=== PATIENT | female | born 1935 | race Caucasian/White ===

== ENCOUNTER → 2018-03-03 11:38 | Outpatient (CLI) | payer OTHER, SELFPAY ==
--- NOTE | 2018-03-03 11:42 | RAD_ITS ---
STUDY: X-RAY CHEST REASON FOR EXAM: Female, 82 years old. 2 week history of cough. TECHNIQUE: PA and lateral views of the chest. COMPARISON: None. FINDINGS: Hyperinflation. Mild increased markings in the right middle lobe and lingular segment of the left upper lobe. This may represent scarring. No definite consolidation is seen. There is no demonstrated pleural abnormality. Normal size heart. Normal mediastinum and ligia. Normal visualized pulmonary arteries. There is atherosclerotic calcification of the aortic arch with tortuosity. There are diffuse degenerative changes of the visualized thoracic spine. Normal visualized ribs, clavicles, and shoulders. There is no demonstrated abnormality of the visualized soft tissue structures of the upper abdomen. RAD/Chest PA and Lateral IMPRESSION: Increased markings at the lung bases as described. This may represent scarring. No focal infiltrate is seen. Electronically Signed: Radu Cabrera MD at 12:45 EDT Tel [phone], Service support ,
== END ==
PROVIDERS: Family Provider Family Medicine; PCP Family Medicine; Visit Provider Physician Assistant
DX: R05 Cough (principal)
CPT/HCPCS: 71046

== ENCOUNTER → 2018-03-25 08:05 | Outpatient (CLI) | payer OTHER, SELFPAY ==
[2018-03-25 12:22] LABS: Absolute Lymphocyte Count 0.96 X10^3/ul (0.83-4.51); Absolute Neutrophil Count 2.5 X10^3/uL (2.0-7.7); Basophil# 0.03 X10^3/uL; Basophil% 0.8 % (0-1); Eosinophils% 5.2 % (0-5); Hematocrit 32.5 % (37-47); Hemoglobin 10.2 g/dl (12.0-15.0); Lymphocyte # 0.96 X10^3/ul (4.0); Lymphocyte % 24.7 % (19-41); Mean Corp Hgb Conc 31.4 g/gl (32-36); Mean Corpuscular Hgb 33.7 pg (27.0-32.0); Mean Corpuscular Volume 107.3 fL (81-99); Mean Platelet Vol. 11.4 fl (6.2-12.0); Monocyte# 0.16 X10^3/uL; Monocyte% 4.1 % (0-10); Neutrophil # 2.53 X10^3/uL (2.7-7.7); Neutrophil % 65.2 % (47-70); Platelet Count 286 K/mm3 (150-450); RBC Distribution Width CV 13.7 % (11.6-14.6); RBC Distribution Width SD 51.7 fl (35.1-43.9); Red Blood Count 3.03 M/mm3 (4.2-5.4); White Blood Count 3.9 K/mm3 (4.4-11.0)
[2018-03-25 12:28] LABS: Microalbumin,Random Urine 6.7 mg/L (NO RANGE EST.); Microalbumin:Creatinine Ratio 9.9 mg/g CRE (<30 mg/g CRE)
[2018-03-25 12:32] LABS: POSITIVE COUNT NO; POSITIVE DIFFERENTIAL NO; POSITIVE MORPHOLOGY NO
[2018-03-25 12:35] LABS: Hemoglobin A1c 5.9 % (4.2-6.3)
[2018-03-25 12:40] LABS: ALB/GLOB Ratio 1.4 RATIO (0.9-2.4); AST(SGOT) 28 U/L (15-37); Alanine Aminotransfer ALT/SGPT 24 U/L (13-56); Albumin, Serum 3.7 g/dL (3.2-5.0); Alkaline Phosphatase 55 U/L (45-117); Anion Gap 7 (5-15); BUN 24 mg/dL (7-18); BUN/Creat Ratio 22.6 RATIO (10-20); Calcium,Total 8.9 mg/dL (8.5-10.1); Chloride 107 mmol/L (98-107); Cholesterol 163 mg/dL (200); Creatinine, Serum 1.06 mg/dL (0.55-1.02); EST Glomerular Filtration Rate 53 mL/min (>60); Est Glom Filt Rate - Afr Amer 64 mL/min (>60); Globulin 2.7 g/dL (2.2-4.2); Glucose 93 mg/dL (74-106); High Density Lipoprotein 87 mg/dL; Potassium 4.3 mmol/L (3.5-5.1); Protein, Total 6.4 g/dL (6.4-8.2); Sodium Level 143 mmol/L (136-145); Thyroid Stim Hormone (TSH) 2.59 uIU/mL (0.358-3.74); Triglycerides 66 mg/dL; Very Low Density Lipoprotein 13 mg/dL (5-40)
== END ==
PROVIDERS: Family Provider Family Medicine; PCP Family Medicine; Visit Provider Family Medicine
DX: E11.9 Type 2 diabetes mellitus without complications (principal); E78.5 Hyperlipidemia, unspecified; E03.9 Hypothyroidism, unspecified; I10 Essential (primary) hypertension
CPT/HCPCS: 36415; 80053; 80061; 82043; 82570; 83036; 84443; 85025

== ENCOUNTER 2018-04-18 20:29 | Observation (INO) | payer MEDICARE, SELFPAY ==
[2018-04-18 20:30] VITALS: BP 125/69; PULSE 79; RESP 18; TEMP 36.9; O2SAT 100; BMI 20.9
[2018-04-18 21:25] LABS: Absolute Lymphocyte Count 1.59 X10^3/ul (0.83-4.51); Absolute Neutrophil Count 2.8 X10^3/uL (2.0-7.7); Basophil# 0.02 X10^3/uL; Basophil% 0.4 % (0-1); Eosinophil# 0.16 X10^3/uL; Eosinophils% 3.4 % (0-5); Hematocrit 35.7 % (37-47); Hemoglobin 11.8 g/dl (12.0-15.0); Lymphocyte # 1.59 X10^3/ul (4.0); Lymphocyte % 33.9 % (19-41); Mean Corp Hgb Conc 33.1 g/gl (32-36); Mean Corpuscular Hgb 34.3 pg (27.0-32.0); Mean Corpuscular Volume 103.8 fL (81-99); Mean Platelet Vol. 9.1 fl (6.2-12.0); Monocyte% 2.1 % (0-10); Neutrophil # 2.81 X10^3/uL (2.7-7.7); POSITIVE COUNT NO; POSITIVE DIFFERENTIAL NO; POSITIVE MORPHOLOGY NO; Platelet Count 325 K/mm3 (150-450); RBC Distribution Width CV 13.8 % (11.6-14.6); RBC Distribution Width SD 52.5 fl (35.1-43.9); Red Blood Count 3.44 M/mm3 (4.2-5.4); White Blood Count 4.7 K/mm3 (4.4-11.0)
[2018-04-18 21:28] VITALS: BP 162/73; PULSE 69; RESP 18; O2SAT 97
[2018-04-18 21:34] LABS: Bacteria 0 SEEN /hpf (None Seen); Mucous, Urine 0 SEEN /hpf (<or=2+); Red Blood Cells-Urine 0 SEEN /hpf (0-5); Squamous Epithelial Cells - UA 0 SEEN /hpf (5-10)
[2018-04-18 21:45] LABS: Anion Gap 8 (5-15); BUN 22 mg/dL (7-18); BUN/Creat Ratio 21.8 RATIO (10-20); Calcium,Total 10.2 mg/dL (8.5-10.1); Chloride 104 mmol/L (98-107); Creatinine, Serum 1.01 mg/dL (0.55-1.02); EST Glomerular Filtration Rate 56 mL/min (>60); Est Glom Filt Rate - Afr Amer 68 mL/min (>60); Estimated Creatinine Clearance 31.38 ml/min; Glucose 89 mg/dL (74-106); Potassium 3.9 mmol/L (3.5-5.1); Sodium Level 140 mmol/L (136-145)
[2018-04-18 21:52] LABS: Color, Urine Straw (Yellow); Glucose, Dipstick Normal (Normal); Ketone-Dipstick Negative (Negative); Leukocyte Esterase-Dipstick Negative /ul (Negative); Nitrite-Dipstick Negative (Negative); Occult Blood-Urine Negative /ul (Negative); Protein-Dipstick Negative (Negative); Specific Gravity, Urine 1.005 (1.002-1.030); Urine Bilirubin Dipstick Negative (Negative); Urine Clarity Clear (Clear); Urine Urobilinogen Normal (Normal)
--- NOTE | 2018-04-18 21:58 | RAD_ITS ---
STUDY: X-RAY CHEST REASON FOR EXAM: Female, 82 years old. Chest pain TECHNIQUE: Single AP portable view of the chest. COMPARISON: Prior chest radiograph of March 03, 2018. FINDINGS: Lung bernstein are well expanded to mildly hyperexpanded without consolidation, focal atelectasis or pleural effusion. There is no demonstrated pleural abnormality. Normal size heart. Normal mediastinum and ligia. Normal visualized pulmonary arteries. There is atherosclerotic calcification of the aortic arch with tortuosity. There are diffuse degenerative changes of the visualized thoracic spine with demineralized osseous structures. Normal visualized ribs, clavicles, and shoulders. There is no demonstrated abnormality of the visualized soft tissue structures of the upper abdomen. RAD/Chest 1 View (Portable) IMPRESSION: No acute cardiopulmonary findings or changes. Mild hyperexpansion without consolidation, atelectasis, cardiomegaly or pleural effusion. Electronically Signed: Hazel Espinoza MD at 22:35 EDT , Service support ,
--- NOTE | 2018-04-18 21:58 | EKG12_ITS ---
Test Reason : INDIGESTION Blood Pressure : / mmHG Vent. Rate : 073 BPM Atrial Rate : 073 BPM P-R Int : 172 ms QRS Dur : 100 ms QT Int : 412 ms P-R-T Axes : 055 -14 049 degrees QTc Int : 453 ms Poor data quality, interpretation may be adversely affected Normal sinus rhythm Nonspecific ST abnormality Abnormal ECG Confirmed by BOYD BAY, JUAN ([id number]), supervising editor trailer SMILEY BLAIR ([id number]) on 04/20/2018 3:03:16 PM Referred By: Confirmed By:JUAN NIX MD
[2018-04-18 22:00] LABS: White Blood Cells 0-5 SEEN /hpf (0-5)
--- NOTE | 2018-04-18 22:03 | ED.RN ---
NO OLD EKG'S IN MUSE
[2018-04-18 22:20] VITALS: BP 125/75; PULSE 74; RESP 14; O2SAT 97
[2018-04-18 22:22] VITALS: BP 138/73; PULSE 75
[2018-04-18] MEDS: 0.9% Normal Saline 1,000 ML 150 ML IV (22:22)
[2018-04-18] MEDS: Aspirin 81 MG TAB.CHEW 324 MG PO (22:22)
[2018-04-18 22:51] VITALS: BP 125/75; PULSE 68
[2018-04-18] MEDS: Nitroglycerin Oint 1 INCH PACKET TRANSDERM. (22:51)
--- NOTE | 2018-04-18 22:59 | ED.VISSUMM ---
- ER Visit Summary Date of Service: 04/18/18 Chief Complaint: [Chest/abdominal pain.] History of Present Illness: The patient is a 82 F [presents the emergency department with complaint of she thought was indigestion that started around 6 PM. Patient describes a discomfort in the epigastric and retrosternal area that she describes as a squeezing or tightness. Patient states that she has had somewhat similar symptoms in the past but in the past when she has taken Pepcid it would resolve the discomfort. Tonight the discomfort would not go away and it was more intense than ever. Patient denies eating anything spicy, acidic, or greasy. Patient states that in the past when she has had discomfort like this she has had some radiation into her arms. Patient denies any shortness of breath or diaphoresis. Patient does state that she walks for 5 days a week for several miles a day and typically does not experience chest pain or shortness of breath. Patient has a history of diabetes, hypertension, high cholesterol. Patient has not had any cardiac workup in the past. She does not have any cardiac history.] Physical Examination: [HEENT-PERRLA, EOMI. Cranial nerves II through XII grossly intact. TMs clear. Mucous membranes moist. No adenopathy. Cardiovascular-regular rate and rhythm without murmur or ectopy Lungs-clear to auscultation, chest wall stable without crepitus or subcu emphysema Abdomen-normoactive bowel sounds, soft, nontender, no rebound or rigidity, no peritoneal signs. Extremities-intact ?4, normal range of motion, normal pulses, atraumatic Test Results: [EKG obtained on arrival showed a sinus rhythm with a ventricular rate of 73 bpm. Patient had nonspecific ST changes with some subtle ST depression in leads I and aVL. No old EKGs available for comparison. CBC with differential showed a white count of 4.7, hemoglobin 11.8, hematocrit 36, platelets 325. Chemistries unremarkable. Urinalysis was normal. Troponin was less than 0.015. Chest x-ray showed nothing acute.] Emergency Department Course and Treatment: [Patient received aspirin on arrival. Patient also received 1 sublingual nitroglycerin which completely resolved her pain.] Treatment Plan: [Admit for further workup and evaluation of her chest pain to rule out acute coronary syndrome] Disposition: [Admit Impression: [Chest pain-rule out acute coronary syndrome] This note was generated with [employer] dictation software. It may contain incorrect words, spelling, and punctuation that were not noted in review of the chart prior to signing ED Disposition - Plan for ED Patient: Chief Complaint: Abd Pain Referrals: Everardo Garcia DO [Primary Care Provider] -
--- NOTE | 2018-04-18 23:00 | HP.PCM_ITS ---
Problem List (1) GERD (gastroesophageal reflux disease) Status: Acute (2) HTN (hypertension) Status: Chronic (3) DMII (diabetes mellitus, type 2) Status: Acute History of Present Illness Date of Admission: 04/18/18 Chief Complaint: Chest pain The patient is a 82 year old female w/ h/o DMII, HTN, and GERD admitted for chest pain. Pt has been having indigestion for months to years. She usually get an episode of indigestion at least once a week. It is usually relieved with pepcid. In the past, it is sometimes associated with retrosternal area that she describes as a squeezing or tightness. However, this time, her indigestion in the epigastric area was not relieved with pepcid. Symptoms persisted longer than usual. Nothing made it worse or better. It was not associated with chest pain or diaphoresis. No radiation of pain. Because of past symptoms were concerning for possible heart attack, she came into the ED for further workup. Past Medical History Past Medical History (Chronic Problems): Chronic Problems (Last Updated 03/03/18 @ 11:46 by Shayla Villatoro) HTN (hypertension) (Chronic) Allergies Sulfa (Sulfonamide Antibiotics) Allergy (Verified 04/18/18 20:33) Unknown Home Medications: Ambulatory Orders Medication Instructions Recorded atorvastatin 20 mg tablet 40 mg PO QDAY 03/03/18 hydrochlorothiazide 25 mg tablet 25 mg PO QAM 03/03/18 levothyroxine 175 mcg tablet 87.5 mcg PO DAILY 03/03/18 lisinopril 5 mg tablet 5 mg PO QDAY 03/03/18 metformin 1,000 mg tablet 1,000 mg PO BID 03/03/18 verapamil ER 360 mg 24 hr 180 mg PO DAILY 03/03/18 capsule,extended release Surgical History: no surgical history Psychiatric History: No pertinent psych hx 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 Denies: Abdominal Pain, Nausea, Vomiting Genitourinary: Denies: Dysuria Musculoskeletal: Denies: Joint Pain, Joint Tenderness Skin: Denies: Rash, Wounds Neurological: Denies: Numbness, Tingling, Focal weakness Psychiatric: Denies: Anxiety, Depression, Homicidal Ideations, Suicidal Ideations Hematologic/ Lymphatic: Denies: Easy Bruising, Easy Bleeding VTE Information - Inpt Only VTE Present on Admission: No VTE Mechan Device Prophylaxis: SCD's VTE Pharm Prophylaxis ordered?: Yes Patient Problems: Active and Suspected Problems (Last Updated 03/03/18 @ 11:46 by Shayla Villatoro) GERD (gastroesophageal reflux disease) (Acute) DMII (diabetes mellitus, type 2) (Acute) - Physical Exam General: Alert, Oriented x3, Cooperative HEENT: Atraumatic, PERRLA, EOMI, Normocephalic Neck: Supple, No JVD, Negative Carotid Bruits Lungs: Clear to auscultation, Normal air movement Cardiovascular: Regular rate, No murmurs Abdomen: Bowel Sounds Present, Soft, Non Tender Extremities: No edema, Capillary Refill Less than 3 Seconds Skin: No rashes, No breakdown Musculoskeletal: No Tenderness to Palpation of Joints or Extremities Neurological: Cranial nerves II-XII grossly intact Psych/Mental Status: Normal Affect, Appropriate Vital Signs Temp Pulse Resp BP Pulse Ox 98.5 F 68 14 125/75 H 97 04/18/18 20:30 04/18/18 22:51 04/18/18 22:20 04/18/18 22:51 04/18/18 22:20 Oxygen Delivery Method Room Air Weight: 48.7 kg Body Mass Index (BMI) 20.9 Laboratory Tests Past 24 Hrs 04/18/18 04/18/18 04/18/18 21:15 21:15 21:16 WBC 4.7 RBC 3.44 L Hgb 11.8 L Hct 35.7 L MCV 103.8 H MCH 34.3 H MCHC 33.1 RDW 13.8 RDW Differential 52.5 H Plt Count 325 MPV 9.1 Immature Gran % (Auto) 0.200 Neut % (Auto) 60.0 Lymph % (Auto) 33.9 Scurry % (Auto) 2.1 Eos % (Auto) 3.4 Baso % (Auto) 0.4 Absolute Neuts (auto) 2.8 Absolute Lymphs (auto) 1.59 Total Counted Not Reportable Sodium 140 Potassium 3.9 Chloride 104 Carbon Dioxide 28.0 Anion Gap 8 BUN 22 H Creatinine 1.01 Estim Creat Clear Calc 31.38 Est GFR (MDRD) Af Amer 68 Est GFR (MDRD) Non-Af 56 L BUN/Creatinine Ratio 21.8 H Glucose 89 Calcium 10.2 H Troponin I Urine Color Straw Urine Clarity Clear Urine pH 7.0 Ur Specific [place] 1.005 Urine Protein Negative Urine Glucose (UA) Normal Urine Ketones Negative Urine Occult Blood Negative Urine Nitrite Negative Urine Bilirubin Negative Urine Urobilinogen Normal Ur Leukocyte Esterase Negative Urine RBC 0 SEEN Urine WBC 0-5 SEEN Ur Squamous Epith Cells 0 SEEN Urine Bacteria 0 SEEN Urine Mucus 0 SEEN 04/18/18 21:20 WBC RBC Hgb Hct MCV MCH MCHC RDW RDW Differential Plt Count MPV Immature Gran % (Auto) Neut % (Auto) Lymph % (Auto) Scurry % (Auto) Eos % (Auto) Baso % (Auto) Absolute Neuts (auto) Absolute Lymphs (auto) Total Counted Sodium Potassium Chloride Carbon Dioxide Anion Gap BUN Creatinine Estim Creat Clear Calc Est GFR (MDRD) Af Amer Est GFR (MDRD) Non-Af BUN/Creatinine Ratio Glucose Calcium Troponin I < 0.015 Urine Color Urine Clarity Urine pH Ur Specific [place] Urine Protein Urine Glucose (UA) Urine Ketones Urine Occult Blood Urine Nitrite Urine Bilirubin Urine Urobilinogen Ur Leukocyte Esterase Urine RBC Urine WBC Ur Squamous Epith Cells Urine Bacteria Urine Mucus Assessment/Plan Active and Suspected Problems (Last Updated 03/03/18 @ 11:46 by Shayla Villatoro) GERD (gastroesophageal reflux disease) (Acute) DMII (diabetes mellitus, type 2) (Acute) 82 year old female w/ h/o DMII, HTN, and GERD admitted for chest pain. 1) Chest pain: Heart score [address] changes with possible ST depression in leads I and aVL. Trop negative. Chest xray unremarkable. Will get FLP. Will get ECHO and stress test in AM. C/w ASA, betablocker, statin and ACEI. Will also start protonix. 2) Indigestion: Probably GERD. Will start protonix. 3) DMII: Resume home meds. 4) Prophylaxis: SCD / lovenox.
[2018-04-18 23:27] VITALS: BP 130/71; PULSE 68; RESP 25; O2SAT 96
[2018-04-19] VITALS (10 sets, daily range): BP systolic 134–161; BP diastolic 67–78; PULSE 58–88; RESP 16–18; TEMP 36.3–36.6; O2SAT 92–100; BMI 21.4
--- NOTE | 2018-04-19 01:43 | EKG12_ITS ---
Test Reason : CP Blood Pressure : / mmHG Vent. Rate : 059 BPM Atrial Rate : 059 BPM P-R Int : 178 ms QRS Dur : 092 ms QT Int : 462 ms P-R-T Axes : 097 -18 044 degrees QTc Int : 457 ms Sinus bradycardia Otherwise normal ECG When compared with ECG of 18-APR-2018 20:37, MANUAL COMPARISON REQUIRED, DATA IS UNCONFIRMED Confirmed by BOYD BAY, JUAN ([id number]), industrial editor SMILEY BLAIR ([id number]) on 04/20/2018 3:21:11 PM Referred By: RICARDO Confirmed By:JUAN NIX MD
[2018-04-19 04:18] LABS: Hematocrit 30.2 % (37-47); Hemoglobin 9.7 g/dl (12.0-15.0); Mean Corp Hgb Conc 32.1 g/gl (32-36); Mean Corpuscular Hgb 33.3 pg (27.0-32.0); Mean Corpuscular Volume 103.8 fL (81-99); Mean Platelet Vol. 9.7 fl (6.2-12.0); Platelet Count 256 K/mm3 (150-450); RBC Distribution Width SD 52.9 fl (35.1-43.9); Red Blood Count 2.91 M/mm3 (4.2-5.4)
[2018-04-19 04:19] LABS: Scan Indicated on CBC? Y/N NO
[2018-04-19 04:21] LABS: Prothrombin Time (Protime)PT. 13.4 SECONDS (11.7-14.9)
[2018-04-19 04:33] LABS: Partial Thromboplast Time 23.8 Seconds (24.1-36.2)
[2018-04-19 05:04] LABS: ALB/GLOB Ratio 1.5 RATIO (0.9-2.4); AST(SGOT) 20 U/L (15-37); Alanine Aminotransfer ALT/SGPT 21 U/L (13-56); Albumin, Serum 3.4 g/dL (3.2-5.0); Alkaline Phosphatase 43 U/L (45-117); Anion Gap 9 (5-15); BUN 22 mg/dL (7-18); BUN/Creat Ratio 24.8 RATIO (10-20); Calcium,Total 8.5 mg/dL (8.5-10.1); Chloride 110 mmol/L (98-107); Cholesterol 158 mg/dL (200); Creatinine, Serum 0.89 mg/dL (0.55-1.02); EST Glomerular Filtration Rate 65 mL/min (>60); Est Glom Filt Rate - Afr Amer 79 mL/min (>60); Estimated Creatinine Clearance 35.61 ml/min; Globulin 2.3 g/dL (2.2-4.2); Glucose 87 mg/dL (74-106); High Density Lipoprotein 83 mg/dL; Potassium 3.8 mmol/L (3.5-5.1); Protein, Total 5.7 g/dL (6.4-8.2); Sodium Level 144 mmol/L (136-145); Thyroid Stim Hormone (TSH) 2.55 uIU/mL (0.358-3.74); Triglycerides 58 mg/dL; Very Low Density Lipoprotein 12 mg/dL (5-40)
[2018-04-19] MEDS: Levothyroxine 175 MCG Tablet 87.5 MCG PO (05:51)
[2018-04-19] MEDS: Lisinopril 5 MG Tablet PO (05:51)
[2018-04-19] MEDS: Aspirin E.C. 81 MG Tablet PO (05:51)
[2018-04-19] MEDS: 0.9% Normal Saline 1,000 ML 150 ML IV (05:52)
--- NOTE | 2018-04-19 05:55 | ECHOD_ITS ---
Reason For Study: CHEST PAIN Procedure This was a 2D Doppler, Color Flow transthoracic echocardiogram. Exam performed in department. Left Ventricle Normal LV size. Left ventricular systolic function is normal. The estimated ejection fraction is 70 %. Transmitral diastolic flow velocities suggest mild (stage 1) diastolic dysfunction (reversed pattern). No regional wall motion abnormalities noted. Right Ventricle Normal RV size. Normal systolic function. Atria Normal left atrium. Normal right atrium. Mitral Valve Normal mitral valve. Mild (1+) eccentric mitral valve insufficiency. Tricuspid Valve Normal tricuspid valve. Mild to moderate (1-2+) tricuspid valve insufficiency. Pulmonary artery systolic pressure is 50 mmHg. Mild pulmonary hypertension. Aortic Valve Normal aortic valve. Pulmonic Valve Normal pulmonic valve. Great Vessels Normal aortic root. The pulmonary artery is normal size. Normal inferior vena cava. Pericardium/Pleural No pericardial effusion. MMode/2D Measurements & Calculations LVIDd: 4.4 cm IVSd: 0.99 cm LVOT diam: 2.0 cm LVIDs: 3.1 cm LVPWd: 1.0 cm LVOT area: 3.1 cm2 RVDd: 3.2 cm FS: 29.8 % Ao root diam: 2.7 cm LAV(MOD-bp): 44.0 ml LA A4 area: 16.8 cm2 LA dimension: 3.6 cm LAV(MOD-bp) Indexed: 30.7 ml/m2 LAV(MOD-sp2): 44.6 ml LAV(MOD-sp4): 43.3 ml RA A4 area: 12.4 cm2 Doppler Measurements & Calculations MV E max dieudonne: 89.3 cm/sec Lat Peak E' Dieudonne: 8.3 cm/sec Med Peak E' Dieudonne: 8.3 cm/sec MV A max dieudonne: 137.9 cm/sec E/E' lat: 10.7 E/E' med: 10.7 MV E/A: 0.65 Ao V2 max: 201.8 cm/sec LV V1 max: 138.1 cm/sec SV(LVOT): 94.6 ml Ao max P.3 mmHg LV V1 max P.7 mmHg Ao V2 mean: 140.2 cm/sec LV V1 mean P.3 mmHg Ao mean P.6 mmHg LV V1 mean: 100.1 cm/sec Ao V2 VTI: 42.0 cm LV V1 VTI: 30.1 cm TRACY(I,D): 2.3 cm2 TRACY(V,D): 2.2 cm2 PA V2 max: 122.2 cm/sec TR max dieudonne: 332.9 cm/sec TR max P.4 mmHg Interpretation Summary Normal LV size. Left ventricular systolic function is normal. The estimated ejection fraction is 70 %. Transmitral diastolic flow velocities suggest mild (stage 1) diastolic dysfunction (reversed pattern). Pulmonary artery systolic pressure is 50 mmHg. Mild pulmonary hypertension. Ordering Physician: Basil Rowe Referring Physician: Dave Darnell Performed By: Gela Miller RDCS, RVT
[2018-04-19 06:55] LABS: Bedside Glucose 88 mg/dL (70-110)
[2018-04-19] MEDS: Pantoprazole Sodium 40 MG Tablet PO (12:40)
[2018-04-19] MEDS: Carvedilol 6.25 MG Tablet PO (12:40)
[2018-04-19] MEDS: Verapamil SR 180 MG CAPSULE PO (12:40)
[2018-04-19] MEDS: hydroCHLOROthiazide 25 MG Tablet PO (12:40)
--- NOTE | 2018-04-19 13:14 | STRESSREP_ITS ---
Stress Test Report Pharmacologic myocardial perfusion stress test. 82-year-old lady with a history of chest pain. Medications: Coreg Lipitor aspirin Synthroid Zestril Protonix hydrochlorothiazide. Stress protocol: Resting EKG demonstrates 6 normal sinus rhythm with rate of 64 bpm normal intervals and noted 0.4 mg regadenoson was infused per usual protocol followed by rapid intravenous saline flush injection continuous EKG monitoring was performed. Patient maintained sinus rhythm throughout the recording with occasional premature ventricular complexes noted. The maximum heart rate attained was 104 bpm which was 74% of maximum predicted heart rate the maximum workload attained was 1 metabolic equivalent. At rest there were no ST or T- wave changes noted suggest ischemia at peak infusion no ST or T-wave changes were noted to suggest ischemia. The resting blood pressure was 118/82 with a peak blood pressure 146/78. Myocardial perfusion protocol. 10.9 mCi of technetium 99m sestamibi was injected at rest. 0.4 mg of adenosine was infused per usual protocol peak infusion 33.0 mCi of technetium 99m sestamibi was injected at rest. Stress and rest images were reconstructed and compared in short axis, horizontal long and vertical long axis. Gated images were also obtained. Perfusion SPECT analysis: Review of the stress images demonstrate normal uptake of tracer noted in all areas of the myocardium. The resting images similarly demonstrate normal uptake of tracer noted in all areas of the myocardium. No areas of reversibility are noted suggest ischemia no previous infarct is noted. Gated SPECT analysis: The gated ejection fraction is noted to be 76%. Conclusion: Normal pharmacologic myocardial perfusion stress test. Preserved ejection fraction.
[2018-04-19] MEDS: Enoxaparin 40 MG/0.4 ML Syringe SC (13:31)
--- NOTE | 2018-04-19 13:45 | PCM.DC ---
- Discharge Diagnoses Current Active Problems: Current Active and Chronic Problems (Last Updated 03/03/18 @ 11:46 by Shayla Villatoro) GERD (gastroesophageal reflux disease) (Acute) HTN (hypertension) (Chronic) DMII (diabetes mellitus, type 2) (Acute) You will use the following diet at home:: No restrictions Your food should be the consistency of: Regular Your liquids should be the consistency of: Regular/Thin Discharge Activity: Return to Normal Activity Weight Bearing Status: Full weight bearing Allergies/Adverse Reactions: Allergies Sulfa (Sulfonamide Antibiotics) Allergy (Verified 04/18/18 20:33) Unknown Medications to take at Discharge atorvastatin 20 mg tablet 40 mg PO QDAY 03/03/18 hydrochlorothiazide 25 mg tablet 25 mg PO QAM 03/03/18 levothyroxine 175 mcg tablet 87.5 mcg PO DAILY 03/03/18 lisinopril 5 mg tablet 5 mg PO QDAY 03/03/18 metformin 1,000 mg tablet 1,000 mg PO BID 03/03/18 verapamil ER 360 mg 24 hr capsule,extended release 180 mg PO DAILY 03/03/18 Primary Care Physician: Everardo Garcia DO [Primary Care Provider] - Please follow up with your Primary Care Physician in: in 2-3 weeks
--- NOTE | 2018-04-20 19:09 | PCM.DC.SUM ---
Discharge Date and Diagnosis Date of Admission: 04/18/18 Date of Discharge: 04/19/18 - Primary Discharge Diagnosis #1 musculoskeletal chest pain #2 Type 2 diabetes #3 mild pulmonary hypertension - Secondary Discharge Diagnosis Chronic Problems (Last Updated 03/03/18 @ 11:46 by Shayla Villatoro) HTN (hypertension) (Chronic) Hospital Course and Treatment Operations: None Procedures: 2-D Echocardiogram, Nuclear stress test Summary of Care Provided: The patient is a 82 year old F who was seen in the emergency room at [facility] with chief complaint of discomfort in the epigastric and retrosternal area that she described as a squeezing or tightness. Workup in the emergency room included an EKG which showed normal sinus rhythm with a rate of 73 bpm, there were nonspecific ST-T wave changes in leads I and aVL. CBC was unremarkable, chemistries were unremarkable, troponin was less than 0.015. Chest x-ray showed no acute process, urinalysis was unremarkable. Patient received aspirin on arrival to the emergency room and 1 sublingual nitroglycerin which resolved the patient's chest discomfort. Patient was placed in observation status on PCU, serial isoenzymes were obtained and these were unremarkable, patient had an echocardiogram performed which showed a normal ejection fraction with evidence of mild pulmonary hypertension, patient underwent a pharmacological nuclear stress test which was negative for reversible ischemia. On 04/19/18, patient was seen and examined felt in stable condition for discharge home Discharge Activity: Return to Normal Activity Weight Bearing Status: Full weight bearing Home Medications: Medications to take at Discharge atorvastatin 20 mg tablet 40 mg PO QDAY 03/03/18 hydrochlorothiazide 25 mg tablet 25 mg PO QAM 03/03/18 levothyroxine 175 mcg tablet 87.5 mcg PO DAILY 03/03/18 lisinopril 5 mg tablet 5 mg PO QDAY 03/03/18 metformin 1,000 mg tablet 1,000 mg PO BID 03/03/18 verapamil ER 360 mg 24 hr capsule,extended release 180 mg PO DAILY 03/03/18 Primary Care Physician: Everardo Garcia DO [Primary Care Provider] - Please follow up with your Primary Care Physician in: in 2-3 weeks Disposition: Home Minutes spent on discharge:: 25 Patient Condition:: Stable Medical Necessity - Tobacco Use Smoking Status: Never smoker Meaningful Use Info Meaningful Use Diagnoses (Choose all that apply): None applicable Code Visit OBSV E&M: 90876 Observation care discharge
== END 2018-04-19 13:46 | disposition home or self-care (01) ==
LOC: ED 04-19 00:12 → PCU 04-19 00:42
PROVIDERS: Admitting Provider Internal Medicine; Emergency Provider Emergency Medicine; Family Provider Family Medicine; PCP Family Medicine; Visit Provider Internal Medicine
DX: R07.89 Other chest pain (principal); E11.9 Type 2 diabetes mellitus without complications; I10 Essential (primary) hypertension; E78.00 Pure hypercholesterolemia, unspecified; K21.9 Gastro-esophageal reflux disease without esophagitis; Z79.899 Other long term (current) drug therapy; Z79.84 Long term (current) use of oral hypoglycemic drugs; I27.20 Pulmonary hypertension, unspecified
CPT/HCPCS: 36415; 71045; 78452; 80048; 80053; 80061; 81001; 82962; 84443; 84484; 85025; 85027; 85610; 85730; 93005; 93017; 93306; 96360; 96361; 96372; 99218; 99285; A9500; J7030; A4216; G0378; J2785

== ENCOUNTER → 2019-03-24 09:23 | Outpatient (CLI) | payer MEDICARE, SELFPAY ==
[2019-03-24 12:16] LABS: Absolute Lymphocyte Count 0.68 X10^3/ul (0.83-4.51); Absolute Neutrophil Count 3.1 X10^3/uL (2.0-7.7); Basophil# 0.02 X10^3/uL; Basophil% 0.5 % (0-1); Eosinophil# 0.08 X10^3/uL; Hematocrit 35.7 % (37-47); Hemoglobin 11.6 g/dl (12.0-15.0); Lymphocyte # 0.68 X10^3/ul (4.0); Lymphocyte % 17.1 % (19-41); Mean Corp Hgb Conc 32.5 g/gl (32-36); Mean Corpuscular Hgb 34.1 pg (27.0-32.0); Mean Platelet Vol. 11.4 fl (6.2-12.0); Monocyte# 0.14 X10^3/uL; Monocyte% 3.5 % (0-10); Neutrophil # 3.05 X10^3/uL (2.7-7.7); Neutrophil % 76.6 % (47-70); Platelet Count 276 K/mm3 (150-450); RBC Distribution Width CV 12.8 % (11.6-14.6); RBC Distribution Width SD 47.9 fl (35.1-43.9)
[2019-03-24 12:20] LABS: POSITIVE COUNT NO; POSITIVE DIFFERENTIAL NO; POSITIVE MORPHOLOGY NO
[2019-03-24 12:41] LABS: Vitamin B12 801 pg/mL (211-911)
[2019-03-24 12:45] LABS: ALB/GLOB Ratio 1.9 RATIO (0.9-2.4); AST(SGOT) 20 U/L (15-37); Alanine Aminotransfer ALT/SGPT 21 U/L (13-56); Albumin, Serum 4.4 g/dL (3.2-5.0); Alkaline Phosphatase 56 U/L (45-117); Anion Gap 8 (5-15); BUN 31 mg/dL (7-18); BUN/Creat Ratio 25.6 RATIO (10-20); Calcium,Total 9.3 mg/dL (8.5-10.1); Chloride 104 mmol/L (98-107); Cholesterol 202 mg/dL (200); Creatinine, Serum 1.21 mg/dL (0.55-1.02); EST Glomerular Filtration Rate 45 mL/min (>60); Est Glom Filt Rate - Afr Amer 55 mL/min (>60); Ferritin 23 ng/mL (8-252); Globulin 2.3 g/dL (2.2-4.2); Glucose 116 mg/dL (74-106); High Density Lipoprotein 111 mg/dL; Iron 82 ug/dL (50-170); Potassium 3.8 mmol/L (3.5-5.1); Protein, Total 6.7 g/dL (6.4-8.2); Sodium Level 141 mmol/L (136-145); T4 Free Direct 0.96 ng/dL (0.76-1.46); Thyroid Stim Hormone (TSH) 2.48 uIU/mL (0.358-3.74); Triglycerides 100 mg/dL; Very Low Density Lipoprotein 20 mg/dL (5-40)
[2019-03-30 12:38] LABS: Creatinine, Urine (random) < 13.00 mg/dL (NO RANGE EST.); Microalbumin,Random Urine 8.8 mg/L (NO RANGE EST.)
== END ==
PROVIDERS: Family Provider Family Medicine; PCP Family Medicine; Visit Provider Family Medicine
DX: I12.9 Hypertensive chronic kidney disease with stage 1 through stage 4 chronic kidney disease, or unspecified chronic kidney disease (principal); E11.22 Type 2 diabetes mellitus with diabetic chronic kidney disease; N18.3 Chronic kidney disease, stage 3 (moderate); E78.5 Hyperlipidemia, unspecified; E03.9 Hypothyroidism, unspecified; D53.9 Nutritional anemia, unspecified; D72.819 Decreased white blood cell count, unspecified; M06.9 Rheumatoid arthritis, unspecified
CPT/HCPCS: 36415; 80053; 80061; 82043; 82570; 82607; 82728; 83036; 83540; 84439; 84443; 85025

== ENCOUNTER → 2019-05-12 13:06 | Outpatient (CLI) | payer MEDICARE, SELFPAY ==
--- NOTE | 2019-05-12 13:29 | MRI_ITS ---
STUDY: MRI LUMBAR SPINE WITHOUT CONTRAST REASON FOR EXAM: Female, 83 years old. Low back pain, right leg pain and sciatica. TECHNIQUE: Standardized fat and water weighted pulse sequences were obtained in the sagittal and axial planes. COMPARISON: None FINDINGS: T12-L1: Normal endplates. Normal disc height, hydration and morphology. Normal bilateral facet joints. Normal central canal and bilateral lateral recesses. Normal bilateral intervertebral neural foramina. Normal lumbar lordosis. Mild levoscoliosis of lumbar spine centered at L3. Normal conus medullaris that terminates at the L1. Heterogeneous marrow signal the lumbar spine and sacrum suggestive of marrow regeneration likely from chronic hypoventilation, lung disease, or anemia. L1-2: Normal endplates. Normal disc height, hydration and morphology. Normal bilateral facet joints. Normal central canal and bilateral lateral recesses. Normal bilateral intervertebral neural foramina. L2-3: Mild bilateral facet hypertrophy and moderate ligament flavum hypertrophy. Mild bilobed disc protrusion produces mild spinal stenosis and mild bilateral neural foraminal stenosis. L3-4: Normal endplates. Normal disc height, hydration and morphology. Normal bilateral facet joints. Normal central canal and bilateral lateral recesses. Normal bilateral intervertebral neural foramina. L4-5: Severe bilateral facet hypertrophy and moderate ligament flavum hypertrophy. 5 mm of anterolisthesis of L4 and L5 with a moderate broad disc protrusion produces severe spinal stenosis with moderate bilateral lateral recess stenosis with abutment of the L5 nerve roots bilaterally and moderate left neural foraminal stenosis with abutment of the exiting left L4 nerve root and severe right neural foraminal stenosis with effacement of the right L4 nerve root. L5-S1: Normal endplates. Normal disc height, hydration and morphology. Normal bilateral facet joints. Normal central canal and bilateral lateral recesses. Normal bilateral intervertebral neural foramina. Normal visualized sacral ala. Normal visualized paraspinous soft tissue structures. MRI/Spine Lumbar (Routine) IMPRESSION: Multilevel degenerative changes, as described above. Electronically Signed: Andrea Galicia MD at 15:40 EDT Tel , Service support ,
== END ==
PROVIDERS: Family Provider Family Medicine; PCP Family Medicine; Referring Provider Family Medicine; Visit Provider Family Medicine
DX: M54.17 Radiculopathy, lumbosacral region (principal)
CPT/HCPCS: 72148

== ENCOUNTER → 2019-08-15 11:01 | Outpatient (CLI) | payer MEDICARE, SELFPAY ==
--- NOTE | 2019-08-15 11:05 | VDLE_ITS ---
Reason For Study: Pain RIGHT LEFT GSV is normal. GSV is normal. CFV is compressible, spontaneous, competent CFV is compressible, spontaneous, competent, and demonstrates pulsatile venous flow. and demonstrates pulsatile venous flow. FV is compressible, spontaneous, competent FV is compressible, spontaneous, competent and demonstrates pulsatile venous flow. and demonstrates pulsatile venous flow. POP V is compressible, spontaneous, competent POP V is compressible, spontaneous, competent and demonstrates pulsatile venous flow. and demonstrates pulsatile venous flow. T/P Trunk is compressible. T/P Trunk is compressible. PTV is compressible. PTV is compressible. RT PerV is compressible. LT PerV is compressible. Procedure Exam performed in department. A preliminary report was called and/or faxed to [facility]. Interpretation Summary Deep veins of the lower extremities are bilaterally patent and compressible segmentally. There is no evidence of deep vein thrombosis on either side. Valvular competence appears intact within the proximal deep venous systems bilaterally. The great saphenous veins appear bilaterally patent and compressible segmentally. Pulsatile flow is noted in the deep venous system bilaterally, which may be indicative of elevated central venous pressure (i.e. congestive heart failure, tricuspid valve insufficiency, etc.). Clinical correlation is advised. Ordering Physician: Joaquina El Referring Physician: Everardo Garcia Performed By: Alisha Castellanos RVT
== END ==
PROVIDERS: Family Provider Family Medicine; PCP Family Medicine; Referring Provider Nurse Practitioner; Visit Provider Nurse Practitioner
DX: M79.604 Pain in right leg (principal); M79.605 Pain in left leg
CPT/HCPCS: 93970

== ENCOUNTER 2019-09-02 09:00 | Outpatient (RCR) | payer MEDICARE, SELFPAY ==
--- NOTE | 2019-07-19 09:30 | HP.PTEVAL ---
Patient's Visit Information MAHESH PIERSON is a 83 year old F referred to Physical Therapy by ROMAIN Camacho with a diagnosis of SPINAL STENOSIS - S/P SX 07/01/19. Date of Evaluation: 07/19/19 Physical Therapist: Petrona Hyde, PT, Cert MDT - Visit Plan Frequency: 2-3x /Week Duration: 4-6 Weeks Plan: POSTURE CORRECTION/STRENGTHENING, INSTRUCTION IN APPROPRIATE BODY MECHANICS AND ACTIVITY MODIFICATIONS. DLS STARTING WITH A NEUTRAL SPINE PROGRESSING ROM TOLERATED STARTING IN 3 WKS. ANA MARÍA LE ROM, STRETCHING AND STRENGTHENING. HEP INSTRUCTION. WEAN FROM BRACE TOLERATED. - Subjective Findings: Work/Leisure: RETIRED. 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 PATIENT REPORTS SHE WALKS A COUPLE MILES EVERY DAY. Disability: NO. Present symptoms: CURRENTLY HAVING ARRIAGA IN THE ENTIRE RIGHT LE. IT WAS HURTING BEFORE SURGERY TOO. RIGHT LE PAIN IS BETTER NOW THAN BEFORE SURGERY. INCREASED RIGHT LE PAIN IN BED THIS MORNING. PATIENT REPORTS SHE CAN'T REMEMBER THE LAST TIME SHE HAD BACK PAIN EXCEPT FOR INCISIONAL PAIN. ALSO HAVING LEFT WRIST PAIN THAT PATIENT RELATES TO HER IV AND THIS PT RECOMMENDED SHE CALL HER DOCTOR ABOUT IT TODAY. NO LLE SX'S. Present since: FEBRUARY 2019. Pain Scale: WORST 7/10, LEAST 0/10. Currently: 3/10. Commenced as a result of: NO APPARENT REASON. Symptoms at onset: RIGHT LE. Worse: IN THE MORNING AND BEFORE GOING TO BED. WALKING, STANDING, SITTING. Better: PAIN MEDICINE. Disturbed sleep: NO. Previous history/Previous treatment: ONE EPISODE OF SCIATICA IN THE PAST. NO REAL SIGNIFICANT HISTORY OF BACK PROBLEMS PER PATIENT REPORT. DID TRY CHIROPRACTOR AND ONE CODEY BEFORE SURGERY. Coughing/sneezing/straining: POSITIVE. Gait: PATIENT REPORTS HER RIGHT LEG IS WEAKER AND SHE HAS LOST SOME OF HER BALANCE. ALSO REPORTS HER WALKING IS SLOWER AND MORE TIME AND DISTANCE LIMITED NOW THAN BEFORE FEBRUARY 2019. Difficulty initiating urinatin: NO. Accidents: NO. Unexplained weight loss: NO. Imaging: NO IMAGING SINCE THE SURGERY. PATIENT REPORTS THAT BEFORE SURGERY SHE HAD TWO DISCS EFFECTED AND THERE WAS ARTHRITIS. PMH: NIDDM, THYROID DZ, HTN, HIGH CHOLESTEROL. Recent major surgery: BILATERAL POSTERIOR HEMILAMINECTOMY, L3,L4,L5 WITH BILATERAL PARTIAL FACETECTOMIES AND FORAMINOTOMIES, L5 POSTEROLATERAL FUSION AND L4-L5 ON 8/2/19. SOCIAL: LIVES WITH WHOM IS RECOVERING FROM CANCER CURRENTLY. LIVES IN ONE STORY HOME. DAUGHTERS ARE TAKING TURNS BEING HERE FROM OUT OF STATE TO HELP. OTHER: PATIENT HAS BEEN WEANING OUT OF BRACE AND IS CURRENTLY ONLY WEARING IT FOR PROLONGED STANDING AND WALKING BUT HAS MAINLY BEEN SITTING. - Objective Sitting/Standing Posture: FAIR. Lordosis: REDUCED. Lateral shift: NO. Relevant shift: N/A. Active Correction of posture: NE. Other Observations: INDEP GAIT INTO PT WITH A MILD LIMP ON THE RIGHT LE. NO AD'S. NO LOB. FAIR CADANCE. Motor deficit: ANA MARÍA LE'S 4-/5 WITH MMT'ING - PROCEEDED CAREFULLY TODAY. Sensory deficit: NO. ROM deficit: ANA MARÍA LE'S WFL. Reflexes: NT. Dural Signs: POSITIVE RIGHT LE. Lumbar mvmt loss: NT. Core strength: POOR. Palpation: INCISION LOOKS GOOD BUT IS QUITE SWOLLEN. IT IS NOT DRAINING AND IS NOT BRIGHT RED OR WARM TO TOUCH. THIS PT ADVISED DAILY MONITORING BY FAMILY MEMBER. - Goals Goal 1:: DECREASE C/O RIGHT LE PAIN Goal Time Frame: 4-6 Weeks Goal 2:: IMPROVE PERSONAL CARE, LIFTING, WALKING, SITTING, STANDING, SOCIAL LIFE, TRAVEL AND HOMEMAKING FUNCTION Goal Time Frame: 4-6 Weeks Goal 3:: INSTRUCT IN PROPHYLAXIS Goal Time Frame: 4-6 Weeks - Rehabilitation Potential Rehabilitation Potential: Fair - Anticipated Interventions Patient/Client Instruction: Educate patient on: Condition, Plan of Care, Risk Factors, Benefits of Fitness Program For the Purpose of:: To improve self management Therapeutic Exercise to Include: Strength training, Body mechanics, Postural training, Dynamic Lumbar Stabilization For the Purpose of:: To decrease pain, To improve muscle performance and motor function, To increase tolerance to activity/condition/position, To improve ability of physical actions for home/community/work/leisure, To improve gait and locomotor functions Cryotherapy (ice pack, ice massage): Yes For the Purpose of:: To decrease pain, To decrease swelling/inflammation Thank you for the opportunity to evaluate your patient. For Medicare and Medicare HMO plans, please review the plan of care and approve it. It will need to be FAXED BACK to us at [phone] for Medicare purposes. For Medicare only, by signing this I certify the plan of care. Please let me know if there are questions or concerns regarding this plan of care. Physician Signature: Date:
--- NOTE | 2019-09-02 09:59 | HP.PTDCSUM ---
HP - PT D/C Summary It has been my pleasure to treat MAHESH PIERSON under orders from ROMAIN Camacho, for the diagnosis of SPINAL STENOSIS - S/P SX 07/01/19 for a total of 10 visit(s). Discharge Date: 09/02/19 Please see the following information for a summary of their discharge status. - Subjective Subjective: PATIENT REPORTS SHE IS ABOUT 70% BETTER. SHE REPORTS LESS LEG PAIN AND MORE STRENGTH IN THE LEG. FOLLOW UP PENDING AT [facility] THURSDAY. PATIENT REPORTS SHE IS COMFORTABLE CONTINUING HER EX'S ON HER OWN AT THIS TIME AND FEELS SHE WILL CONTINUE TO IMPROVE WITH THE EX'S AND TIME. PATIENT REPORTS HER RIGHT TOES ARE STILL TINGLY AND HER RIGHT ANKLE HAS BEEN WEAK SINCE SURGERY OR BEFORE. STATES SHE IS ABLE TO KEEP HER TOES POINTING FORWARD MUCH BETTER NOW THOUGH. HAS TRIPPED OVER HER RIGHT TOES A LITTLE BIT. - Pain RIGHT LE Pain Intensity (Out of 10): 1 - Overall Improvement % Improvement: 70 - Objective Objective/Function: PATIENT HAS MADE GOOD PROGRESS WITH PT. ALL GOALS HAVE BEEN MET AND SHE IS INDEP WITH A HEP BUT SHE STILL HAS RIGHT LE WEAKNESS ESPECIALLY ANKLE DORSIFLEXORS. Pt has improved w/heel to toe gait pattern. Decreased foot slap w/gait. Pt more aware of ex's that will help her cont to progress. Cues to focus on R foot with TM to avoid foot slap. Discussions of progressions to I HEP after formal PT concludes and patient agreeable. New written HEP tasks including: STS, step ups, toe taps, heel/toes raises, SLS balance with pt reporting understanding. Cues throughout for good technique, particularly with abdominal bracing and TKE strength with knee unlocking. RLE stilll fatiguing towards end of Rxs (particularly after LP and during lunges), demo'ing some buckling and LOB, however able to recover with step strategy. - Goals Goal 1:: DECREASE C/O RIGHT LE PAIN Goal Progress: Goal Met Goal 2:: IMPROVE PERSONAL CARE, LIFTING, WALKING, SITTING, STANDING, SOCIAL LIFE, TRAVEL AND HOMEMAKING FUNCTION Goal Progress: Goal Met Goal 3:: INSTRUCT IN PROPHYLAXIS Goal Progress: Goal Met - Plan Plan: D/C TO [facility] AND HEP'S. PATIENT AGREEABLE. - D/C Information If there are questions or concerns regarding this patient's physical therapy, please feel free to call me at [phone]. Thank you for the referral of this patient. Sincerely, Petrona Hyde PT, Cert MDT
--- NOTE | 2019-10-06 15:00 | HP.PTDCSUM ---
HP - PT D/C Summary It has been my pleasure to treat MAHESH PIERSON under orders from ROMAIN Camacho, for the diagnosis of SPINAL STENOSIS - S/P SX 07/01/19 for a total of 10 visit(s). Discharge Date: 09/02/19 Please see the following information for a summary of their discharge status. - Subjective Subjective: PATIENT REPORTS SHE IS ABOUT 70% BETTER. SHE REPORTS LESS LEG PAIN AND MORE STRENGTH IN THE LEG. FOLLOW UP PENDING AT [facility] THURSDAY. PATIENT REPORTS SHE IS COMFORTABLE CONTINUING HER EX'S ON HER OWN AT THIS TIME AND FEELS SHE WILL CONTINUE TO IMPROVE WITH THE EX'S AND TIME. PATIENT REPORTS HER RIGHT TOES ARE STILL TINGLY AND HER RIGHT ANKLE HAS BEEN WEAK SINCE SURGERY OR BEFORE. STATES SHE IS ABLE TO KEEP HER TOES POINTING FORWARD MUCH BETTER NOW THOUGH. HAS TRIPPED OVER HER RIGHT TOES A LITTLE BIT. - Pain RIGHT LE Pain Intensity (Out of 10): 1 - Overall Improvement % Improvement: 70 - Objective Objective/Function: PATIENT HAS MADE GOOD PROGRESS WITH PT. ALL GOALS HAVE BEEN MET AND SHE IS INDEP WITH A HEP BUT SHE STILL HAS RIGHT LE WEAKNESS ESPECIALLY ANKLE DORSIFLEXORS. Pt has improved w/heel to toe gait pattern. Decreased foot slap w/gait. Pt more aware of ex's that will help her cont to progress. Cues to focus on R foot with TM to avoid foot slap. Discussions of progressions to I HEP after formal PT concludes and patient agreeable. New written HEP tasks including: STS, step ups, toe taps, heel/toes raises, SLS balance with pt reporting understanding. Cues throughout for good technique, particularly with abdominal bracing and TKE strength with knee unlocking. RLE stilll fatiguing towards end of Rxs (particularly after LP and during lunges), demo'ing some buckling and LOB, however able to recover with step strategy. - Goals Goal 1:: DECREASE C/O RIGHT LE PAIN Goal Progress: Goal Met Goal 2:: IMPROVE PERSONAL CARE, LIFTING, WALKING, SITTING, STANDING, SOCIAL LIFE, TRAVEL AND HOMEMAKING FUNCTION Goal Progress: Goal Met Goal 3:: INSTRUCT IN PROPHYLAXIS Goal Progress: Goal Met - Plan Plan: D/C TO INDEP GYM AND HEP'S. PATIENT AGREEABLE. - D/C Information If there are questions or concerns regarding this patient's physical therapy, please feel free to call me at [phone]. Thank you for the referral of this patient. Sincerely, Petrona Hyde PT, Cert MDT
== END 2019-09-02 19:00 | disposition home or self-care (01) ==
LOC: PT 09:00
PROVIDERS: Family Provider Family Medicine; PCP Family Medicine; Referring Provider Nurse Practitioner Acute Care; Visit Provider Nurse Practitioner Acute Care
DX: M48.061 Spinal stenosis, lumbar region without neurogenic claudication (principal)
CPT/HCPCS: 97110; 97162; 97530

== ENCOUNTER → 2019-09-16 08:52 | Outpatient (CLI) | payer MEDICARE, SELFPAY ==
[2019-09-16 13:12] LABS: Creatinine, Serum 1.16 mg/dL (0.55-1.02); EST Glomerular Filtration Rate 47 mL/min (>60); Est Glom Filt Rate - Afr Amer 57 mL/min (>60)
== END ==
PROVIDERS: Family Provider Family Medicine; PCP Family Medicine
DX: M43.16 Spondylolisthesis, lumbar region (principal)
CPT/HCPCS: 36415; 82565

== ENCOUNTER → 2019-09-20 10:05 | Outpatient (CLI) | payer MEDICARE, SELFPAY ==
[2018-04-19 01:14] VITALS: BMI 21.4
--- NOTE | 2019-09-20 10:13 | MRI_ITS ---
STUDY: MRI LUMBAR SPINE WITH AND WITHOUT CONTRAST REASON FOR EXAM: Female, 84 years old. Right leg pain and weakness. Spondylolisthesis. TECHNIQUE: Standardized fat and water weighted pulse sequences were obtained in the sagittal and axial planes. IV Dotarem 9 was administered for the contrast portion of the examination. COMPARISON: 05/12/2019. FINDINGS: T10-T11: (Sagittal only). Normal T10 inferior endplate. Minimal anterior wedging of T11 superior endplate is unchanged. Normal disc space height and morphology. Normal central canal and bilateral intervertebral neural foramina. T11-T12: (Sagittal only). Normal T11 inferior endplate. Prominent Schmorl's node in the anterior aspect of the upper T12 vertebral body. Moderate disc space height narrowing. No ventral extradural defect. Normal central canal and bilateral intervertebral neural foramina. T12-L1: (Sagittal only). Minimal anterior marginal spurs. Normal endplates. Normal disc height, hydration and morphology. Normal central canal and bilateral intervertebral neural foramina. Normal lumbar lordosis. There is no substantial scoliosis. Normal conus medullaris that terminates at the mid T12 vertebral body level. L1-2: Normal endplates. Normal disc height, hydration and morphology. Normal bilateral facet joints. Normal central canal and bilateral lateral recesses. Normal bilateral intervertebral neural foramina. L2-3: Tiny Schmorl's node in the posterior aspect of the L2 inferior endplate. Normal L3 superior plate. Mild disc space height narrowing. Normal central canal and bilateral lateral recesses. Mild posterior ligamenta flava hypertrophy. Normal facet joints. Normal bilateral intervertebral neural foramina. L3-4: Normal endplates. Normal disc height and morphology. Normal central canal and bilateral lateral recesses. The facet joints are partially obscured by pedicular screws at L4. Normal bilateral intervertebral neural foramina. L4-5: Decrease anterolisthesis of L4 on L5 and improvement of the pronounced central canal stenosis at the L4-L5 disc space level following posterior decompression and fusion using pedicular screws and rods. Postsurgical absence of the spinous processes and lamina. Normal central canal and bilateral lateral recesses. Improvement of the severe stenosis of the right intervertebral neural foramen. Improvement of mild stenosis of the left intervertebral neural foramen. L5-S1: Normal endplates. Normal disc height, hydration and morphology. Normal bilateral facet joints. Normal central canal and bilateral lateral recesses. Normal bilateral intervertebral neural foramina. Normal visualized sacral ala. Normal visualized paraspinous soft tissue structures. No abnormal enhancing lesions intradurally and extradurally. Small enhancing postoperative fibrosis behind the L5 vertebral body. MRI/Spine Lumbar W/WO Contrast IMPRESSION: 1. Interval improvement of severe central canal stenosis, severe stenosis of the right intervertebral neural foramen and improvement of the anterolisthesis of L4 on L5 following posterior decompression and fusion using pedicular screws and rods at the L4-L5 disc space level. 2. Minimal enhancing postoperative fibrosis behind the L5 vertebral body. 3. No MRI evidence of extruded disc fragment. 4. Prominent Schmorl's node in the upper T12 vertebral body. This is unchanged. 5. Minimal anterior wedging of T11 vertebral body may be developmental or from remote injury. This is unchanged. 6. No other additional findings or changes since 05/12/2019. Electronically Signed: Balaji Gaspar MD at 11:43 EDT , Service support ,
== END ==
PROVIDERS: Family Provider Family Medicine; PCP Family Medicine; Referring Provider Nurse Practitioner Acute Care; Visit Provider Nurse Practitioner Acute Care
DX: M43.16 Spondylolisthesis, lumbar region (principal); M79.604 Pain in right leg
CPT/HCPCS: 72158; A9575

== ENCOUNTER → 2019-09-30 14:58 | Outpatient (CLI) | payer MEDICARE, SELFPAY ==
[2018-04-19 01:14] VITALS: BMI 21.4
[2019-09-30 18:29] LABS: Microalbumin,Random Urine 20.2 mg/L (NO RANGE EST.); Microalbumin:Creatinine Ratio 67.3 mg/g CRE (<30 mg/g CRE)
== END ==
LOC: LAB.FUTURE 14:58 → BFHLAB 15:29
PROVIDERS: Family Provider Family Medicine; PCP Family Medicine; Visit Provider Family Medicine
DX: E11.22 Type 2 diabetes mellitus with diabetic chronic kidney disease (principal); I12.9 Hypertensive chronic kidney disease with stage 1 through stage 4 chronic kidney disease, or unspecified chronic kidney disease; N18.3 Chronic kidney disease, stage 3 (moderate); D63.1 Anemia in chronic kidney disease; E78.5 Hyperlipidemia, unspecified; E03.9 Hypothyroidism, unspecified
CPT/HCPCS: 82043; 82570

== ENCOUNTER → 2019-10-04 08:01 | Outpatient (CLI) | payer MEDICARE, SELFPAY ==
[2018-04-19 01:14] VITALS: BMI 21.4
[2019-10-04 12:27] LABS: Absolute Lymphocyte Count 1.07 X10^3/uL (0.83-4.51); Absolute Neutrophil Count 2.6 X10^3/uL (2.0-7.7); Basophil# 0.03 X10^3/uL; Basophil% 0.7 % (0-1); Eosinophil# 0.19 X10^3/uL; Eosinophils% 4.7 % (0-5); Lymphocyte # 1.07 X10^3/ul (4.0); Lymphocyte % 26.4 % (19-41); Mean Corp Hgb Conc 31.4 g/dL (32-36); Mean Corpuscular Hgb 33.1 pg (27.0-32.0); Mean Corpuscular Volume 105.4 fL (81-99); Mean Platelet Vol. 10.7 fl (6.2-12.0); Monocyte# 0.18 X10^3/uL; Monocyte% 4.4 % (0-10); NRBC Flagged by Analyzer 0 % (0-5); Neutrophil # 2.56 X10^3/uL (2.7-7.7); Neutrophil % 63.3 % (47-70); Platelet Count 314 K/mm3 (150-450); RBC Distribution Width CV 13.3 % (11.6-14.6); RBC Distribution Width SD 51.6 fl (35.1-43.9); Red Blood Count 3.32 M/mm3 (4.2-5.4); White Blood Count 4.1 K/mm3 (4.4-11.0)
[2019-10-04 12:36] LABS: Vitamin D,25 Hydroxy 36.4 ng/mL (29.95-100.01)
[2019-10-04 12:45] LABS: Hemoglobin A1c 5.8 % (4.2-6.3)
[2019-10-04 12:55] LABS: ALB/GLOB Ratio 1.4 RATIO (0.9-2.4); AST(SGOT) 14 U/L (15-37); Alanine Aminotransfer ALT/SGPT 17 U/L (13-56); Alkaline Phosphatase 63 U/L (45-117); Anion Gap 7 (5-15); BUN 36 mg/dL (7-18); Calcium,Total 9.8 mg/dL (8.5-10.1); Chloride 102 mmol/L (98-107); Cholesterol 203 mg/dL (200); EST Glomerular Filtration Rate 46 mL/min (>60); Est Glom Filt Rate - Afr Amer 55 mL/min (>60); Globulin 2.8 g/dL (2.2-4.2); Glucose 117 mg/dL (74-106); High Density Lipoprotein 122 mg/dL; Phosphorus 3.9 mg/dL (2.5-4.9); Potassium 3.9 mmol/L (3.5-5.1); Protein, Total 6.8 g/dL (6.4-8.2); Sodium Level 136 mmol/L (136-145); Thyroid Stim Hormone (TSH) 2.22 uIU/mL (0.358-3.74); Triglycerides 58 mg/dL; Very Low Density Lipoprotein 12 mg/dL (5-40)
[2019-10-04 13:13] LABS: PTHIN 109.6 pg/mL (18.4-80.1)
== END ==
LOC: LAB.FUTURE 08:02 → BFHLAB 11-01 14:29
PROVIDERS: Family Provider Family Medicine; PCP Family Medicine; Visit Provider Family Medicine
DX: E11.22 Type 2 diabetes mellitus with diabetic chronic kidney disease (principal); I12.9 Hypertensive chronic kidney disease with stage 1 through stage 4 chronic kidney disease, or unspecified chronic kidney disease; N18.3 Chronic kidney disease, stage 3 (moderate); D63.1 Anemia in chronic kidney disease; E78.5 Hyperlipidemia, unspecified; E03.9 Hypothyroidism, unspecified
CPT/HCPCS: 36415; 80053; 80061; 82306; 83036; 83970; 84100; 84443; 85025

== ENCOUNTER → 2020-05-01 08:54 | Outpatient (CLI) | payer MEDICARE, SELFPAY ==
[2018-04-19 01:14] VITALS: BMI 21.4
[2020-05-01 12:13] LABS: Absolute Lymphocyte Count 0.94 X10^3/uL (0.83-4.51); Absolute Neutrophil Count 2.7 X10^3/uL (2.0-7.7); Basophil# 0.03 X10^3/uL; Basophil% 0.8 % (0-1); Eosinophil# 0.12 X10^3/uL; Eosinophils% 3.1 % (0-5); Hematocrit 31.6 % (37-47); Hemoglobin 9.8 g/dL (12.0-15.0); Lymphocyte # 0.94 X10^3/ul (4.0); Mean Corpuscular Hgb 33.6 pg (27.0-32.0); Mean Corpuscular Volume 108.2 fL (81-99); Mean Platelet Vol. 10.9 fl (6.2-12.0); Monocyte# 0.08 X10^3/uL; NRBC Flagged by Analyzer 0 % (0-5); Neutrophil # 2.72 X10^3/uL (2.7-7.7); Neutrophil % 69.6 % (47-70); Platelet Count 390 K/mm3 (150-450); RBC Distribution Width CV 13.2 % (11.6-14.6); RBC Distribution Width SD 52.8 fl (35.1-43.9); Red Blood Count 2.92 M/mm3 (4.2-5.4); White Blood Count 3.9 K/mm3 (4.4-11.0)
[2020-05-01 13:38] LABS: ALB/GLOB Ratio 1.2 RATIO (0.9-2.4); AST(SGOT) 19 U/L (15-37); Alanine Aminotransfer ALT/SGPT 27 U/L (13-56); Albumin, Serum 3.7 g/dL (3.2-5.0); Alkaline Phosphatase 72 U/L (45-117); Anion Gap 12 (5-15); BUN 26 mg/dL (7-18); BUN/Creat Ratio 20.5 RATIO (10-20); Calcium,Total 9.1 mg/dL (8.5-10.1); Chloride 104 mmol/L (98-107); Cholesterol 174 mg/dL (200); Creatinine, Serum 1.27 mg/dL (0.55-1.02); EST Glomerular Filtration Rate 43 mL/min (>60); Est Glom Filt Rate - Afr Amer 52 mL/min (>60); Ferritin 36 ng/mL (8-252); Globulin 3.2 g/dL (2.2-4.2); Glucose 112 mg/dL (74-106); High Density Lipoprotein 92 mg/dL; Iron 83 ug/dL (50-170); Potassium 3.8 mmol/L (3.5-5.1); Protein, Total 6.9 g/dL (6.4-8.2); Sodium Level 142 mmol/L (136-145); T4 Free Direct 1.31 ng/dL (0.76-1.46); Thyroid Stim Hormone (TSH) 2.87 uIU/mL (0.358-3.74); Triglycerides 55 mg/dL; Very Low Density Lipoprotein 11 mg/dL (5-40)
[2020-05-01 13:51] LABS: Vitamin B12 960 pg/mL (211-911); Vitamin D,25 Hydroxy 25.2 ng/mL
[2020-05-01 15:15] LABS: Microalbumin,Random Urine 31.9 mg/L (NO RANGE EST.); Microalbumin:Creatinine Ratio 76.7 mg/g CRE (<30 mg/g CRE)
== END ==
PROVIDERS: Family Provider Family Medicine; PCP Family Medicine; Visit Provider Family Medicine
DX: E11.22 Type 2 diabetes mellitus with diabetic chronic kidney disease (principal); I12.9 Hypertensive chronic kidney disease with stage 1 through stage 4 chronic kidney disease, or unspecified chronic kidney disease; N18.3 Chronic kidney disease, stage 3 (moderate); D63.1 Anemia in chronic kidney disease; N25.81 Secondary hyperparathyroidism of renal origin; E03.9 Hypothyroidism, unspecified
CPT/HCPCS: 36415; 80053; 80061; 82043; 82306; 82570; 82607; 82728; 83036; 83540; 83970; 84439; 84443; 85025

== ENCOUNTER → 2020-06-11 08:27 | Outpatient (CLI) | payer MEDICARE, SELFPAY ==
[2018-04-19 01:14] VITALS: BMI 21.4
[2020-06-11 12:46] LABS: Absolute Lymphocyte Count 0.76 X10^3/uL (0.83-4.51); Absolute Neutrophil Count 2.5 X10^3/uL (2.0-7.7); Basophil# 0.02 X10^3/uL; Basophil% 0.6 % (0-1); Eosinophil# 0.11 X10^3/uL; Eosinophils% 3.1 % (0-5); Hematocrit 31.6 % (37-47); Hemoglobin 10.2 g/dL (12.0-15.0); Lymphocyte # 0.76 X10^3/ul (4.0); Lymphocyte % 21.7 % (19-41); Mean Corp Hgb Conc 32.3 g/dL (32-36); Mean Corpuscular Hgb 35.3 pg (27.0-32.0); Mean Corpuscular Volume 109.3 fL (81-99); Mean Platelet Vol. 11.4 fl (6.2-12.0); Monocyte% 2.9 % (0-10); NRBC Flagged by Analyzer 0 % (0-5); Neutrophil # 2.49 X10^3/uL (2.7-7.7); Neutrophil % 71.1 % (47-70); Platelet Count 251 K/mm3 (150-450); RBC Distribution Width CV 14.3 % (11.6-14.6); RBC Distribution Width SD 56.4 fl (35.1-43.9); Red Blood Count 2.89 M/mm3 (4.2-5.4); White Blood Count 3.5 K/mm3 (4.4-11.0)
[2020-06-11 13:16] LABS: Ferritin 23 ng/mL (8-252); Iron 150 ug/dL (50-170); LDH 229 U/L (84-246)
== END ==
PROVIDERS: PCP Family Medicine; Visit Provider Family Medicine
DX: N18.3 Chronic kidney disease, stage 3 (moderate) (principal); D63.1 Anemia in chronic kidney disease
CPT/HCPCS: 36415; 82728; 83540; 83615; 85025

== ENCOUNTER → 2020-07-02 | Outpatient (CLI) | payer MEDICARE, SELFPAY ==
[2020-06-28 10:50] VITALS: BMI 20.1
== END | disposition home or self-care (01) ==
LOC: LABSPEC 10:08
PROVIDERS: PCP Family Medicine; Referring Provider Family Medicine; Visit Provider Family Medicine
DX: Z20.818 Contact with and (suspected) exposure to other bacterial communicable diseases (principal)
CPT/HCPCS: 87635; U0003

== ENCOUNTER → 2020-08-08 12:49 | Outpatient (CLI) | payer MEDICARE, SELFPAY ==
[2020-07-24 09:58] VITALS: BMI 21.7
--- NOTE | 2020-08-08 12:52 | ECHOD_ITS ---
Reason For Study: LVH, leg edema Procedure This was a 2D Doppler, Color Flow transthoracic echocardiogram. Exam performed in department. Left Ventricle Normal LV size. The estimated ejection fraction is 65 %. No evidence for diastolic dysfunction. No regional wall motion abnormalities noted. Right Ventricle Normal RV size. Normal systolic function. Atria The left atrium is mildly enlarged. Normal right atrium. Bubble contrast study negative for right to left interatrial shunt. Aneurysmal atrial septum. Mitral Valve There is no mitral valve stenosis. Mild (1+) mitral valve insufficiency. Tricuspid Valve There is no tricuspid stenosis. Mild tricuspid valve insufficiency. Pulmonary artery systolic pressure is 35 mmHg. Aortic Valve Trisinus/trileaflet aortic valve. There is no aortic stenosis. No aortic valve insufficiency. Pulmonic Valve There is no pulmonic valvular stenosis. No pulmonic valve insufficiency. Great Vessels Normal aortic root. Pericardium/Pleural No pericardial effusion. Medication 22 gauge I.V. with prn adaptor inserted into left arm. Performed a rapid injection of agitated mix of 9 cc saline and 1cc air to assess for atrial septal defect. MMode/2D Measurements & Calculations LVIDd: 3.2 cm IVSd: 1.1 cm Ao root diam: 3.0 cm LVIDs: 2.3 cm LVPWd: 0.85 cm RVDd: 3.4 cm FS: 29.6 % LAV(MOD-bp): 46.1 ml LVAd ap4: 19.2 cm2 SV(MOD-sp4): 26.5 ml LAV(MOD-bp) Indexed: 32.2 ml/m2 EDV(MOD-sp4): 43.9 ml LAV(MOD-sp2): 44.9 ml EDV(sp4-el): 45.4 ml LAV(MOD-sp4): 43.2 ml LVAs ap4: 10.6 cm2 ESV(MOD-sp4): 17.3 ml ESV(sp4-el): 16.4 ml EF(MOD-sp4): 60.5 % EF(sp4-el): 63.8 % SV(sp4-el): 29.0 ml LA A4 area: 17.4 cm2 LA dimension(2D): 3.0 cm RA A4 area: 12.6 cm2 Doppler Measurements & Calculations MV E max dieudonne: 76.7 cm/sec Lat Peak E' Dieudonne: 8.4 cm/sec Med Peak E' Dieudonne: 6.4 cm/sec MV A max dieudonne: 99.0 cm/sec E/E' lat: 9.1 E/E' med: 12.0 MV E/A: 0.77 Ao V2 max: 172.4 cm/sec LV V1 max: 116.8 cm/sec PA V2 max: 106.8 cm/sec Ao max P.9 mmHg LV V1 max P.5 mmHg TR max dieudonne: 261.0 cm/sec TR max P.3 mmHg Interpretation Summary The estimated ejection fraction is 65 %. No evidence for diastolic dysfunction. Mild tricuspid valve insufficiency. Mild (1+) mitral valve insufficiency. The left atrium is mildly enlarged. Ordering Physician: Everardo Garcia Referring Physician: Everardo Garcia Performed By: Alejandra Jordan MICHELLE
== END ==
PROVIDERS: PCP Family Medicine; Referring Provider Family Medicine; Visit Provider Family Medicine
DX: I11.9 Hypertensive heart disease without heart failure (principal); R60.0 Localized edema
CPT/HCPCS: 93306; A4216

== ENCOUNTER → 2020-10-03 15:26 | Outpatient (CLI) | payer MEDICARE, SELFPAY ==
[2020-07-24 09:58] VITALS: BMI 21.7
--- NOTE | 2020-10-03 15:30 | RAD_ITS ---
STUDY: X-RAY BONE SURVEY COMPLETE REASON FOR EXAM: Female, 85 years old. R/O MYELOMA. LEG WEAKNESS. TECHNIQUE: 2 views of the skull, 2 views of the cervical spine, chest, one view of each long bone, 2 views of the cervical spine, 2 views of the lumbar spine and one view of the pelvis. COMPARISON: None. FINDINGS: CHEST: The lungs are clear and expanded. There is no demonstrated pleural abnormality. Normal size heart. Normal mediastinum and ligia. Normal visualized pulmonary arteries. There is atherosclerotic calcification of the aortic arch with tortuosity. Negative for osteolytic or blastic bone lesions of the ribs, scapulas or clavicles. There is no demonstrated abnormality of the visualized soft tissue structures of the upper abdomen. PELVIS: There is a non-specific bowel gas pattern. Normal visualized soft tissue structures. Normal bilateral iliac wings, sacroiliac joints and visualized sacrum. Normal visualized bilateral superior and inferior pubic rami. Normal pubic symphysis. Normal ischial tuberosities. Normal visualized right femoral head. Normal right acetabulum. Normal right hip joint. Normal visualized left femoral head. Normal left acetabulum. Normal left hip joint. CERVICAL SPINE: Normal anterior atlantoaxial articulation. Normal odontoid process. There is straightening of the normal cervical lordosis. Normal vertebral bodies and endplates. Severe degenerative disc narrowing and spondylitic endplate changes at C5-6 and C6-7. Moderate degenerative disc changes at C3-4 and C4-5. Negative for osteolytic or blastic bone lesions. The soft tissue structures are unremarkable. THORACIC SPINE: Normal kyphosis of the thoracic spine. There is no substantial scoliosis. Normal thoracic vertebrae and endplates. Degenerative disc narrowing and spondylitic endplate changes throughout. Negative for osteolytic or blastic bone lesion. LUMBAR SPINE: Normal lumbar lordosis. There is no substantial scoliosis. Status post posterior spinal fusion of L4-5 with hardware in good position. Mild superior endplate compression of T12 included in the [id number] which appears chronic in nature. Diffuse mild to moderate degenerative disc changes at lumbar levels. More advanced degenerative disc changes at T12-L1. Negative for osteolytic or blastic bone lesions. RIGHT FEMUR: Normal visualized femur. Normal visualized soft tissue structure. LEFT FEMUR: Normal visualized femur. Normal visualized soft tissue structure. RIGHT HUMERUS :Normal visualized humerus. There is no demonstrated fracture or osseous destructive process. Normal right forearm There is no demonstrated soft tissue abnormality. LEFT HUMERUS:Normal visualized humerus. There is no demonstrated fracture or osseous destructive process. Normal left forearm There is no demonstrated soft tissue abnormality. SKULL: There is no demonstrated soft tissue swelling. Normal osseous calvarium. Normal visualized facial bones. Normal visualized paranasal sinuses. RAD/Bone Survey Comp(Axial&Append) IMPRESSION: Negative for osteolytic or blastic bone lesions. Electronically Signed: Hazel Espinoza MD at 16:49 EST , Service support ,
== END ==
PROVIDERS: PCP Family Medicine; Referring Provider Internal Medicine Hematology & Oncology; Visit Provider Internal Medicine Hematology & Oncology
DX: D47.2 Monoclonal gammopathy (principal)
CPT/HCPCS: 77075

== ENCOUNTER → 2020-10-04 | Outpatient (CLI) | payer MEDICARE, SELFPAY ==
[2020-07-24 09:58] VITALS: BMI 21.7
[2020-10-04 12:43] LABS: Microalbumin:Creatinine Ratio 19.5 mg/g CRE (<30 mg/g CRE)
== END | disposition home or self-care (01) ==
LOC: POLAB3 10:18 → LABSPEC 10:28
PROVIDERS: PCP Family Medicine; Visit Provider Internal Medicine Nephrology
DX: N18.32 Chronic kidney disease, stage 3b (principal); N39.0 Urinary tract infection, site not specified
CPT/HCPCS: 82043; 82570; 87077; 87086; 87088; 87186

== ENCOUNTER → 2020-10-08 07:53 | Outpatient (CLI) | payer MEDICARE, SELFPAY ==
[2020-07-24 09:58] VITALS: BMI 21.7
[2020-10-08] VITALS (10 sets, daily range): BP systolic 190–215; BP diastolic 62–89; PULSE 60–75; RESP 14–22; TEMP 36.9; O2SAT 70–99; BMI 20.4
--- NOTE | 2020-10-08 | IMM_PTH ---
PATIENT: MAHESH MARROQUIN LOC: CT U#:[id number] AGE/SX: 89/F ROOM: RE10/08/[address]: Dr. Rosio Laguna MD : [id number] BED: DIS: SPEC #: [id number] RECD: 10/09/20 13:27 STATUS: PONCHO REQ #: [id number] BRUNA: 10/08/20 00:[address]: Rosio Laguna DEPT: IMMUNOHISTOCHEMISTRY RECD BY: Shilpa Cisneros ENTERED: 10/09/20 13:28 SP TYPE: IMMUNO OTHR DR: Dr. Everardo Garcia DO Tissues: A - Bone marrow of iliac crest Procedures: CD138 (initial) KAPPA (add) LAMBDA (add) PHYSICIAN & INSTITUTION [place] [id number] SPECIMEN INFORMATION: Tissue Source: A - Bone marrow core Clinical Info: MGUS, K light chains Specimen Number: [id number] CPT code: 22625, 41168 x2 METHODOLOGY: Deparaffinized sections of prefer/formalin-fixed tissue or PAP/DQ stained slides are incubated with monoclonal/polyclonal antibodies/oligonucleotide probes. Localization is made via biotin free immunoperoxidase method. Appropriate controls are performed and reacted as expected. Results on target cell population are indicated in the following table: RESULTS: ANTIBODY / CLONE RESULT Block A CD138 (B-A38) positive [place] (polyclonal) negative Lambda (polyclonal) positive These tests were developed and their performance characteristics determined by [facility]. They may not have been cleared or approved by the U.S. Food and Drug Administration. The FDA has determined that such clearance or approval is not necessary. The above immunohistochemical/dualISH markers are ordered and reviewed by the Pathologist. INTERPRETATION: A. 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 LEONID:minnie 10/10/20
--- NOTE | 2020-10-08 07:54 | CT_ITS ---
PROCEDURE: CT GUIDED BONE marrow biopsy of the posterior aspect of the left iliac bone. DATE: 10/08/2020 INDICATION: Female, [address] [facility] [place]: Radu Cabrera M.D. RADIATION DOSAGE (If Supplied By Facility): CTDIvol = ( 19.5 ) mGy, DLP = ( 269.56 ) mGycm. Individualized dose optimization techniques were utilized. PROCEDURE: The risks, benefits, and alternatives to the procedure were explained to the patient. The specific risk of hemorrhage requiring further treatment or intervention was detailed and accepted. Follow-up instructions were discussed with the patient as well. Written informed consent was obtained. The patient was brought into the CT suite and placed in the prone position. . An appropriate entry site was identified. The overlying skin was prepped and draped in the usual sterile fashion. 1% lidocaine was administered subcutaneously for local anesthesia. Conscious sedation was performed. The patient received 1 mg of VERSED and 25 mcg of FENTANYL intravenously. Conscious sedation was started at 9:20 AM and terminated 30 5:00 AM. The patient was independently monitored by the department nurse. Under CT guidance, a bone marrow biopsy and bone marrow aspirates from the posterior aspect of the left iliac bone passes were performed The specimens were then placed in the appropriate fluid in transported to the laboratory for analysis. Hemostasis was obtained. The patient tolerated the procedure well without immediate complications. Conscious sedation protocol was followed. CT/Biopsy/Inj or Needle Placement IMPRESSION: Successful CT guided bone marrow biopsy and bone marrow aspirates, as described above. Electronically Signed: Radu Cabrera, at 10:08 EST , Service support ,
--- NOTE | 2020-10-08 08:11 | BMB_PTH ---
PATIENT: MAHESH MARROQUIN LOC: CT U#:[id number] AGE/SX: 89/F ROOM: RE10/08/[address]: Dr. Rosio Laguna MD : 1935 BED: DIS: SPEC #: [id number] RECD: 10/08/20 10:03 STATUS: PONCHO KIM #: [id number] BRUNA: 10/08/20 08:[address]: Rosio Laguna DEPT: BONE MARROW RECD BY: Shirley Dubois ENTERED: 10/08/20 10:05 SP TYPE: BMB OTHR DR: Dr. 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 See comment. Iron - 3+, atypical or ring sideroblasts are not seen. Flow cytometry study from [facility] shows findings are consistent with a plasm cell neoplasm. The complete review is viewable in patient's EMR. FISH and cytogenetic studies are pending at this time. See comment. LEONID:minnie 10/10/20 COMMENT The bone marrow core biopsy shows increased number of plasma cells, about 10 to 20% of nucleated cell population with focal clustering. Plasma cell number is an estimate. Immunohistochemistry ([id number]) supports the above diagnosis. Aspirate smears show marked hemodilution. Rare hematopoietic cells are noted. All the aspirate smears submitted are examined. Aspirate clot consists of peripheral blood only, hematopoietic cells are not seen and noncontributory. Clinical correlation and appropriate follow up are necessary. BONE MARROW STUDY Slides are reviewed. CBC DATE: 10/08/20 WBC 4500; RBC 2.86; HGB 10.4; HCT 32.8; MCV 114.7; RDW 12.8; PLTS 331,000 SEGS 73.4%; LYMPHS 22.7%; MONOS 2.4%; EOS 1.1%; BASOS 0.2% PERIPHERAL SMEAR: Submitted. RBC: Macrocytic anemia WBC: Unremarkable. The WBC count is compatible to as reported above. PLTS: Adequate. BONE MARROW ASPIRATE DIFFERENTIAL: Not performed ASPIRATE FINDINGS: Site: Left hip Aspicular Comment: The smear shows marked hemodilution. All the smears submitted are examined. Rare hematopoietic cells are noted. Core biopsy smears are noncontributory. CORE BIOPSY FINDINGS: Site: Left hip Adequacy: Adequate Cellularity: 40% M/E ratio: Within normal limits. Megakaryocytes: Present and adequate in number. Bony trabeculae: Unremarkable. Granulomas: Absent. Lymphoid aggregate: Absent. Atypical infiltrate: Present Comment: Increased number of plasma cells are noted, about 10 to 20% of total nucleated cell population with focal clustering. 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 ASPIRATE CLOT FINDINGS: Site: Left hip Comment: The specimen shows only peripheral blood clot. Hematopoietic cells are not seen. SPECIAL STAINS WITH MATCHED CONTROLS: Iron: 3+, atypical or sideroblasts are not seen (core biopsy only). Reticulin: No significant increase of reticulin fibers is noted. PAS: Highlights myeloid cells and megakaryocytes. BONE MARROW GROSS A - Received is a container labeled with the patient's name and designated left hip. The specimen consists of a piece of henry bone measuring 0.5 cm in length and 0.1 cm in diameter. The specimen is totally submitted in one cassette after decalcification. B - Received labeled with the patient's name and designated left hip is a specimen that consists of approximately 8 cc of bloody fluid that on filtration yields multiple minute fragments of blood clots measuring in aggregate 3 x 2.5 x 0.3 cm. The specimen is totally submitted in one cassette. C - Also received are 14 unstained and 1 peripheral stained slides. The unstained slides are submitted for appropriate staining. Also received are two green top tubes which are sent to our reference lab for flow, cytogenetics and FISH. / LEONID:minnie 10/08/20 TC:0 CPT: 37687, 86049, 73274 x2, 75338 x3, 78157 ADDENDUM ADDENDUM ADDENDUM ADDENDUM ADDENDUM ADDENDUM ADDENDUM ADDENDUM ADDENDUM ADDENDUM ADDENDUM ADDENDUM ADDENDUM ADDENDUM ADDENDUM ADDENDUM ADDENDUM ADDENDUM ADDENDUM ADDENDUM ADDENDUM ADDENDUM 10/15/2020 10:02 ADDENDUM 10/15/2020 10:02 ADDENDUM 10/15/2020 10:02 ADDENDUM 10/15/2020 10:02 ADDENDUM 10/15/2020 10:02 ADDENDUM 10/16/2020 09:46 MYELOMA PROGNOSIS FLUORESCENCE IN SITU HYBRIDIZATION (FISH) FROM [facility] INTERPRETATION: 1. No evidence of IGH-MAF [translocation t(14;16)] gene rearrangement. Comment: 3.3% of Interphase nuclei show abnormal hybridization pattern, 4 orange (16q23) and 4 (14q32) green signals, consistent with gain of 16q23 and 14q32. 2. No evidence of RB1 monosomy (13q14 deletion). Comment: 5.6% of Interphase nuclei show abnormal hybridization pattern, 3-4 orange (13q14) signals, consistent with gain of 13q14. 3. Positive for CCND1-IGH [translocation t(11;14)] gene rearrangement. 4. No evidence of p53 (17p13) deletion or amplification. Comment: 7.3% of Interphase nuclei show abnormal hybridization pattern, 4 orange (17p13) signals, consistent with gain of 17p13. 5. No evidence of FGFR3-IGH [translocation t(4;14)] gene rearrangement. Comment: 73% of Interphase nuclei show abnormal hybridization pattern, 4 orange (4p16) and 4 (14q32) green signals, consistent with gain of 4p16 and 14q32. 6. Negative for 1q21/CKS1B gain Comment: 3% of Interphase nuclei show abnormal hybridization pattern, 4 orange (1q21) and 4 (1p32) green signals, consistent with gain of 1q2 and 1p32. Please see complete report in e-chart or EMR for further details CYTOGENETICS REPORT FROM [facility] INTERPRETATION: A normal female chromosome complement was observed in twenty metaphases analyzed. Karyotype: 46,XX[20] Please see complete report in e-chart or EMR for further details
[2020-10-08 08:12] LABS: Absolute Lymphocyte Count 1.02 X10^3/uL (0.83-4.51); Absolute Neutrophil Count 3.3 X10^3/uL (2.0-7.7); Basophil# 0.01 X10^3/uL; Basophil% 0.2 % (0-1); Eosinophil# 0.05 X10^3/uL; Eosinophils% 1.1 % (0-5); Hematocrit 32.8 % (37-47); Hemoglobin 10.4 g/dL (12.0-15.0); Lymphocyte # 1.02 X10^3/ul (4.0); Lymphocyte % 22.7 % (19-41); Mean Corp Hgb Conc 31.7 g/dL (32-36); Mean Corpuscular Hgb 36.4 pg (27.0-32.0); Mean Corpuscular Volume 114.7 fL (81-99); Mean Platelet Vol. 9.5 fl (6.2-12.0); Monocyte# 0.11 X10^3/uL; Monocyte% 2.4 % (0-10); NRBC Flagged by Analyzer 0 % (0-5); Neutrophil # 3.29 X10^3/uL (2.7-7.7); Neutrophil % 73.4 % (47-70); Platelet Count 331 K/mm3 (150-450); RBC Distribution Width CV 13.3 % (11.6-14.6); RBC Distribution Width SD 56.7 fl (35.1-43.9); Red Blood Count 2.86 M/mm3 (4.2-5.4); White Blood Count 4.5 K/mm3 (4.4-11.0)
[2020-10-08 08:24] LABS: Prothrombin Time (Protime)PT. 12.6 SECONDS (11.7-14.9)
[2020-10-08 08:25] LABS: Partial Thromboplast Time 21.7 Seconds (24.1-36.2)
[2020-10-08] MEDS: Midazolam 2 MG/2 ML Syringe IV (09:07)
[2020-10-08] MEDS: fentaNYL 100 MCG/2 ML Ampul IV (09:07)
[2020-10-08 09:59] LABS: Bone Marrow Aspiraton SEE PATHOLOGY REPORT
== END ==
PROVIDERS: PCP Family Medicine; Referring Provider Internal Medicine Hematology & Oncology; Visit Provider Internal Medicine Hematology & Oncology
DX: D50.0 Iron deficiency anemia secondary to blood loss (chronic) (principal); D47.2 Monoclonal gammopathy; E11.22 Type 2 diabetes mellitus with diabetic chronic kidney disease; I12.9 Hypertensive chronic kidney disease with stage 1 through stage 4 chronic kidney disease, or unspecified chronic kidney disease; N18.9 Chronic kidney disease, unspecified; E03.9 Hypothyroidism, unspecified
CPT/HCPCS: 38222; 36415; 77012; 85025; 85610; 85730; 88305; 88311; 88313; 88341; 88342; 99155; 99156; J7040; A4216

== ENCOUNTER → 2020-10-16 10:49 | Outpatient (CLI) | payer MEDICARE, SELFPAY ==
[2020-10-08 08:22] VITALS: BMI 20.4
--- NOTE | 2020-10-16 10:57 | MRI_ITS ---
STUDY: MRI LUMBAR SPINE WITHOUT CONTRAST REASON FOR EXAM: Female, 85 years old. Back pain, right hip/leg pain TECHNIQUE: Standardized fat and water weighted pulse sequences were obtained in the sagittal and axial planes. COMPARISON: 09/20/2019 FINDINGS: T12-L1: Normal endplates. Normal disc height, hydration and morphology. Normal bilateral facet joints. Normal central canal and bilateral lateral recesses. Normal bilateral intervertebral neural foramina. Normal lumbar lordosis. Mild levoscoliosis of the lower lumbar spine. Normal conus medullaris that terminates at the T12/L1. Heterogeneous marrow signal throughout the lumbar spine suggestive of marrow regeneration from chronic hypoventilation, lung disease, or anemia. L1-2: Normal endplates. Normal disc height, hydration and morphology. Normal bilateral facet joints. Normal central canal and bilateral lateral recesses. Normal bilateral intervertebral neural foramina. L2-3: No change in the mild bilobed disc protrusion which produces mild spinal stenosis and mild bilateral neural foraminal stenosis. L3-4: Interval development of a mild broad disc protrusion which produces mild spinal stenosis with mild bilateral lateral recess stenosis and mild bilateral neural foraminal stenosis. L4-5: Status post posterior decompression and transpedicular fixation with 2 mm of anterolisthesis of L4 on L5 which is unchanged with no spinal stenosis or neural foraminal stenosis. L5-S1: No change in the mild broad disc protrusion which produces mild spinal stenosis and mild bilateral neural foraminal stenosis. Normal visualized sacral ala. Normal visualized paraspinous soft tissue structures. MRI/Spine Lumbar (Routine) IMPRESSION: Status post transpedicular fixation at L4/L5 with interval development of degenerative disc disease at L3/L4 as described above. Electronically Signed: Andrea Galicia MD at 16:34 EST Tel , Service support ,
== END ==
PROVIDERS: PCP Family Medicine; Referring Provider Anesthesiology Pain Medicine; Visit Provider Anesthesiology Pain Medicine
DX: M54.9 Dorsalgia, unspecified (principal); M62.81 Muscle weakness (generalized)
CPT/HCPCS: 72148

== ENCOUNTER → 2020-10-24 09:45 | Outpatient (CLI) | payer MEDICARE, SELFPAY ==
[2020-10-18 10:44] VITALS: BMI 17.3
--- NOTE | 2020-10-24 09:55 | RAD_ITS ---
STUDY: X-RAY - PELVIS AND RIGHT HIP REASON FOR EXAM: Right hip pain radiating down right leg, no recent injury. TECHNIQUE: 2 views of the pelvis and hip. COMPARISON: Radiographs from bone survey 10/03/2020. FINDINGS: There is mild vascular calcification. There are postoperative changes of the lower lumbar spine. Normal bilateral iliac wings, sacroiliac joints and visualized sacrum. Normal bilateral superior and inferior pubic rami. Normal pubic symphysis. Normal bilateral ischial tuberosities. Normal visualized femoral head. Normal acetabulum. Normal hip joint. RAD/HIP, UNI W/ Pelvis 2-3 Views IMPRESSION: Unremarkable x-ray examination of the osseous pelvis and right hip. Electronically Signed: Yohannes Shelton MD at 11:11 EST Tel , Service support ,
== END ==
PROVIDERS: PCP Family Medicine; Referring Provider Anesthesiology Pain Medicine; Visit Provider Anesthesiology Pain Medicine
DX: M25.551 Pain in right hip (principal)
CPT/HCPCS: 73502

== ENCOUNTER 2020-11-15 14:57 | Observation (INO) | payer MEDICARE, SELFPAY ==
[2020-11-07 11:02] LABS: Absolute Lymphocyte Count 0.69 X10^3/uL (0.83-4.51); Absolute Neutrophil Count 2.2 X10^3/uL (2.0-7.7); Basophil# 0.01 X10^3/uL; Basophil% 0.3 % (0-1); Eosinophils% 6.4 % (0-5); Hematocrit 31.9 % (37-47); Hemoglobin 10.3 g/dL (12.0-15.0); Lymphocyte # 0.69 X10^3/ul (4.0); Mean Corp Hgb Conc 32.3 g/dL (32-36); Mean Corpuscular Hgb 36.8 pg (27.0-32.0); Mean Corpuscular Volume 113.9 fL (81-99); Mean Platelet Vol. 9.7 fl (6.2-12.0); Monocyte# 0.06 X10^3/uL; Monocyte% 1.9 % (0-10); NRBC Flagged by Analyzer 0 % (0-5); Neutrophil # 2.17 X10^3/uL (2.7-7.7); Neutrophil % 69.1 % (47-70); Platelet Count 291 K/mm3 (150-450); RBC Distribution Width CV 13.4 % (11.6-14.6); RBC Distribution Width SD 56.5 fl (35.1-43.9); White Blood Count 3.1 K/mm3 (4.4-11.0)
[2020-11-07 11:11] LABS: Prothrombin Time (Protime)PT. 12.5 SECONDS (11.7-14.9)
[2020-11-07 11:19] LABS: Anion Gap 9 (5-15); BUN 22 mg/dL (7-18); BUN/Creat Ratio 21.6 RATIO (10-20); Calcium,Total 9.4 mg/dL (8.5-10.1); Chloride 105 mmol/L (98-107); Creatinine, Serum 1.02 mg/dL (0.55-1.02); EST Glomerular Filtration Rate 55 mL/min (>60); Est Glom Filt Rate - Afr Amer 66 mL/min (>60); Glucose 100 mg/dL (74-106); Potassium 3.9 mmol/L (3.5-5.1); Sodium Level 140 mmol/L (136-145)
[2020-11-07 11:27] LABS: Magnesium 1.3 mg/dL (1.6-2.6)
[2020-11-07 11:29] VITALS: BMI 19.3
[2020-11-07 11:30] LABS: Partial Thromboplast Time 23.7 Seconds (24.1-36.2)
[2020-11-07 11:50] LABS: HIV - WCH Non-Reactive (Nonreactive)
[2020-11-08 06:08] LABS: HEPATITIS B SURFACE AG Negative (Negative); Hepatitis A AB, Total Negative (Negative); Hepatitis A IgM Antibody Negative (Negative); Hepatitis B Core AB IgM Negative (Negative); Hepatitis B Core Ab Total Negative (Negative); Hepatitis C Ab <0.1 s/co ratio (0.0-0.9)
[2020-11-08 09:18] LABS: Thyroid Stim Hormone (TSH) 3.53 uIU/mL (0.358-3.74)
[2020-11-08 11:33] LABS: Hep B Surface Antibodies Non Reactive (.)
[2020-11-08 12:33] LABS: Hemoglobin A1c 5.6 % (3.8-5.6)
[2020-11-15] VITALS (14 sets, daily range): BP systolic 129–182; BP diastolic 63–92; PULSE 69–97; RESP 16–20; TEMP 36.1–37.7; O2SAT 95–100; BMI 20.2; BMI 20.3
--- NOTE | 2020-11-15 | CYST_PTH ---
PATIENT: MAHESH MARROQUIN LOC: MS3 U#:[id number] AGE/SX: 85/F ROOM: MS325 RE11/15/[address]: Dr. Jed Cisse MD : 1935 BED: 1 DIS: 11/17/2020 SPEC #: [id number] RECD: 11/15/20 13:03 STATUS: PONCHO KIM #: [id number] BRUNA: 11/15/20 00:[address]: Judson Victoria DEPT: SURGICAL PATHOLOGY RECD BY: Seth Olivo ENTERED: 11/15/20 13:03 SP TYPE: Cyst OTHR DR: Dr. Everardo Garcia, DO Tissues: CYST Procedures: Surgery Specimen Level IV HEADER OPERATION: ERAS, laminectomy L3-4 PRE-OP DIAGNOSIS: Multiple myeloma TISSUE SUBMITTED: L3-4 facet cyst right MICROSCOPIC DIAGNOSIS L3-4 facet cyst right, laminectomy: Fragments of dense fibroconnective tissue and bone with reactive changes. Negative for malignancy. 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 MICROSCOPIC DESCRIPTION Slides are reviewed. GROSS DESCRIPTION Received in fixative is one container labeled with the patient's name and designated L3-4 facet cyst. The specimen consists of multiple irregular fragments of light henry soft tissue that in aggregate measure 1 x 0.5 x 0.5 cm. The specimen is totally submitted in one cassette. / AM:minnie 11/15/20 TC:5 CPT: 37591
--- NOTE | 2020-11-15 06:00 | HP_ITS ---
Intake Intake Visit Reasons: lumbar spine Chief Complaint: Multiple myeloma Allergies Sulfa (Sulfonamide Antibiotics) Allergy (Severe, Verified 11/07/20 09:33) Hives Medications atorvastatin 20 mg tablet 40 mg PO QDAY 03/03/18 [History Confirmed 11/07/20] hydrochlorothiazide 25 mg tablet 25 mg PO QAM 03/03/18 [History Confirmed 11/07/20] lisinopril 5 mg tablet 10 mg PO BID 03/03/18 [History Confirmed 11/07/20] metformin 1,000 mg tablet 1,000 mg PO BID 03/03/18 [History Confirmed 11/07/20] verapamil 360 mg 24 hr capsule,extended release 180 mg PO DAILY 03/03/18 [History Confirmed 11/07/20] Aspirin [Adult Low Dose Aspirin EC] 81 mg PO DAILY 06/18/20 [History Confirmed 11/07/20] Vitamin B12 1,000 mcg PO DAILY 06/18/20 [History Confirmed 11/07/20] hydrocodone 7.5 mg-acetaminophen 325 mg tablet 1 tab PO .four times daily PRN tab 10/29/20 [History Confirmed 11/07/20] levothyroxine 175 mcg tablet 175 mcg PO DAILY tab 10/29/20 [History Confirmed 11/07/20] Acyclovir 400 mg PO BID 30 Days #60 tab 11/01/20 [Rx Confirmed 11/07/20] Dexamethasone [Decadron] 40 mg PO QWEEK 30 Days #40 tab 11/01/20 [Rx Confirmed 11/07/20] Ondansetron [Zofran Odt] 4 mg PO Q8H PRN PRN 10 Days #30 tab 11/01/20 [Rx Confirmed 11/07/20] Ferrous Bis-Glycinate Chelate [Iron Glycinate] 28 mg PO DAILY 11/06/20 [History Confirmed 11/07/20] Pantoprazole Sodium [Protonix] 40 mg PO DAILY 11/06/20 [History Confirmed 11/07/20] [facility] Medical History (Updated 11/05/20 @ 18:45 by Marilee Salmon) Multiple myeloma (Chronic) Macrocytic anemia (Chronic) Leukopenia (Chronic) Right buttock pain (Chronic) Essential (primary) hypertension (Chronic) Hyperlipidemia (Chronic) BRVO (branch retinal vein occlusion) (Resolved) Chronic kidney disease (CKD) (Chronic) Degenerative joint disease of spine (Chronic) Vitamin D deficiency (Acute) Anemia (Chronic) Chronic rheumatic arthritis (Chronic) DMII (diabetes mellitus, type 2) (Chronic) GERD (gastroesophageal reflux disease) (Chronic) HTN (hypertension) (Chronic) Hypothyroidism (Chronic) Lumbar spinal stenosis (Chronic) Osteoporosis (Chronic) Peripheral neuropathy (Chronic) Secondary hyperparathyroidism (Chronic) Surgical History (Updated 11/05/20 @ 18:42 by Marilee Salmon) History of hemilaminectomy (Resolved) Family History Father High cholesterol Heart disease Hypertension Sister High cholesterol Mother Cancer Social History (Updated 11/07/20 @ 10:[address] Judson Victoria DO) household members: none housing: house Smoking Status: Former smoker alcohol intake: current alcohol intake frequency: a few times a month what type of physical activity do you participate in: walking frequency: 5-6 times per week do you feel safe at home: Yes HPI lumbar spine: Surgical H&P: Yes Details: Parts of this documentation were recorded by a scribe, this documentation accurately reflects the service provided and the decisions made by me, Dr. Judson Victoria DO 11/07/20 0920. KATHRINE PIERSON is a 85 year old F here today for her pre-op appointment. Needs to sign consent for surgery, DOS is scheduled for: 11/15/2020. Kathrine is here with her daughter for her preop. She is scheduled for next week for a lumbar laminectomy discectomy L3-4 on the right side. She has the L4-5 pedicle screws put in last year. This is above the fusion of course. I explained to her and her daughter that the pedicle screw on the right side would be a little bit in the way however I believe that I can work around it. I reexamined her she still has wasting of course of her right quad and her right patella tendon reflex is completely absent and is 2+ on the left. We spoke of possible risks and complications associated with the surgery including possibly , paralysis infection meningitis failure to relieve symptoms blood clot in the legs blood clot in the lungs microinfarction stroke among others. I answered all her questions I will see her again at surgery. Coding Level of Care Code Off vis,est,level 2 Time Spent (min) 20
[2020-11-15] MEDS: Acetaminophen 500 MG Tablet 1000 MG PO (06:38)
[2020-11-15] MEDS: Lactated Ringers 1,000 ML 100 ML IV ×3 (06:46→15:15)
[2020-11-15 06:56] LABS: Bedside Glucose 103 mg/dL (70-110)
--- NOTE | 2020-11-15 07:30 | RAD_ITS ---
STUDY: X-RAY - LUMBAR SPINE REASON FOR EXAM: Female, 85 years old. LAMINECTOMY L3-4, RIGHT TECHNIQUE: 2 view(s) of the lumbar spine were obtained. COMPARISON: None FINDINGS: Intraoperative imaging demonstrating a metallic surgical instrument overlying the posterior aspect of the L3-L4 disc space level. RAD/Lumbar Spine 2 or 3 Views IMPRESSION: Metallic surgical instrument overlying the posterior aspect of the L3-L4 disc space level. Electronically Signed: Radu Cabrera, at 10:25 EST , Service support ,
[2020-11-15] MEDS: Cefazolin 2 GM in 0.9% Normal Saline 100 ML IV (07:34)
[2020-11-15] MEDS: THROMBIN (RECOMBINANT) 20,000 UNIT VIAL 20000 UNIT TOPICAL (10:00)
--- NOTE | 2020-11-15 10:57 | OP.PCM_ITS ---
Report of Operation Date of Procedure: 11/15/20 Description of Surgical Findings:: Preoperative diagnosis: Severe right L4 radiculopathy #2 that is post L4-5 fusion with pedicle fixation Postoperative diagnoses: The same Procedure: Lumbar laminectomy L3-4 with excision of facet cyst Surgeon: Dr. Victoria conservation assistant: Ed PIERCE Anesthesia: [facility] Estimated blood loss: Less than 20 cc Drains: Medium Hemovac Complications: None Patient was taken to the OR where she was placed under general endotracheal anesthesia a Lu catheter was inserted neuro monitoring place there leads she was then placed in prone position on the Jann frame. After appropriate positioning with care to protect her bony prominences her breasts her brachial plexus bilaterally and her ulnar nerves of both elbows the back was prepped and draped standard fashion. I then made a longitudinal incision centered over L3 4 subcutaneous tissues were incised length of skin incision and elevated paravertebral muscles off the lamina of L4. Lynn retractor was then put in place elevated the scar tissue off of the lamina and began the laminectomy procedure using both 3 and 4 mm Kerrisons. Once the laminectomy was done and we felt that we had enough room I then retracted the L4 nerve root medialward and observe the disc noted that this was a bit protruded however once the lateral recess was open it was not a factor regarding her on the L4 nerve root. Is a significant sized facet cyst going into the epidural space and onto the L4 nerve. As apparently was the source of her pressure on the L4 nerve. Using curettes I was able to remove the cyst. I also was able to cauterize the capsule around the facet to prevent recurrence of the cyst. This completely decompressed the L4 nerve root. That every 10 to 15 minutes in the course of the case we thoroughly irrigated with copious amounts of sterile saline. Good hemostasis was obtained placed amnionic membrane directly over the open the dura with Gelfoam over the top of that a medium Hemovac drain was then inserted closure was begun. Closed the lumbar fascia using [id number] suture suture with #1 Vicryl for closure of subcutaneous tissues with 3-0 Vicryl and 2-0 Vicryl in interrupted fashion and the skin was approximated using skin clips. D ressings were then applied the Hemovac drain was then connected. She was then recovered in the OR she was moved to her hospital bed and taken to recovery in satisfactory condition.
[2020-11-15 11:56] LABS: Bedside Glucose 148 mg/dL (70-110)
[2020-11-15] MEDS: oxyCODONE 5 MG Tablet PO ×2 (15:06→23:57)
[2020-11-15] MEDS: Cefazolin 1 GM/50 ML BAG IV ×2 (15:14→23:50)
--- NOTE | 2020-11-15 15:43 | PCM.PROGNOTE ---
Subjective: Patient seen and examined. Reports significant postoperative pain and dry mouth. Patient tearful stating she is having difficulty moving around. Moving lower extremities without difficulty. Denies numbness, tingling. - Physical Exam Vitals/I&O's: Vital Signs Temp Pulse Resp BP Pulse Ox 97.3 F L 84 18 146/72 H 98 11/15/20 14:02 11/15/20 14:02 11/15/20 14:02 11/15/20 14:02 11/15/20 14:02 Oxygen Flow Rate (L/min) 2 Oxygen Delivery Method Nasal Cannula Weight: 103 lb 13.404 oz Body Mass Index (BMI) 20.2 Finger Stick Blood Glucose 148 Intake and Output for Last 24 Hours 11/13/20 11/14/20 11/15/20 23:59 23:59 23:59 Intake Total 1688 / 1688 Output Total 1200 / 1200 Balance 488 / 488 General: Alert, Oriented x3, Cooperative HEENT: Atraumatic, PERRLA, EOMI, Normocephalic Neck: Supple, No JVD, Negative Carotid Bruits Lungs: Clear to auscultation, Normal air movement Cardiovascular: Regular rate, No murmurs Abdomen: Bowel Sounds Present, Soft, Non Tender Extremities: No clubbing, No cyanosis, No edema, Capillary Refill Less than 3 Seconds Skin: No rashes, No breakdown, - - Postop back dressing intact Musculoskeletal: No Tenderness to Palpation of Joints or Extremities Neurological: Cranial nerves II-XII grossly intact Psych/Mental Status: Anxious Microbiology Past 72 Hours 11/14/20 09:00 Interface Orders SARS-CoV-2 Antigen (Rapid) - Final Laboratory Results 11/15/20 06:23: POC Glucose 103 11/15/20 11:49: POC Glucose 148 H Current Medications Diazepam (Diazepam 5 Mg Tablet) 5 mg PO Q6H PRN PRN PRN Reason: Muscle Spasms Enteral Nutritional Formula (Ensure Surgery 237 Ml Liquid) 237 ml PO TIDCM COUNT INCLUDES THE [facility] Last Admin: 11/15/20 14:43 Dose: Not Given Documented by: Famotidine (Famotidine 20 Mg Tablet) 20 mg PO BID COUNT INCLUDES THE [facility] Lactated Ringer's () 1,000 mls @ 100 mls/hr IV .Q10H COUNT INCLUDES THE [facility] Last Admin: 11/15/20 15:15 Dose: 100 mls/hr Documented by: Cefazolin Sodium () 1 gm in 50 mls @ 100 mls/hr IV Q8H FABRICIO Stop: 11/15/20 23:59 Last Admin: 11/15/20 15:14 Dose: 100 mls/hr Documented by: Insulin Human Lispro (Insulin Lispro 100 Unit/Ml Insuln.Pen) 1 - 6 unit SC Q4H PRN PRN; Protocol PRN Reason: BG>/= 180, SEE PROTOCOL Stop: 11/15/20 18:00 Morphine Sulfate (Morphine 4 Mg/Ml Syringe) 2 - 4 mg IV Q2H PRN PRN PRN Reason: Pain Score 6-10 Morphine Sulfate (Morphine 2 Mg/Ml Syringe) 2 - 4 mg IV Q2H PRN PRN PRN Reason: Pain Score 6-10 Ondansetron HCl (Ondansetron 4 Mg/2 Ml Vial) 4 mg IV Q8H PRN PRN PRN Reason: NAUSEA Oxycodone HCl (Oxycodone 5 Mg Tablet) 2.5 - 5 mg PO Q4H PRN PRN PRN Reason: Pain Score 6-10 Last Admin: 11/15/20 15:06 Dose: 5 mg Documented by: Senna/Docusate Sodium (Senna/Docusate Sodium 1 Tablet) 2 tablet PO BID FABRICIO Sodium Chloride (0.9% Nacl Peripheral Flush Adult/Peds) 5 - 15 ml IV UD PRN PRN Reason: SALINE FLUSH Sodium Chloride (0.9% Saline Lock 10 Ml Syringe) 10 - 40 ml IV UD PRN PRN Reason: SALINE FLUSH Medical Necessity - Tobacco Use Smoking Status: Former smoker Tobacco Use: Non-smoker Assessment/Plan All Active Problems (Last Reviewed 11/07/20 @ 11:[address] Иван Davis MD) Encounter for education (Acute) Other infusion reaction (Acute) BRVO (branch retinal vein occlusion) (Resolved) Bronchitis (Resolved) Iron deficiency anemia due to chronic blood loss (Resolved) 1. Intractable pain, debility secondary to severe right L4 radiculopathy-status post lumbar laminectomy L3-L4 with excision of facet cyst by Dr. Victoria 11/15/2020-PT/OT. As needed pain regimen. Management per surgery. 2. Recent diagnosis multiple myeloma-plan for weekly Velcade and low-dose weekly dexamethasone however this has not been initiated secondary to #1. Continue outpatient follow-up with Dr. Laguna. 3. Hypertension-stable, continue hydrochlorothiazide, lisinopril, verapamil. 4. Hyperlipidemia-continue statin. 5. Chronic kidney disease stage III-recent labs at baseline. Trend BMP. 6. Hypothyroidism-continue Synthroid. 7. Type 2 diabetes mellitus-on metformin. Accu-Cheks with sliding scale insulin. DVT prophylaxis- SCDs This patient was seen by ROMAIN White under the supervision of Dr. Ledesma.
[2020-11-15] MEDS: Insulin Lispro 100 UNIT/ML INSULN.PEN SC (17:06)
[2020-11-15] MEDS: Ensure Surgery 237 ML LIQUID PO (17:07)
[2020-11-15 17:15] LABS: Bedside Glucose 150 mg/dL (70-110)
[2020-11-15] MEDS: Famotidine 20 MG Tablet PO (23:59)
[2020-11-15] MEDS: Senna/Docusate Sodium 1 Tablet 2 TABLET PO (23:59)
[2020-11-16] VITALS (7 sets, daily range): BP systolic 154–178; BP diastolic 73–93; PULSE 89–112; RESP 18; TEMP 36.8–37.2; O2SAT 96–100; BMI 20.3
[2020-11-16] MEDS: Atorvastatin Calcium 40 MG Tablet PO ×3 (00:05→23:16)
[2020-11-16] MEDS: Lisinopril 10 MG Tablet PO ×3 (00:06→23:15)
[2020-11-16 00:41] LABS: Bedside Glucose 136 mg/dL (70-110)
[2020-11-16] MEDS: Lactated Ringers 1,000 ML 100 ML IV ×2 (02:11→11:06)
[2020-11-16] MEDS: oxyCODONE 5 MG Tablet PO ×4 (06:10→23:31)
[2020-11-16] MEDS: Levothyroxine 175 MCG Tablet PO (06:13)
[2020-11-16 06:40] LABS: Bedside Glucose 129 mg/dL (70-110)
[2020-11-16 07:38] LABS: Absolute Lymphocyte Count 0.52 X10^3/uL (0.83-4.51); Absolute Neutrophil Count 1.9 X10^3/uL (2.0-7.7); Basophil# 0.01 X10^3/uL; Basophil% 0.4 % (0-1); Eosinophils% 3.8 % (0-5); Hematocrit 26.3 % (37-47); Hemoglobin 8.7 g/dL (12.0-15.0); Lymphocyte # 0.52 X10^3/ul (4.0); Lymphocyte % 19.6 % (19-41); Mean Corp Hgb Conc 33.1 g/dL (32-36); Mean Corpuscular Hgb 37.3 pg (27.0-32.0); Mean Corpuscular Volume 112.9 fL (81-99); Mean Platelet Vol. 9.3 fl (6.2-12.0); Monocyte# 0.09 X10^3/uL; Monocyte% 3.4 % (0-10); NRBC Flagged by Analyzer 0 % (0-5); Neutrophil # 1.92 X10^3/uL (2.7-7.7); Neutrophil % 72.4 % (47-70); POSITIVE DIFFERENTIAL YES; Platelet Count 233 K/mm3 (150-450); RBC Distribution Width CV 13.6 % (11.6-14.6); RBC Distribution Width SD 56.8 fl (35.1-43.9); Red Blood Count 2.33 M/mm3 (4.2-5.4); White Blood Count 2.7 K/mm3 (4.4-11.0)
[2020-11-16 07:41] LABS: Differential Indicated SCAN CRITERIA MET
[2020-11-16 08:08] LABS: ALB/GLOB Ratio 1.4 RATIO (0.9-2.4); AST(SGOT) 25 U/L (15-37); Alanine Aminotransfer ALT/SGPT 24 U/L (13-56); Albumin, Serum 3.3 g/dL (3.2-5.0); Alkaline Phosphatase 54 U/L (45-117); Anion Gap 5 (5-15); BUN 18 mg/dL (7-18); BUN/Creat Ratio 20.3 RATIO (10-20); Calcium,Total 8.7 mg/dL (8.5-10.1); Chloride 103 mmol/L (98-107); Creatinine, Serum 0.88 mg/dL (0.55-1.02); EST Glomerular Filtration Rate 65 mL/min (>60); Est Glom Filt Rate - Afr Amer 78 mL/min (>60); Estimated Creatinine Clearance 34.18 ml/min; Globulin 2.4 g/dL (2.2-4.2); Glucose 137 mg/dL (74-106); Potassium 3.8 mmol/L (3.5-5.1); Protein, Total 5.7 g/dL (6.4-8.2); Sodium Level 137 mmol/L (136-145)
[2020-11-16] MEDS: Verapamil SR 180 MG CAPSULE PO (08:53)
[2020-11-16] MEDS: Famotidine 20 MG Tablet PO ×2 (08:53→23:14)
[2020-11-16] MEDS: hydroCHLOROthiazide 25 MG Tablet PO (08:53)
[2020-11-16] MEDS: Senna/Docusate Sodium 1 Tablet 2 TABLET PO ×2 (08:53→23:14)
[2020-11-16] MEDS: Ensure Surgery 237 ML LIQUID PO (08:57)
--- NOTE | 2020-11-16 11:10 | CASEMGMT ---
RN DARIEL Face to Face with patient for initial transition planning/care coordination assessment. RN CM introduced self and role at [facility]. Patient sitting in chair, alert and oriented. Patient willing to participate in assessment and is able to answer all questions appropriately. Care providers, pharmacy, and demographics verified. Patient wishes to discharge home, denies need for home health at this time. Patient states she has no further needs or concerns at this time. CM to follow for discharge planning needs that may arise. PCP: Jose Specialists: Luz Elena oncologist Preferred Pharmacy: [facility] Insurance: [facility] Prescription Benefit: yes Living Will/HPOA: yes, daughter Zuleima Mendez LNOK: daughter Living Arrangements: patient lives alone in a condo with 1 step to enter the home. Patient states she was independent at home prior to surgery. Patient states she has friends that can assist at home. Transportation: friends DME/HHC: Patient states she has walker, cane, raised toilet, and grab bars at home. Patient denies previous HHC. Disposition Plan: Patient to discharge home with support of friends and follow-up plans in place. Alisha RM, RN, CM
[2020-11-16 11:15] LABS: Bedside Glucose 221 mg/dL (70-110)
[2020-11-16] MEDS: Insulin Lispro 100 UNIT/ML INSULN.PEN SC ×2 (11:37→17:33)
[2020-11-16 12:44] LABS: Pathologist Review Reviewed
--- NOTE | 2020-11-16 13:15 | PN_ITS ---
<Norma Rodriguez CLOTH CHECKER - Last Filed: 11/16/20 13:17> Subjective: Patient seen and examined. Resting in chair. Reports postop back pain. Denies other symptoms or complaints. - Physical Exam Vitals/I&O's: Vital Signs Temp Pulse Resp BP Pulse Ox 98.9 F 99 18 154/88 H 97 11/16/20 12:00 11/16/20 12:00 11/16/20 12:00 11/16/20 12:00 11/16/20 12:00 Oxygen Flow Rate (L/min) 2 Oxygen Delivery Method Room Air Weight: 103 lb 13.404 oz Body Mass Index (BMI) 20.2 Finger Stick Blood Glucose 148 Intake and Output for Last 24 Hours 11/14/20 11/15/20 11/16/20 23:59 23:59 23:59 Intake Total 2438 / 2738 2241.67 / 2241.67 Output Total 2200 / 3250 1775 / 1775 Balance 238 / -512 466.67 / 466.67 General: Alert, Oriented x3, Cooperative HEENT: Atraumatic, PERRLA, EOMI, Normocephalic Neck: Supple, No JVD, Negative Carotid Bruits Lungs: Clear to auscultation, Normal air movement Cardiovascular: Regular rate, No murmurs Abdomen: Bowel Sounds Present, Soft, Non Tender, Non-Distended Extremities: No clubbing, No cyanosis, No edema, Capillary Refill Less than 3 Seconds Skin: No rashes, No breakdown, - - Postop back dressing/drain intact Musculoskeletal: No Tenderness to Palpation of Joints or Extremities Neurological: Cranial nerves II-XII grossly intact, Neuro grossly intact Psych/Mental Status: Anxious Microbiology Past 72 Hours 11/14/20 09:00 Interface Orders SARS-CoV-2 Antigen (Rapid) - Final Laboratory Results 11/15/20 17:01: POC Glucose 150 H 11/16/20 00:08: POC Glucose 136 H 11/16/20 06:29: POC Glucose 129 H 11/16/20 07:30: WBC 2.7 L, RBC 2.33 L, Hgb 8.7 L, Hct 26.3 L, MCV 112.9 H, MCH 37.3 H, MCHC 33.1, RDW Std Deviation 56.8 H, RDW Coeff of Piyush 13.6, Plt Count 233, MPV 9.3, Immature Gran % (Auto) 0.400, Neut % (Auto) 72.4 H, Lymph % (Auto) 19.6, [place] % (Auto) 3.4, Eos % (Auto) 3.8, Baso % (Auto) 0.4, Absolute Neuts (auto) 1.9 L, Absolute Lymphs (auto) 0.52 L, Nucleated RBC % 0, Differential Comment COMMENT, Diff Path Review Reviewed 11/16/20 07:30: Sodium 137, Potassium 3.8, Chloride 103, Carbon Dioxide 29.0, Anion Gap 5, BUN 18, Creatinine 0.88, Estim Creat Clear Calc 34.18, Est GFR (MDRD) Af Amer 78, Est GFR (MDRD) Non-Af 65, BUN/Creatinine Ratio 20.3 H, Glucose 137 H, Calcium 8.7, Total Bilirubin 0.70, AST 25, ALT 24, Alkaline Phosphatase 54, Total Protein 5.7 L, Albumin 3.3, Globulin 2.4, Albumin/Globulin Ratio 1.4 11/16/20 11:02: POC Glucose 221 H Current Medications Atorvastatin Calcium (Atorvastatin Calcium 40 Mg Tablet) 40 mg PO QHS [facility] Last Admin: 11/16/20 00:05 Dose: 40 mg Documented by: Diazepam (Diazepam 5 Mg Tablet) 5 mg PO Q6H PRN PRN PRN Reason: Muscle Spasms Enteral Nutritional Formula (Ensure Surgery 237 Ml Liquid) 237 ml PO TIDCM [facility] Last Admin: 11/16/20 11:39 Dose: Not Given Documented by: Famotidine (Famotidine 20 Mg Tablet) 20 mg PO BID [facility] Last Admin: 11/16/20 08:53 Dose: 20 mg Documented by: Hydrochlorothiazide (Hydrochlorothiazide 25 Mg Tablet) 25 mg PO QAM [facility] Last Admin: 11/16/20 08:53 Dose: 25 mg Documented by: Lactated Ringer's () 1,000 mls @ 100 mls/hr IV .Q10H [facility] Last Admin: 11/16/20 11:06 Dose: 100 mls/hr Documented by: Insulin Human Lispro (Insulin Lispro 100 Unit/Ml Insuln.Pen) 0 unit SC [facility]; Protocol Last Admin: 11/16/20 11:37 Dose: 2 u Documented by: Levothyroxine Sodium (Levothyroxine 175 Mcg Tablet) 175 mcg PO DAILY@0600 [facility] Last Admin: 11/16/20 06:13 Dose: 175 mcg Documented by: Lisinopril (Lisinopril 10 Mg Tablet) 10 mg PO BID [facility] Last Admin: 11/16/20 08:53 Dose: 10 mg Documented by: Morphine Sulfate (Morphine 4 Mg/Ml Syringe) 2 - 4 mg IV Q2H PRN PRN PRN Reason: Pain Score 6-10 Morphine Sulfate (Morphine 2 Mg/Ml Syringe) 2 - 4 mg IV Q2H PRN PRN PRN Reason: Pain Score 6-10 Ondansetron HCl (Ondansetron 4 Mg/2 Ml Vial) 4 mg IV Q8H PRN PRN PRN Reason: NAUSEA Oxycodone HCl (Oxycodone 5 Mg Tablet) 2.5 - 5 mg PO Q4H PRN PRN PRN Reason: Pain Score 6-10 Last Admin: 11/16/20 11:05 Dose: 5 mg Documented by: Senna/Docusate Sodium (Senna/Docusate Sodium 1 Tablet) 2 tablet PO BID [facility] Last Admin: 11/16/20 08:53 Dose: 2 tablet Documented by: Sodium Chloride (0.9% Nacl Peripheral Flush Adult/Peds) 5 - 15 ml IV UD PRN PRN Reason: SALINE FLUSH Sodium Chloride (0.9% Saline Lock 10 Ml Syringe) 10 - 40 ml IV UD PRN PRN Reason: SALINE FLUSH Verapamil HCl (Verapamil Sr 180 Mg Capsule) 180 mg PO DAILY [facility] Last Admin: 11/16/20 08:53 Dose: 180 mg Documented by: Medical Necessity - Tobacco Use Smoking Status: Former smoker Tobacco Use: Non-smoker Assessment/Plan All Active Problems (Last Reviewed 11/07/20 @ 11:[address] Иван Davis MD) Encounter for education (Acute) Other infusion reaction (Acute) BRVO (branch retinal vein occlusion) (Resolved) Bronchitis (Resolved) Iron deficiency anemia due to chronic blood loss (Resolved) 1. Intractable pain, debility secondary to severe right L4 radiculopathy-status post lumbar laminectomy L3-L4 with excision of facet cyst by Dr. Victoria 11/15/2020-PT/OT. As needed pain regimen. Management per surgery. 2. Recent diagnosis multiple myeloma-plan for weekly Velcade and low-dose weekly dexamethasone however this has not been initiated secondary to #1. Continue o utpatient follow-up with Dr. Laguna. 3. Hypertension-stable, continue hydrochlorothiazide, lisinopril, verapamil. 4. Hyperlipidemia-continue statin. 5. Chronic kidney disease stage III-recent labs at baseline. Trend BMP. 6. Hypothyroidism-continue Synthroid. 7. Type 2 diabetes mellitus-on metformin. Accu-Cheks with sliding scale insulin. DVT prophylaxis- SCDs This patient was seen by ROMAIN White under the supervision of Dr. Cisse. <Jed Cisse - Last Filed: 11/16/20 15:26> Objective: Blood pressure and heart rate are good. Patient has surgical drain on the operative region. Serosanguineous fluid collection on the drain. Physical exam General: Alert, Oriented x3, Cooperative HEENT: Atraumatic, PERRLA, EOMI, Normocephalic Oral: No Gingival or Mucosal Lesions/ Ulcerations Neck: Supple, No JVD, Negative Carotid Bruits Lungs: Air entry diminished in bilateral lung bases. No crepitation/rhonchi Cardiovascular: Regular rate, Regular Rhythm, Normal S1, Normal S2, No murmurs Abdomen: Bowel Sounds Present, Soft, Non Tender, Non-Distended : No renal angle tenderness. No suprapubic tenderness. Extremities: No edema, Capillary Refill Less than 3 Seconds Skin: No rashes, No breakdown Spine: Surgical dressing in lumbar area is dry. Serosanguineous collection in the drain. Tenderness around operative region. Musculoskeletal: No Tenderness to Palpation of Joints or Extremities Neurological: Cranial nerves II-XII grossly intact, Deep Tendon Reflexes 2+/4 and Symmetrical, Neuro grossly intact Psych/Mental Status: Normal Affect, Appropriate. - Physical Exam Vitals/I&O's: Vital Signs Temp Pulse Resp BP Pulse Ox 98.9 F 99 18 154/88 H 97 11/16/20 12:00 11/16/20 12:00 11/16/20 12:00 11/16/20 12:00 11/16/20 12:00 Oxygen Flow Rate (L/min) 2 Oxygen Delivery Method Room Air Weight: 103 lb 13.404 oz Body Mass Index (BMI) 20.2 Finger Stick Blood Glucose 148 Intake and Output for Last 24 Hours 11/14/20 11/15/20 11/16/20 23:59 23:59 23:59 Intake Total 2438 / 2738 2241.67 / 2241.67 Output Total 2200 / 3250 1775 / 1775 Balance 238 / -512 466.67 / 466.67 Microbiology Past 72 Hours 11/14/20 09:00 Interface Orders SARS-CoV-2 Antigen (Rapid) - Final Laboratory Results 11/15/20 17:01: POC Glucose 150 H 11/16/20 00:08: POC Glucose 136 H 11/16/20 06:29: POC Glucose 129 H 11/16/20 07:30: WBC 2.7 L, RBC 2.33 L, Hgb 8.7 L, Hct 26.3 L, MCV 112.9 H, MCH 37.3 H, MCHC 33.1, RDW Std Deviation 56.8 H, RDW Coeff of Piyush 13.6, Plt Count 233, MPV 9.3, Immature Gran % (Auto) 0.400, Neut % (Auto) 72.4 H, Lymph % (Auto) 19.6, [place] % (Auto) 3.4, Eos % (Auto) 3.8, Baso % (Auto) 0.4, Absolute Neuts (auto) 1.9 L, Absolute Lymphs (auto) 0.52 L, Nucleated RBC % 0, Differential Comment COMMENT, Diff Path Review Reviewed 11/16/20 07:30: Sodium 137, Potassium 3.8, Chloride 103, Carbon Dioxide 29.0, Anion Gap 5, BUN 18, Creatinine 0.88, Estim Creat Clear Calc 34.18, Est GFR (MDRD) Af Amer 78, Est GFR (MDRD) Non-Af 65, BUN/Creatinine Ratio 20.3 H, Glucose 137 H, Calcium 8.7, Total Bilirubin 0.70, AST 25, ALT 24, Alkaline Phosphatase 54, Total Protein 5.7 L, Albumin 3.3, Globulin 2.4, Albumin/Globulin Ratio 1.4 11/16/20 11:02: POC Glucose 221 H Current Medications Atorvastatin Calcium (Atorvastatin Calcium 40 Mg Tablet) 40 mg PO QHS [facility] Last Admin: 11/16/20 00:05 Dose: 40 mg Documented by: Diazepam (Diazepam 5 Mg Tablet) 5 mg PO Q6H PRN PRN PRN Reason: Muscle Spasms Enteral Nutritional Formula (Ensure Surgery 237 Ml Liquid) 237 ml PO TIDCM [facility] Last Admin: 11/16/20 11:39 Dose: Not Given Documented by: Famotidine (Famotidine 20 Mg Tablet) 20 mg PO BID [facility] Last Admin: 11/16/20 08:53 Dose: 20 mg Documented by: Hydrochlorothiazide (Hydrochlorothiazide 25 Mg Tablet) 25 mg PO QAM [facility] Last Admin: 11/16/20 08:53 Dose: 25 mg Documented by: Lactated Ringer's () 1,000 mls @ 100 mls/hr IV .Q10H [facility] Last Admin: 11/16/20 11:06 Dose: 100 mls/hr Documented by: Insulin Human Lispro (Insulin Lispro 100 Unit/Ml Insuln.Pen) 0 unit SC [facility]; Protocol Last Admin: 11/16/20 11:37 Dose: 2 u Documented by: Levothyroxine Sodium (Levothyroxine 175 Mcg Tablet) 175 mcg PO DAILY@0600 [facility] Last Admin: 11/16/20 06:13 Dose: 175 mcg Documented by: Lisinopril (Lisinopril 10 Mg Tablet) 10 mg PO BID [facility] Last Admin: 11/16/20 08:53 Dose: 10 mg Documented by: Morphine Sulfate (Morphine 4 Mg/Ml Syringe) 2 - 4 mg IV Q2H PRN PRN PRN Reason: Pain Score 6-10 Morphine Sulfate (Morphine 2 Mg/Ml Syringe) 2 - 4 mg IV Q2H PRN PRN PRN Reason: Pain Score 6-10 Ondansetron HCl (Ondansetron 4 Mg/2 Ml Vial) 4 mg IV Q8H PRN PRN PRN Reason: NAUSEA Oxycodone HCl (Oxycodone 5 Mg Tablet) 2.5 - 5 mg PO Q4H PRN PRN PRN Reason: Pain Score 6-10 Last Admin: 11/16/20 11:05 Dose: 5 mg Documented by: Senna/Docusate Sodium (Senna/Docusate Sodium 1 Tablet) 2 tablet PO BID [facility] Last Admin: 11/16/20 08:53 Dose: 2 tablet Documented by: Sodium Chloride (0.9% Nacl Peripheral Flush Adult/Peds) 5 - 15 ml IV UD PRN PRN Reason: SALINE FLUSH Sodium Chloride (0.9% Saline Lock 10 Ml Syringe) 10 - 40 ml IV UD PRN PRN Reason: SALINE FLUSH Verapamil HCl (Verapamil Sr 180 Mg Capsule) 180 mg PO DAILY [facility] Last Admin: 11/16/20 08:53 Dose: 180 mg Documented by: Assessment/Plan This patient was seen in conjunction with Norma MARIN. I have independently interviewed and examined the patient and reviewed pertinent history, examination findings, laboratory and plan of management. I have reviewed the note and agree with the documented findings with the few additional points. In brief, patient is 85-year-old female with history of multiple myeloma on weekly Velcade, low-dose dexamethasone and acyclovir for secondary herpes prevention is was admitted for elective lumbar laminectomy L3-L4 and ex cision of facet cyst. Patient had surgery done by Dr. Victoria on 11/15 for severe right L4 radiculopathy. Patient blood pressure is good. Other comorbidities as mentioned above and home medications continued. Diabetes mellitus type 2 on Metformin. I have discussed my assessment with Norma MARIN and orders have been reviewed. Inpatient E&M: 37056 Subs Hosp L2
[2020-11-16 16:21] LABS: Bedside Glucose 154 mg/dL (70-110)
--- NOTE | 2020-11-16 16:39 | NURSING ---
LAUREN SENT TO Gabrielle PETERSON REGARDING PT BP 178/90
--- NOTE | 2020-11-16 17:23 | PCM.PN.BLA ---
Progress Note Mrs. Valderrama is seen on rounds. This is postop day #1. She relates that her anterior right quad pain is completely gone. Dates that it feels weak of course it was weak before. I changed her dressing and removed her Hemovac drain. Vision is dry and healing well. Overall her progress is satisfactory. See her again tomorrow at which time we will discharge her. STROKE Vital Signs/Narrative: Vital Signs Temp Pulse Resp BP Pulse Ox 11/16/20 16:00 98.5 F 90 18 178/90 H 100
[2020-11-16] MEDS: 0.9% NaCl Peripheral Flush Adult/Peds IV ×2 (18:19→23:35)
[2020-11-16] MEDS: hydrALAZINE 20 MG/ML Vial 5 MG IV (18:19)
[2020-11-16 23:50] LABS: Bedside Glucose 149 mg/dL (70-110)
[2020-11-17] MEDS: oxyCODONE 5 MG Tablet PO (03:24)
[2020-11-17 03:26] VITALS: BP 148/76; PULSE 97; RESP 18; TEMP 37.1; O2SAT 96
[2020-11-17] MEDS: Levothyroxine 175 MCG Tablet PO (06:32)
[2020-11-17 07:11] LABS: Bedside Glucose 124 mg/dL (70-110)
[2020-11-17 07:26] VITALS: O2SAT 95
--- NOTE | 2020-11-17 09:03 | PN_ITS ---
<Ahmet Rodriguezssica EPIC KALEIDOSCOPE ANALYST - Last Filed: 11/17/20 09:08> Subjective: Patient seen and examined. Complains of significant right leg burning pain. Reports constipation as well. Initiated on MiraLAX which patient states works for her at home. Added low-dose gabapentin. - Physical Exam Vitals/I&O's: Vital Signs Temp Pulse Resp BP Pulse Ox 98.8 F 97 18 148/76 H 95 11/17/20 03:26 11/17/20 03:26 11/17/20 03:26 11/17/20 03:26 11/17/20 07:26 Oxygen Flow Rate (L/min) 2 Oxygen Delivery Method Room Air Weight: 103 lb 13.404 oz Body Mass Index (BMI) 20.2 Finger Stick Blood Glucose 148 Intake and Output for Last 24 Hours 11/15/20 11/16/20 11/17/20 23:59 23:59 23:59 Intake Total 2438 / 2738 3741.67 / 3741.67 200 / 200 Output Total 2200 / 3250 1785 / 1785 Balance 238 / -512 1956.67 / 1956.67 200 / 200 General: Alert, Oriented x3, Cooperative HEENT: Atraumatic, PERRLA, EOMI, Normocephalic Neck: Supple, No JVD, Negative Carotid Bruits Lungs: Clear to auscultation, Normal air movement Cardiovascular: Regular rate, No murmurs Abdomen: Bowel Sounds Present, Soft, Non Tender, Non-Distended Extremities: No clubbing, No cyanosis, No edema, Capillary Refill Less than 3 Seconds Skin: No rashes, No breakdown, - - Postop back dressing intact Musculoskeletal: No Tenderness to Palpation of Joints or Extremities Neurological: Cranial nerves II-XII grossly intact, Neuro grossly intact Psych/Mental Status: Anxious Microbiology Past 72 Hours 11/14/20 09:00 Interface Orders SARS-CoV-2 Antigen (Rapid) - Final Laboratory Results 11/16/20 07:30: Diff Path Review Reviewed 11/16/20 11:02: POC Glucose 221 H 11/16/20 16:03: POC Glucose 154 H 11/16/20 23:23: POC Glucose 149 H 11/17/20 06:31: POC Glucose 124 H Current Medications Atorvastatin Calcium (Atorvastatin Calcium 40 Mg Tablet) 40 mg PO QHS [facility] Last Admin: 11/16/20 23:16 Dose: 40 mg Documented by: Diazepam (Diazepam 5 Mg Tablet) 5 mg PO Q6H PRN PRN PRN Reason: Muscle Spasms Enteral Nutritional Formula (Ensure Surgery 237 Ml Liquid) [facility] Last Admin: 11/16/20 17:33 Dose: Not Given Documented by: Famotidine (Famotidine 20 Mg Tablet) 20 mg PO BID [facility] Last Admin: 11/16/20 23:14 Dose: 20 mg Documented by: Gabapentin (Gabapentin 100 Mg Capsule) 100 mg PO X1 ONE Stop: 11/17/20 08:43 Hydralazine HCl (Hydralazine 20 Mg/Ml Vial) 5 mg IV Q6H PRN PRN PRN Reason: BLOOD PRESSURE Last Admin: 11/16/20 18:19 Dose: 5 mg Documented by: Hydrochlorothiazide (Hydrochlorothiazide 25 Mg Tablet) 25 mg PO QAM [facility] Last Admin: 11/16/20 08:53 Dose: 25 mg Documented by: Insulin Human Lispro (Insulin Lispro 100 Unit/Ml Insuln.Pen) 0 unit SC [facility]; Protocol Last Admin: 11/17/20 06:34 Dose: Not Given Documented by: Levothyroxine Sodium (Levothyroxine 175 Mcg Tablet) 175 mcg PO DAILY@0600 [facility] Last Admin: 11/17/20 06:32 Dose: 175 mcg Documented by: Lisinopril (Lisinopril 10 Mg Tablet) 10 mg PO BID [facility] Last Admin: 11/16/20 23:15 Dose: 10 mg Documented by: Morphine Sulfate (Morphine 4 Mg/Ml Syringe) 2 - 4 mg IV Q2H PRN PRN PRN Reason: Pain Score 6-10 Morphine Sulfate (Morphine 2 Mg/Ml Syringe) 2 - 4 mg IV Q2H PRN PRN PRN Reason: Pain Score 6-10 Ondansetron HCl (Ondansetron 4 Mg/2 Ml Vial) 4 mg IV Q8H PRN PRN PRN Reason: NAUSEA Oxycodone HCl (Oxycodone 5 Mg Tablet) 2.5 - 5 mg PO Q4H PRN PRN PRN Reason: Pain Score 6-10 Last Admin: 11/17/20 03:24 Dose: 5 mg Documented by: Polyethylene Glycol (Polyethylene Glycol 3350 17 Gm Packet) 17 gm PO X1 ONE Stop: 11/17/20 08:42 Senna/Docusate Sodium (Senna/Docusate Sodium 1 Tablet) 2 tablet PO BID [facility] Last Admin: 11/16/20 23:14 Dose: 2 tablet Documented by: Sodium Chloride (0.9% Nacl Peripheral Flush Adult/Peds) 5 - 15 ml IV UD PRN PRN Reason: SALINE FLUSH Last Admin: 11/16/20 23:35 Dose: 10 ml Documented by: Sodium Chloride (0.9% Saline Lock 10 Ml Syringe) 10 - 40 ml IV UD PRN PRN Reason: SALINE FLUSH Verapamil HCl (Verapamil Sr 180 Mg Capsule) 180 mg PO DAILY [facility] Last Admin: 11/16/20 08:53 Dose: 180 mg Documented by: Medical Necessity - Tobacco Use Smoking Status: Former smoker Tobacco Use: Non-smoker Assessment/Plan All Active Problems (Last Reviewed 11/07/20 @ 11:[address] Иван Davis MD) Encounter for education (Acute) Other infusion reaction (Acute) BRVO (branch retinal vein occlusion) (Resolved) Bronchitis (Resolved) Iron deficiency anemia due to chronic blood loss (Resolved) 1. Intractable pain, debility secondary to severe right L4 radiculopathy-status post lumbar laminectomy L3-L4 with excision of facet cyst by Dr. Victoria 11/15/2020-PT/OT. As needed pain regimen. Management per surgery. Patient complains of ongoing right lower extremity burning pain. Initiated on low-dose gabapentin. 2. Recent diagnosis multiple myeloma-plan for weekly Velcade and low-dose weekly dexamethasone however this has not been initiated secondary to #1. Continue outpatient follow-up with Dr. Laguna. 3. Hypertension-stable, continue hydrochlorothiazide, lisinopril, verapamil. 4. Hyperlipidemia-continue statin. 5. Chronic kidney disease stage III-recent labs at baseline. Trend BMP. 6. Hypothyroidism-continue Synthroid. 7. Type 2 diabetes mellitus-on metformin. Accu-Cheks with sliding scale insulin. 8. Constipation-initiated on MiraLAX. DVT prophylaxis- SCDs This patient was seen by ROMAIN White under the supervision of Dr. Cisse. <Jed Cisse - Last Filed: 11/17/20 14:35> Objective: Drain was removed yesterday. Patient is sitting on the chair. Physical exam General: Alert, Oriented x3, Cooperative HEENT: Atraumatic, PERRLA, EOMI, Normocephalic Oral: No Gingival or Mucosal Lesions/ Ulcerations Neck: Supple, No JVD, Negative Carotid Bruits Lungs: Air entry equal in bilateral lung bases. No crepitation/rhonchi Cardiovascular: Regular rate, Regular Rhythm, Normal S1, Normal S2, No murmurs Abdomen: Bowel Sounds Present, Soft, Non Tender, Non-Distended : No renal angle tenderness. No suprapubic tenderness. Extremities: No edema, Capillary Refill Less than 3 Seconds Skin: No rashes, No breakdown Spine: Surgical dressing in lumbar area is dry. Mild tenderness in operative area. Musculoskeletal: No Tenderness to Palpation of Joints or Extremities Neurological: Cranial nerves II-XII grossly intact, Deep Tendon Reflexes 2+/4 and Symmetrical, Neuro grossly intact Psych/Mental Status: Normal Affect, Appropriate. - Physical Exam Vitals/I&O's: Vital Signs Temp Pulse Resp BP Pulse Ox 98.2 F 109 H 14 160/78 H 100 11/17/20 10:00 11/17/20 10:00 11/17/20 10:00 11/17/20 10:00 11/17/20 10:00 Oxygen Flow Rate (L/min) 2 Oxygen Delivery Method Room Air Weight: 103 lb 13.404 oz Body Mass Index (BMI) 20.2 Finger Stick Blood Glucose 148 Intake and Output for Last 24 Hours 11/15/20 11/16/20 11/17/20 23:59 23:59 23:59 Intake Total 2438 / 2738 3741.67 / 3741.67 200 / 200 Output Total 2200 / 3250 1785 / 1785 Balance 238 / -512 1956.67 / 1956.67 200 / 200 Microbiology Past 72 Hours 11/14/20 09:00 Interface Orders SARS-CoV-2 Antigen (Rapid) - Final Laboratory Results 11/16/20 16:03: POC Glucose 154 H 11/16/20 23:23: POC Glucose 149 H 11/17/20 06:31: POC Glucose 124 H 11/17/20 11:00: POC Glucose 300 H Assessment/Plan This patient was seen in conjunction with EPIC KALEIDOSCOPE ANALYSTNorma. I have independently in terviewed and examined the patient and reviewed pertinent history, examination findings, laboratory and plan of management. I have reviewed the note and agree with the documented findings with the few additional points. In brief, patient is 85-year-old female with history of multiple myeloma on weekly Velcade, low-dose dexamethasone and acyclovir for secondary herpes prevention is was admitted for elective lumbar laminectomy L3-L4 and excision of facet cyst. Patient had surgery done by Dr. Victoria on 11/15 for severe right L4 radiculopathy. Patient blood pressure is controlled in normal range. Other comorbidities as mentioned above and home medications continued. Diabetes mellitus type 2 on Metformin. Plasma glucose 86. Accu-Cheks are in normal range Patient is medically stable to be discharged. Patient is going home. Follow-up with Dr. Victoria and PCP in 2 weeks. I have discussed my assessment with EPIC KALEIDOSCOPE ANALYSTNorma and orders have been reviewed. Inpatient E&M: 57093 Subs Hosp L2
[2020-11-17 10:00] VITALS: BP 160/78; PULSE 109; RESP 14; TEMP 36.8; O2SAT 100
[2020-11-17] MEDS: Polyethylene Glycol 3350 17 GM PACKET PO (10:17)
[2020-11-17] MEDS: Gabapentin 100 MG Capsule PO (10:17)
[2020-11-17] MEDS: Famotidine 20 MG Tablet PO (10:19)
[2020-11-17] MEDS: Verapamil SR 180 MG CAPSULE PO (10:19)
[2020-11-17] MEDS: Senna/Docusate Sodium 1 Tablet 2 TABLET PO (10:19)
[2020-11-17] MEDS: Lisinopril 10 MG Tablet PO (10:20)
[2020-11-17] MEDS: hydroCHLOROthiazide 25 MG Tablet PO (10:20)
[2020-11-17 11:16] LABS: Bedside Glucose 300 mg/dL (70-110)
--- NOTE | 2020-11-17 11:16 | DS.PCM_ITS ---
Discharge Date and Diagnosis Date of Admission: 11/15/20 Date of Discharge: 11/17/20 - Primary Discharge Diagnosis Acute Problems: Mrs. Valderrama was admitted on 11/15/2020 was discharged on 11/17/2020 date of admission she underwent lumbar laminectomy with medial facetectomy and removal of cyst at L3-4 on the right side. Did well postoperatively. She was concerned consulted by hospitalists during her stay. Her hospital course was unremarkable. A discharge she was given the following orders. She is to walk all she can within reason. She can remove the dressing this coming Thursday and shower this coming Thursday. She is not to put any creams vitamin E hydrogen peroxide or anything other than soap and water on her incision. May leave the incision open to the air once the dressing comes off. Was told that she cannot drive yet. She may eat her usual diet. She is to return to my clinic on 28 November. He is to call the office for the appointment. - Secondary Discharge Diagnosis Chronic Problems: Chronic Problems (Last Reviewed 11/07/20 @ 11:[address] Иван Davis MD) Multiple myeloma (Chronic) Macrocytic anemia (Chronic) Leukopenia (Chronic) Right buttock pain (Chronic) Essential (primary) hypertension (Chronic) Hyperlipidemia (Chronic) Chronic kidney disease (CKD) (Chronic) Degenerative joint disease of spine (Chronic) Hospital Course and Treatment Operations: None Summary of Care Provided: The patient is a 85 year old F [] - Physical Exam Vitals/I&O's: Vital Signs Temp Pulse Resp BP Pulse Ox 98.8 F 97 18 148/76 H 95 11/17/20 03:26 11/17/20 03:26 11/17/20 03:26 11/17/20 03:26 11/17/20 07:26 Oxygen Flow Rate (L/min) 2 Oxygen Delivery Method Room Air Weight: 103 lb 13.404 oz Body Mass Index (BMI) 20.2 Finger Stick Blood Glucose 148 Intake and Output for Last 24 Hours 11/15/20 11/16/20 11/17/20 23:59 23:59 23:59 Intake Total 2438 / 2738 3741.67 / 3741.67 200 / 200 Output Total 2200 / 3250 1785 / 1785 Balance 238 / -512 1956.67 / 1956.67 200 / 200 Microbiology Past 72 Hours 11/14/20 09:00 Interface Orders SARS-CoV-2 Antigen (Rapid) - Final Laboratory Results 11/16/20 07:30: Diff Path Review Reviewed 11/16/20 16:03: POC Glucose 154 H 11/16/20 23:23: POC Glucose 149 H 11/17/20 06:31: POC Glucose 124 H 11/17/20 11:00: POC Glucose Pending Current Medications Atorvastatin Calcium (Atorvastatin Calcium 40 Mg Tablet) 40 mg PO QHS [facility] Last Admin: 11/16/20 23:16 Dose: 40 mg Documented by: Diazepam (Diazepam 5 Mg Tablet) 5 mg PO Q6H PRN PRN PRN Reason: Muscle Spasms Enteral Nutritional Formula (Ensure Surgery 237 Ml Liquid) 237 ml PO TIDCM [facility] Last Admin: 11/16/20 17:33 Dose: Not Given Documented by: Famotidine (Famotidine 20 Mg Tablet) 20 mg PO BID [facility] Last Admin: 11/17/20 10:19 Dose: 20 mg Documented by: Hydralazine HCl (Hydralazine 20 Mg/Ml Vial) 5 mg IV Q6H PRN PRN PRN Reason: BLOOD PRESSURE Last Admin: 11/16/20 18:19 Dose: 5 mg Documented by: Hydrochlorothiazide (Hydrochlorothiazide 25 Mg Tablet) 25 mg PO QAM [facility] Last Admin: 11/17/20 10:20 Dose: 25 mg Documented by: Insulin Human Lispro (Insulin Lispro 100 Unit/Ml Insuln.Pen) [address] [facility]; Protocol Last Admin: 11/17/20 06:34 Dose: Not Given Documented by: Levothyroxine Sodium (Levothyroxine 175 Mcg Tablet) 175 mcg PO DAILY@0600 [facility] Last Admin: 11/17/20 06:32 Dose: 175 mcg Documented by: Lisinopril (Lisinopril 10 Mg Tablet) 10 mg PO BID [facility] Last Admin: 11/17/20 10:20 Dose: 10 mg Documented by: Morphine Sulfate (Morphine 4 Mg/Ml Syringe) 2 - 4 mg IV Q2H PRN PRN PRN Reason: Pain Score 6-10 Morphine Sulfate (Morphine 2 Mg/Ml Syringe) 2 - 4 mg IV Q2H PRN PRN PRN Reason: Pain Score 6-10 Ondansetron HCl (Ondansetron 4 Mg/2 Ml Vial) 4 mg IV Q8H PRN PRN PRN Reason: NAUSEA Oxycodone HCl (Oxycodone 5 Mg Tablet) 2.5 - 5 mg PO Q4H PRN PRN PRN Reason: Pain Score 6-10 Last Admin: 11/17/20 03:24 Dose: 5 mg Documented by: Senna/Docusate Sodium (Senna/Docusate Sodium 1 Tablet) 2 tablet PO BID [facility] Last Admin: 11/17/20 10:19 Dose: 2 tablet Documented by: Sodium Chloride (0.9% Nacl Peripheral Flush Adult/Peds) 5 - 15 ml IV UD PRN PRN Reason: SALINE FLUSH Last Admin: 11/16/20 23:35 Dose: 10 ml Documented by: Sodium Chloride (0.9% Saline Lock 10 Ml Syringe) 10 - 40 ml IV UD PRN PRN Reason: SALINE FLUSH Verapamil HCl (Verapamil Sr 180 Mg Capsule) 180 mg PO DAILY [facility] Last Admin: 11/17/20 10:19 Dose: 180 mg Documented by: Home Medications: Medications to take at Discharge atorvastatin 20 mg tablet 40 mg PO QDAY 03/03/18 hydrochlorothiazide 25 mg tablet 25 mg PO QAM 03/03/18 metformin 1,000 mg tablet 1,000 mg PO BID 03/03/18 verapamil 360 mg 24 hr capsule,extended release 180 mg PO DAILY 03/03/18 Aspirin [Adult Low Dose Aspirin EC] 81 mg PO DAILY 06/18/20 Vitamin B12 1,000 mcg PO DAILY 06/18/20 hydrocodone 7.5 mg-acetaminophen 325 mg tablet 1 tab PO .four times daily PRN tab 10/29/20 levothyroxine 175 mcg tablet 175 mcg PO DAILY tab 10/29/20 Acyclovir 400 mg PO BID 30 Days #60 tab 11/01/20 Ondansetron [Zofran Odt] 4 mg PO Q8H PRN PRN 10 Days #30 tab 11/01/20 Ferrous Bis-Glycinate Chelate [Iron Glycinate] 28 mg PO DAILY 11/06/20 Pantoprazole Sodium [Protonix] 40 mg PO DAILY 11/06/20 lisinopril 10 mg tablet 10 mg PO BID tab 11/07/20 hydrocodone 7.5 mg-acetaminophen 325 mg tablet 1 tab PO Q6H PRN #60 tab 11/17/20 Other Amb Orders: Wheeled Walker Location: None Selected Primary Care Physician: Everardo Garcia DO [Primary Care Provider] - Medical Necessity - Tobacco Use Smoking Status: Former smoker Tobacco Use: Non-smoker Meaningful Use Info Meaningful Use Diagnoses (Choose all that apply): None applicable
--- NOTE | 2020-11-17 12:50 | CASEMGMT ---
RN DARIEL NOTE: Intro role of CM to patient and YEBOAH form explained re: Observation status for treatment of . Explained hospitalization will be paid per insurance policy for Outpatient billing and condition will continue to be evaluated for Inpt necessity. Pt verbalizes understanding and does not have further questions. Form signed, copy made and placed in chart, and original given to pt. Vernell RM RN CM
== END 2020-11-17 13:30 | disposition home or self-care (01) ==
LOC: SDC 15:38 → MS3 15:38
PROVIDERS: Anesthesiology; Family Medicine; Admitting Provider Orthopaedic Surgery; PCP Family Medicine; Referring Provider Orthopaedic Surgery; Visit Provider Internal Medicine
PROC: (CPT 63030; principal; 2020-11-15 07:00)
DX: M54.16 Radiculopathy, lumbar region (principal); C90.00 Multiple myeloma not having achieved remission; Z20.828 Contact with and (suspected) exposure to other viral communicable diseases; N18.30 Chronic kidney disease, stage 3 unspecified; I12.9 Hypertensive chronic kidney disease with stage 1 through stage 4 chronic kidney disease, or unspecified chronic kidney disease; N25.81 Secondary hyperparathyroidism of renal origin; E11.22 Type 2 diabetes mellitus with diabetic chronic kidney disease; E78.5 Hyperlipidemia, unspecified; K21.9 Gastro-esophageal reflux disease without esophagitis; E03.9 Hypothyroidism, unspecified; E11.42 Type 2 diabetes mellitus with diabetic polyneuropathy; Z79.899 Other long term (current) drug therapy; Z79.82 Long term (current) use of aspirin; Z79.84 Long term (current) use of oral hypoglycemic drugs; Z87.891 Personal history of nicotine dependence; K59.00 Constipation, unspecified
CPT/HCPCS: 00630; 63047; 36415; 72100; 80048; 80053; 82962; 83036; 83735; 84443; 85025; 85610; 85730; 86703; 86704; 86705; 86706; 86708; 86709; 86803; 87081; 87340; 87426; 88304; 88305; 96361; 96365; 96366; 96375; 97162; 99218; C9803; J7120; A4216; G0378; G0379; J2405; J3475

== ENCOUNTER → 2020-12-04 10:49 | Outpatient (CLI) | payer MEDICARE, SELFPAY ==
--- NOTE | 2020-12-04 10:53 | US_ITS ---
STUDY: RENAL ULTRASOUND - COMPLETE REASON FOR EXAM: Female, 85 years old. CKD 3 TECHNIQUE: Ultrasound evaluation of the kidneys was performed with real-time and static tijerina-scale imaging. COMPARISON: None. FINDINGS: Aorta: Visualized portions of abdominal aorta are normal in diameter. IVC: Visualized portions appear patent. Right kidney: Measures 10.3 cm. Normal contour. Renal cortical thickness appears normal. No cysts. No masses, stones, or hydronephrosis identified. Left kidney: Measures 9.5 cm. Normal contour. Renal cortical thickness appears normal. No cysts. No masses, stones, or hydronephrosis identified. Bladder: Incompletely distended and poorly evaluated. US/Kidney and Bladder IMPRESSION: Renal ultrasound is within normal limits. Bladder not well visualized due to incomplete distention. Electronically Signed: Jimmy Oliver, at 12:31 EST Tel , Service support ,
== END ==
PROVIDERS: PCP Family Medicine; Referring Provider Internal Medicine Nephrology; Visit Provider Internal Medicine Nephrology
DX: N18.32 Chronic kidney disease, stage 3b (principal)
CPT/HCPCS: 76770

== ENCOUNTER → 2021-02-13 13:20 | Outpatient (CLI) | payer MEDICARE, SELFPAY ==
[2021-02-06 14:17] VITALS: BMI 16.9
== END ==
PROVIDERS: PCP Family Medicine; Referring Provider Nurse Practitioner Family; Visit Provider Nurse Practitioner Family
DX: Z51.11 Encounter for antineoplastic chemotherapy (principal); C90.00 Multiple myeloma not having achieved remission; Z79.2 Long term (current) use of antibiotics
CPT/HCPCS: 94642; 96372; J9041

== ENCOUNTER → 2021-03-13 06:46 | Outpatient (CLI) | payer MEDICARE, SELFPAY ==
[2021-02-06 14:17] VITALS: BMI 16.9
[2021-03-06 12:05] VITALS: BMI 20.2
== END ==
PROVIDERS: PCP Family Medicine; Referring Provider Nurse Practitioner Family; Visit Provider Nurse Practitioner Family
DX: Z51.11 Encounter for antineoplastic chemotherapy (principal); C90.00 Multiple myeloma not having achieved remission; Z79.2 Long term (current) use of antibiotics
CPT/HCPCS: 36415; 80069; 85025; 94642; 96372; 96401; J0897; J9041

== ENCOUNTER → 2021-04-11 12:41 | Outpatient (CLI) | payer MEDICARE, SELFPAY ==
[2021-02-20 12:07] VITALS: BMI 20.1
[2021-04-10 13:57] VITALS: BMI 20.7
== END ==
PROVIDERS: PCP Family Medicine; Referring Provider Nurse Practitioner Family; Visit Provider Nurse Practitioner Family
DX: C90.00 Multiple myeloma not having achieved remission (principal); Z79.2 Long term (current) use of antibiotics
CPT/HCPCS: 94642

== ENCOUNTER → 2021-04-25 12:07 | Outpatient (CLI) | payer MEDICARE, SELFPAY ==
[2021-04-17 12:42] VITALS: BMI 20.4
[2021-04-25 12:49] LABS: Protein:Creat Ratio 1475 mg/g CRE (0-200)
== END ==
PROVIDERS: PCP Family Medicine; Visit Provider Internal Medicine Nephrology
DX: N18.32 Chronic kidney disease, stage 3b (principal)
CPT/HCPCS: 82570; 84156

== ENCOUNTER 2021-05-14 12:00 | Outpatient (RCR) | payer MEDICARE, SELFPAY ==
[2021-04-10 13:57] VITALS: BMI 20.7
[2021-04-17 12:42] VITALS: BMI 20.4
--- NOTE | 2021-04-18 08:50 | HP.PTEVAL ---
Patient's Visit Information MAHESH PIERSON is a 85 year old F referred to Physical Therapy by Dr. Everardo Garcia DO with a diagnosis of LBP and chronic pain. Date of Evaluation: 04/18/21 Physical Therapist: CRISTIAN Perez - Visit Plan Frequency: 2x /Week Duration: 4 Weeks Plan: 2X/ for 4 weeks for neutral spine core stability, possible flexion of the spine stretches to help with stenosis, LE strengthening, general strengthening with HEP. HEP: bridges. PT , PT with january - Subjective Pt had surgery in late Oct and could not do PT cause she went to [facility]. Pt reports that she had B leg pain prior to surgery and then R leg was worse. When they got in her back during surgery they removed a cyst. She was able to walk. She was taking pain meds. Pt reports that she has pain on the R side of her spine and R leg. It then started to hurt on the L side. Her R leg became better while she was in [place] and then the L leg started. Pt is on oxy and gabapetin. Pt kept trying to reduce the oxy. She is weaning off the gabapetin. She does not want more surgery. Dr Morris gave her an injection for pain. Pt got back from [place] and could not walk her 2-3 miles she normally did. Her legs are weak. Pt also has multiple mylenoma and has weekly injections in her belly. She reports that she can walk long distances, her legs are weak. Steps: she uses a railing and goes recip. She is not sleeping and not sure why she is not sleeping. Pt wants some HEP and then will do them on her own. Dr Morris gave her an injection and relieved some of her pain. The gabapetin was causing some of her pain. As she is reducing the meds her L LE pain is decreasing. HEP from prior PT: standing heel and toe raises, standing hip flexion, mostly leg exercises last PT session prior to surgery. - Pain back pain Pain Intensity (Out of 10): 0 Pain Intensity Range: 0 R leg pain Pain Intensity (Out of 10): 4 L leg pain Pain Intensity (Out of 10): 6 - Objective Sit to stand: able to get up without using her arms. Gait: Slightly Decreased stance time on her L LE, Walks with normal stride and slight veering at times. LE MMT: B hip flex 3+/5, B knee flex 3+/5, B knee ext 4-/5, Able to full ROM bridge, B hip abd 4-/5,. Pt is able to walk on her heels and her toes with good strength. Patellar DTR's L 1+/3 and R 0/3. Trunk AROM: Flexion 100%, ext 50%. SB B 50%. Rot B 50% - Goals Goal 1:: I HEP Goal Time Frame: 4-6 Weeks Goal 2:: Increase B LE strength by 1/2 muscle grade (LE MMT: B hip flex 3+/5, B knee flex 3+/5, B knee ext 4-/5, Able to full ROM bridge, B hip abd 4-/5, Pt is able to walk on her heels and her toes with good strength) Goal Time Frame: 4-6 Weeks Goal 3:: Decrease L leg pain by 50% per subjective Goal Time Frame: 4-6 Weeks - Rehabilitation Potential Rehabilitation Potential: Good - Anticipated Interventions Patient/Client Instruction: Educate patient on: Condition, Plan of Care For the Purpose of:: To decrease pain, To increase ROM, To improve nutrient delivery to tissue, To improve muscle performance and motor function, To improve ability to perform ADL's, To increase tolerance to activity/condition/position, To improve performance and independence with ADL's, To decrease level of supervision to perform tasks, To improve ability of physical actions for home/community/work/leisure, To improve gait and locomotor functions, To improve health of tissue, To increase flexibility/ROM Therapeutic Exercise to Include: Strength training, Postural training, Flexibilty training, Active ROM, Dynamic Lumbar Stabilization For the Purpose of:: To decrease pain, To increase ROM, To improve muscle performance and motor function, To improve ability to perform ADL's, To increase tolerance to activity/condition/position, To improve performance and independence with ADL's, To decrease level of supervision to perform tasks, To improve ability of physical actions for home/community/work/leisure, To improve gait and locomotor functions, To improve health of tissue, To decrease soft tissue restriction, To increase flexibility/ROM Manual Therapy Techniques to Include: Passive ROM For the Purpose of:: To increase ROM Thank you for the opportunity to evaluate your patient. For Medicare and Medicare HMO plans, please review the plan of care and approve it. It will need to be FAXED BACK to us at [phone] for Medicare purposes. For Medicare only, by signing this I certify the plan of care. Please let me know if there are questions or concerns regarding this plan of care. Physician Signature: Date:
== END 2021-05-14 19:00 | disposition home or self-care (01) ==
LOC: PT 12:00
PROVIDERS: PCP Family Medicine; Referring Provider Family Medicine; Visit Provider Family Medicine
DX: M54.5 Low back pain (principal); G89.29 Other chronic pain
CPT/HCPCS: 97110; 97161; 97530

== ENCOUNTER → 2021-05-16 12:42 | Outpatient (CLI) | payer MEDICARE, SELFPAY ==
[2021-02-20 12:07] VITALS: BMI 20.1
[2021-05-15 11:12] VITALS: BMI 20.6
== END ==
PROVIDERS: PCP Family Medicine; Referring Provider Nurse Practitioner Family; Visit Provider Nurse Practitioner Family
DX: C90.00 Multiple myeloma not having achieved remission (principal); Z79.2 Long term (current) use of antibiotics
CPT/HCPCS: 94642

== ENCOUNTER → 2021-06-07 10:43 | Outpatient (CLI) | payer MEDICARE, SELFPAY ==
[2021-02-20 12:07] VITALS: BMI 20.1
[2021-06-05 10:36] VITALS: BMI 20.6
[2021-06-07] MEDS: Pentamidine Isethionate 300 MG, Water For Injection,Sterile 6 ML INHALATION (11:01)
== END ==
PROVIDERS: PCP Family Medicine; Referring Provider Nurse Practitioner Family; Visit Provider Nurse Practitioner Family
DX: C90.00 Multiple myeloma not having achieved remission (principal); Z79.2 Long term (current) use of antibiotics
CPT/HCPCS: 94642

== ENCOUNTER → 2021-07-04 10:31 | Outpatient (CLI) | payer MEDICARE, SELFPAY ==
[2021-05-29 12:07] VITALS: BMI 20.8
[2021-07-03 11:56] VITALS: BMI 20.2
[2021-07-04] MEDS: Pentamidine Isethionate 300 MG, Water For Injection,Sterile 6 ML INHALATION (10:50)
== END ==
PROVIDERS: PCP Family Medicine; Referring Provider Nurse Practitioner Family; Visit Provider Nurse Practitioner Family
DX: C90.00 Multiple myeloma not having achieved remission (principal); Z79.2 Long term (current) use of antibiotics
CPT/HCPCS: 94642

== ENCOUNTER 2021-07-31 10:44 | Day surgery (SDC) | payer MEDICARE, SELFPAY ==
[2021-07-31] VITALS (9 sets, daily range): BP systolic 109–153; BP diastolic 57–92; PULSE 87–100; RESP 16; TEMP 36.1–36.6; O2SAT 95–99
--- NOTE | 2021-07-31 11:05 | HP.PCM_ITS ---
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 Required: No Is patient in pain?: No Allergies Sulfa (Sulfonamide Antibiotics) Adverse Reaction (Severe, Verified 07/30/21 08:06) Hives Medications atorvastatin 20 mg tablet 40 mg PO QDAY 03/03/18 [History Confirmed 07/30/21] hydrochlorothiazide 25 mg tablet 25 mg PO QAM 03/03/18 [History Confirmed 07/30/21] metformin 1,000 mg tablet 1,000 mg PO BID 03/03/18 [History Confirmed 07/30/21] Vitamin B12 1,000 mcg PO DAILY 06/18/20 [History Confirmed 07/30/21] aspirin 81 mg PO DAILY 06/18/20 [History Confirmed 07/30/21] levothyroxine 175 mcg tablet 175 mcg PO DAILY tablet 10/29/20 [History Confirmed 07/30/21] ondansetron 4 mg PO Q8H PRN PRN 10 Days #30 tablet 11/01/20 [Rx Confirmed 0 07/30/21] iron bisglycinate chelate 28 mg PO DAILY 11/06/20 [History Confirmed 07/30/21] pantoprazole 40 mg PO DAILY 11/06/20 [History Confirmed 07/30/21] dexamethasone 40 mg PO QWEEK 30 Days #40 tab 02/26/21 [Rx Confirmed 07/30/21] amlodipine 5 mg tablet 5 mg PO DAILY tablet 03/11/21 [History Confirmed 07/30/21] acyclovir 400 mg PO BID 90 Days #180 tablet 03/12/21 [Rx Confirmed 07/30/21] tramadol 50 mg tablet 50 mg PO BID tab 06/12/21 [History Confirmed 07/30/21] PFSH Medical History Anemia Anemia aplastic aregenerative BRVO (branch retinal vein occlusion) Chronic kidney disease (CKD) Chronic rheumatic arthritis Degenerative joint disease of spine DMII (diabetes mellitus, type 2) Encounter for chemotherapy management Essential (primary) hypertension GERD (gastroesophageal reflux disease) HTN (hypertension) Hyperlipidemia Hypothyroidism Leukopenia Lumbar spinal stenosis Macrocytic anemia Multiple myeloma Osteoporosis Peripheral neuropathy Right buttock pain Secondary hyperparathyroidism Vitamin D deficiency Surgical History History of hemilaminectomy Family History Father High cholesterol Heart disease Hypertension Sister High cholesterol Mother Cancer Social History household members: none housing: house Smoking Status: Former smoker alcohol intake: current alcohol intake frequency: a few times a month what type of physical activity do you participate in: walking frequency: 5-6 times per week do you feel safe at home: Yes HPI HPI HPI: MAHESH PIERSON, is a 85 F who presents to the office today for port. Patient has multiple myeloma needs port for treatment. ROS General General: No weight change, appetite, fatigue, colon cancer, breast cancer or weakness HEENT HEENT: No difficulty swallowing, eye injury, eye surgery, swollen glands or hoarseness Endo Endocrine: Yes diabetes mellitus; No thyroid disease, thyroid cancer, Hair loss, heat intolerance or cold intolerance Skin Skin: No rash or changing moles Breast Breast: No left breast lump, right breast lump, nipple discharge, breast pain, abnormal mammogram, abnormal US or breast enlargement Musc Musculoskeletal: Yes back problems; No arthritis, rheumatoid arthritis, gout or joint pain Cardio Cardiovascular: Yes high blood pressure; No murmur, pacemaker, heart disease, atrial fibrillation, heart attack, heart stent, palpitations, shortness of breat with exertion or chest pain Psych Psychiatric: No depression, anxiety or hearing voices Resp Respiratory: No shortness of breath, No sleep apnea, No cough, No COPD, No asthma, No emphysema and No wheezing Gastro Gastrointestinal: No abdominal pain, No nausea or vomiting, No diarrhea, No constipation, No blood in stool, No acid reflux, No hemorrhoids, No ulcers, No gallbladder problem and No black,tarry stools Jorge Luis Hematologic: No blood thinners, No blood disorders, No bleeding, Yes anemia and No blood clots Neuro Neurologic: No system reviewed and no additional complaints, except as documented, No as per HPI, No abnormal gait, No abnormal hearing, No abnormal movements, No abnormal speech, No behavioral changes, No burning sensations, No confusion, No convulsions, No disequilibrium, No dizziness, No localized weakness, No frequent falls, No headache(s), No lack of coordination, No loss of vision, No memory loss, Yes numbness, No other visual disturbances, No radicular pain, No restless legs, No sensory deficit, No syncope, Yes tingling, No tremor(s), No weakness and No other Exam Const General: cooperative Orientation: alert and oriented x3 HENMT Head: normal to inspection Neck Neck: normal visual inspection and full ROM Chest Chest palpation & inspection: normal inspection of the chest Resp Effort & Inspection: normal respiratory effort Auscultation: clear to auscultation bilaterally Cardio Rate: regular rate Rhythm: regular rhythm GI Inspection: non-distended Palpation: soft and nontender Skin General: no rashes or lesions noted Neuro General: patient alert and patient oriented x3 Extrem General: full ROM Psych Appearance: grossly normal Mental Status: mental status grossly normal Assessment and Plan Assessment and Plan (1) Multiple myeloma: Status: Chronic Qualifiers: Multiple myeloma remission status: unspecified Qualified Code(s): C90.00 - Multiple myeloma not having achieved remission (2) Encounter for insertion of venous access port: Status: Acute Plan - Dr. Bandar Wang MD: I discussed right chest port placement with the patient in detail. I discussed the risks including but not limited to bleeding, infection, pneumothorax, line infection or DVT. The patient understands all of the procedure and all of her questions were answered. I will plan for right chest port placement with her in the near future for treatment. Bandar Wang MD Pager: [facility] [address] [place] [address], [address] [place] [address] Office: I have re-examined the patient. There are no clinical changes since date of exam.
[2021-07-31 11:16] LABS: Bedside Glucose 116 mg/dL (70-110)
[2021-07-31] MEDS: Cefazolin 2 GM in 0.9% Normal Saline 100 ML IV (11:24)
[2021-07-31] MEDS: Lactated Ringers 1,000 ML 100 ML IV (11:25)
[2021-07-31] MEDS: Lidocaine 1% /Epi 1:100 (20ml) 20 ML Vial (11:59)
--- NOTE | 2021-07-31 12:23 | OP.PCM_ITS ---
Problems Associated Problem List Diagnoses (1) Encounter for insertion of venous access port: (2) Multiple myeloma: Report of Operation Date of Procedure: 07/31/21 Pre-Operative Diagnosis: Multiple myeloma Need for vascular access for treatment Post-Operative Diagnosis: Same Surgery/Procedure Performed:: Ultrasound and fluoroscopy guided right chest port placement utilizing right IJ Description of Procedure: After obtaining informed consent patient was brought back to the operating room MAC anesthesia was induced and the right chest and neck were prepped in normal sterile fashion. Ultrasound was used to evaluate both IJs and the right IJ was selected. Next, using a needle, the right IJ was accessed and a guidewire was passed on into the superior vena cava under fluoroscopy guidance. A small incision was made over the puncture site and the dilator introducer was placed over the guidewire. Next this was capped and the pocket was made for the port. 1% lidocaine with epinephrine was injected in the proposed port site. An incision was made with scalpel. Electrocautery was used to make a pocket under the skin and subcutaneous tissue. Hemostasis was obtained. Next, the catheter was tunneled up to the neck incision site and placed through the introducer. The peel-away introducer was removed and the position of the catheter was confirmed on fluoroscopy. Next, the catheter was trimmed and attached to the port with the locking device. Interrupted 2-0 Vicryl sutures were used to anchor the port to the chest wall and then the port was placed inside the pocket. The pocket was then flushed with saline and the port irrigated with saline. There was good blood return and the port flushed easily. Next, heparin was injected into the port. The skin was closed with subcutaneous interrupted 3-0 Vicryl sutures. A single 3-0 Vicryl sutures placed under the skin at the neck incision site. Steri-Strips were placed as well as op sites. Patient tolerated procedure well, was taken to PACU in stable condition. Chest x-ray will be obtained. Grafts/Implants Used: 8 Citizen Of [place] PowerPort Admit VTE Documentation VTE Mechan Device Prophylaxis: SCD's
--- NOTE | 2021-07-31 12:25 | EX.PCM.DISCH ---
Discharge Instructions Procedure Port-A-Cath Diet Discharge Diet: Light diet - advance as tolerated (Pain medication may cause nausea. You should typically eat light foods as you take your pain medication.) Activity Discharge Activity: Return to Normal Activity and May Shower (with your bandage in place in 1-2 days after surgery. DO NOT SHOWER WHEN YOUR PORT IS ACCESSED.) Dressing / Incision Call your doctor if your incision/area has: Continuous Slow Oozing, Sudden Increased Bleeding, Increased Pain/ Swelling, Increased Redness, Foul Smelling Discharge and Swelling at the incision site Call your doctor if you observe: Fever of 101 or Higher Remove Dressing in: 2 days Cleanse incision/area with: Soap & Water Follow Up Care Please Follow Up With: Bandar Wang MD When: Follow-up as needed. [phone] Test Results: Test results from this visit will be discussed in further detail at your follow-up appointment, if applicable. Discharge Plan Admission Attending Provider: Bandar Wang Primary Care Provider: Everardo Garcia Discharge Orders/Prescriptions Prescriptions: No Action metformin 1,000 mg tablet 1,000 mg PO BID RF: 0 hydrochlorothiazide 25 mg tablet 25 mg PO QAM RF: 0 atorvastatin 20 mg tablet 40 mg PO QDAY RF: 0 levothyroxine 175 mcg tablet 175 mcg PO DAILY RF: 0 amlodipine 5 mg tablet 5 mg PO DAILY RF: 0 tramadol 50 mg tablet 50 mg PO BID RF: 0 aspirin 81 MG tablet,delayed release (DR/EC) 81 mg PO DAILY RF: 0 Vitamin B12 1,000 mcg PO DAILY RF: 0 ondansetron 4 MG tablet 4 mg PO Q8H PRN PRN (Reason: Nausea) 10 Days Qty: 30 RF: 3 acyclovir 400 MG tablet 400 mg PO BID 90 Days Qty: 180 RF: 1 iron bisglycinate chelate 29 MG capsule 28 mg PO DAILY RF: 0 pantoprazole 40 MG tablet 40 mg PO DAILY RF: 0 Referrals / Follow Up: Everardo Garcia DO [Primary Care Provider] - Disposition Disposition (needs filled in before D/C Order can be placed): Home, Self Care
--- NOTE | 2021-07-31 12:30 | RAD_ITS ---
STUDY: X-RAY CHEST REASON FOR EXAM: Female, 85 years old. line placement -- in pacu TECHNIQUE: Single AP portable view of the chest. COMPARISON: 04/18/2018 FINDINGS: Interval placement of right internal jugular chest port with tip of catheter overlying the superior vena cava and no pneumothorax. The lungs are clear and expanded. There is no demonstrated pleural abnormality. Normal size heart. Normal mediastinum and ligia. Normal visualized pulmonary arteries. Normal visualized aortic arch and descending thoracic aorta. Normal visualized thoracic spine. Normal visualized ribs, clavicles, and shoulders. There is no demonstrated abnormality of the visualized soft tissue structures of the upper abdomen. RAD/CXR for Line Placement IMPRESSION: 1. Interval placement of right internal jugular chest port with tip of catheter overlying the spur vena cava and no pneumothorax. 2. No active disease. Electronically Signed: Andrea Galicia MD at 12:45 EDT Tel , Service support ,
== END 2021-07-31 13:43 | disposition home or self-care (01) ==
LOC: SDC 10:45 → AC 10:46
PROVIDERS: PCP Family Medicine; Referring Provider Surgery; Visit Provider Surgery
PROC: (CPT 36561; principal; 2021-07-31 12:00)
DX: Z45.2 Encounter for adjustment and management of vascular access device (principal); C90.00 Multiple myeloma not having achieved remission; K21.9 Gastro-esophageal reflux disease without esophagitis; E11.22 Type 2 diabetes mellitus with diabetic chronic kidney disease; I12.9 Hypertensive chronic kidney disease with stage 1 through stage 4 chronic kidney disease, or unspecified chronic kidney disease; N18.9 Chronic kidney disease, unspecified; E78.5 Hyperlipidemia, unspecified; E03.9 Hypothyroidism, unspecified; E11.42 Type 2 diabetes mellitus with diabetic polyneuropathy; N25.81 Secondary hyperparathyroidism of renal origin; Z87.891 Personal history of nicotine dependence; Z79.84 Long term (current) use of oral hypoglycemic drugs; Z79.82 Long term (current) use of aspirin; Z79.52 Long term (current) use of systemic steroids; Z79.899 Other long term (current) drug therapy
CPT/HCPCS: 36561; 71045; 77001; 82962; J7120; C1788

== ENCOUNTER 2021-08-09 09:00 | Outpatient (RCR) | payer MEDICARE, SELFPAY ==
--- NOTE | 2021-07-25 10:02 | HP.PTEVAL ---
Patient's Visit Information MAHESH PIERSON is a 85 year old F referred to Physical Therapy by Dr. Herve Morris MD with a diagnosis of Back pain and L leg pain. Date of Evaluation: 07/25/21 Physical Therapist: Kofi Gauthier DPT - Visit Plan Frequency: 2x /Week Duration: 6 Weeks Plan: Start with neutral spine core stability, BLE strengthening. Progress to dynamic core strengthening as tolerated. - Subjective Pt. is here today for here initial evaluation with diagnosis of back and leg pain. Pt. reports having pain for ~9 months. No mechanism of injury. She did have surgery with a laminectomy, but did not seem to change her pain much. She was then referred to pain management, who was doing a few injections which has helped a bit. Pt. does not report having much low back pain, but is mostly having pain in her L leg, anterior thigh. Pt. reports recently having increased superficial pain (hyper sensitivity) at L anterior thigh. She has been doing light yoga stretches at home, they feel better, but not fully better. Pt. reports minimal to no back pain. Pt. does report increased pain with extension upward dog positioning. Increases pain: lifting, walking, prolonged standing. Decreases pain: medication, sitting. Pt. denies saddle region pain, no changes in B/B. PMH: lumbar spine laminectomy, currently has multiple myeloma (diagnosed in Nov). She talked with her pain management physician and her PCP who both recommended PT to increase strength/stability. Pt. is hopeful to get stronger in bother her core and LEs in order to get back to walking longer distances, ~2 miles with decreased symptoms. - Pain R leg Pain Intensity (Out of 10): 4 Pain Intensity Range: 0, 8 Comment: anterior aspect of her thigh, hip to knee - Objective POSTURE: Pt. has decent posture in stance. Pt. has slight anterior pelvic tilt. PALPATION: pt. has good healing incision at lumbar spine. Pt. has hypomobility with PA throughout lumbar spine. No changes in symptoms with PAs. Pt. reports of hypersensitivity at L anterior thigh with palpation, but not much. NEURO: pt. has increased sensitivity to light touch at L anterior thigh, rest is normal and equal. Pt. has diminished L DTR of achilles and patellar tendons 1+. 2+ on R side. ROM: LUMBAR SPINE: flexion nil loss NE, ext mod loss (improved ROM with repeated movements with slight reduction in symptoms), SB nil loss NE, rotation nil loss NE. Pt. has good hip flexion and extension, but is limited with B hip ER/IR motions bilaterally. normal HS length noted as well. MMT: RLE- ankle 5/5 throughout; knee 5/5 throughout; hip- flexion 4+/5, abd 4/5, ext 4/5. LLE: ankle 5/5 throughout; knee: ext 4/5, flexion 4+/5; hip- flexion 4/5 increase NW, abd 4/5 NE, ext 4/5. GAIT: Pt. has fairly normal gait pattern, with slight flexed posture. - Balance/Special Test Scores Oswestry Low Back Score: 9 - Goals Goal 1:: LTG: Pt. to be I with HEP for core and LE strengthening Goal Time Frame: 4-6 Weeks Goal 2:: STG: Pt. to be able to walk 1/2-1 mile with 0-2/10 pain in LLE. Goal Time Frame: 2-4 Weeks Goal 3:: LTG: Pt. to ambulate 2-3 miles with 0-2/10 pain in LLE. Goal Time Frame: 4-6 Weeks Goal 4:: LTG: Pt. to have increased core and BLE strength to at least 5-/5 throughout. Goal Time Frame: 4-6 Weeks Goal 5:: LTG: pt. to have increased Lumbar ROM by 25% in all directions without increase in symptoms Goal Time Frame: 4-6 Weeks - Rehabilitation Potential Physical Therapy Diagnosis: Pt. has signs and symptom consistent with L leg pain, mostly likely radiating from her back. Pt. has some neurogenic symptoms, but did have a positive effect with core stability exercises. Pt. did not have an exact directional preference with flexion/extension this date. I would like her to work on core stability exercises, I might have her progress into more ROM pending tolerance. Rehabilitation Potential: Good - Anticipated Interventions Patient/Client Instruction: Educate patient on: Condition, Plan of Care, Risk Factors, Benefits of Fitness Program For the Purpose of:: To facilitate caregiver knowledge, To improve self management, To prevent re-injury, To improve ability to perform tasks related to life management, To improve tolerance to ADL's Therapeutic Exercise to Include: Strength training, Power training, Body mechanics, Postural training, Flexibilty training, Dynamic Lumbar Stabilization, Hyun Exercises For the Purpose of:: To decrease pain, To decrease swelling/inflammation, To increase ROM, To improve nutrient delivery to tissue, To increase oxygenation perfusion, To improve muscle performance and motor function, To improve ability to perform ADL's, To improve health of tissue, To decrease soft tissue restriction, To increase flexibility/ROM Thank you for the opportunity to evaluate your patient. For Medicare and Medicare HMO plans, please review the plan of care and approve it. It will need to be FAXED BACK to us at [phone] for Medicare purposes. For Medicare only, by signing this I certify the plan of care. Please let me know if there are questions or concerns regarding this plan of care. Physician Signature: Date:
--- NOTE | 2021-10-29 11:47 | HP.PT.NRP ---
MAHESH PIERSON was seen in my office for initial evaluation on 07/25/21. The following Plan of Care was established for this patient: Initial Frequency: 2x /Week Initial Duration: 6 Weeks Patient/Client Instruction: Educate patient on: Condition, Plan of Care, Risk Factors, Benefits of Fitness Program For the Purpose of:: To facilitate caregiver knowledge, To improve self management, To prevent re-injury, To improve ability to perform tasks related to life management, To improve tolerance to ADL's Therapeutic Exercise to Include: Strength training, Power training, Body mechanics, Postural training, Flexibilty training, Dynamic Lumbar Stabilization, Hyun Exercises For the Purpose of:: To decrease pain, To decrease swelling/inflammation, To increase ROM, To improve nutrient delivery to tissue, To increase oxygenation perfusion, To improve muscle performance and motor function, To improve ability to perform ADL's, To improve health of tissue, To decrease soft tissue restriction, To increase flexibility/ROM This patient was last seen in our office 08/09/21. Pertinent comments regarding their Physical therapy will appear below: Pt. has not been seen in several months and will be DC from PT for her low back pain at this point in time. At this point I will be discontinuing this patient from physical therapy. I would be happy to see this patient again in the future if found appropriate by the physician. Thank you! DIVYA TiwariT Balance/Gait/Functional tests - Balance/Special Test Scores Oswestry Low Back Score: 9
== END 2021-08-09 19:00 | disposition home or self-care (01) ==
LOC: PT 09:00
PROVIDERS: PCP Family Medicine; Referring Provider Anesthesiology Pain Medicine; Visit Provider Anesthesiology Pain Medicine
DX: M54.9 Dorsalgia, unspecified (principal); R29.898 Other symptoms and signs involving the musculoskeletal system
CPT/HCPCS: 97110; 97161

== ENCOUNTER → 2021-08-21 09:21 | Outpatient (CLI) | payer MEDICARE, SELFPAY ==
[2021-05-29 12:07] VITALS: BMI 20.8
== END ==
PROVIDERS: PCP Family Medicine; Referring Provider Nurse Practitioner Family; Visit Provider Nurse Practitioner Family
DX: C90.00 Multiple myeloma not having achieved remission (principal); Z79.2 Long term (current) use of antibiotics; D53.9 Nutritional anemia, unspecified
CPT/HCPCS: 36591; 85025; 94642; A4216

== ENCOUNTER 2021-09-16 20:09 | Inpatient (IN) | payer MEDICARE, SELFPAY ==
[2021-09-16 20:10] VITALS: BP 129/67; PULSE 101; RESP 18; TEMP 36.4; O2SAT 100; BMI 21.4
--- NOTE | 2021-09-16 21:06 | RAD_ITS ---
STUDY: X-RAY - RIGHT HAND REASON FOR EXAM: Female, 86 years old. Dog bite infection TECHNIQUE: 3 radiographic view(s) of the hand. COMPARISON: None. FINDINGS: No acute fracture or dislocation. Ulnar sclerosis of the fourth distal phalanx. Multifocal DJD in the hand and wrist. Mild soft tissue swelling of the dorsum of the hand. RAD/Hand Min 3 Views IMPRESSION: Ulnar sclerosis of the fourth distal phalanx could represent chronic infection in the appropriate clinical setting. Mild soft tissue swelling. Electronically Signed: Filiberto Serrano MD at 22:38 EDT Tel , Service support ,
[2021-09-16 21:28] VITALS: BP 123/65; PULSE 94; RESP 18; TEMP 36.2
[2021-09-16 21:46] LABS: Absolute Lymphocyte Count 0.14 X10^3/uL (0.83-4.51); Absolute Neutrophil Count 0.6 X10^3/uL (2.0-7.7); Eosinophil# 0.02 X10^3/uL; Eosinophils% 2.5 % (0-5); Hematocrit 20.8 % (37-47); Lymphocyte # 0.14 X10^3/ul (0.83-4.51); Lymphocyte % 17.7 % (19-41); Mean Corp Hgb Conc 33.7 g/dL (32-36); Mean Corpuscular Hgb 38.3 pg (27.0-32.0); Mean Corpuscular Volume 113.7 fL (81-99); Mean Platelet Vol. 10.9 fl (6.2-12.0); Monocyte# 0.03 X10^3/uL; Monocyte% 3.8 % (0-10); NRBC Flagged by Analyzer 0 % (0-5); POSITIVE COUNT YES; POSITIVE DIFFERENTIAL YES; POSITIVE MORPHOLOGY YES; Platelet Count 110 K/mm3 (150-450); RBC Distribution Width CV 13.6 % (11.6-14.6); RBC Distribution Width SD 55.3 fl (35.1-43.9); Red Blood Count 1.83 M/mm3 (4.2-5.4)
[2021-09-16 21:56] LABS: Differential Indicated SCAN CRITERIA MET
[2021-09-16 21:57] LABS: White Blood Count 0.8 K/mm3 (4.4-11.0)
--- NOTE | 2021-09-16 22:00 | EDS_ITS ---
HPI History of Present Illness Chief Complaint: Bite Informant: patient and family Narrative Narrative: 86-year-old female history of multiple myeloma on chemotherapy presents the emergency room with dog bite to the right hand. Patient states she was bitten by her daughter's dog yesterday. This morning the hand was swollen and warm. She went to her PCP was given IM Rocephin and placed on Augmentin. She has had 2 doses of Augmentin. They note that the swelling seems to be worse tonight. No fevers. Dog has had his rabies vaccination and can be watched. Patient last had chemotherapy for her multiple myeloma 1 week ago. ROS [facility] ED Constitutional Constitutional ED: Denies chills or weight loss Eyes Eyes: Denies change in vision or diplopia ENT ENT ED: Denies ear pain, rhinorrhea or sore throat Cardiovascular Cardiovascular: Denies chest pain, orthopnea, palpitations or racing heartbeat Respiratory/Chest Respiratory/Chest: Denies cough, dyspnea or orthopnea Gastrointestinal Gastrointestinal: Denies abdominal pain, diarrhea, nausea or vomiting Genitourinary Genitourinary ED: Denies dysuria, hematuria or urinary frequency Musculoskeletal Musculoskeletal: Reports other Details: Right hand dog bite. Right hand swelling. Erythema on forearm and hand. 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 Diabetes DMII (diabetes mellitus, type 2) Encounter for chemotherapy management Essential (primary) hypertension Former smoker Gastric reflux GERD (gastroesophageal reflux disease) High cholesterol History of echocardiogram History of renal disease History of stress test HTN (hypertension) Hx of cataract Hyperlipidemia Hypothyroidism Injury of back Leukopenia Lumbar spinal stenosis Macrocytic anemia Multiple myeloma Osteoporosis Peripheral neuropathy Right buttock pain Secondary hyperparathyroidism Vitamin D deficiency Wears glasses Wears hearing aid Home Medications atorvastatin 20 mg tablet 40 mg PO QDAY 03/03/18 [History Last Taken 10/07/20] hydrochlorothiazide 25 mg tablet 12.5 mg PO QAM 03/03/18 [History Last Taken 07/31/21] metformin 1,000 mg tablet 1,000 mg PO BID 03/03/18 [History Last Taken 10/07/20] Vitamin B12 1,000 mcg PO DAILY 06/18/20 [History Last Taken 10/07/20] aspirin 81 mg PO DAILY 06/18/20 [History Last Taken 10/07/20] levothyroxine 175 mcg tablet 175 mcg PO DAILY tablet 10/29/20 [History Last Taken 07/31/21] ondansetron 4 mg PO Q8H PRN PRN 10 Days #30 tablet 11/01/20 [Rx Last Taken Unknown] iron bisglycinate chelate 28 mg PO DAILY 11/06/20 [History Last Taken Unknown] amlodipine 5 mg tablet 2.5 mg PO DAILY tablet 03/11/21 [History Last Taken Unknown] acyclovir 400 mg tablet 400 mg PO BID 90 Days #180 tablet 08/12/21 [Rx Last Taken Unknown] dexamethasone 40 mg PO WE 09/16/21 [History Last Taken Unknown] pantoprazole 40 mg PO WE 09/16/21 [History Last Taken Unknown] Allergy/AdvReac Type Severity Reaction Status Date / Time Sulfa (Sulfonamide AdvReac Severe Hives Verified 09/16/21 22:00 Antibiotics) Family History Father High cholesterol Heart disease Hypertension Sister High cholesterol Mother Cancer Surgical History History of hemilaminectomy Hx of colonoscopy Hx of decompressive lumbar laminectomy Social History household members: none housing: house Smoking Status: Former smoker alcohol intake: current alcohol intake frequency: a few times a month what type of physical activity do you participate in: walking frequency: 5-6 times per week do you feel safe at home: Yes EXAM Physical Exam Const Vital Signs: 09/16/21 20:10 09/16/21 21:28 09/16/21 23:00 Temperature 97.5 F L 97.1 F L Temperature Source Temporal Temporal Pulse Rate 101 H 94 94 Respiratory Rate 18 18 16 Blood Pressure 129/67 H 123/65 H 84/68 L Blood Pressure Mean 87 84 73 Pulse Ox 100 95 Oxygen Delivery Method Room Air Room Air Room Air Positive well nourished and well developed General Appearance ED: well developed HEENT Reports normocephalic, head/scalp atraumatic and moist mucous membranes Eyes PERRL and EOMs intact bilaterally Neck no lymphadenopathy, supple and no JVD Resp normal respiratory effort and clear to auscultation bilaterally Cardio regular rate, regular rhythm and no murmurs GI normal to inspection, nondistended, normoactive bowel sounds and non-tender Palpation: soft Back/Spine no CVA tenderness and normal ROM Extremity full ROM Extremity Narrative: There are 3 puncture sites to on the thenar eminence and one on the dorsum of the first MCP of the right hand. There is mild swelling to the level of the MCP joints. There is some mild erythema extending up onto the distal forearm. No lymphangitic streaking. No evidence of flexor or extensor tenosynovitis. Neurovascularly intact. General Extremety ED: Yes edema General Extremity: edema Neuro oriented x3 and CN's II-XII intact bilaterally Sensorium / Orientation: alert Motor Exam: strength 5/5 throughout Psych mental status grossly normal Mood & Affect: Negative for depressed or tearful Skin no rashes or lesions noted and no wounds MDM MDM MDM Narrative Medical decision making narrative: Patient's white blood cell count is 0.8. Platelet count of 110. Hemoglobin is 7. Normal lactic acid blood cultures were obtained. My interpretation of the plain films of the right hand is no obvious foreign body. No gas formation. Soft tissue swelling noted. Blood cultures were obtained and the patient received Unasyn. Because of the patient's immunocompromise status and the infection think it is reasonable to bring her in for IV antibiotics. I will speak with her hospitalist. At this point I do not see any evidence of flexor or extensor tenosynovitis. No foreign bodies. Lab Data Attestation: I reviewed the patient's lab results. Labs: Laboratory Results - last 24 hr 09/16/21 09/16/21 09/16/21 21:30 21:30 21:30 WBC 0.8 L* RBC 1.83 L Hgb 7.0 L Hct 20.8 L MCV 113.7 H MCH 38.3 H MCHC 33.7 RDW Std Deviation 55.3 H RDW Coeff of Piyush 13.6 Plt Count 110 L MPV 10.9 Immature Gran % (Auto) 0.000 Neut % (Auto) 76.0 H Lymph % (Auto) 17.7 L [place] % (Auto) 3.8 Eos % (Auto) 2.5 Baso % (Auto) 0.0 Absolute Neuts (auto) 0.6 L Absolute Lymphs (auto) 0.14 L Nucleated RBC % 0 Differential Comment Diff Path Review May foll PT 14.5 INR 1.2 APTT 30.6 Sodium 134 L Potassium 3.3 L Chloride 98 Carbon Dioxide 26.0 Anion Gap 10 BUN 35 H Creatinine 1.30 H Estim Creat Clear Calc 22.73 Est GFR (MDRD) Af Amer 50 L Est GFR (MDRD) Non-Af 41 L BUN/Creatinine Ratio 26.9 H Glucose 134 H Lactic Acid Calcium 8.7 Total Bilirubin 0.60 AST 16 ALT 22 Alkaline Phosphatase 45 Total Protein 6.4 Albumin 3.1 L Globulin 3.3 Albumin/Globulin Ratio 0.9 09/16/21 21:30 WBC RBC Hgb Hct MCV MCH MCHC RDW Std Deviation RDW Coeff of Piyush Plt Count MPV Immature Gran % (Auto) Neut % (Auto) Lymph % (Auto) [place] % (Auto) Eos % (Auto) Baso % (Auto) Absolute Neuts (auto) Absolute Lymphs (auto) Nucleated RBC % Differential Comment Diff Path Review PT INR APTT Sodium Potassium Chloride Carbon Dioxide Anion Gap BUN Creatinine Estim Creat Clear Calc Est GFR (MDRD) Af Amer Est GFR (MDRD) Non-Af BUN/Creatinine Ratio Glucose Lactic Acid 1.6 Calcium Total Bilirubin AST ALT Alkaline Phosphatase Total Protein Albumin Globulin Albumin/Globulin Ratio Radiography Diagnostic Testing: Clinical Impression(s) from Imaging Studies Hand X-Ray 09/16/21 21:06 IMPRESSION: Ulnar sclerosis of the fourth distal phalanx could represent chronic infection in the appropriate clinical setting. Mild soft tissue swelling. Electronically Signed: Filiberto Serrano MD at 22:38 EDT Tel , Service support , Discharge Plan Dx/Rx/DC Orders Clinical Impression: Dog bite of right hand, Cellulitis of hand, right, Immunocompromised patient Disposition Disposition: Acute Care Hospital [facility]
[2021-09-16 22:01] LABS: International Normalized Ratio 1.2; Prothrombin Time (Protime)PT. 14.5 SECONDS (11.7-14.9)
[2021-09-16 22:02] LABS: Partial Thromboplast Time 30.6 Seconds (24.1-36.2)
[2021-09-16 22:05] LABS: ALB/GLOB Ratio 0.9 RATIO (0.9-2.4); AST(SGOT) 16 U/L (15-37); Alanine Aminotransfer ALT/SGPT 22 U/L (13-56); Albumin, Serum 3.1 g/dL (3.2-5.0); Alkaline Phosphatase 45 U/L (45-117); Anion Gap 10 (5-15); BUN 35 mg/dL (7-18); BUN/Creat Ratio 26.9 RATIO (10-20); Calcium,Total 8.7 mg/dL (8.5-10.1); Chloride 98 mmol/L (98-107); EST Glomerular Filtration Rate 41 mL/min (>60); Est Glom Filt Rate - Afr Amer 50 mL/min (>60); Estimated Creatinine Clearance 22.73 ml/min; Globulin 3.3 g/dL (2.2-4.2); Glucose 134 mg/dL (74-106); Potassium 3.3 mmol/L (3.5-5.1); Protein, Total 6.4 g/dL (6.4-8.2); Sodium Level 134 mmol/L (136-145)
[2021-09-16 22:11] LABS: Lactic Acid 1.6 mmol/L (0.4-1.9)
[2021-09-16 23:00] VITALS: BP 84/68; PULSE 94; RESP 16; O2SAT 95
[2021-09-17] VITALS (16 sets, daily range): BP systolic 101–132; BP diastolic 53–90; PULSE 60–102; RESP 16–18; TEMP 36.6–38.6; O2SAT 93–99; BMI 20.5
--- NOTE | 2021-09-17 00:11 | PCM.HP.STD ---
HPI - General HPI Narrative MAHESH PIERSON, is a 86 F who presents to the emergency room after being bitten by her daughters prashant yesterday and now has increased swelling and redness of her right hand. Despite having Rocephin and 2 doses of Augmentin the hand continues to become more red and painful. Patient has a significant past medical history of multiple myeloma with leukopenia status post chemotherapy 1 week ago. Patient denies any fevers or chills any nausea or vomiting at this time. She will be admitted for IV antibiotics and once progressing may be transitioned to orals. 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 Diabetes DMII (diabetes mellitus, type 2) Encounter for chemotherapy management Essential (primary) hypertension Former smoker Gastric reflux GERD (gastroesophageal reflux disease) High cholesterol History of echocardiogram History of renal disease History of stress test HTN (hypertension) Hx of cataract Hyperlipidemia Hypothyroidism Injury of back Leukopenia Lumbar spinal stenosis Macrocytic anemia Multiple myeloma Osteoporosis Peripheral neuropathy Right buttock pain Secondary hyperparathyroidism Vitamin D deficiency Wears glasses Wears hearing aid Home Medications atorvastatin 20 mg tablet 40 mg PO QDAY 03/03/18 [History Last Taken 10/07/20] hydrochlorothiazide 25 mg tablet 12.5 mg PO QAM 03/03/18 [History Last Taken 07/31/21] metformin 1,000 mg tablet 1,000 mg PO BID 03/03/18 [History Last Taken 10/07/20] Vitamin B12 1,000 mcg PO DAILY 06/18/20 [History Last Taken 10/07/20] aspirin 81 mg PO DAILY 06/18/20 [History Last Taken 10/07/20] levothyroxine 175 mcg tablet 175 mcg PO DAILY tablet 10/29/20 [History Last Taken 07/31/21] ondansetron 4 mg PO Q8H PRN PRN 10 Days #30 tablet 11/01/20 [Rx Last Taken Unknown] iron bisglycinate chelate 28 mg PO DAILY 11/06/20 [History Last Taken Unknown] amlodipine 5 mg tablet 2.5 mg PO DAILY tablet 03/11/21 [History Last Taken Unknown] acyclovir 400 mg tablet 400 mg PO BID 90 Days #180 tablet 08/12/21 [Rx Last Taken Unknown] dexamethasone 40 mg PO WE 09/16/21 [History Last Taken Unknown] pantoprazole 40 mg PO WE 09/16/21 [History Last Taken Unknown] Allergy/AdvReac Type Severity Reaction Status Date / Time Sulfa (Sulfonamide AdvReac Severe Hives Verified 09/16/21 22:00 Antibiotics) Family History Father High cholesterol Heart disease Hypertension Sister High cholesterol Mother Cancer Surgical History History of hemilaminectomy Hx of colonoscopy Hx of decompressive lumbar laminectomy Social History household members: none housing: house Smoking Status: Former smoker alcohol intake: current alcohol intake frequency: a few times a month what type of physical activity do you participate in: walking frequency: 5-6 times per week do you feel safe at home: Yes ROS Constitutional Constitutional: Denies anorexia, chills, fatigue or fever(s) Eyes Eyes: Denies blurry vision ENT HEENT: Denies abnormal hearing Cardiovascular Cardiovascular: Denies chest pain Gastrointestinal Gastrointestinal: Denies abdominal pain Genitourinary Genitourinary: Denies hematuria Musculoskeletal Musculoskeletal: Denies back pain Integumentary Integumentary: Reports wounds Neurologic Neurologic: Denies abnormal speech Psychiatric Psychiatric: Denies anxiety Vital Signs Vital Signs Vital Signs: 09/16/21 20:10 09/16/21 21:28 09/16/21 23:00 Temperature 97.5 F L 97.1 F L Temperature Source Temporal Temporal Pulse Rate 101 H 94 94 Respiratory Rate 18 18 16 Blood Pressure 129/67 H 123/65 H 84/68 L Blood Pressure Mean 87 84 73 Pulse Ox 100 95 Oxygen Delivery Method Room Air Room Air Room Air Weight Weight: 109 lb 14.4 oz Body Mass Index (BMI) 21.4 Physical Exam Const oriented x3 General Appearance: cooperative HEENT normocephalic and head/scalp atraumatic Eyes EOMs intact bilaterally Neck supple Resp normal respiratory effort, normal air movement and clear to auscultation bilaterally Cardio regular rate, regular rhythm, S1 normal heart sound, S2 normal heart sound and no murmurs GI normal to inspection, nondistended, normoactive bowel sounds Extremity Extremity Narrative: right hand puncture wound with circumferential erythema and tenderness that is warm General Extremity: edema Neuro CN's II-XII intact bilaterally Psych Appearance: appropriate Results Lab / Micro Data Result Diagrams: 09/16/21 21:30 09/16/21 21:30 Labs: Laboratory Results - last 24 hr 09/16/21 21:30: WBC 0.8 L*, RBC 1.83 L, Hgb 7.0 L, Hct 20.8 L, MCV 113.7 H, MCH 38.3 H, MCHC 33.7, RDW Std Deviation 55.3 H, RDW Coeff of Piyush 13.6, Plt Count 110 L, MPV 10.9, Immature Gran % (Auto) 0.000, Neut % (Auto) 76.0 H, Lymph % (Auto) 17.7 L, [place] % (Auto) 3.8, Eos % (Auto) 2.5, Baso % (Auto) 0.0, Absolute Neuts (auto) 0.6 L, Absolute Lymphs (auto) 0.14 L, Nucleated RBC % 0, Differential Comment , Diff Path Review March09/16/21 21:30: PT 14.5, INR 1.2, APTT 30.6 09/16/21 21:30: Sodium 134 L, Potassium 3.3 L, Chloride 98, Carbon Dioxide 26.0, Anion Gap 10, BUN 35 H, Creatinine 1.30 H, Estim Creat Clear Calc 22.73, Est GFR (MDRD) Af Amer 50 L, Est GFR (MDRD) Non-Af 41 L, BUN/Creatinine Ratio 26.9 H, Glucose 134 H, Calcium 8.7, Total Bilirubin 0.60, AST 16, ALT 22, Alkaline Phosphatase 45, Total Protein 6.4, Albumin 3.1 L, Globulin 3.3, Albumin/Globulin Ratio 0.9 09/16/21 21:30: Lactic Acid 1.6 Radiology Impression Hand X-Ray 09/16/21 21:06 IMPRESSION: Ulnar sclerosis of the fourth distal phalanx could represent chronic infection in the appropriate clinical setting. Mild soft tissue swelling. Electronically Signed: Filiberto Serrano MD at 22:38 EDT Tel , Service support , Assessment & Plan Assessment/Plan (1) Dog bite of right hand: (2) Cellulitis of hand, right: (3) Immunocompromised patient: PLAN: 1 cellulitis right hand secondary to dog bite?admit patient to general medical floor for observation?start Unasyn IV, repeat CBC in the morning and monitor progress. Patient may have Tylenol as needed for pain and tramadol if more significant pain. Dog is known to have had the rabies vaccine and report of bite had been completed already. 2. Immunocompromised patient?we will continue routine home medications at this time 3. DVT prophylaxis?low molecular weight heparin Charges/Coding Visit Charges OBSV E&M: 79246 Initial observation care L1
[2021-09-17] MEDS: Acetaminophen 325 MG Tablet 650 MG PO ×4 (01:36→19:27)
--- NOTE | 2021-09-17 04:22 | PCS.PANDOC ---
PANDEMIC DOCUMENTATION INITIATED: Date: 07/15/2021 Time: 190
[2021-09-17 06:56] LABS: Anion Gap 8 (5-15); BUN 36 mg/dL (7-18); BUN/Creat Ratio 28.6 RATIO (10-20); Calcium,Total 8.5 mg/dL (8.5-10.1); Chloride 101 mmol/L (98-107); Creatinine, Serum 1.26 mg/dL (0.55-1.02); EST Glomerular Filtration Rate 43 mL/min (>60); Est Glom Filt Rate - Afr Amer 52 mL/min (>60); Estimated Creatinine Clearance 24.63 ml/min; Glucose 132 mg/dL (74-106); Potassium 3.3 mmol/L (3.5-5.1); Sodium Level 135 mmol/L (136-145)
[2021-09-17 07:09] LABS: Absolute Lymphocyte Count 0.12 X10^3/uL (0.83-4.51); Absolute Neutrophil Count 0.5 X10^3/uL (2.0-7.7); Basophil# 0.01 X10^3/uL; Basophil% 1.4 % (0-1); Eosinophil# 0.02 X10^3/uL; Eosinophils% 2.8 % (0-5); Hematocrit 20.2 % (37-47); Hemoglobin 6.9 g/dL (12.0-15.0); Lymphocyte # 0.12 X10^3/ul (0.83-4.51); Lymphocyte % 16.7 % (19-41); Mean Corp Hgb Conc 34.2 g/dL (32-36); Mean Corpuscular Volume 114.1 fL (81-99); Mean Platelet Vol. 10.8 fl (6.2-12.0); Monocyte# 0.01 X10^3/uL; Monocyte% 1.4 % (0-10); NRBC Flagged by Analyzer 0 % (0-5); Neutrophil # 0.48 X10^3/uL (2.7-7.7); Neutrophil % 66.6 % (47-70); POSITIVE COUNT YES; POSITIVE DIFFERENTIAL YES; POSITIVE MORPHOLOGY YES; Platelet Count 103 K/mm3 (150-450); RBC Distribution Width CV 13.6 % (11.6-14.6); RBC Distribution Width SD 55.8 fl (35.1-43.9); Red Blood Count 1.77 M/mm3 (4.2-5.4); White Blood Count 0.7 K/mm3 (4.4-11.0)
[2021-09-17 07:10] LABS: Differential Indicated SCAN CRITERIA MET
[2021-09-17 07:11] LABS: Differential Comment SCANNED
[2021-09-17] MEDS: Potassium Chloride Oral Tablet 20 MEQ 40 MEQ PO (09:57)
[2021-09-17] MEDS: Enoxaparin 30 MG/0.3 ML Syringe SC (09:58)
--- NOTE | 2021-09-17 10:59 | CASEMGMT ---
Social Work Note Per admissions specialist questions, pt has completed LW and provided copy to [facility] and hasn't completed HCPOA and declined wanting information. SW reviewed chart. LW is on file. SW printed off LW and placed on pt's chart. Alisha Dias CENTRAL OFFICE INSPECTOR, SALESPERSON JEWELRY
--- NOTE | 2021-09-17 12:58 | CASEMGMT ---
FANY VIEIRA Assessment: Face to Face with pt for initial transition planning/care coordination assessment. FANY VIEIRA introduced self and role at [facility], pt voices understanding and consents to assessment. Pt is A/O x4 and answers all questions appropriately at this time. Pt sitting up in bed eating lunch with dtr at bedside in no distress. Care providers, pharmacy, and demographics verified/updated. Admitting Dx: dog bite hand with cellulitis PCP: Jose Specialists: Morales, onc; pain mgmt through [facility] in [facility] Pharmacy: Thalia Snyder Insurance: Anais WILSON Prescription Benefit: yes LW/HPOA: Pt denies having a DPOA and denies need for info regarding AD. She does have a LW and it is on file at [facility]. LNOK: Zuleima Mendez, dtr; Bree Hernandez, sister in law Living Arrangements: Pt lives alone in a condo that is single story with one step to enter from the garage. Pt reports she is I in ADL's and denies concerns at home. Transportation: Pt drives self and denies concerns with transportation. DME/HHC/SNF: Pt has a walker at home but does not use. She also has grab bars in her bathroom. Pt denies hx of HHC or SNF stays. Pt states no concerns with going home at time of dc. Pt states no further concerns/needs. CM to follow. Advised pt to ask CM if any further question/concerns/needs arise, voices understanding. Pt Goal: Home Plan: Home, will follow for wound care or IV atb need.
--- NOTE | 2021-09-17 13:00 | PN.HOSP_ITS ---
Subjective Subjective Patient seen and examined. She was admitted and managed for cellulitis of the right hand after being bitten by her daughter's dog. She had swelling and redness of her right hand, which worsened. She is being managed for cellulitis of the right hand. She still complains of pain in her RUE. She says the swelling is much better though. Review of systems otherwise negative. Hb is down to 6.9 today. Objective Data Objective Data Vital Signs: Vital Signs Temp Pulse Resp BP Pulse Ox 98.8 F 87 18 129/67 H 98 09/17/21 10:08 09/17/21 10:08 09/17/21 10:08 09/17/21 10:08 09/17/21 10:08 Oxygen Delivery Method Room Air Weight: 110 lb 3.698 oz Body Mass Index (BMI) 20.5 Intake & Output: Intake and Output for Last 24 Hours 09/15/21 09/16/21 09/17/21 23:59 23:59 23:59 Intake Total 112 / 112 200 / 200 Balance 112 / 112 200 / 200 Lab / Micro Data Result Diagrams: 09/17/21 05:44 09/17/21 05:44 Labs: Laboratory Results - last 24 hr 09/16/21 21:30: WBC 0.8 L*, RBC 1.83 L, Hgb 7.0 L, Hct 20.8 L, MCV 113.7 H, MCH 38.3 H, MCHC 33.7, RDW Std Deviation 55.3 H, RDW Coeff of Piyush 13.6, Plt Count 110 L, MPV 10.9, Immature Gran % (Auto) 0.000, Neut % (Auto) 76.0 H, Lymph % (Auto) 17.7 L, [place] % (Auto) 3.8, Eos % (Auto) 2.5, Baso % (Auto) 0.0, Absolute Neuts (auto) 0.6 L, Absolute Lymphs (auto) 0.14 L, Nucleated RBC % 0, Differential Comment , Diff Path Review March09/16/21 21:30: PT 14.5, INR 1.2, APTT 30.6 09/16/21 21:30: Sodium 134 L, Potassium 3.3 L, Chloride 98, Carbon Dioxide 26.0, Anion Gap 10, BUN 35 H, Creatinine 1.30 H, Estim Creat Clear Calc 22.73, Est GFR (MDRD) Af Amer 50 L, Est GFR (MDRD) Non-Af 41 L, BUN/Creatinine Ratio 26.9 H, Glucose 134 H, Calcium 8.7, Total Bilirubin 0.60, AST 16, ALT 22, Alkaline Phosphatase 45, Total Protein 6.4, Albumin 3.1 L, Globulin 3.3, Albumin/Globulin Ratio 0.9 09/16/21 21:30: Lactic Acid 1.6 09/17/21 05:44: WBC Cancelled, Corrected WBC Cancelled, RBC Cancelled, Hgb Cancelled, Hct Cancelled, MCV Cancelled, MCH Cancelled, MCHC Cancelled, RDW Std Deviation Cancelled, RDW Coeff of Piyush Cancelled, Plt Count Cancelled, MPV Cancelled, Immature Gran % (Auto) Cancelled, Neut % (Auto) Cancelled, Lymph % (Auto) Cancelled, [place] % (Auto) Cancelled, Eos % (Auto) Cancelled, Baso % (Auto) Cancelled, Absolute Neuts (auto) Cancelled, Absolute Lymphs (auto) Cancelled, Total Counted Cancelled, Neutrophils % (Manual) Cancelled, Band Neutrophils % Cancelled, Lymphocytes % (Manual) Cancelled, Monocytes % (Manual) Cancelled, Eosinophils % (Manual) Cancelled, Basophils % (Manual) Cancelled, Metamyelocytes % Cancelled, Myelocytes % Cancelled, Promyelocytes % Cancelled, Blast Cells % Cancelled, Plasma Cell % (Manual) Cancelled, Other Cells % Cancelled, Nucleated RBC % Cancelled, Nucleated RBCs/100 WBC Cancelled, Differential Comment Cancelled, Diff Path Review Cancelled, Hypersegmented Neuts Cancelled, Atypical Lymphocytes Cancelled, Reactive Lymphocytes Cancelled, Smudge Cells Cancelled, Toxic Granulation Cancelled, Toxic Vacuolation Cancelled, Dohle Bodies Cancelled, Ana Rods Cancelled, Platelet Estimate Cancelled, Plt Morphology Comment Cancelled, RBC Morphology Cancelled, Polychromasia Cancelled, Hypochromasia Cancelled, Poikilocytosis Cancelled, Basophilic Stippling Cancelled, Anisocytosis Cancelled, Microcytosis Cancelled, Macrocytosis Cancelled, Spherocytes Cancelled, Sickle Cells Cancelled, Target Cells Cancelled, Tear Drop Cells Cancelled, Ovalocytes Cancelled, Stomatocytes Cancelled, [place] Bodies Cancelled, [place] Cells Cancelled, Bite Cells Cancelled, Crenated Cell Cancelled, Acanthocytes (Spur) Cancelled, Rouleaux Cancelled, Schistocytes Cancelled 09/17/21 05:44: Sodium 135 L, Potassium 3.3 L, Chloride 101, Carbon Dioxide 26.0, Anion Gap 8, BUN 36 H, Creatinine 1.26 H, Estim Creat Clear Calc 24.63, Est GFR (MDRD) Af Amer 52 L, Est GFR (MDRD) Non-Af 43 L, BUN/Creatinine Ratio 28.6 H, Glucose 132 H, Calcium 8.5 09/17/21 05:44: WBC 0.7 L*, RBC 1.77 L, Hgb 6.9 L, Hct 20.2 L, MCV 114.1 H, MCH 39.0 H, MCHC 34.2, RDW Std Deviation 55.8 H, RDW Coeff of Piyush 13.6, Plt Count 103 L, MPV 10.8, Immature Gran % (Auto) 11.100 H, Neut % (Auto) 66.6, Lymph % (Auto) 16.7 L, [place] % (Auto) 1.4, Eos % (Auto) 2.8, Baso % (Auto) 1.4 H, Absolute Neuts (auto) 0.5 L, Absolute Lymphs (auto) 0.12 L, Nucleated RBC % 0, Differential Comment SCANNED, Diff Path Review March09/17/21 08:56: Blood Type TNP, Antibody Screen NEGATIVE, Crossmatch See Detail 09/17/21 08:56: Blood Type A POSITIVE Radiography Diagnostic Testing: Radiology Impression Hand X-Ray 09/16/21 21:06 IMPRESSION: Ulnar sclerosis of the fourth distal phalanx could represent chronic infection in the appropriate clinical setting. Mild soft tissue swelling. Electronically Signed: Filiberto Serrano MD at 22:38 EDT Tel , Service support , Physical Exam Const alert, oriented x3 and no apparent distress Exam Limitations: no limitations HEENT head/scalp atraumatic and moist oral mucous membranes Head and Scalp: normocephalic Eyes PERRL, EOMs intact bilaterally and conjunctivae normal Neck no lymphadenopathy and supple Resp normal respiratory effort, no retractions, no use of accessory muscles and clear to auscultation bilaterally Cardio regular rate, regular rhythm, S1 normal heart sound, S2 normal heart sound and no murmurs GI normal to inspection, nondistended, normoactive bowel sounds, soft to palpation, non-tender and non-distended Extremity Extremity Narrative: right hand still moderately swollen, mildly erythematous and tender. Swelling has improved, according to patient. Not able to make a fist, though she says the flexion of her hand is much better. Peripheral Pulses: Yes pulses 2+ throughout Skin Skin Narrative: as under extremity Neuro oriented x3 Sensorium / Orientation: awake and alert Assessment & Plan Assessment/Plan (1) Cellulitis of hand, right: (2) Dog bite of right hand: (3) Anemia: PLAN: #Cellulitis of the right hand due to dog bite * on IV unasyn. * on tylenol and tramadol prn for pain * consult orthopedics. * PT/OT consult * #Acute on chronic anemia * Hb is 6.9 today. She does have a history of recurrent acute on chronic anemia due to multiple myeloma * transfuse with 2 units of PRBCs today * #Pancytopenia: due to multiple myeloma. Being transfused as above. Platelets are down to 103, and wbc is 0.7 #Multiple myeloma * Was due for chemotherapy today but counseled that she would likely not be able to have chemotherapy in light of her current infection. * oncologist;s office informed * #DVT prophylaxis: SCDs./ Hold lovenox Charges/Coding Visit Charges Inpatient E&M: 98112 Subs Hosp L3
[2021-09-17 13:44] LABS: Pathologist Review Reviewed
[2021-09-17 13:44] LABS: Pathologist Review Reviewed
[2021-09-17] MEDS: DiphenhydrAMINE 25 MG Capsule PO (14:44)
--- NOTE | 2021-09-17 15:33 | CONS.ORTHO ---
HPI Consult Data Date of Consult: 09/17/21 HPI Narrative HPI Narrative: Requesting provider: Dr. Ruby Mera Reason for consultation: R hand cellulitis, dog bite and possible abscess MAHESH PIERSON, is a 86 F who presented to [facility] emergency department last evening 09/16/2021. She had a dog bite from a family cockapoo dog on 09/15/2021. She called her family doctor yesterday 09/16/2021 and was seen in the office. She was given oral antibiotics and a dose of intramuscular antibiotics. Due to worsening redness, swelling and pain, patient was referred to the emergency department. She was put on IV Unasyn and admitted under the service of the hospitalist. I was consulted to see the patient due to concern of potential abscess in the right hand. Patient of note does have history of multiple myeloma with pancytopenia. She also has diabetes mellitus, which she states is well controlled with a hemoglobin A1c typically around 6.0. She denies fevers, chills, nausea or vomiting at this point. She feels her pain is much improved as well as the swelling and some of the redness in her right hand and forearm since arrival at the emergency department. 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 Diabetes DMII (diabetes mellitus, type 2) Encounter for chemotherapy management Essential (primary) hypertension Former smoker Gastric reflux GERD (gastroesophageal reflux disease) High cholesterol History of echocardiogram History of renal disease History of stress test HTN (hypertension) Hx of cataract Hyperlipidemia Hypothyroidism Injury of back Leukopenia Lumbar spinal stenosis Macrocytic anemia Multiple myeloma Osteoporosis Peripheral neuropathy Right buttock pain Secondary hyperparathyroidism Vitamin D deficiency Wears glasses Wears hearing aid Home Medications atorvastatin 20 mg tablet 40 mg PO QHS 03/03/18 [History Last Taken 09/16/21] hydrochlorothiazide 25 mg tablet 12.5 mg PO DAILY 03/03/18 [History Last Taken 09/16/21] metformin 1,000 mg tablet 1,000 mg PO BID 03/03/18 [History Last Taken 09/16/21] Vitamin B12 1,000 mcg PO DAILY 06/18/20 [History Last Taken 09/16/21] aspirin 81 mg PO DAILY 06/18/20 [History Last Taken 09/16/21] levothyroxine 175 mcg tablet 175 mcg PO DAILY tablet 10/29/20 [History Last Taken 09/16/21] ondansetron 4 mg PO Q8H PRN PRN 10 Days #30 tablet 11/01/20 [Rx Last Taken Unknown] iron bisglycinate chelate 28 mg PO DAILY 11/06/20 [History Last Taken 09/16/21] amlodipine 5 mg tablet 2.5 mg PO DAILY tablet 03/11/21 [History Last Taken 09/16/21] dexamethasone 40 mg PO WE 09/16/21 [History Last Taken 09/11/21] pantoprazole 40 mg PO WE 09/16/21 [History Last Taken 09/16/21] acyclovir 400 mg PO BID 09/17/21 [History Last Taken 09/16/21] Allergy/AdvReac Type Severity Reaction Status Date / Time Sulfa (Sulfonamide AdvReac Severe Hives Verified 09/16/21 22:00 Antibiotics) Family History Father High cholesterol Heart disease Hypertension Sister High cholesterol Mother Cancer Surgical History History of hemilaminectomy Hx of colonoscopy Hx of decompressive lumbar laminectomy Social History household members: none housing: house Smoking Status: Former smoker alcohol intake: current alcohol intake frequency: a few times a month what type of physical activity do you participate in: walking frequency: 5-6 times per week do you feel safe at home: Yes ROS ROS Narrative 10 point review of systems obtained, negative unless otherwise noted in HPI. Vital Signs Vital Signs Vital Signs: 09/16/21 20:10 09/16/21 21:28 09/16/21 23:00 Temperature 97.5 F L 97.1 F L Temperature Source Temporal Temporal Pulse Rate 101 H 94 94 Pulse Strength Respiratory Rate 18 18 16 Blood Pressure 129/67 H 123/65 H 84/68 L Blood Pressure Mean 87 84 73 Blood Pressure Source Blood Pressure Position Blood Pressure Location Pulse Ox 100 95 Oxygen Delivery Method Room Air Room Air Room Air 09/17/21 00:45 09/17/21 01:03 09/17/21 01:53 Temperature 97.8 F 98.2 F Temperature Source Temporal Oral Pulse Rate 78 96 Pulse Strength Normal (2+) Respiratory Rate 16 18 Blood Pressure 125/83 H 120/63 Blood Pressure Mean 97 82 Blood Pressure Source Monitor Blood Pressure Position Sitting Blood Pressure Location Left Arm Pulse Ox 99 96 Oxygen Delivery Method Room Air Room Air 09/17/21 05:32 09/17/21 09:02 09/17/21 10:08 Temperature 97.8 F 98.8 F Temperature Source Oral Oral Pulse Rate 91 87 Pulse Strength Respiratory Rate 17 18 Blood Pressure 105/64 129/67 H Blood Pressure Mean 77 87 Blood Pressure Source Monitor Monitor Blood Pressure Position Semi-Fowlers Semi-Fowlers Blood Pressure Location Left Arm Left Arm Pulse Ox 97 95 98 Oxygen Delivery Method Room Air Room Air Room Air 09/17/21 13:25 09/17/21 13:45 09/17/21 14:00 Temperature 99.2 F H 101.5 F H 100.4 F H Temperature Source Oral Oral Oral Pulse Rate 60 102 H 101 H Pulse Strength Respiratory Rate 18 18 18 Blood Pressure 132/61 H 121/62 H 119/64 Blood Pressure Mean 84 81 82 Blood Pressure Source Monitor Monitor Monitor Blood Pressure Position Semi-Fowlers Semi-Fowlers Semi-Fowlers Blood Pressure Location Left Arm Left Arm Left Arm Pulse Ox 98 98 98 Oxygen Delivery Method Room Air Room Air Room Air 09/17/21 15:00 Temperature 100.2 F H Temperature Source Oral Pulse Rate 98 Pulse Strength Respiratory Rate 18 Blood Pressure 112/53 L Blood Pressure Mean 72 Blood Pressure Source Monitor Blood Pressure Position Semi-Fowlers Blood Pressure Location Left Arm Pulse Ox 98 Oxygen Delivery Method Room Air Weight Weight: 110 lb 3.698 oz Body Mass Index (BMI) 20.5 Physical Exam Narrative General -A&Ox3, NAD, appears stated age. Vital signs stable, afebrile. Respiratory -normal work of breathing, no intercostal retractions. CV -pulses regular, brisk capillary refill ?4 limbs. Abdomen-soft, nontender, nondistended. No guarding, rigidity, rebound tenderness. Musculoskeletal/neurologic -cranial nerves II through XII grossly intact. Full range of motion nontender throughout bilateral lower extremities, wiggles toes on command, no focal deficits, palpable DP and PT pulses. Right upper extremity-cellulitic rash noted about the right palm along the thenar musculature tracking along the volar forearm to the level of the antecubital fossa. This is marked with a surgical marker. She has sensation intact to light touch in the median, ulnar, and radial nerve distribution of the right hand. Cardinal motion of the right hand are intact. She has no short arc range of motion pain of the MCP, IP joints of the right thumb. There are puncture wounds noted along the thenar eminence. There is also a draining puncture wound overlying the first carpometacarpal joint near the anatomic snuffbox dorsally. This is draining purulent fluid. There is brisk capillary refill in all the digits. Palpable radial pulse. She does have pain with range of motion of the CMC joint of the thumb as well as and range of motion of the thumb. Compartments of the thumb are soft and compressible. There is swelling overlying the thenar compartment without obvious fluctuance or induration. Lab / Micro Data Result Diagrams: 09/17/21 05:44 09/17/21 05:44 Labs: Laboratory Results - last 24 hr 09/16/21 21:30: WBC 0.8 L*, RBC 1.83 L, Hgb 7.0 L, Hct 20.8 L, MCV 113.7 H, MCH 38.3 H, MCHC 33.7, RDW Std Deviation 55.3 H, RDW Coeff of Piyush 13.6, Plt Count 110 L, MPV 10.9, Immature Gran % (Auto) 0.000, Neut % (Auto) 76.0 H, Lymph % (Auto) 17.7 L, [place] % (Auto) 3.8, Eos % (Auto) 2.5, Baso % (Auto) 0.0, Absolute Neuts (auto) 0.6 L, Absolute Lymphs (auto) 0.14 L, Nucleated RBC % 0, Differential Comment , Diff Path Review Reviewed 09/16/21 21:30: PT 14.5, INR 1.2, APTT 30.6 09/16/21 21:30: Sodium 134 L, Potassium 3.3 L, Chloride 98, Carbon Dioxide 26.0, Anion Gap 10, BUN 35 H, Creatinine 1.30 H, Estim Creat Clear Calc 22.73, Est GFR (MDRD) Af Amer 50 L, Est GFR (MDRD) Non-Af 41 L, BUN/Creatinine Ratio 26.9 H, Glucose 134 H, Calcium 8.7, Total Bilirubin 0.60, AST 16, ALT 22, Alkaline Phosphatase 45, Total Protein 6.4, Albumin 3.1 L, Globulin 3.3, Albumin/Globulin Ratio 0.9 09/16/21 21:30: Lactic Acid 1.6 09/17/21 05:44: WBC Cancelled, Corrected WBC Cancelled, RBC Cancelled, Hgb Cancelled, Hct Cancelled, MCV Cancelled, MCH Cancelled, MCHC Cancelled, RDW Std Deviation Cancelled, RDW Coeff of Piyush Cancelled, Plt Count Cancelled, MPV Cancelled, Immature Gran % (Auto) Cancelled, Neut % (Auto) Cancelled, Lymph % (Auto) Cancelled, [place] % (Auto) Cancelled, Eos % (Auto) Cancelled, Baso % (Auto) Cancelled, Absolute Neuts (auto) Cancelled, Absolute Lymphs (auto) Cancelled, Total Counted Cancelled, Neutrophils % (Manual) Cancelled, Band Neutrophils % Cancelled, Lymphocytes % (Manual) Cancelled, Monocytes % (Manual) Cancelled, Eosinophils % (Manual) Cancelled, Basophils % (Manual) Cancelled, Metamyelocytes % Cancelled, Myelocytes % Cancelled, Promyelocytes % Cancelled, Blast Cells % Cancelled, Plasma Cell % (Manual) Cancelled, Other Cells % Cancelled, Nucleated RBC % Cancelled, Nucleated RBCs/100 WBC Cancelled, Differential Comment Cancelled, Diff Path Review Cancelled, Hypersegmented Neuts Cancelled, Atypical Lymphocytes Cancelled, Reactive Lymphocytes Cancelled, Smudge Cells Cancelled, Toxic Granulation Cancelled, Toxic Vacuolation Cancelled, Dohle Bodies Cancelled, Ana Rods Cancelled, Platelet Estimate Cancelled, Plt Morphology Comment Cancelled, RBC Morphology Cancelled, Polychromasia Cancelled, Hypochromasia Cancelled, Poikilocytosis Cancelled, Basophilic Stippling Cancelled, Anisocytosis Cancelled, Microcytosis Cancelled, Macrocytosis Cancelled, Spherocytes Cancelled, Sickle Cells Cancelled, Target Cells Cancelled, Tear Drop Cells Cancelled, Ovalocytes Cancelled, Stomatocytes Cancelled, [place] Bodies Cancelled, [place] Cells Cancelled, Bite Cells Cancelled, Crenated Cell Cancelled, Acanthocytes (Spur) Cancelled, Rouleaux Cancelled, Schistocytes Cancelled 09/17/21 05:44: Sodium 135 L, Potassium 3.3 L, Chloride 101, Carbon Dioxide 26.0, Anion Gap 8, BUN 36 H, Creatinine 1.26 H, Estim Creat Clear Calc 24.63, Est GFR (MDRD) Af Amer 52 L, Est GFR (MDRD) Non-Af 43 L, BUN/Creatinine Ratio 28.6 H, Glucose 132 H, Calcium 8.5 09/17/21 05:44: WBC 0.7 L*, RBC 1.77 L, Hgb 6.9 L, Hct 20.2 L, MCV 114.1 H, MCH 39.0 H, MCHC 34.2, RDW Std Deviation 55.8 H, RDW Coeff of Piyush 13.6, Plt Count 103 L, MPV 10.8, Immature Gran % (Auto) 11.100 H, Neut % (Auto) 66.6, Lymph % (Auto) 16.7 L, [place] % (Auto) 1.4, Eos % (Auto) 2.8, Baso % (Auto) 1.4 H, Absolute Neuts (auto) 0.5 L, Absolute Lymphs (auto) 0.12 L, Nucleated RBC % 0, Differential Comment SCANNED, Diff Path Review Reviewed 09/17/21 08:56: Blood Type TNP, Antibody Screen NEGATIVE, Crossmatch See Detail 09/17/21 08:56: Blood Type A POSITIVE Radiology Impression Hand X-Ray 09/16/21 21:06 IMPRESSION: Ulnar sclerosis of the fourth distal phalanx could represent chronic infection in the appropriate clinical setting. Mild soft tissue swelling. Electronically Signed: Filiberto Serrano MD at 22:38 EDT Tel , Service support , Assessment & Plan Assessment/Plan (1) Cellulitis of hand, right: PLAN: Patient has findings consistent with a draining abscess overlying the first carpometacarpal joint of the right thumb. There is also profound cellulitis of the hand and volar forearm. Per the patient and nursing staff, redness, swelling, and pain is dramatically improving since her arrival in the emergency department and being on IV antibiotics. At this point, I stated that it is a good thing that the dorsal wound is draining and would recommend continued observation. We will initiate 3x daily soap water soaks for 10 minutes with range of motion of the hand and thumb. Recommended elevating the right hand and forearm above the level of the heart. Plan for close clinical observation. The thenar musculature is a bit concerning, but no discrete abscess is obvious on exam. I recommended we watch her overnight, provisionally keep her n.p.o. at midnight, and recheck her in the morning. Bedside versus formal incision and drainage was discussed. I will follow her closely clinically for changes with continued measures as above. Thank you for this consultation. (2) Dog bite of right hand:
--- NOTE | 2021-09-17 20:00 | NURSING ---
Hand soak with soap water completed. After soak completed sm amount of purulent drainage expressed from puncture on palm. Scant amount of serosanguineous drainage from wrist puncture.
[2021-09-17] MEDS: 0.9% Saline Lock 10 ML Syringe IV (21:11)
[2021-09-17] MEDS: Atorvastatin Calcium 40 MG Tablet PO (21:11)
[2021-09-17] MEDS: Acyclovir 200 MG Capsule 400 MG PO (21:11)
[2021-09-18 02:26] VITALS: BP 137/73; PULSE 93; RESP 17; TEMP 37.2; O2SAT 94
[2021-09-18] MEDS: Acetaminophen 325 MG Tablet 650 MG PO ×2 (02:30→21:50)
[2021-09-18] MEDS: 0.9% Saline Lock 10 ML Syringe IV ×3 (02:31→21:51)
[2021-09-18] MEDS: Levothyroxine 175 MCG Tablet PO (05:03)
[2021-09-18 05:44] LABS: Absolute Lymphocyte Count 0.18 X10^3/uL (0.83-4.51); Absolute Neutrophil Count 1.4 X10^3/uL (2.0-7.7); Basophil# 0.01 X10^3/uL; Basophil% 0.6 % (0-1); Eosinophil# 0.04 X10^3/uL; Eosinophils% 2.4 % (0-5); Hematocrit 28.3 % (37-47); Hemoglobin 9.9 g/dL (12.0-15.0); Lymphocyte # 0.18 X10^3/ul (0.83-4.51); Lymphocyte % 10.6 % (19-41); Mean Corpuscular Hgb 35.9 pg (27.0-32.0); Mean Corpuscular Volume 102.5 fL (81-99); Mean Platelet Vol. 10.7 fl (6.2-12.0); Monocyte# 0.05 X10^3/uL; Monocyte% 2.9 % (0-10); NRBC Flagged by Analyzer 0 % (0-5); Neutrophil # 1.42 X10^3/uL (2.7-7.7); Neutrophil % 83.5 % (47-70); POSITIVE DIFFERENTIAL YES; POSITIVE MORPHOLOGY YES; Platelet Count 123 K/mm3 (150-450); RBC Distribution Width CV 18.8 % (11.6-14.6); RBC Distribution Width SD 69.5 fl (35.1-43.9); Red Blood Count 2.76 M/mm3 (4.2-5.4); White Blood Count 1.7 K/mm3 (4.4-11.0)
[2021-09-18 06:15] LABS: Anion Gap 7 (5-15); BUN 29 mg/dL (7-18); BUN/Creat Ratio 25.4 RATIO (10-20); Calcium,Total 8.5 mg/dL (8.5-10.1); Chloride 105 mmol/L (98-107); Creatinine, Serum 1.14 mg/dL (0.55-1.02); EST Glomerular Filtration Rate 48 mL/min (>60); Est Glom Filt Rate - Afr Amer 58 mL/min (>60); Estimated Creatinine Clearance 27.23 ml/min; Glucose 136 mg/dL (74-106); Potassium 3.7 mmol/L (3.5-5.1); Sodium Level 139 mmol/L (136-145)
[2021-09-18 06:18] LABS: Differential Indicated SCAN CRITERIA MET
[2021-09-18 06:28] LABS: Anisocytosis 1+
--- NOTE | 2021-09-18 07:08 | PN.ORTHO_ITS ---
Subjective Subjective Patient seen and examined at bedside this morning. States she feels so-so. States her hand is little more sore this morning. Denies fevers overnight, chills, nausea or vomiting. Admits to not having her hand elevated most of the night. Performed one soak of her hand last evening. Objective Data Objective Data Vital Signs: Vital Signs Temp Pulse Resp BP Pulse Ox 99 F 93 17 137/73 H 94 09/18/21 02:26 09/18/21 02:26 09/18/21 02:26 09/18/21 02:26 09/18/21 02:26 Oxygen Delivery Method Room Air Weight: 110 lb 3.698 oz Body Mass Index (BMI) 20.5 Intake & Output: Intake and Output for Last 24 Hours 09/16/21 09/17/21 09/18/21 23:59 23:59 23:59 Intake Total 112 / 112 3229.25 / 3229.25 67.25 / 67.25 Balance 112 / 112 3229.25 / 3229.25 67.25 / 67.25 Lab / Micro Data Result Diagrams: 09/18/21 04:56 09/18/21 04:56 Labs: Laboratory Results - last 24 hr 09/16/21 21:30: Diff Path Review Reviewed 09/17/21 05:44: WBC 0.7 L*, RBC 1.77 L, Hgb 6.9 L, Hct 20.2 L, MCV 114.1 H, MCH 39.0 H, MCHC 34.2, RDW Std Deviation 55.8 H, RDW Coeff of Piyush 13.6, Plt Count 103 L, MPV 10.8, Immature Gran % (Auto) 11.100 H, Neut % (Auto) 66.6, Lymph % (Auto) 16.7 L, [place] % (Auto) 1.4, Eos % (Auto) 2.8, Baso % (Auto) 1.4 H, Absolute Neuts (auto) 0.5 L, Absolute Lymphs (auto) 0.12 L, Nucleated RBC % 0, Differential Comment SCANNED, Diff Path Review Reviewed 09/17/21 08:56: Blood Type TNP, Antibody Screen NEGATIVE, Crossmatch See Detail 09/17/21 08:56: Blood Type A POSITIVE 09/18/21 04:56: WBC 1.7 L, RBC 2.76 L, Hgb 9.9 L, Hct 28.3 L, MCV 102.5 H D, MCH 35.9 H, MCHC 35.0, RDW Std Deviation 69.5 H, RDW Coeff of Piyush 18.8 H, Plt Count 123 L, MPV 10.7, Immature Gran % (Auto) 0.000, Neut % (Auto) 83.5 H, Lymph % (Auto) 10.6 L, [place] % (Auto) 2.9, Eos % (Auto) 2.4, Baso % (Auto) 0.6, Absolute Neuts (auto) 1.4 L, Absolute Lymphs (auto) 0.18 L, Nucleated RBC % 0, Diff Path Review May foll, Anisocytosis 1+ 09/18/21 04:56: Sodium 139, Potassium 3.7, Chloride 105, Carbon Dioxide 27.0, Anion Gap 7, BUN 29 H, Creatinine 1.14 H, Estim Creat Clear Calc 27.23, Est GFR (MDRD) Af Amer 58 L, Est GFR (MDRD) Non-Af 48 L, BUN/Creatinine Ratio 25.4 H, Glucose 136 H, Calcium 8.5 Physical Exam Narrative General -A&Ox3, NAD, appears stated age. Vital signs stable, afebrile. Respiratory -normal work of breathing, no intercostal retractions. CV -pulses regular, brisk capillary refill ?4 limbs. Abdomen-soft, nontender, nondistended. No guarding, rigidity, rebound tenderness. Musculoskeletal/neurologic -cranial nerves II through XII grossly intact. Full range of motion nontender throughout bilateral lower extremities, wiggles toes on command, no focal deficits, palpable DP and PT pulses. Right upper extremity - Cellulitic rash stable, perhaps slightly improved. Sensation intact to light touch M/U/R. Cardinal motions of the right hand are intact. I am now able to express purulence from the thenar eminence puncture wounds. I expressed as much as possible. Palpable radial pulse. Edema is noted throughout the hand. The first dorsal compartment wound continues to drain.- Assessment & Plan Assessment/Plan (1) Dog bite of right hand: PLAN: Draining abscess from the thenar eminence and overlying the first dorsal compartment in the areas of the dog bite. Continue IV antibiotics. I will let the patient eat this morning as the abscesses are actively draining. Continue 3 times daily soaks expressing as much purulence as possible. Encourage aggressive elevation of the hand. We will consider likely bedside incision and drainage later this afternoon. I will recheck later today.
--- NOTE | 2021-09-18 07:43 | PN.HOSP_ITS ---
Subjective Subjective Patient seen and examined. She still complains of pain in her affected right hand. She says she is still not able to make a fist, but has noted that she has been able to express pus from over the right hand, at the site of the thenar eminence. Orthopedic surgery on board. She was transfused with 2 units of PRBCs, and Hb is now 9.9. Wbc is 1.7 toay and platelets are 123. Objective Data Objective Data Vital Signs: Vital Signs Temp Pulse Resp BP Pulse Ox 99 F 93 17 137/73 H 94 09/18/21 02:26 09/18/21 02:26 09/18/21 02:26 09/18/21 02:26 09/18/21 02:26 Oxygen Delivery Method Room Air Weight: 110 lb 3.698 oz Body Mass Index (BMI) 20.5 Intake & Output: Intake and Output for Last 24 Hours 09/16/21 09/17/21 09/18/21 23:59 23:59 23:59 Intake Total 112 / 112 3229.25 / 3229.25 67.25 / 67.25 Balance 112 / 112 3229.25 / 3229.25 67.25 / 67.25 Lab / Micro Data Result Diagrams: 09/18/21 04:56 09/18/21 04:56 Labs: Laboratory Results - last 24 hr 09/16/21 21:30: Diff Path Review Reviewed 09/17/21 05:44: Diff Path Review Reviewed 09/17/21 08:56: Blood Type TNP, Antibody Screen NEGATIVE, Crossmatch See Detail 09/17/21 08:56: Blood Type A POSITIVE 09/18/21 04:56: WBC 1.7 L, RBC 2.76 L, Hgb 9.9 L, Hct 28.3 L, MCV 102.5 H D, MCH 35.9 H, MCHC 35.0, RDW Std Deviation 69.5 H, RDW Coeff of Piyush 18.8 H, Plt Count 123 L, MPV 10.7, Immature Gran % (Auto) 0.000, Neut % (Auto) 83.5 H, Lymph % (Auto) 10.6 L, [place] % (Auto) 2.9, Eos % (Auto) 2.4, Baso % (Auto) 0.6, Absolute Neuts (auto) 1.4 L, Absolute Lymphs (auto) 0.18 L, Nucleated RBC % 0, Diff Path Review May foll, Anisocytosis 1+ 09/18/21 04:56: Sodium 139, Potassium 3.7, Chloride 105, Carbon Dioxide 27.0, Anion Gap 7, BUN 29 H, Creatinine 1.14 H, Estim Creat Clear Calc 27.23, Est GFR (MDRD) Af Amer 58 L, Est GFR (MDRD) Non-Af 48 L, BUN/Creatinine Ratio 25.4 H, Glucose 136 H, Calcium 8.5 Physical Exam Const alert, oriented x3 and no apparent distress General Appearance: cooperative Exam Limitations: no limitations HEENT normocephalic, head/scalp atraumatic and moist oral mucous membranes Head and Scalp: normocephalic Eyes PERRL, EOMs intact bilaterally and conjunctivae normal Neck no lymphadenopathy and supple Resp normal respiratory effort, normal air movement, no retractions, no use of accessory muscles and clear to auscultation bilaterally Cardio regular rate, regular rhythm, S1 normal heart sound, S2 normal heart sound and no murmurs GI normal to inspection, nondistended, normoactive bowel sounds, soft to palpation, non-tender and non-distended Extremity Extremity Narrative: right hand still moderately swollen, mildly erythematous and tender. unable to make a fist. Puncture wounds over the right thenar eminence, oozing pus with pressure. General Extremity: edema Peripheral Pulses: Yes pulses 2+ throughout Skin Skin Narrative: as under extremity Neuro oriented x3 and CN's II-XII intact bilaterally Sensorium / Orientation: awake and alert Psych affect normal Appearance: appropriate Assessment & Plan Assessment/Plan (1) Cellulitis of hand, right: (2) Dog bite of right hand: (3) Anemia: PLAN: #Cellulitis of the right hand due to dog bite * still unable to make a fist. Bite areas oozing pus now. * on IV unasyn. * on tylenol and tramadol prn for pain * orthopedic surgery on board; appreciate rec's. * PT/OT consult * #Acute on chronic anemia * Hb is up to 9.9 today, after she received 2 units of PRBCs * due to multiple myeloma. * #Pancytopenia: * due to multiple myeloma. * Hb is up to 9.9 today, wbc is 1.7 and platelets are also up to 123. #Multiple myeloma * to follow up with oncology for chemo on outpatient basis once this acute infection has cleared. #DVT prophylaxis: SCDs. Charges/Coding Visit Charges Inpatient E&M: 14044 Subs Hosp L3
[2021-09-18 08:04] VITALS: O2SAT 92
[2021-09-18] MEDS: Pantoprazole Sodium 40 MG Tablet PO (09:21)
[2021-09-18] MEDS: amLODIPine 2.5 MG Tablet PO (09:21)
[2021-09-18] MEDS: hydroCHLOROthiazide 12.5mg 12.5 MG PO (09:21)
[2021-09-18] MEDS: Acyclovir 200 MG Capsule 400 MG PO ×2 (09:21→21:50)
[2021-09-18] MEDS: Cyanocobalamin 500 MCG Tablet 1000 MCG PO (09:21)
[2021-09-18] MEDS: Ferrous Sulfate 325 MG Tablet PO (09:22)
[2021-09-18 09:30] VITALS: BP 145/88; PULSE 97; RESP 18; TEMP 37.1; O2SAT 94
[2021-09-18] MEDS: traMADol 50 MG Tablet PO ×2 (09:40→20:42)
[2021-09-18 14:44] VITALS: BP 185/91; PULSE 100; RESP 18; TEMP 37.3; O2SAT 99
[2021-09-18] MEDS: Lidocaine 1% /Epi 1:100 (50ml) 50 ML VIAL 30 ML INFILT (18:47)
--- NOTE | 2021-09-18 19:12 | PCM.OPRPT ---
Report of Operation Date of Procedure: 09/18/21 Description of Surgical Findings:: Preoperative diagnosis: 1. Dog bite right hand and wrist 2. Right hand thenar and radial wrist subcutaneous abscesses Postoperative diagnosis: 1. Dog bite right hand and wrist 2. Right hand thenar and radial wrist subcutaneous abscesses Procedure: Incision and drainage right hand thenar and radial wrist subcutaneous abscesses Surgeon: Eric Delatorre DO Anesthesia: Local 1% lidocaine with epinephrine 1: 100,000 35 cc total Packing: Iodoform quarter-inch approximately 10 cm in each wound Complications: None apparent Urine output: None Implants: None Assistants: None Preoperative indications: This is a 6-year-old female who was bit by a dog several days ago. She was admitted to the hospital started IV antibiotics. I was asked see the patient for recommendations for questionable right hand wrist abscess. There was draining purulence from the puncture wound along the radial aspect of the wrist and started draining purulence from her thenar puncture wound this morning. We started her on soaks and IV Unasyn. There has been slight improvement but I recommended we perform a bedside incision and drainage. The risk and benefits cultures procedure reviewed with patient at length she agreed to proceed. Informed consent was obtained and placed in the chart. Description of procedure: I first prepped the radial and volar wrist with rubbing alcohol. A subcutaneous block was administered with 35 cc total 1% lidocaine with epinephrine 1: 100,000. After allowing adequate time for the anesthesia to set up, I prepped the right thumb and radial wrist with Betadine. I then confirmed anesthesia. We performed a timeout with all parties in attendance in agreement with the side, site, operation to be performed. No concerns were voiced and elected to proceed. Allergies were confirmed. I first opened the radial wrist puncture wound with a 15 blade scalpel approximately 1 cm. Skin and subcutaneous tissues were spread with a hemostat. I explored the subcutaneous layer with a hemostat. Purulence was expressed. I manually expressed more purulence. After only blood was able to be expressed, I turned my attention to the thenar puncture wound. There were 2 bite juarez which were connected with a 15 blade scalpel approximately 1 cm in length. In similar fashion, subcutaneous tissues were spread with hemostat. Purulence was expressed. After only blood remained, I thoroughly irrigated both wounds with 1 L total normal saline solution. Hemostasis was achieved with the epinephrine from the block. Iodoform packing approximately 10 cm in each wound were placed in the wounds. A bulky dressing was applied. Patient tolerated procedure well without apparent complication. Postoperative plan: Maintain packing until tomorrow. Likely pull the packing and initiate 3 times daily soaks. She is encouraged to wiggle her fingers as well as elevate the right hand. Pain medication as ordered. Continue IV antibiotics. I will see the patient in the morning to monitor for any change.
--- NOTE | 2021-09-18 19:31 | NURSING ---
1845-Dr Delaotrre at bedside to perform I&D to right hand s/p dog bite. bedside consent signed prior to procedure. site numbed with lidocaine/epi prior to incisional drainage performed. irrigated with sterile water and iodofoam packed into wounds. wrapped with kerlex and joe-wrap. pt tolerated well. hand elevated with pillows.
[2021-09-18 19:49] VITALS: BP 145/63; PULSE 104; RESP 18; TEMP 37.4; O2SAT 94
[2021-09-18] MEDS: Atorvastatin Calcium 40 MG Tablet PO (21:50)
[2021-09-18] MEDS: traMADol 50 MG Tablet 100 MG PO (22:20)
[2021-09-19 02:26] VITALS: BP 133/60; PULSE 72; RESP 18; TEMP 36.8; O2SAT 96
[2021-09-19] MEDS: Levothyroxine 175 MCG Tablet PO (05:23)
[2021-09-19] MEDS: Acetaminophen 325 MG Tablet 650 MG PO ×4 (05:27→21:17)
[2021-09-19 07:18] LABS: Absolute Lymphocyte Count 0.29 X10^3/uL (0.83-4.51); Absolute Neutrophil Count 1.2 X10^3/uL (2.0-7.7); Basophil# 0.01 X10^3/uL; Basophil% 0.6 % (0-1); Eosinophil# 0.03 X10^3/uL; Eosinophils% 1.9 % (0-5); Hematocrit 29.3 % (37-47); Hemoglobin 10.1 g/dL (12.0-15.0); Lymphocyte # 0.29 X10^3/ul (0.83-4.51); Lymphocyte % 18.1 % (19-41); Mean Corp Hgb Conc 34.5 g/dL (32-36); Mean Corpuscular Hgb 35.8 pg (27.0-32.0); Mean Corpuscular Volume 103.9 fL (81-99); Mean Platelet Vol. 10.5 fl (6.2-12.0); Monocyte# 0.05 X10^3/uL; Monocyte% 3.1 % (0-10); NRBC Flagged by Analyzer 0 % (0-5); POSITIVE DIFFERENTIAL YES; POSITIVE MORPHOLOGY YES; Platelet Count 146 K/mm3 (150-450); RBC Distribution Width CV 17.8 % (11.6-14.6); RBC Distribution Width SD 66.9 fl (35.1-43.9); Red Blood Count 2.82 M/mm3 (4.2-5.4); White Blood Count 1.6 K/mm3 (4.4-11.0)
[2021-09-19 07:20] LABS: Differential Indicated SCAN CRITERIA MET
[2021-09-19 07:41] LABS: Anion Gap 8 (5-15); BUN 16 mg/dL (7-18); BUN/Creat Ratio 15.5 RATIO (10-20); Calcium,Total 8.5 mg/dL (8.5-10.1); Chloride 104 mmol/L (98-107); Creatinine, Serum 1.03 mg/dL (0.55-1.02); EST Glomerular Filtration Rate 54 mL/min (>60); Est Glom Filt Rate - Afr Amer 66 mL/min (>60); Estimated Creatinine Clearance 30.13 ml/min; Glucose 125 mg/dL (74-106); Potassium 3.7 mmol/L (3.5-5.1); Sodium Level 138 mmol/L (136-145)
[2021-09-19 08:50] VITALS: BP 151/76; PULSE 86; RESP 18; TEMP 36.6; O2SAT 97
[2021-09-19] MEDS: Acyclovir 200 MG Capsule 400 MG PO ×2 (09:01→21:09)
[2021-09-19] MEDS: amLODIPine 2.5 MG Tablet PO (09:01)
[2021-09-19] MEDS: Cyanocobalamin 500 MCG Tablet 1000 MCG PO (09:01)
[2021-09-19] MEDS: hydroCHLOROthiazide 12.5mg 12.5 MG PO (09:01)
[2021-09-19] MEDS: Ferrous Sulfate 325 MG Tablet PO (09:01)
[2021-09-19] MEDS: traMADol 50 MG Tablet 100 MG PO (09:07)
--- NOTE | 2021-09-19 09:07 | PN.ORTHO_ITS ---
Subjective Subjective Patient seen and examined at bedside this morning. She reported some pain requiring pain medication x2 doses last evening after Lidocaine wore off. She states she only took Tylenol this morning with good relief. She states overall her hand is feeling better. She states she feels well without constitutional symptoms including fevers, chills, nausea vomiting, chest pain or shortness of breath. Objective Data Objective Data Vital Signs: Vital Signs Temp Pulse Resp BP Pulse Ox 98 F 86 18 151/76 H 97 09/19/21 08:50 09/19/21 08:50 09/19/21 08:50 09/19/21 08:50 09/19/21 08:50 Oxygen Flow Rate (L/min) 4 Oxygen Delivery Method Room Air Weight: 110 lb 3.698 oz Body Mass Index (BMI) 20.5 Intake & Output: Intake and Output for Last 24 Hours 09/17/21 09/18/21 09/19/21 23:59 23:59 23:59 Intake Total 3229.25 / 3229.25 299.00 / 299.00 120 / 120 Balance 3229.25 / 3229.25 299.00 / 299.00 120 / 120 Lab / Micro Data Result Diagrams: 09/19/21 06:40 09/19/21 06:40 Labs: Laboratory Results - last 24 hr 09/19/21 06:40: WBC 1.6 L, RBC 2.82 L, Hgb 10.1 L, Hct 29.3 L, MCV 103.9 H, MCH 35.8 H, MCHC 34.5, RDW Std Deviation 66.9 H, RDW Coeff of Piyush 17.8 H, Plt Count 146 L, MPV 10.5, Immature Gran % (Auto) 1.300 H, Neut % (Auto) 75.0 H, Lymph % (Auto) 18.1 L, [place] % (Auto) 3.1, Eos % (Auto) 1.9, Baso % (Auto) 0.6, Absolute Neuts (auto) 1.2 L, Absolute Lymphs (auto) 0.29 L, Nucleated RBC % 0, Differential Comment , Diff Path Review March09/19/21 06:40: Sodium 138, Potassium 3.7, Chloride 104, Carbon Dioxide 26.0, Anion Gap 8, BUN 16, Creatinine 1.03 H, Estim Creat Clear Calc 30.13, Est GFR (MDRD) Af Amer 66, Est GFR (MDRD) Non-Af 54 L, BUN/Creatinine Ratio 15.5, Glucose 125 H, Calcium 8.5 Micro: Microbiology 09/16/21 21:45 Blood Culture (Wb) - Anticubital Left Blood Culture - Preliminary No growth in 48 hours. 09/16/21 21:30 Blood Culture (Wb) - Port Blood Culture - Preliminary No growth in 48 hours. Physical Exam Narrative General -A&Ox3, NAD, appears stated age. Vital signs stable, afebrile. Respiratory -normal work of breathing, no intercostal retractions. CV -pulses regular, brisk capillary refill ?4 limbs. Abdomen-soft, nontender, nondistended. No guarding, rigidity, rebound tenderness. Musculoskeletal/neurologic -cranial nerves II through XII grossly intact. Full range of motion nontender throughout bilateral lower extremities, wiggles toes on command, no focal deficits, palpable DP and PT pulses. Right upper extremity - Cellulitic rash improving. Sensation intact to light touch M/U/R. Cardinal motions of the right hand are intact.Surgical dressing removed. There was significant dried serosanguineous drainage noted overlying both incisions on the dressing. Packing was in place. I did remove the entirety of the packing in both wounds. I was unable to express any additional fluid from the wound. There is still some soft tissue swelling, nonpitting edema about the hand. No palpable fluctuance or induration. Assessment & Plan Assessment/Plan (1) Dog bite of right hand: QUALIFIERS: Encounter type: initial encounter Qualified Code(s): S61.451A - Open bite of right hand, initial encounter; W54.0XXA - Bitten by dog, initial encounter (2) Cellulitis of hand, right: (3) Cutaneous abscess of hand: QUALIFIERS: Laterality: right Qualified Code(s): L02.511 - Cutaneous abscess of right hand PLAN: POD#1 s/p bedside incision and drainage right hand thenar subcutan eous abscess and radial wrist subcutaneous abscess -Packing removed. No purulence noted. No evidence of recurrent abscess in the subcutaneous layer. Deeper infection is considered, but would recommend continued observation as patient is moving her hand much better after IV antibiotics and bedside I&D. -Continue 3 times daily soaks for 10 minutes. Applied dry sterile dressing after soaks. We will refrain from repacking the wounds at this time. I will plan to let the wounds slowly close by secondary intention - Encourage strict elevation and range of motion of the hand and wrist. - Pain control -I will recheck the patient tomorrow to monitor for continued improvement.
[2021-09-19] MEDS: 0.9% Saline Lock 10 ML Syringe IV (09:19)
[2021-09-19 09:28] LABS: Pathologist Review Reviewed
--- NOTE | 2021-09-19 09:38 | WOUNDNOTE ---
In to assess the right hand with Dr Delatorre. the dressing and packing was removed. there is still some redness and edema, but both are much improved. patient able to wiggle fingers. there is still discomfort, but patient states is improving. no further purulence was expressed. the hand was soaked in soapy water for approx 10 mins. rinsed wounds with saline. pat dry. Dr Delatorre wanted areas open to drain and not repacked. did place Adaptic to the gauze from sticking. covered dry dressings and wrapped with kerlix. reapplied the CHRISSY wrap. pt tolerated well. pt has been elevating the right arm up on pillows. Dr Mera was in to assess hand also while it was unwrapped.
--- NOTE | 2021-09-19 12:11 | PN.HOSP_ITS ---
Subjective Subjective Patient seen and examined. She was soaking her right hand as recommended by orthopedic surgery. She had I&D of the 2 abscesses on the right hand yesterday. Today's postop day 1. Pain is well controlled and she has no active complaints. Review of systems otherwise negative. Objective Data Objective Data Vital Signs: Vital Signs Temp Pulse Resp BP Pulse Ox 98 F 86 18 151/76 H 97 09/19/21 08:50 09/19/21 08:50 09/19/21 08:50 09/19/21 08:50 09/19/21 08:50 Oxygen Flow Rate (L/min) 4 Oxygen Delivery Method Room Air Weight: 110 lb 3.698 oz Body Mass Index (BMI) 20.5 Intake & Output: Intake and Output for Last 24 Hours 09/17/21 09/18/21 09/19/21 23:59 23:59 23:59 Intake Total 3229.25 / 3229.25 299.00 / 299.00 232 / 232 Balance 3229.25 / 3229.25 299.00 / 299.00 232 / 232 Lab / Micro Data Result Diagrams: 09/19/21 06:40 09/19/21 06:40 Labs: Laboratory Results - last 24 hr 09/18/21 04:56: Diff Path Review Reviewed 09/19/21 06:40: WBC 1.6 L, RBC 2.82 L, Hgb 10.1 L, Hct 29.3 L, MCV 103.9 H, MCH 35.8 H, MCHC 34.5, RDW Std Deviation 66.9 H, RDW Coeff of Piyush 17.8 H, Plt Count 146 L, MPV 10.5, Immature Gran % (Auto) 1.300 H, Neut % (Auto) 75.0 H, Lymph % (Auto) 18.1 L, [place] % (Auto) 3.1, Eos % (Auto) 1.9, Baso % (Auto) 0.6, Absolute Neuts (auto) 1.2 L, Absolute Lymphs (auto) 0.29 L, Nucleated RBC % 0, Differential Comment , Diff Path Review March09/19/21 06:40: Sodium 138, Potassium 3.7, Chloride 104, Carbon Dioxide 26.0, Anion Gap 8, BUN 16, Creatinine 1.03 H, Estim Creat Clear Calc 30.13, Est GFR (MDRD) Af Amer 66, Est GFR (MDRD) Non-Af 54 L, BUN/Creatinine Ratio 15.5, Glucose 125 H, Calcium 8.5 Micro: Microbiology 09/16/21 21:45 Blood Culture (Wb) - Anticubital Left Blood Culture - Preliminary No growth in 48 hours. 09/16/21 21:30 Blood Culture (Wb) - Port Blood Culture - Preliminary No growth in 48 hours. Physical Exam Const alert, oriented x3 and no apparent distress General Appearance: cooperative Exam Limitations: no limitations HEENT normocephalic, head/scalp atraumatic and moist oral mucous membranes Head and Scalp: normocephalic Eyes PERRL, EOMs intact bilaterally and conjunctivae normal Neck no lymphadenopathy and supple Resp normal respiratory effort, normal air movement, no retractions, no use of accessory muscles and clear to auscultation bilaterally Cardio regular rate, regular rhythm, S1 normal heart sound, S2 normal heart sound and no murmurs GI normal to inspection, nondistended, normoactive bowel sounds, soft to palpation, non-tender and non-distended Extremity Extremity Narrative: right hand has 2 open I&D sites, over the thenar eminence and over the radius at the wrist. Swelling has improved markedly. Minimal tenderness or erythema General Extremity: edema Peripheral Pulses: Yes pulses 2+ throughout Skin no rashes or lesions noted Skin Narrative: as under extremity Neuro oriented x3 and CN's II-XII intact bilaterally Sensorium / Orientation: awake and alert Psych affect normal Appearance: appropriate Assessment & Plan Assessment/Plan (1) Cellulitis of hand, right: (2) Dog bite of right hand: QUALIFIERS: Encounter type: initial encounter Qualified Code(s): S61.451A - Open bite of right hand, initial encounter; W54.0XXA - Bitten by dog, initial encounter (3) Anemia: PLAN: #Cellulitis with abscess formation of the right hand due to dog bite * had I&D by orthopedics yesterday. pain is well controlled * on IV unasyn. * on tylenol and tramadol prn for pain * PT/OT on board. * #Acute on chronic anemia * Hb is ~10 today, after she received 2 units of PRBCs * due to multiple myeloma. * #Pancytopenia: * due to multiple myeloma. * improving. Will continue to trend. * #Multiple myeloma * to follow up with oncology for chemo on outpatient basis once this acute infection has cleared. #DVT prophylaxis: SCDs. Charges/Coding Visit Charges Inpatient E&M: 02305 Subs Hosp L2
[2021-09-19 14:51] VITALS: BP 130/74; PULSE 90; RESP 18; TEMP 36.4; O2SAT 97
[2021-09-19] MEDS: Atorvastatin Calcium 40 MG Tablet PO (21:09)
[2021-09-19 21:13] VITALS: BP 158/80; PULSE 91; RESP 16; TEMP 36.6; O2SAT 96
[2021-09-20 03:13] VITALS: BP 155/92; PULSE 92; RESP 16; TEMP 36.6; O2SAT 97
[2021-09-20] MEDS: Loperamide 2 MG Capsule PO (05:56)
[2021-09-20] MEDS: BENZOCAINE/MENTHOL 1 LOZENGE 2 LOZENGE MUCOUS MEM (05:56)
[2021-09-20] MEDS: Levothyroxine 175 MCG Tablet PO (05:56)
[2021-09-20 07:39] LABS: Absolute Neutrophil Count 0.6 X10^3/uL (2.0-7.7); Basophil# 0.01 X10^3/uL; Basophil% 1.1 % (0-1); Eosinophil# 0.02 X10^3/uL; Eosinophils% 2.1 % (0-5); Hematocrit 34.5 % (37-47); Hemoglobin 11.5 g/dL (12.0-15.0); Lymphocyte % 21.3 % (19-41); Mean Corp Hgb Conc 33.3 g/dL (32-36); Mean Corpuscular Hgb 35.2 pg (27.0-32.0); Mean Corpuscular Volume 105.5 fL (81-99); Mean Platelet Vol. 10.7 fl (6.2-12.0); Monocyte# 0.04 X10^3/uL; Monocyte% 4.3 % (0-10); NRBC Flagged by Analyzer 0 % (0-5); Neutrophil # 0.61 X10^3/uL (2.7-7.7); Neutrophil % 64.8 % (47-70); POSITIVE COUNT YES; POSITIVE DIFFERENTIAL YES; POSITIVE MORPHOLOGY YES; Platelet Count 175 K/mm3 (150-450); RBC Distribution Width CV 16.9 % (11.6-14.6); RBC Distribution Width SD 66.2 fl (35.1-43.9); Red Blood Count 3.27 M/mm3 (4.2-5.4); White Blood Count 0.9 K/mm3 (4.4-11.0)
[2021-09-20 07:50] VITALS: O2SAT 96
[2021-09-20 07:51] VITALS: BP 166/89; PULSE 104; RESP 18; TEMP 37.1; O2SAT 96
[2021-09-20 07:51] LABS: Differential Indicated SCAN CRITERIA MET
--- NOTE | 2021-09-20 07:53 | WOUNDNOTE ---
Dr Delatorre had been in and changed dressing to the right hand this am. states there is much improvement. patient states pain is much improved as well. pt had already soaked hand this am. dressing is D&I at this time.
[2021-09-20 08:04] LABS: Anion Gap 8 (5-15); BUN 14 mg/dL (7-18); BUN/Creat Ratio 13.9 RATIO (10-20); Calcium,Total 9.1 mg/dL (8.5-10.1); Chloride 103 mmol/L (98-107); Creatinine, Serum 1.01 mg/dL (0.55-1.02); EST Glomerular Filtration Rate 55 mL/min (>60); Est Glom Filt Rate - Afr Amer 67 mL/min (>60); Estimated Creatinine Clearance 30.73 ml/min; Glucose 127 mg/dL (74-106); Potassium 3.7 mmol/L (3.5-5.1); Sodium Level 137 mmol/L (136-145)
--- NOTE | 2021-09-20 08:36 | PCM.PN.ORT ---
Subjective Subjective Pt S&E. States pain is improving, 3/10. ROM and swelling improving. Forearm erythema nearly resolved. Denies F/C/N/V/SOB/CP Objective Data Objective Data Vital Signs: Vital Signs Temp Pulse Resp BP Pulse Ox 98.7 F 104 H 18 166/89 H 96 09/20/21 07:51 09/20/21 07:51 09/20/21 07:51 09/20/21 07:51 09/20/21 07:51 Oxygen Flow Rate (L/min) 4 Oxygen Delivery Method Room Air Weight: 110 lb 3.698 oz Body Mass Index (BMI) 20.5 Intake & Output: Intake and Output for Last 24 Hours 09/18/21 09/19/21 09/20/21 23:59 23:59 23:59 Intake Total 299.00 / 299.00 1344 / 1544 500 / 500 Balance 299.00 / 299.00 1344 / 1544 500 / 500 Lab / Micro Data Result Diagrams: 09/20/21 07:05 09/20/21 07:05 Labs: Laboratory Results - last 24 hr 09/18/21 04:56: Diff Path Review Reviewed 09/20/21 07:05: WBC 0.9 L*, RBC 3.27 L, Hgb 11.5 L, Hct 34.5 L, MCV 105.5 H, MCH 35.2 H, MCHC 33.3, RDW Std Deviation 66.2 H, RDW Coeff of Piyush 16.9 H, Plt Count 175, MPV 10.7, Immature Gran % (Auto) 6.400 H, Neut % (Auto) 64.8, Lymph % (Auto) 21.3, [place] % (Auto) 4.3, Eos % (Auto) 2.1, Baso % (Auto) 1.1 H, Absolute Neuts (auto) 0.6 L, Absolute Lymphs (auto) 0.20 L, Nucleated RBC % 0, Diff Path Review March09/20/21 07:05: Sodium 137, Potassium 3.7, Chloride 103, Carbon Dioxide 26.0, Anion Gap 8, BUN 14, Creatinine 1.01, Estim Creat Clear Calc 30.73, Est GFR (MDRD) Af Amer 67, Est GFR (MDRD) Non-Af 55 L, BUN/Creatinine Ratio 13.9, Glucose 127 H, Calcium 9.1 Micro: Microbiology 09/16/21 21:45 Blood Culture (Wb) - Anticubital Left Blood Culture - Preliminary No growth in 48 hours. 09/16/21 21:30 Blood Culture (Wb) - Port Blood Culture - Preliminary No growth in 48 hours. Physical Exam Narrative General -A&Ox3, NAD, appears stated age. Vital signs stable, afebrile. Respiratory -normal work of breathing, no intercostal retractions. CV -pulses regular, brisk capillary refill ?4 limbs. Abdomen-soft, nontender, nondistended. No guarding, rigidity, rebound tenderness. Musculoskeletal/neurologic -cranial nerves II through XII grossly intact. Full range of motion nontender throughout bilateral lower extremities, wiggles toes on command, no focal deficits, palpable DP and PT pulses. Right upper extremity - Cellulitic rash nearly completely resolved. Sensation intact to light touch M/U/R. Cardinal motions of the right hand are intact.Surgical dressing removed. There was significant dried serosanguineous drainage noted overlying both incisions on the dressing. I was unable to express any additional fluid from the wound. There is still some soft tissue swelling, nonpitting edema about the hand. No palpable fluctuance or induration. Assessment & Plan Assessment/Plan (1) Dog bite of right hand: QUALIFIERS: Encounter type: initial encounter Qualified Code(s): S61.451A - Open bite of right hand, initial encounter; W54.0XXA - Bitten by dog, initial encounter (2) Cellulitis of hand, right: (3) Cutaneous abscess of hand: QUALIFIERS: Laterality: right Qualified Code(s): L02.511 - Cutaneous abscess of right hand PLAN: POD#2 s/p bedside incision and drainage right hand thenar subcutaneous abscess and radial wrist subcutaneous abscess - Hand much improved. - Continue 3 times daily soaks for 10 minutes. Apply dry sterile dressing after soaks. - Encourage strict elevation and range of motion of the hand and wrist. OT ordered for ROM and edema control - Pain control - Pt doing much better. I will sign off. Abx per primary regarding homegoing PO vs PICC with her MM. I would like to see the patient in office 09/25/21. If any concerns arise in the meantime, please do not hesitate to contact me. She is ok to shower and continue soaks at home.
[2021-09-20] MEDS: Cyanocobalamin 500 MCG Tablet 1000 MCG PO (09:37)
[2021-09-20] MEDS: amLODIPine 2.5 MG Tablet PO (09:37)
[2021-09-20] MEDS: hydroCHLOROthiazide 12.5mg 12.5 MG PO (09:37)
[2021-09-20] MEDS: Ferrous Sulfate 325 MG Tablet PO (09:38)
[2021-09-20] MEDS: Acyclovir 200 MG Capsule 400 MG PO (09:38)
[2021-09-20] MEDS: Acetaminophen 325 MG Tablet 650 MG PO (09:45)
--- NOTE | 2021-09-20 12:26 | PCM.DC.SUM ---
Providers Date of Admission: 09/17/21 Primary Care Physician: Dr. Everardo Garcia, Consultations 09/17/21 15:52 Consult: Orthopedics Routine Consulting Provider: Eric Delatorre Reason for Consult: right hand cellulitis EMERGENT Consult: No MD Notified: Yes Date Notified: 09/17/21 Time Notified: 15:52 Method of Notification: Text Reason For Visit: DOG BITE HAND WITH CELLULITIS Diagnosis Discharge Diagnosis (1) Dog bite of right hand: Status: Acute Code(s): S61.451A - Open bite of right hand, initial encounter; W54.0XXA - Bitten by dog, initial encounter Qualifiers: Encounter type: initial encounter Qualified Code(s): S61.451A - Open bite of right hand, initial encounter; W54.0XXA - Bitten by dog, initial encounter (2) Cellulitis of hand, right: Status: Acute Code(s): L03.113 - Cellulitis of right upper limb (3) Cutaneous abscess of hand: Status: Acute Code(s): L02.519 - Cutaneous abscess of unspecified hand Qualifiers: Laterality: right Qualified Code(s): L02.511 - Cutaneous abscess of right hand Medications at Discharge Home Medications atorvastatin 20 mg tablet 40 mg PO QHS 03/03/18 hydrochlorothiazide 25 mg tablet 12.5 mg PO DAILY 03/03/18 metformin 1,000 mg tablet 1,000 mg PO BID 03/03/18 Vitamin B12 1,000 mcg PO DAILY 06/18/20 aspirin 81 mg PO DAILY 06/18/20 levothyroxine 175 mcg tablet 175 mcg PO DAILY tablet 10/29/20 ondansetron 4 mg PO Q8H PRN PRN 10 Days #30 tablet 11/01/20 iron bisglycinate chelate 28 mg PO DAILY 11/06/20 amlodipine 5 mg tablet 2.5 mg PO DAILY tablet 03/11/21 dexamethasone 40 mg PO WE 09/16/21 pantoprazole 40 mg PO WE 09/16/21 acyclovir 400 mg PO BID 09/17/21 amoxicillin-pot clavulanate 1 tab PO BID #28 tab 09/20/21 tramadol 50 mg PO Q8H PRN 5 Days #15 tab 09/20/21 Hospital Course Operations - (incision and drainage of righ hand abscess) Procedures None Summary of Care Provided Minutes Spent on Discharge: 45 Hospital Course: Patient is an 86-year-old female with an extensive past medical history which includes multiple myeloma who was admitted through the ED with a complaint of increased swelling and redness of her right hand after she was bitten by her daughter's dog on the day before admission. She received 2 doses of Augmentin and a short course of Rocephin on outpatient basis but the swelling continued and the hand became more painful and red. She had had chemotherapy a week before admission and admission she was found to be pancytopenic. She was admitted to be managed for cellulitis of the right upper extremity due to dog bite. She was started on IV Unasyn. Hospital course was completed by acute on chronic anemia with hemoglobin dropping to 6.9. She was transfused with 2 units of packed red blood cells and hemoglobin subsequently trended up. Orthopedic surgery was consulted due to persistent pain and swelling of the right hand. She had I&D over the thenar eminence and the radial area of the right hand. Swelling subsequently improved markedly and pain was also improved. Blood cultures were negative. She remained stable and was discharged home on 09/20/2021. SHe was discharged on PO augmentin 1 tab bid for 2 weeks. She is to follow up with her PCP and orthopedic surgeon. She is to follow up with orthopedic surgeon on 09/25/2021, and is to continue soaking her hand 3 x daily for 10 minutes as instructed by orthopedic surgery and to apply dry sterile dressing after the soaks and to also maintain strict elevation and range of motion of the hand and wrist. She does have outpatient occupational therapy as well. Patient seen and examined prior to discharge. She had had some diarrhea overnight but said it was improving and stools now formed. Review of symptoms otherwise negative. Labs and vitals reviewed. Home medication reviewed and reconciled. Physical Exam Const alert, oriented x3 and no apparent distress General Appearance: cooperative Exam Limitations: no limitations HEENT normocephalic, head/scalp atraumatic and moist oral mucous membranes Eyes PERRL, EOMs intact bilaterally and conjunctivae normal Neck no lymphadenopathy and supple Resp normal respiratory effort, normal air movement, no retractions, no use of accessory muscles and clear to auscultation bilaterally Cardio regular rate, regular rhythm, S1 normal heart sound, S2 normal heart sound and no murmurs GI normal to inspection, nondistended, normoactive bowel sounds, soft to palpation, non-tender and non-distended Extremity Extremity Narrative: right hand dressed in bandage. Still not able to make a fist fully, but it is much better than previous General Extremity: edema Skin no rashes or lesions noted Skin Narrative: as under extremity Neuro oriented x3 and CN's II-XII intact bilaterally Sensorium / Orientation: awake and alert Psych affect normal Appearance: appropriate Weight / BMI Weight Weight: 110 lb 3.698 oz Body Mass Index (BMI) 20.5 ABG / Lab / Microbiology Data Result Diagrams: 09/20/21 07:05 09/20/21 07:05 Laboratory: Laboratory Results - last 24 hr 09/20/21 07:05: WBC 0.9 L*, RBC 3.27 L, Hgb 11.5 L, Hct 34.5 L, MCV 105.5 H, MCH 35.2 H, MCHC 33.3, RDW Std Deviation 66.2 H, RDW Coeff of Piyush 16.9 H, Plt Count 175, MPV 10.7, Immature Gran % (Auto) 6.400 H, Neut % (Auto) 64.8, Lymph % (Auto) 21.3, Glasscock % (Auto) 4.3, Eos % (Auto) 2.1, Baso % (Auto) 1.1 H, Absolute Neuts (auto) 0.6 L, Absolute Lymphs (auto) 0.20 L, Nucleated RBC % 0, Diff Path Review March09/20/21 07:05: Sodium 137, Potassium 3.7, Chloride 103, Carbon Dioxide 26.0, Anion Gap 8, BUN 14, Creatinine 1.01, Estim Creat Clear Calc 30.73, Est GFR (MDRD) Af Amer 67, Est GFR (MDRD) Non-Af 55 L, BUN/Creatinine Ratio 13.9, Glucose 127 H, Calcium 9.1 Microbiology: Microbiology 09/16/21 21:45 Blood Culture (Wb) - Anticubital Left Blood Culture - Preliminary No growth in 48 hours. 09/16/21 21:30 Blood Culture (Wb) - Port Blood Culture - Preliminary No growth in 48 hours. D/C Instructions Discharge Diet: Low fat / Low cholesterol Discharge Activity: Return to Normal Activity Weight Bearing Status: Weight bearing as tolerated Call your doctor if you observe: Fever of 101 or Higher, Shortness of breath, Swelling in the ankles and Uncontrolled pain Additional Dressing/Incision Instructions: soak hand 3 x daily for 10 mins as instructed by orthopedic surgery; apply dry sterile dressing after soaks. To have strict elevation and range of motion of the hand and wrist daily. Meaningful Use Info Meaningful Use Diagnoses (Choose all that apply): None applicable Discharge Plan Admission Admit Date/Time: 09/17/21 12:24 Primary Reason for Your Visit: cellulitis of the right hand due to dog bite Attending Provider: Ruby Mera Primary Care Provider: Everardo Garcia Consulting Providers: Eric Delatorre Discharge Orders/Prescriptions Prescriptions: New amoxicillin-pot clavulanate 875-125 mg tablet 1 tab PO BID Qty: 28 RF: 0 tramadol 50 mg tablet 50 mg PO Q8H PRN (Reason: pain) 5 Days Qty: 15 RF: 0 Continued metformin 1,000 mg tablet 1,000 mg PO BID RF: 0 hydrochlorothiazide 25 mg tablet 12.5 mg PO DAILY RF: 0 atorvastatin 20 mg tablet 40 mg PO QHS RF: 0 levothyroxine 175 mcg tablet 175 mcg PO DAILY RF: 0 amlodipine 5 mg tablet 2.5 mg PO DAILY RF: 0 aspirin 81 MG tablet,delayed release (DR/EC) 81 mg PO DAILY RF: 0 Vitamin B12 1,000 mcg PO DAILY RF: 0 ondansetron 4 MG tablet 4 mg PO Q8H PRN PRN (Reason: Nausea) 10 Days Qty: 30 RF: 3 iron bisglycinate chelate 29 MG capsule 28 mg PO DAILY RF: 0 pantoprazole 40 mg tablet,delayed release (DR/EC) 40 mg PO WE RF: 0 dexamethasone 4 mg tablet 40 mg PO WE RF: 0 acyclovir 400 mg tablet 400 mg PO BID RF: 0 Referrals / Follow Up: Everardo Garcia DO [Primary Care Provider] - Within 2 Weeks Eric Delatorre DO [STAFF PHYSICIAN] - 09/25/21 Disposition Discharge Orders: Discharge Patient (Routine); Ordered 09/20/21 Ordered By: Dr. Ruby Mera Charges/Coding Visit Charges Inpatient E&M: 34871 Disch Hosp
--- NOTE | 2021-09-20 12:52 | CASEMGMT ---
RN CM in to pt room to discuss her wound care. Pt states she has family and volunteers she is going to schedule to assist her. Pt agreeable to this plan. Dtr in room who was on phone call and finished then asked this FANY VIEIRA if pt could have [facility]. Discussed homebound status with her and that pt is up I in room, does not use assistive device therefore does not meet criteria for homebound. Daughter asked about her being at risk for COVID with the multiple myeloma. It has been determined per physician that is not medically contraindicated for pt to leave the home d/t COVID. Offered private duty nursing options, pt and dtr declined resources. Pt to dc home with follow up with PCP and . Pt and dtr agreeable to this.
[2021-09-20 13:40] VITALS: BP 135/81; PULSE 96; RESP 16; TEMP 36.8; O2SAT 97
[2021-09-20] MEDS: 0.9% Saline Lock 10 ML Syringe IV (14:06)
[2021-09-20 15:27] LABS: Pathologist Review Reviewed
[2021-09-20 15:27] LABS: Pathologist Review Reviewed
--- NOTE | 2021-09-23 17:02 | CASEMGMT ---
JENNIFER DC F/u Call: DC Date: 09/20/21 DC Diagnosis: Cellulitis, Dog bite DC Disposition: Home Lace/Strata: 10/02 Called patient at listed number. Patient answered and this senior technical writer introduced self. Phone service was spotty. Patient states she has been doing quite well. Denies any issues, concerns, or questions with [facility], medications or f/u. State has an appointment with Dr Delatorre this Thursday09/25/21. JENNIFER Mahoney
== END 2021-09-20 14:42 | disposition home or self-care (01) | DRG 603 ==
LOC: ED 23:10 → MS3 09-17 00:24
PROVIDERS: Admitting Provider Family Medicine; Emergency Provider Emergency Medicine; PCP Family Medicine; Visit Provider Student in an Organized Health Care Education/Training Program
DX: L03.113 Cellulitis of right upper limb (principal); C90.00 Multiple myeloma not having achieved remission; L02.511 Cutaneous abscess of right hand; D70.1 Agranulocytosis secondary to cancer chemotherapy; D53.9 Nutritional anemia, unspecified; K21.9 Gastro-esophageal reflux disease without esophagitis; D64.81 Anemia due to antineoplastic chemotherapy; E11.22 Type 2 diabetes mellitus with diabetic chronic kidney disease; E11.42 Type 2 diabetes mellitus with diabetic polyneuropathy; M06.9 Rheumatoid arthritis, unspecified; E03.9 Hypothyroidism, unspecified; I12.9 Hypertensive chronic kidney disease with stage 1 through stage 4 chronic kidney disease, or unspecified chronic kidney disease; N18.9 Chronic kidney disease, unspecified; S61.031A Puncture wound without foreign body of right thumb without damage to nail, initial encounter; S61.431A Puncture wound without foreign body of right hand, initial encounter; S61.531A Puncture wound without foreign body of right wrist, initial encounter; E78.5 Hyperlipidemia, unspecified; L02.413 Cutaneous abscess of right upper limb; W54.0XXA Bitten by dog, initial encounter; Y93.9 Activity, unspecified; Y92.9 Unspecified place or not applicable; Y99.9 Unspecified external cause status; Z79.84 Long term (current) use of oral hypoglycemic drugs; Z79.82 Long term (current) use of aspirin; Z79.890 Hormone replacement therapy; Z79.899 Other long term (current) drug therapy
CPT/HCPCS: 36415; 36591; 73130; 80048; 80053; 83605; 85025; 85610; 85730; 86850; 86900; 86901; 87040; 97166; 99285; J7050; P9016; A4216; J0295

== ENCOUNTER → 2021-10-11 06:53 | Outpatient (CLI) | payer MEDICARE, SELFPAY ==
--- NOTE | 2021-10-11 06:57 | RAD_ITS ---
STUDY: X-RAY - LUMBAR SPINE REASON FOR EXAM: Female, 86 years old. MULTIPLE MYELOMA TECHNIQUE: 5 view(s) of the lumbar spine were obtained. COMPARISON: None FINDINGS: There is straightening of the normal lumbar lordosis. There is no substantial scoliosis. There is a normal alignment of the vertebrae. There is diffuse demineralization with multi-level endplate spondylosis. There is multi-level degenerative disc disease with multi-level disc space narrowing. There is no demonstrated acute fracture, there is a chronic compression fracture affecting the inferior endplate of L3. Surgical hardware at L4 and L5 free of complication. There is a bilateral pars defect without spondylolisthesis at L5/S1. There is atherosclerotic calcification of the abdominal aorta without a demonstrated aneurysm. There is a 8 mm calcification overlying the right renal shadow. No suspicious lucent lesions identified within the visualized thoracic and lumbar spine or RAD/L/S Spine Min 4 Views IMPRESSION: Multilevel degenerative and postsurgical changes, no demonstrated acute fracture or suspicious osseous lesion Chronic compression fracture affecting the inferior endplate of L3 Bilateral pars defect without spondylolisthesis at L5/S1 Surgical hardware at L4-L5 free of complication Possible right nephrolithiasis Electronically Signed: Ozzy Quach MD at 10:27 EST , Service support ,
== END ==
PROVIDERS: PCP Family Medicine; Referring Provider Nurse Practitioner Family; Visit Provider Nurse Practitioner Family
DX: C90.00 Multiple myeloma not having achieved remission (principal)
CPT/HCPCS: 72110; 94642

== ENCOUNTER → 2021-10-31 13:02 | Outpatient (CLI) | payer MEDICARE, SELFPAY | PROVIDERS: PCP Family Medicine; Referring Provider Nurse Practitioner Family; Visit Provider Nurse Practitioner Family | DX: C90.00 Multiple myeloma not having achieved remission (principal); Z79.2 Long term (current) use of antibiotics | CPT/HCPCS: 94642 ==

== ENCOUNTER → 2022-08-27 | Outpatient (CLI) | payer MEDICARE, SELFPAY ==
--- NOTE | 2022-08-27 11:05 | RAD_ITS ---
STUDY: X-RAY - LUMBAR SPINE REASON FOR EXAM: Female, 86 years old. Lower back pain. Upper leg pain. TECHNIQUE: 4 view(s) of the lumbar spine were obtained. COMPARISON: 10/11/2021. FINDINGS: Normal lumbar lordosis. There is no substantial scoliosis. There is a normal alignment of the vertebrae. Stable posterior fusion of L4-5. There is marked sclerosis and irregularity of the inferior endplate of L3 with slight loss of vertebral axial height suggesting remote fracture. This appears unchanged from prior study. Normal disc space heights. No evidence of acute fracture or loss of vertebral axial height. The soft tissue structures are unremarkable. RAD/L/S Spine Min 4 Views IMPRESSION: No acute abnormality or major interval change. Electronically Signed: Wilner Krishnan DO at 13:53 EDT ,
[2022-08-27 15:53] LABS: T4 Free Direct 1.29 ng/dL (0.76-1.46); Thyroid Stim Hormone (TSH) 2.98 uIU/mL (0.358-3.74)
== END | disposition home or self-care (01) ==
LOC: MTLAB 11:03
PROVIDERS: PCP Family Medicine; Referring Provider Family Medicine; Visit Provider Family Medicine
DX: M54.50 Low back pain, unspecified (principal); M79.606 Pain in leg, unspecified; G89.29 Other chronic pain; E03.9 Hypothyroidism, unspecified
CPT/HCPCS: 36415; 72110; 84439; 84443

== ENCOUNTER 2022-10-10 00:25 | Emergency (ER) | payer MEDICARE, SELFPAY ==
[2022-10-10 00:26] VITALS: BP 138/96; PULSE 78; RESP 18; TEMP 36.1; O2SAT 99; BMI 22.1
--- NOTE | 2022-10-10 00:41 | EDS_ITS ---
HPI History of Present Illness Chief Complaint: Lower Extremity Injury Narrative Narrative: Patient presents with chronic recurrent left hip pain. She has had this for quite some time, she is trying to get into pain management for it. Her doctor started her on Lyrica this week she is on day 3 of it. She has no fevers chills cough or congestion. She has had an x-ray of the hip which was unremarkable, per patient. She is able to ambulate. No fevers or chills. PFSH PFS Medical History Anemia Anemia Anemia aplastic aregenerative BRVO (branch retinal vein occlusion) Cancer Cardiology follow-up encounter Chronic kidney disease (CKD) Chronic rheumatic arthritis Constipation Degenerative joint disease of spine Diabetes DMII (diabetes mellitus, type 2) Elevated BUN Encounter for chemotherapy management Essential (primary) hypertension Former smoker Gastric reflux GERD (gastroesophageal reflux disease) High cholesterol History of echocardiogram History of renal disease History of stress test HTN (hypertension) Hx of cataract Hyperlipidemia Hypothyroidism Injury of back Left thigh pain Leukopenia Lumbar spinal stenosis Macrocytic anemia Multiple myeloma Muscle weakness Osteoporosis Peripheral neuropathy Rash Right buttock pain Secondary hyperparathyroidism Vitamin D deficiency Wears glasses Wears hearing aid Home Medications atorvastatin 20 mg tablet 40 mg PO QHS cholesterol 03/03/18 [History Last Taken 09/16/21] hydrochlorothiazide 25 mg tablet 12.5 mg PO DAILY diuretic 03/03/18 [History Last Taken 09/16/21] metformin 1,000 mg tablet 1,000 mg PO BID diabetes 03/03/18 [History Last Taken 09/16/21] Vitamin B12 1,000 mcg PO DAILY supplement 06/18/20 [History Last Taken 09/16/21] aspirin 81 mg tablet,delayed release 81 mg PO DAILY heart health 06/18/20 [History Last Taken 09/16/21] ondansetron 4 mg disintegrating tablet 4 mg PO Q8H PRN PRN Nausea 10 days #30 tabs 11/01/20 [Rx Last Taken Unknown] iron bisglycinate chelate 28 mg PO DAILY supplement 11/06/20 [History Last Taken 09/16/21] amlodipine 5 mg tablet 2.5 mg PO DAILY HTN 03/11/21 [History Last Taken 09/16/21] tramadol 50 mg tablet 50 mg PO Q8H PRN pain 5 days #15 tabs 09/20/21 [Rx Last Taken Unknown] pantoprazole 40 mg tablet,delayed release 40 mg PO WE pre-treatment #30 tabs 01/21/22 [Rx Last Taken Unknown] calcium carbonate 600 mg-vitamin D3 10 mcg (400 unit) chewable tablet 1 tab PO BID #60 tabs 02/26/22 [Rx Last Taken Unknown] acyclovir 400 mg tablet 400 mg PO BID 90 days #180 tabs 06/16/22 [Rx Last Taken Unknown] dexamethasone 4 mg tablet 40 mg PO WE multiple myeloma #40 tabs 07/16/22 [Rx Last Taken Unknown] levothyroxine 50 mcg tablet 50 mcg PO DAILY 08/20/22 [History Last Taken Unknown] gabapentin 300 mg capsule 300 mg PO BID 09/17/22 [History Last Taken Unknown] pregabalin 25 mg capsule (Lyrica) 25 mg PO DAILY 10/08/22 [History Last Taken Unknown] hydrocodone-acetaminophen 5-325mg 5mg-325mg 1 tab PO Q6H PRN pain 3 days #12 tabs 10/10/22 [Rx Last Taken Unknown] Allergy/AdvReac Type Severity Reaction Status Date / Time pentamidine isethionate Allergy Intermediate Wheezing Verified 10/10/22 00:30 amoxicillin [From Augmentin] AdvReac Severe Rash Verified 10/10/22 00:30 clavulanic acid AdvReac Severe Rash Verified 10/10/22 00:30 [From Augmentin] Sulfa (Sulfonamide AdvReac Severe Hives Verified 10/10/22 00:30 Antibiotics) Cytoxan Allergy Rash Uncoded 10/10/22 00:30 Family History Father High cholesterol Heart disease Hypertension Sister High cholesterol Mother Cancer Surgical History History of hemilaminectomy Hx of colonoscopy Hx of decompressive lumbar laminectomy Social History household members: none housing: house Smoking Status: Former smoker alcohol intake: current alcohol intake frequency: a few times a month what type of physical activity do you participate in: walking frequency: 5-6 times per week do you feel safe at home: Yes ROS ROS ED ROS Narrative Past medical history: Reviewed, includes high blood pressure hypercholester olemia, type 2 diabetes, anemia, multiple myeloma Medications: Reviewed in [facility] and at bedside Social history: Noncontributory Review of systems: General: No fevers or chills Musculoskeletal: Left hip pain Skin: No redness or rash. Neurological: No weakness or paresthesias Hematologic: No easy bleeding or easy bruising EXAM Physical Exam Narrative Exam Narrative: Physical exam General: Patient is comfortable in the bed. Head: Normocephalic, Atraumatic Neck: No C-spine tenderness Cardiovascular: Normal distal pulses Back: Nontender, Normal Inspection. Extremities: Patient has no left hip pain when I flex extend or logroll. Her pain is in the buttock near the SI joint and the groin. There is no greater trochanter or bony tenderness over the femur. No lumbar pain to palpation. Skin: No abrasions, no lacerations Neurological: Normal strength and sensation Const Vital Signs: 10/10/22 00:26 Temperature 97.0 F L Temperature Source Temporal Pulse Rate 78 Respiratory Rate 18 Blood Pressure 138/96 H Blood Pressure Mean 110 Pulse Ox 99 Oxygen Delivery Method Room Air [facility] MDM Treatment and Re-Evaluation Narrative: Patient likely has sacroiliitis at least on my exam at this time. The pain is chronic recurrent lateral believe she needs imaging or any further work-up. I will treat her symptomatically. I did give her IM Kenalog and analgesia. I will give her small amount analgesia for home and she can follow-up with her doctor. Discharge Plan Triage Chief Complaint: Lower Extremity Injury ED Provider: Filiberto Garrett Dx/Rx/DC Orders Clinical Impression: Acute hip pain, Sacroiliac pain Instructions: Anatomy of the Sacroiliac Joint Prescriptions: New hydrocodone-acetaminophen 5-325 mg tablet 1 tab PO Q6H PRN (Reason: pain) 3 Days Qty: 12 0RF No Action metformin 1,000 mg tablet 1,000 mg PO BID hydrochlorothiazide 25 mg tablet 12.5 mg PO DAILY atorvastatin 20 mg tablet 40 mg PO QHS amlodipine 5 mg tablet 2.5 mg PO DAILY Label Comments: TAKE 1 TABLET BY MOUTH ONCE DAILY calcium carbonate-vitamin D3 600 mg-10 mcg (400 unit) tablet,chewable 1 tab PO BID Qty: 60 1RF dexamethasone 4 mg tablet 40 mg PO WE Qty: 40 5RF levothyroxine 50 mcg tablet 50 mcg PO DAILY gabapentin 300 mg capsule 300 mg PO BID pregabalin [Lyrica] 25 mg capsule 25 mg PO DAILY aspirin 81 MG tablet,delayed release (DR/EC) 81 mg PO DAILY Vitamin B12 1,000 mcg PO DAILY ondansetron 4 MG tablet 4 mg PO Q8H PRN PRN (Reason: Nausea) 10 Days Qty: 30 3RF Rx Instructions: start of chemo acyclovir 400 mg tablet 400 mg PO BID 90 Days Qty: 180 4RF iron bisglycinate chelate 29 MG capsule 28 mg PO DAILY tramadol 50 mg tablet 50 mg PO Q8H PRN (Reason: pain) 5 Days Qty: 15 0RF pantoprazole 40 mg tablet,delayed release (DR/EC) 40 mg PO WE Qty: 30 2RF Rx Instructions: before chemo treatment Primary Care Provider: Everardo Garcia Referrals: Everardo Garcia DO [Primary Care Provider] - 3-5 Days Disposition Disposition: Home, Self Care
[2022-10-10] MEDS: oxyCODONE 5 MG Tablet PO (00:42)
[2022-10-10] MEDS: Triamcinolone Acetonide 40 MG/ML Vial IM (00:43)
[2022-10-10 01:03] VITALS: BP 138/76; PULSE 78; RESP 18
== END 2022-10-10 01:04 | disposition home or self-care (01) ==
LOC: ED 00:53
PROVIDERS: Emergency Provider Emergency Medicine; PCP Family Medicine; Visit Provider Emergency Medicine
DX: M53.3 Sacrococcygeal disorders, not elsewhere classified (principal); E11.22 Type 2 diabetes mellitus with diabetic chronic kidney disease; E11.42 Type 2 diabetes mellitus with diabetic polyneuropathy; G89.29 Other chronic pain; E78.00 Pure hypercholesterolemia, unspecified; I12.9 Hypertensive chronic kidney disease with stage 1 through stage 4 chronic kidney disease, or unspecified chronic kidney disease; N18.9 Chronic kidney disease, unspecified; Z79.82 Long term (current) use of aspirin; Z79.84 Long term (current) use of oral hypoglycemic drugs; Z79.899 Other long term (current) drug therapy; Z87.891 Personal history of nicotine dependence
CPT/HCPCS: 96372; 99283

== ENCOUNTER 2022-10-21 05:20 | Emergency (ER) | payer MEDICARE, SELFPAY ==
[2022-10-21 05:21] VITALS: BP 161/83; PULSE 99; RESP 17; TEMP 36.1; O2SAT 99
--- NOTE | 2022-10-21 05:39 | EX.ED.DYSGE1 ---
HPI History of Present Illness Chief Complaint: Lower Extremity Injury Informant: patient and family Narrative Narrative: Patient presents with left buttock area pain. This patient has a long history of back pain issues. She has had 2 prior surgeries in 2017 2019. She was started on Lyrica recently for increasing pain in the left buttock area. She has seen her primary physician. She saw us about 11 days ago. It sounds like she did get some benefit from Kenalog for a while but the pain is coming back. She has seen her oncologist and has been told that this is not her multiple myeloma causing the pain. She has had outpatient x-rays within the past week that showed no acute process. She has seen spine surgeon, Dr. Nelson. He is ordered an MRI that is going to be done at 11 AM this morning. Patient came in because she still having pain and hydrocodone really is not cutting the pain for her. She has pain in the left buttock area that will occasionally radiate down the left thigh but not quite to the knee and never passed it. No bowel or bladder dysfunction. No weakness. No sensory changes. Motion and sitting for a long time bothers it. Nothing really helps it. No fevers or chills. She has had no fall or acute trauma. She is not on any anticoagulation other than aspirin. No recent infections or antibiotic use. [facility] Medical History Anemia Anemia Anemia aplastic aregenerative BRVO (branch retinal vein occlusion) Cancer Cardiology follow-up encounter Chronic kidney disease (CKD) Chronic rheumatic arthritis Constipation Degenerative joint disease of spine Diabetes DMII (diabetes mellitus, type 2) Elevated BUN Encounter for chemotherapy management Essential (primary) hypertension Former smoker Gastric reflux GERD (gastroesophageal reflux disease) High cholesterol History of echocardiogram History of renal disease History of stress test HTN (hypertension) Hx of cataract Hyperlipidemia Hypothyroidism Injury of back Left thigh pain Leukopenia Lumbar spinal stenosis Macrocytic anemia Multiple myeloma Muscle weakness Osteoporosis Peripheral neuropathy Rash Right buttock pain Secondary hyperparathyroidism Vitamin D deficiency Wears glasses Wears hearing aid Home Medications atorvastatin 20 mg tablet 40 mg PO QHS cholesterol 03/03/18 [History Last Taken 09/16/21] hydrochlorothiazide 25 mg tablet 12.5 mg PO DAILY diuretic 03/03/18 [History Last Taken 09/16/21] metformin 1,000 mg tablet 1,000 mg PO BID diabetes 03/03/18 [History Last Taken 09/16/21] Vitamin B12 1,000 mcg PO DAILY supplement 06/18/20 [History Last Taken 09/16/21] aspirin 81 mg tablet,delayed release 81 mg PO DAILY heart health 06/18/20 [History Last Taken 09/16/21] ondansetron 4 mg disintegrating tablet 4 mg PO Q8H PRN PRN Nausea 10 days #30 tabs 11/01/20 [Rx Last Taken Unknown] iron bisglycinate chelate 28 mg PO DAILY supplement 11/06/20 [History Last Taken 09/16/21] amlodipine 5 mg tablet 2.5 mg PO DAILY HTN 03/11/21 [History Last Taken 09/16/21] tramadol 50 mg tablet 50 mg PO Q8H PRN pain 5 days #15 tabs 09/20/21 [Rx Last Taken Unknown] pantoprazole 40 mg tablet,delayed release 40 mg PO WE pre-treatment #30 tabs 01/21/22 [Rx Last Taken Unknown] calcium carbonate 600 mg-vitamin D3 10 mcg (400 unit) chewable tablet 1 tab PO BID #60 tabs 02/26/22 [Rx Last Taken Unknown] acyclovir 400 mg tablet 400 mg PO BID 90 days #180 tabs 06/16/22 [Rx Last Taken Unknown] dexamethasone 4 mg tablet 40 mg PO WE multiple myeloma #40 tabs 07/16/22 [Rx Last Taken Unknown] levothyroxine 50 mcg tablet 50 mcg PO DAILY 08/20/22 [History Last Taken Unknown] hydrocodone-acetaminophen 5-325mg 5mg-325mg 1 tab PO Q6H PRN pain 3 days #12 tabs 10/10/22 [Rx Last Taken Unknown] oxycodone-acetaminophen 5 mg-325 mg tablet (Percocet) 1 tab PO Q6H PRN pain 3 days #12 tabs 10/21/22 [Rx Last Taken Unknown] Allergy/AdvReac Type Severity Reaction Status Date / Time pentamidine isethionate Allergy Intermediate Wheezing Verified 10/15/22 09:52 amoxicillin [From Augmentin] AdvReac Severe Rash Verified 10/15/22 09:52 clavulanic acid AdvReac Severe Rash Verified 10/15/22 09:52 [From Augmentin] Sulfa (Sulfonamide AdvReac Severe Hives Verified 10/15/22 09:52 Antibiotics) Cytoxan Allergy Rash Uncoded 10/15/22 09:52 Family History Father High cholesterol Heart disease Hypertension Sister High cholesterol Mother Cancer Surgical History History of hemilaminectomy Hx of colonoscopy Hx of decompressive lumbar laminectomy Social History household members: none housing: house Smoking Status: Former smoker alcohol intake: current alcohol intake frequency: a few times a month what type of physical activity do you participate in: walking frequency: 5-6 times per week do you feel safe at home: Yes ROS ROS ED Constitutional Constitutional ED: Denies chills, fever(s) or subjective ENT ENT ED: Denies rhinorrhea or sore throat Cardiovascular Cardiovascular: Denies chest pain or palpitations Respiratory/Chest Respiratory/Chest: Denies cough or dyspnea Gastrointestinal Gastrointestinal: Denies abdominal pain, constipation, diarrhea, melena, nausea or vomiting Genitourinary Genitourinary ED: Denies dysuria, hematuria or urinary frequency Musculoskeletal Musculoskeletal: Reports other Details: Patient states that the pain is not actually in her back. It is all in the left buttock. She describes it as my seat. ; Denies back pain or neck pain Integumentary Denies Abrasions or rash Neurologic Neurologic: Denies headache(s), paresthesias or weakness Endocrine Endocrinology: Denies polydipsia or polyuria Hematologic/Lymphatic Hematologic/Lymphatic: Denies easy bleeding, easy bruising or lymphadenopathy Allergic/Immunologic Allergic/Immunologic ED: Denies urticaria EXAM Physical Exam Const Vital Signs: 10/21/22 05:21 Temperature 97 F L Temperature Source Temporal Pulse Rate 99 Respiratory Rate 17 Blood Pressure 161/83 H Blood Pressure Mean 109 Pulse Ox 99 Oxygen Delivery Method Room Air Positive well nourished and well developed Constitutional Narrative: Patient sitting quietly in bed. She looks nontoxic. General Appearance ED: well developed and NAD; Negative for pallor HEENT Reports moist mucous membranes Eyes General Eye ED: Negative for pale conjunctiva or scleral icterus Resp normal respiratory effort and clear to auscultation bilaterally Cardio regular rate and regular rhythm GI normal to inspection, nondistended, normoactive bowel sounds, non-tender and non-distended GI Narrative: No mass tenderness or bruit noted. Back/Spine Back/Spine Narrative: Patient has signs of prior surgical scars. These are well-healed. There is no lumbar or thoracic tenderness. All her tenderness is really at the left SI joint and the sciatic notch. There is no erythema or mass swelling or skin changes in that area. Extremity Extremity Narrative: I really do not get any pain with hip motion. This seems to be all in the sciatic notch and left SI joint area. There is no tenderness with percussion along any of the lower extremity bones. No edema. No cords. Pulses are normal. Color is normal. There is no asymmetry. Neuro no sensory deficits noted Sensorium / Orientation: alert Motor Exam: strength 5/5 throughout Psych mental status grossly normal Skin no rashes or lesions noted Skin Narrative: No rashes or vesicles. General Skin Exam: Negative for jaundice or pallor MDM MDM MDM Narrative Medical decision making narrative: We discussed options. This patient has already seen her oncologist, spine surgeon, us and her primary physician. She has had x-rays done. Her oncologist says this is not her multiple myeloma. She has an MRI scheduled for a matter of hours from now. I explained that I do not think to be able to cure this pain. But we will try to help her. I will get her some injectable pain meds here. I will give her a shot of Kenalog because it seemed to help her for a week or so. If we can get her comfortable, we will get her home and I will try Percocet for pain. I think this patient has genuine pain and we will try to help. I do not think adding further imaging or blood work at this time is going to add anything to this. I think we need to get her to her MRI today to see if her physicians can narrow down on the cause and therefore solutions to her discomfort. Discharge Plan Triage Chief Complaint: Lower Extremity Injury ED Provider: Manuel Goldstein Dx/Rx/DC Orders Clinical Impression: Pain of left sacroiliac joint Instructions: Understanding Sacroiliac Strain, ED Sacroiliitis Prescriptions: New oxycodone-acetaminophen [Percocet] 5-325 mg tablet 1 tab PO Q6H PRN (Reason: pain) 3 Days Qty: 12 0RF No Action metformin 1,000 mg tablet 1,000 mg PO BID hydrochlorothiazide 25 mg tablet 12.5 mg PO DAILY atorvastatin 20 mg tablet 40 mg PO QHS amlodipine 5 mg tablet 2.5 mg PO DAILY Label Comments: TAKE 1 TABLET BY MOUTH ONCE DAILY calcium carbonate-vitamin D3 600 mg-10 mcg (400 unit) tablet,chewable 1 tab PO BID Qty: 60 1RF dexamethasone 4 mg tablet 40 mg PO WE Qty: 40 5RF levothyroxine 50 mcg tablet 50 mcg PO DAILY aspirin 81 MG tablet,delayed release (DR/EC) 81 mg PO DAILY Vitamin B12 1,000 mcg PO DAILY ondansetron 4 MG tablet 4 mg PO Q8H PRN PRN (Reason: Nausea) 10 Days Qty: 30 3RF Rx Instructions: start of chemo acyclovir 400 mg tablet 400 mg PO BID 90 Days Qty: 180 4RF iron bisglycinate chelate 29 MG capsule 28 mg PO DAILY tramadol 50 mg tablet 50 mg PO Q8H PRN (Reason: pain) 5 Days Qty: 15 0RF hydrocodone-acetaminophen 5-325 mg tablet 1 tab PO Q6H PRN (Reason: pain) 3 Days Qty: 12 0RF pantoprazole 40 mg tablet,delayed release (DR/EC) 40 mg PO WE Qty: 30 2RF Rx Instructions: before chemo treatment Primary Care Provider: Everardo Garcia Referrals: Franklin Nelson DO [Med Staff - Active Staff] - As soon as possible Everardo Garcia DO [Primary Care Provider] - As Needed Disposition Disposition: Home, Self Care Discharge Date/Time: 10/21/22 06:35
[2022-10-21] MEDS: Morphine 4 MG/ML Syringe IM (05:53)
[2022-10-21] MEDS: Triamcinolone Acetonide 40 MG/ML Vial IM (05:53)
== END 2022-10-21 06:35 | disposition home or self-care (01) ==
PROVIDERS: Emergency Provider Emergency Medicine; PCP Family Medicine; Visit Provider Emergency Medicine
DX: M53.3 Sacrococcygeal disorders, not elsewhere classified (principal); E11.42 Type 2 diabetes mellitus with diabetic polyneuropathy; E11.22 Type 2 diabetes mellitus with diabetic chronic kidney disease; Z87.891 Personal history of nicotine dependence; E78.00 Pure hypercholesterolemia, unspecified; I12.9 Hypertensive chronic kidney disease with stage 1 through stage 4 chronic kidney disease, or unspecified chronic kidney disease; N18.9 Chronic kidney disease, unspecified; E03.9 Hypothyroidism, unspecified; M54.9 Dorsalgia, unspecified; Z79.82 Long term (current) use of aspirin; Z79.84 Long term (current) use of oral hypoglycemic drugs; Z79.890 Hormone replacement therapy; Z79.899 Other long term (current) drug therapy
CPT/HCPCS: 96372; 99282

== ENCOUNTER → 2022-10-21 | Outpatient (CLI) | payer MEDICARE, SELFPAY ==
--- NOTE | 2022-10-21 11:30 | MRI_ITS ---
STUDY: MRI LUMBAR SPINE WITHOUT CONTRAST REASON FOR EXAM: Female, 87 years old. SPINAL STENOSIS TECHNIQUE: Standardized fat and water weighted pulse sequences were obtained in the sagittal and axial planes. COMPARISON: CT lumbar spine August 27, 2022 and MRI lumbar spine October 16, 2020. FINDINGS: Slight anterior wedging T11 and T12 unchanged. Schmorl''s node disease. T12-L1: Normal endplates. Normal disc height, hydration and morphology. Normal bilateral facet joints. Normal central canal and bilateral lateral recesses. Normal bilateral intervertebral neural foramina. Normal lumbar lordosis. There is no substantial scoliosis. Normal conus medullaris that terminates at the L1 level. L1-2: Normal endplates. Normal disc height, hydration and morphology. Normal bilateral facet joints. Normal central canal and bilateral lateral recesses. Normal bilateral intervertebral neural foramina. L2-3: Normal endplates. Normal disc height, hydration and morphology. Hypertrophic bilateral facet joints. Normal central canal and bilateral lateral recesses. Narrowed bilateral intervertebral neural foramina. L3-4: Disc space narrowing. Moderate broad-based circumferential annular bulge. Bilateral pedicular screws. Moderate narrowing of the neural foramina bilaterally. Central canal patent. L4-5: Normal endplates. Normal disc height, hydration and morphology. Hypertrophic bilateral facet joints. Normal central canal and bilateral lateral recesses. Moderate narrowing bilateral intervertebral neural foramina. Bilateral follicular screws L4-5. L5-S1: Normal endplates. Normal disc height, hydration and morphology. Hypertrophic bilateral facet joints. Normal central canal and bilateral lateral recesses. Moderate narrowing bilateral intervertebral neural foramina. Normal visualized sacral ala. Normal visualized paraspinous soft tissue structures. MRI/Spine Lumbar (Routine) IMPRESSION: Posterior interbody fusion L4-5. Moderate broad-based disc bulge at L3-4. Multilevel neural foraminal narrowing. Mild remote compression fractures unchanged. Electronically Signed: Sigifredo Mann MD at 18:27 [facility] ,
== END | disposition home or self-care (01) ==
LOC: MRI 11:03
PROVIDERS: PCP Family Medicine; Referring Provider Orthopaedic Surgery; Visit Provider Orthopaedic Surgery
DX: M48.061 Spinal stenosis, lumbar region without neurogenic claudication (principal); M96.1 Postlaminectomy syndrome, not elsewhere classified; M47.26 Other spondylosis with radiculopathy, lumbar region
CPT/HCPCS: 72148

== ENCOUNTER → 2022-11-26 | Outpatient (CLI) | payer MEDICARE, SELFPAY ==
--- NOTE | 2022-11-26 11:45 | RAD_ITS ---
STUDY: X-RAY - PELVIS AND LEFT HIP REASON FOR EXAM: Female, 87 years old. PAIN TECHNIQUE: 3 views of the pelvis and hip. COMPARISON: November 12, 2022 pelvis x-ray FINDINGS: There is moderate stool in the colon. There is a visualized spinal fusion L4-L5 with laminectomy. Normal bilateral iliac wings, sacroiliac joints and visualized sacrum. Normal bilateral superior and inferior pubic rami. Normal pubic symphysis. Normal bilateral ischial tuberosities. There is mild narrowing of the bilateral hip joints without significant subchondral cysts or spurring.. There is no visualized acute fracture. Findings are similar to the prior study. RAD/HIP, UNI W/ Pelvis 2-3 Views IMPRESSION: Normal x-ray examination of the pelvis and hip. If pain persists, could consider follow-up MRI. Electronically Signed: Ora Lemon MD at 9:08 EST ,
== END | disposition home or self-care (01) ==
PROVIDERS: PCP Family Medicine; Referring Provider Nurse Practitioner Family; Visit Provider Nurse Practitioner Family
DX: M25.552 Pain in left hip (principal); Z98.1 Arthrodesis status
CPT/HCPCS: 73502

== ENCOUNTER → 2022-11-28 | Outpatient (CLI) | payer MEDICARE, SELFPAY ==
[2022-11-28 16:52] LABS: Hemoglobin A1c 6.4 % (3.8-5.6)
== END | disposition home or self-care (01) ==
LOC: BFHLAB 14:23
PROVIDERS: PCP Family Medicine; Visit Provider Family Medicine
DX: E11.9 Type 2 diabetes mellitus without complications (principal)
CPT/HCPCS: 36415; 83036

== ENCOUNTER → 2022-12-03 | Outpatient (CLI) | payer MEDICARE, SELFPAY ==
--- NOTE | 2022-12-03 12:39 | VDLE_ITS ---
Reason For Study: LEG SWELLING RIGHT LEFT CFV is compressible, spontaneous, competent GSV is normal. and demonstrates pulsatile venous flow. CFV is compressible, spontaneous, competent, Procedure and demonstrates pulsatile venous flow. This is a venous duplex using B-mode, color FV is compressible, spontaneous, competent flow and spectral Doppler. and demonstrates pulsatile venous flow. Exam performed in department. POP V is compressible, spontaneous, competent The exam was diagnostic. and demonstrates pulsatile venous flow. A preliminary report was called and/or faxed T/P Trunk is compressible. to Veena Baltazar. PTV is compressible. LT PerV is compressible. VL/Venous Duplex US, Unilateral Interpretation Summary There is no evidence of left lower extremity deep vein thrombosis. Left great s aphenous vein appears patent and compressible segmentally. Normal flow patterns right common femoral vein except that pulsatile venous flow was noted bilaterally. This is suspicious for proximal ve nous hypertension or obstruction. Clinical correlation would be appropriate Ordering Physician: Veena Baltazar Referring Physician: Everardo Garcia Performed By: Carter Weaver, RVT
== END | disposition home or self-care (01) ==
LOC: CVS 12:38
PROVIDERS: PCP Family Medicine; Visit Provider Nurse Practitioner Family
DX: M79.89 Other specified soft tissue disorders (principal); Z74.09 Other reduced mobility
CPT/HCPCS: 93971

== ENCOUNTER 2023-03-16 12:30 | Outpatient (RCR) | payer MEDICARE, SELFPAY ==
--- NOTE | 2023-01-22 16:25 | HP.PTEVAL ---
Patient's Visit Information MAHESH PIERSON is a 87 year old F referred to Physical Therapy by Everardo Garcia with a diagnosis of RADICULOATHY ,LUMBAR. Date of Evaluation: 01/22/23 Physical Therapist: Evert Jiang, PT, Cert MDT, OCS - Visit Plan Frequency: 2x /Week Duration: 4 Weeks Plan: PT INTERVTIONS DLS ,POSTURAL EX'S ,LEFT LOWER EXTREMITY STRENGTHENING ,FUNCTIONAL STRENGTHENING AND NISTEP - Subjective This 87 y/o female presents to physical therapy with lumbar radiculopathy. Patient has right leg pain since Sep 2022 gradually getting worse. Patient seen orthopedic Dr did x-rays and MRI showed DDD /LS. Patient referred to Pain management with epidural injection did help. Patient developed droop foot. No Meds, Aggravating standing ,walking lifting extended sitting. AllPaeviating factors sitting ,rest. Patient has had lumbar fusion at [facility] 2018 ,then had 2019 lumbar Fusion and by Dr. Victoria. Bowel/bladder -. Coughing /sneezing -. Patient pain affects sleeping . c/o pin/needles left foot. Patient has had prior PT .Goals to get leg stronger no pain. VOCATION: retired. SOCIAL: - Pain Left Lower Extremity Pain Intensity (Out of 10): 5 Pain Intensity Range: 10 - Objective POSTURE: mild forward posture hips/knees flexed. PALAPTION: unremarkable. NEURO : c/o pins/needles left and paresthesia/tingling ,reflexes L3-4 ,L4-5 ,L5-S1 1/3. GAIT: ambulates with cane antalgic gait left side. MMT: peak force left quads 12.3 ,hamstrings 6.7 ,hip flexion 0 ,hip abduction 0 ,ankle dorsiflexion 0. LUMBAR ROM: flexion min loss ,extension mod loss ,SG 's mod loss. FLEXABLITY: hamstrings MIN - Special Tests L/S Slump test left side: Negative L/S Slump test right side: Negative L/S Left Straight Leg Raise: Negative L/S Right Straight Leg Raise: Negative - Balance/Special Test Scores Oswestry Low Back Score: 30 - Goals Goal 1:: Patient to be I with HEP for strengthening Goal Time Frame: 4-6 Weeks Goal 2:: Patient to demonstrated 40 % improved function with gait Goal Time Frame: 4-6 Weeks Goal 3:: Patient to demonstrate improve peak forsec ankle hip knee ( quads/hams) by 5 points Goal Time Frame: 4-6 Weeks Goal 4:: Patient to improve quick dash by 4-5 points to improve QOL Goal Time Frame: 4-6 Weeks Goal 5:: Patient to improve back oswestry score by 5 points to improve Goal Time Frame: 4-6 Weeks - Rehabilitation Potential Physical Therapy Diagnosis: This patient has lumbar radiculopathy with weakness of left leg ankle ankle dorsiflexion impairs gait and walking thus patient will benefit from skilled PT PT Rehabilitation Potential: Good - Anticipated Interventions Patient/Client Instruction: Educate patient on: Condition, Plan of Care For the Purpose of:: To decrease pain, To increase ROM, To improve muscle performance and motor function, To improve ability to perform ADL's, To increase tolerance to activity/condition/position, To improve ability of physical actions for home/community/work/leisure, To improve health of tissue, To decrease soft tissue restriction, To increase flexibility/ROM, To improve balance, To improve safety with gait, To improve tolerance to ADL's Therapeutic Exercise to Include: Strength training, Balance training, Body mechanics, Postural training, Flexibilty training, Dynamic Lumbar Stabilization For the Purpose of:: To decrease pain, To increase ROM, To improve muscle performance and motor function, To increase tolerance to activity/condition/position, To improve ability of physical actions for home/community/work/leisure, To improve gait and locomotor functions, To improve health of tissue, To decrease soft tissue restriction, To increase flexibility/ROM, To improve endurance, To improve balance, To improve safety with gait, To improve tolerance to ADL's TENS: Yes IF ES: Yes Cryotherapy (ice pack, ice massage): Yes Thermo therapy (hot pack): Yes Ultrasound (thermal/non thermal): Yes For the Purpose of:: To decrease pain, To increase ROM, To improve nutrient delivery to tissue, To increase oxygenation perfusion, To increase tolerance to activity/condition/position, To improve performance and independence with ADL's, To improve health of tissue, To decrease soft tissue restriction Thank you for the opportunity to evaluate your patient. For Medicare and Medicare HMO plans, please review the plan of care and approve it. It will need to be FAXED BACK to us at [phone] for Medicare purposes. For Medicare only, by signing this I certify the plan of care. Please let me know if there are questions or concerns regarding this plan of care. Physician Signature: Date:
--- NOTE | 2023-02-17 16:10 | HP.PTREVAL_ITS ---
Everardo Garcia, It has been my pleasure to treat MAHESH PIERSON over the last 8 visits for RADICULOATHY, LUMBAR. Please see the progress note below for an update on the physical therapy plan of care! Subjective: Patient conts to have pain thighs . No pain in back but plans to have SI joint injection. C/O weakness in left leg with foot drop ,goal is to walk Objective/Function: MMT: peak force left quads 13.3 ,hamstrings 8.7 ,hip flexion 7.6,hip abduction 0 ,ankle dorsiflexion 0. LUMBAR ROM: flexion min loss ,extension mod loss ,SG 's mod loss. LUMBAR ROM: flexion min loss ,extension mod. FLEXABLITY: hamstrings MIN. Patient has made significant progress with increasing hip strength. GAIT: ambulated with cane 2 point gait with left foot drop steppage Plan Plan: Requesting another 8 visits. PT INTERVTIONS DLS, POSTURAL EX'S, LEFT LOWER EXTREMITY STRENGTHENING, FUNCTIONAL STRENGTHENING AND NUSTEP. ADD SI EX'S AND US NEEDED. Balance/Gait/Functional tests - Balance/Special Test Scores Oswestry Low Back Score: 24 Goals Goal 1:: Patient to be I with HEP for strengthening Goal Time Frame: 4-6 Weeks Goal Progress: Progressing Goal 2:: Patient to demonstrated 40 % improved function with gait Goal Time Frame: 4-6 Weeks Goal Progress: Progressing Goal 3:: Patient to demonstrate improve peak forsec ankle hip knee ( quads/hams) by 5 points Goal Time Frame: 4-6 Weeks Goal Progress: Progressing Goal 4:: Patient to improve quick dash by 4-5 points to improve QOL Goal Time Frame: 4-6 Weeks Goal Progress: Progressing Goal 5:: Patient to improve back oswestry score by 5 points to improve Goal Time Frame: 4-6 Weeks Goal Progress: Progressing Anticipated Interventions Patient/Client Instruction: Educate patient on: Condition, Plan of Care For the Purpose of:: To decrease pain, To increase ROM, To improve muscle performance and motor function, To improve ability to perform ADL's, To increase tolerance to activity/condition/position, To improve ability of physical actions for home/community/work/leisure, To improve health of tissue, To decrease soft tissue restriction, To increase flexibility/ROM, To improve balance, To improve safety with gait, To improve tolerance to ADL's Therapeutic Exercise to Include: Strength training, Balance training, Body mechanics, Postural training, Flexibilty training, Dynamic Lumbar Stabilization For the Purpose of:: To decrease pain, To increase ROM, To improve muscle performance and motor function, To increase tolerance to activity/condition/position, To improve ability of physical actions for home/community/work/leisure, To improve gait and locomotor functions, To improve health of tissue, To decrease soft tissue restriction, To increase flexib ility/ROM, To improve endurance, To improve balance, To improve safety with gait, To improve tolerance to ADL's TENS: Yes IF ES: Yes Cryotherapy (ice pack, ice massage): Yes Thermo therapy (hot pack): Yes Ultrasound (thermal/non thermal): Yes For the Purpose of:: To decrease pain, To increase ROM, To improve nutrient delivery to tissue, To increase oxygenation perfusion, To increase tolerance to activity/condition/position, To improve performance and independence with ADL's, To improve health of tissue, To decrease soft tissue restriction Please do not hesitate to contact me at [phone] by phone or if you have questions or concerns regarding this new plan of care! Sincerely, Evert Jiang, PT, Cert MDT, OCS
--- NOTE | 2023-02-24 15:37 | HP.PTREVAL_ITS ---
Dr. Everardo Garcia, DO, It has been my pleasure to treat MAHESH PIERSON over the last 9 visits for RADICULOATHY, LUMBAR. Please see the progress note below for an update on the physical therapy plan of care! Subjective: Pt in for AFO for footdrop. Has been limping since September due to leg pain and foot drop and is causing her to limp. L foot drop , no feeling since mid September. In therapy for LB currently. Seeing Dr. Haddad for injections and will have 3rd tomorrow none of which have helped. Dr Jose oncologist sent for AFO(foot drop support). No current back doctor but Dr. Calixto did back fusions in [place] [address] Nelson who cannot help her and sent her to [facility]. Pt is looking for options to control foot drop while she is going through therapy. Objective/Function: No DF, inv or ev L today. Steppage gait with L LE and cane. PF is present strength mendieta but weak. HSC L is weak 3 and ext 3+ L vs 4- on R.lacks sensation to light touch in L foot. Pt is appropriate for AFO for L foot support and safety with ambulation, see plan. Plan Plan: continue approved 2 visits for PT INTERVTIONS DLS, POSTURAL EX'S, LEFT LOWER EXTREMITY STRENGTHENING, FUNCTIONAL STRENGTHENING AND NUSTEP. ADD SI EX'S AND US NEEDED. Much time spent reviewing AFO options today of strap, carbon fiber, plastic OTC and custom. pt wants to try OTC and will go to [facility] with script for purchase and bring it in or bring script back for possible custom with [facility] if OTC not an option. May require gait training once gets AFO and evaluating therapist notified regarding these options. Balance/Gait/Functional tests - Balance/Special Test Scores Oswestry Low Back Score: 24 Goals Goal 1:: Patient to be I with HEP for strengthening Goal Time Frame: 4-6 Weeks Goal Progress: Progressing Goal 2:: Patient to demonstrated 40 % improved function with gait Goal Time Frame: 4-6 Weeks Goal Progress: Progressing Goal 3:: Patient to demonstrate improve peak forsec ankle hip knee ( quads/hams) by 5 points Goal Time Frame: 4-6 Weeks Goal Progress: Progressing Goal 4:: Patient to improve quick dash by 4-5 points to improve QOL Goal Time Frame: 4-6 Weeks Goal Progress: Progressing Goal 5:: Patient to improve back oswestry score by 5 points to improve Goal Time Frame: 4-6 Weeks Goal Progress: Progressing Anticipated Interventions Patient/Client Instruction: Educate patient on: Condition, Plan of Care For the Purpose of:: To decrease pain, To increase ROM, To improve muscle performance and motor function, To improve ability to perform ADL's, To increase tolerance to activity/condition/position, To improve ability of physical actions for home/community/work/leisure, To improve health of tissue, To decrease soft tissue restriction, To increase flexibility/ROM, To improve balance, To improve safety with gait, To improve tolerance to ADL's Therapeutic Exercise to Include: Strength training, Balance training, Body me chanics, Postural training, Flexibilty training, Dynamic Lumbar Stabilization For the Purpose of:: To decrease pain, To increase ROM, To improve muscle performance and motor function, To increase tolerance to activity/condition/position, To improve ability of physical actions for home/community/work/leisure, To improve gait and locomotor functions, To improve health of tissue, To decrease soft tissue restriction, To increase flexibility/ROM, To improve endurance, To improve balance, To improve safety with gait, To improve tolerance to ADL's TENS: Yes IF ES: Yes Cryotherapy (ice pack, ice massage): Yes Thermo therapy (hot pack): Yes Ultrasound (thermal/non thermal): Yes For the Purpose of:: To decrease pain, To increase ROM, To improve nutrient delivery to tissue, To increase oxygenation perfusion, To increase tolerance to activity/condition/position, To improve performance and independence with ADL's, To improve health of tissue, To decrease soft tissue restriction Please do not hesitate to contact me at [phone] by phone or if you have questions or concerns regarding this new plan of care! Sincerely, Yovany Bailey, DPT, OCS, CSCS
--- NOTE | 2023-03-16 13:08 | HP.PTDCSUM ---
It has been my pleasure to treat MAHESH PIERSON referred by Dr. Everardo Garcia DO, with the diagnosis of RADICULOATHY, LUMBAR for a total of 11 visit(s). Discharge Date: 03/16/23 Please see the following information for a summary of their discharge status. Subjective: Feeling weak. But have AFO which helps with walking Left Lower Extremity Pain Intensity (Out of 10): 3 % Improvement: 60 Objective/Function: MT: peak force left quads 13.3 ,hamstrings 9.8 ,hip flexion 9.6,hip abduction 0 ,ankle dorsiflexion 0. LUMBAR ROM: flexion min loss ,extension mod loss ,SG 's mod loss. LUMBAR ROM: flexion min loss ,extension mod. FLEXABLITY: hamstrings MIN. Patient has made significant progress with increasing hip strength. GAIT: ambulated with cane 2 point gait with left AFO with patient walking better Goal 1:: Patient to be I with HEP for strengthening Goal Progress: Goal Met Goal 2:: Patient to demonstrated 40 % improved function with gait Goal Progress: Goal Met Goal 3:: Patient to demonstrate improve peak forsec ankle hip knee ( quads/hams) by 5 points Goal Progress: Goal Met Goal 4:: Patient to improve quick dash by 4-5 points to improve QOL Goal Progress: Progressing Goal 5:: Patient to improve back oswestry score by 5 points to improve Goal Progress: Progressing Plan: d/c to HEP and gym program Discharge Comments: PROVIDED GYM EX'S If there are questions or concerns regarding this patient's physical therapy, please feel free to call me at [phone]. Thank you for the referral of this patient. Sincerely, Evert Jiang, PT, Cert MDT, OCS Balance/Gait/Functional tests - Balance/Special Test Scores Oswestry Low Back Score: 14
== END 2023-03-16 19:00 | disposition home or self-care (01) ==
LOC: PT 12:30
PROVIDERS: PCP Family Medicine; Referring Provider Internal Medicine Hematology & Oncology; Visit Provider Family Medicine
DX: M54.16 Radiculopathy, lumbar region (principal)
CPT/HCPCS: 97110; 97162

== ENCOUNTER → 2023-03-18 | Outpatient (CLI) | payer MEDICARE, SELFPAY ==
--- NOTE | 2023-03-18 08:30 | MRI_ITS ---
STUDY: MRI LUMBAR SPINE WITHOUT CONTRAST REASON FOR EXAM: Female, 87 years old. Left foot drop. Spondylosis and radiculopathy. TECHNIQUE: Standardized fat and water weighted pulse sequences were obtained in the sagittal and axial planes. COMPARISON: MRI lumbar spine without contrast 10/21/2022. FINDINGS: T10-T11: (Sagittal only). Normal endplates. Normal disc height and morphology. Normal central canal and bilateral intervertebral neural foramina. T11-T12: (Sagittal only). Normal T11 inferior endplate. Prominent Schmorl''s node in the anterior T12 superior endplate causing increased anterior disc space height. No ventral extradural defect. Normal central canal and bilateral intervertebral neural foramina. This level is unchanged. T12-L1: (Sagittal only). Normal endplates. Normal disc height, hydration and morphology. Normal central canal and bilateral intervertebral neural foramina. Normal lumbar lordosis. There is no substantial scoliosis. Normal conus medullaris that terminates at the lower T12 vertebral body level. L1-2: Normal endplates. Normal disc height. Minimal ventral extradural defect due to small posterior bulging annulus is unchanged. Normal facet joints. Normal central canal and bilateral lateral recesses. Normal bilateral intervertebral neural foramina. Small right anterior renal cyst is visible at this level and unchanged. L2-3: Normal endplates. Minimal disc space height narrowing. Mild ventral extradural defect due to posterior bulging annulus is unchanged. No significant facet arthropathy. Normal central canal and bilateral lateral recesses. Normal bilateral intervertebral neural foramina. L3-4: Old anterior wedge compression fracture of the L3 inferior endplate is unchanged. Normal L4 superior endplate. Pronounced posterior disc space height narrowing. Prominent ventral extradural defect is unchanged. Small cephalad extruded and sequestered disc fragment behind the L3 vertebral body is also unchanged. L4 pedicular screws causing signal distortion artifacts. Severe stenosis of the left intervertebral neural foramen is unchanged. Severe stenosis of the right intervertebral neural foramen is also unchanged. Posterior bulging of the thecal sac behind the right hemilaminectomy defect. Normal central canal. L4-5: Normal endplates. Pronounced right-sided disc space height narrowing. Mild degenerative anterolisthesis of L4 on L5. Pedicular screws and rods causing signal distortion artifacts. Capacious central canal. Normal bilateral lateral recesses. Normal bilateral intervertebral neural foramina. L5-S1: Normal endplates. Normal disc height and morphology. Mild asymmetric degenerative facet arthropathy. Normal central canal and bilateral lateral recesses. Right pedicular screw causing signal distortion artifacts on the right intervertebral neural foramen. Normal bilateral intervertebral neural foramina. Normal visualized sacral ala. Normal visualized paraspinous soft tissue structures. MRI/Spine Lumbar (Routine) IMPRESSION: 1. Left L3-L4 posterior cephalad extruded and sequestered disc fragment behind the L3 vertebral body and prominent midline ventral extradural defect is at least disc protrusion. Additionally, severe stenosis of the bilateral intervertebral neural foramina. Considering prior surgery, MRI with intravenous contrast will help distinguish postoperative fibrosis. This level is unchanged. 2. Mild degenerative anterolisthesis of L4 on L5. 3. Small posterior bulging annulus at L1-L2 and L2-L3 disc space levels. 4. No significant interval change when compared to 10/21/2022. Electronically Signed: Balaji Gaspar MD at 11:23 EDT ,
== END | disposition home or self-care (01) ==
PROVIDERS: PCP Family Medicine; Referring Provider Nurse Practitioner Acute Care; Visit Provider Nurse Practitioner Acute Care
DX: C90.00 Multiple myeloma not having achieved remission (principal); G64 Other disorders of peripheral nervous system; M21.372 Foot drop, left foot; M54.17 Radiculopathy, lumbosacral region; M47.817 Spondylosis without myelopathy or radiculopathy, lumbosacral region
CPT/HCPCS: 72148

== ENCOUNTER → 2023-04-29 | Outpatient (CLI) | payer MEDICARE, SELFPAY ==
--- NOTE | 2023-04-29 13:45 | ECHODONC_ITS ---
Reason For Study: Swelling, SOB Procedure This was a 2D Doppler, Color Flow transthoracic echocardiogram. Myocardial strain analysis was performed in this exam to aid in the assessment of cardiac function. Exam performed in department. Left Ventricle Normal LV size. Left ventricular systolic function is normal. The estimated ejection fraction is 70 %. Stage 1 diastolic dysfunction. No regional wall motion abnormalities noted. Right Ventricle Normal RV size. Normal systolic function. Mitral Valve Normal mitral valve. Mild (1+) eccentric mitral valve insufficiency. Tricuspid Valve Normal tricuspid valve. Mild (1+) tricuspid valve insufficiency. Pulmonary artery systolic pressure is 44 mmHg. Aortic Valve Trisinus/trileaflet aortic valve. Mild focal aortic valve calcification. Pulmonic Valve Normal pulmonic valve. Great Vessels Normal aortic root. The pulmonary artery is normal size. Normal inferior vena cava. Pericardium/Pleural No pericardial effusion. MMode/2D Measurements & Calculations LVIDd: 3.7 cm IVSd: 1.3 cm LVOT diam: 2.0 cm LVIDs: 2.3 cm LVPWd: 1.1 cm LVOT area: 3.0 cm2 RVDd: 3.4 cm FS: 36.7 % Ao root diam: 2.9 cm LAV(MOD-bp): 47.0 ml LVAd ap4: 21.1 cm2 LAV(MOD-bp) Indexed: 32.5 ml/m2 LVLd ap4: 7.2 cm LAV(MOD-sp2): 56.5 ml EDV(MOD-sp4): 51.7 ml LAV(MOD-sp4): 39.3 ml EDV(sp4-el): 52.7 ml LVAs ap4: 10.2 cm2 LVLs ap4: 5.4 cm ESV(MOD-sp4): 16.9 ml ESV(sp4-el): 16.3 ml EF(MOD-sp4): 67.3 % EF(sp4-el): 69.1 % SV(MOD-sp4): 34.8 ml SV(sp4-el): 36.4 ml LA A4 area: 16.4 cm2 LA dimension(2D): 3.8 cm RA A4 area: 15.8 cm2 Time Measurements MV dec time: 0.36 sec Doppler Measurements & Calculations MV E max dieudonne: 100.9 cm/sec Lat Peak E' Dieudonne: 7.4 cm/sec Med Peak E' Dieudonne: 7.9 cm/sec MV A max dieudonne: 102.4 cm/sec E/E' lat: 13.6 E/E' med: 12.7 MV E/A: 0.98 Ao V2 max: 223.7 cm/sec LV V1 max: 140.6 cm/sec MV dec slope: 280.7 cm/sec2 Ao max P.1 mmHg LV V1 max P.9 mmHg Ao V2 mean: 151.6 cm/sec LV V1 mean P.0 mmHg Ao mean P.7 mmHg LV V1 mean: 108.3 cm/sec Ao V2 VTI: 53.7 cm LV V1 VTI: 37.3 cm AV (velocity ratio): 0.69 TRACY(I,D): 2.1 cm2 TRACY(V,D): 1.9 cm2 SV(LVOT): 113.0 ml PA V2 max: 119.3 cm/sec TR max dieudonne: 314.1 cm/sec PA V2 mean: 93.7 cm/sec TR max P.5 mmHg ECHO/ONC Echo Complete Interpretation Summary Normal LV size. Left ventricular systolic function is normal. The estimated ejection fraction is 70 %. Stage 1 diastolic dysfunction. Pulmonary artery systolic pressure is 44 mmHg. The global longitudinal strain is normal. The global longitudinal strain = -23. 9 % (normal). Ordering Physician: Veena Baltazar Referring Physician: Everardo Garcia Performed By: Jaylyn Ji, HOLLIE, RVT
--- NOTE | 2023-04-29 13:45 | VDLE_ITS ---
Reason For Study: Bi lateral leg swelling RIGHT LEFT CFV is compressible, spontaneous, competent CFV is compressible, spontaneous, competent, and demonstrates pulsatile venous flow. and demonstrates pulsatile venous flow. FV is compressible, spontaneous, competent FV is compressible, spontaneous, competent and demonstrates pulsatile venous flow. and demonstrates pulsatile venous flow. POP V is compressible, spontaneous, POP V is compressible, spontaneous, competent competent and demonstrates pulsatile venous and demonstrates pulsatile venous flow. flow. T/P Trunk is compressible. T/P Trunk is compressible. PTV is compressible. PTV is compressible. LT PerV is compressible. RT PerV is compressible. Acute deep vein thrombosis is noted in the Procedure Gastrocnemius vein at mid calf. It is dilated This is a venous duplex using B-mode, color and NONCOMPRESSIBLE. flow and spectral Doppler. Exam performed in department. The exam was diagnostic. A preliminary report was called and/or faxed to Beckie SOARES at [facility]. VL/Venous Duplex US - Marlon Extrem Interpretation Summary Acute deep venous thrombosis left gastrocnemius vein in the mid calf Pulsatile venous flow is noted bilaterally consistent with proximal venous hype rtension or obstruction. Clinical correlation would be appropriate. Patent and compressible bilateral great saphenous veins Ordering Physician: Veena Baltazar Referring Physician: Everardo Garcia Performed By: Carter Weaver RVT
== END | disposition home or self-care (01) ==
LOC: CVS 13:40
PROVIDERS: PCP Family Medicine; Visit Provider Nurse Practitioner Family
DX: R06.00 Dyspnea, unspecified (principal); Z51.11 Encounter for antineoplastic chemotherapy; R60.0 Localized edema
CPT/HCPCS: 93306; 93356; 93970

== ENCOUNTER → 2023-05-18 | Outpatient (CLI) | payer MEDICARE, SELFPAY ==
--- NOTE | 2023-05-18 11:03 | NEURO_ITS ---
NCS and/or EMG Patient Report Findings: Nerve conduction studies were performed in the left lower extremity. Some comparisons were performed on the right. The left peroneal motor study recording the extensor digitorum brevis showed a normal amplitude, normal distal latency and normal conduction velocity. No conduction block or focal slowing was present across the fibular neck. The left tibial motor study recording the abductor hallucis brevis showed a normal amplitude, normal distal latency and normal conduction velocity. Left sural sensory response was absent. Left superficial peroneal sensory response was absent. The right peroneal motor study recording the extensor digitorum brevis showed a markedly reduced amplitude and prolonged latency. The right tibial motor study recording the abductor hallucis brevis showed a borderline amplitude and normal distal latency. The tibial motor responses were significantly asymmetric. A limited needle EMG of the left lower extremity was performed due to the patient being on therapeutic anticoagulation. The lumbar spinal muscles were not sampled due to her history of prior back surgery. Active denervation was present in the tibialis anterior and tensor fascia emre muscles. No volitional motor units were seen in the tibialis anterior. Motor units were fairly normal morphology, but slightly limited activation in the medial gastrocnemius and vastus medialis. Motor units in the tensor fascia emre were large amplitude, long duration, and polyphasic with reduced recruitment. Impression: This is a markedly abnormal study. There is electrophysiologic evidence of a severe, active, left L5 radiculopathy. The absent sensory responses may represent a concurrent polyneuropathy, however, this may be the product of advanced age and mild pedal edema alone. Rai Hernandez D.O. Multi Select Codes Neurology Neurology Interp Codes: 02827-53 [facility] [place] [facility] tst done w/nerv tst chambers (interp) and 26972-45 [facility] tst 5-6 studies (interp)
== END | disposition home or self-care (01) ==
LOC: PSN 08:33
PROVIDERS: PCP Family Medicine; Referring Provider Family Medicine; Visit Provider Family Medicine
DX: M54.16 Radiculopathy, lumbar region (principal); G62.9 Polyneuropathy, unspecified
CPT/HCPCS: 95885; 95909

== ENCOUNTER → 2023-08-17 | Outpatient (CLI) | payer MEDICARE, SELFPAY ==
--- NOTE | 2023-08-17 12:49 | VDLE_ITS ---
Reason For Study: HX LLE DVT RIGHT LEFT GSV is normal. GSV is normal. CFV is compressible, spontaneous, phasic, CFV is compressible, spontaneous, phasic, competent and demonstrates normal competent, and demonstrates normal augmentation. augmentation. FV is compressible, spontaneous, phasic, FV is compressible, spontaneous, phasic, competent and demonstrates normal competent and demonstrates normal augmentation. augmentation. POP V is compressible, spontaneous, phasic, POP V is compressible, spontaneous, phasic, competent and demonstrates normal competent and demonstrates normal augmentation. augmentation. T/P Trunk is compressible. T/P Trunk is compressible. PTV is compressible. PTV is compressible. RT PerV is compressible. LT PerV is compressible. Procedure LT Gastrocnemius Vein is compressible. This is a venous duplex using B-mode, color flow and spectral Doppler. Exam performed in department. The exam was diagnostic. Regression from previous study on 04/29/2023. VL/Venous Duplex US - Marlon Extrem Interpretation Summary Deep veins of the lower extremities are bilaterally patent and compressible seg mentally. There is no evidence of deep vein thrombosis on either side. Valvular competence appears in tact within the proximal deep venous systems bilaterally. The great saphenous veins appear bila terally patent and compressible segmentally. Acute deep vein thrombosis appears to have resolved i n the left gastrocnemius vein since a prior venous study on 04/29/2023. Ordering Physician: Raman Stiles Referring Physician: Everardo Garcia Performed By: Carter Weaver, RVT
--- NOTE | 2023-08-17 12:50 | ART_ITS ---
Reason For Study: PVD Procedure A bilateral lower extremity continuous wave Doppler with analog waveform analysis,segmental pressures,and ankle brachial indexes without exercise. Left Segmental Pressures Left brachial= 129mmHg. Left posterior tibial artery = 157mmHg. Left dorsalis pedis artery = 172mmHg. Left digit = 133 mmHg. The left posterior tibial artery waveforms are triphasic. The left dorsalis pedis waveforms are triphasic. Right Segmental Pressures Right brachial= 136mmHg. Right posterior tibial artery = 165mmHg. Right dorsalis pedis artery = 157mmHg. Right digit = 140 mmHg. The right posterior tibial artery waveforms are triphasic. The right dorsalis pedis waveforms are triphasic. Indices The right ankle brachial index by the posterior tibial artery is 1.21. The right ankle brachial index by the dorsalis pedis is 1.15. The right digital-brachial index is 1.03. The left ankle brachial index by the posterior tibial artery is 1.15. The left ankle brachial index by the dorsalis pedis is 1.26. The left digital-brachial index is 0.98. VL/Lower Ext Art Exam w/o Exercis Interpretation Summary Triphasic Doppler waveforms are noted at ankle level bilaterally. Pulse-volume recordings appear satisfactory at all levels bilaterally. Resting ankle-brachial indices are norm al bilaterally. Digital-brachial indices are normal bilaterally. There is no evidence of significant arterial occlusive disease in the lower ext remities bilaterally. Ordering Physician: Raman Stiles Referring Physician: Everardo Garcia Performed By: Carter Weaevr, RVT
== END | disposition home or self-care (01) ==
LOC: CVS 12:43
PROVIDERS: PCP Family Medicine; Referring Provider Podiatrist Foot & Ankle Surgery; Visit Provider Podiatrist Foot & Ankle Surgery
DX: M79.675 Pain in left toe(s) (principal); I73.89 Other specified peripheral vascular diseases; I87.2 Venous insufficiency (chronic) (peripheral)
CPT/HCPCS: 93923; 93970

== ENCOUNTER → 2023-08-24 | Outpatient (CLI) | payer MEDICARE, SELFPAY ==
--- NOTE | 2023-08-24 09:17 | US_ITS ---
EXAM: US RIGHT BREAST, LIMITED CLINICAL INDICATION: BREAST PAIN TECHNIQUE: Limited real time ultrasound of the right breast with image documentation, including axilla when performed. COMPARISON: No relevant prior studies available. FINDINGS: RIGHT BREAST: No masses or fluid collections. US/Breast Limited Unilateral IMPRESSION: No right breast masses or fluid collections. No abnormality identified. Electronically Signed: Aj Jaimes MD at 4:55 EDT ,
--- NOTE | 2023-08-24 09:17 | BI_ITS ---
MAMMOGRAPHY - BILATERAL SCREENING REASON FOR EXAM: Female, 87 years old. Routine annual screening examination. PERTINENT HISTORY: Six-week history of right nipple discomfort. Patient has a history of multiple myeloma. TECHNIQUE: Digital bilateral breast kimber (3D mammographic acquisition) in the CC and MLO projections. 2-D mediolateral oblique (MLO) and craniocaudad (CC) views of both breasts were obtained. CAD: Full Field Digital Mammography with Computer Added Detection was performed. COMPARISON: No comparison mammograms available at this time. If any prior films become available, an addendum to this report can be generated. FINDINGS: Breast Composition: The breasts are heterogeneously dense, which may obscure small masses. There are no dominant masses or suspicious calcifications. No other significant abnormalities are identified. BI/DIAG MAMM W/CAD, BILAT IMPRESSION: Negative screening mammogram. With the patient''s history of right nipple discomfort, correlation with ultrasound is recommended. ASSESSMENT CATEGORY: BIRADS Category 0: Incomplete. Need additional imaging evaluation. A letter regarding these results will be sent to the patient by the facility within 30 days. Approximately 10% of breast cancers are not detected by mammography. A normal mammogram should not delay biopsy of a clinically suspicious abnormality. [id number] Electronically Signed: Radu Cabrera MD at 13:49 EDT ,
== END | disposition home or self-care (01) ==
LOC: OPBI 09:15
PROVIDERS: PCP Family Medicine; Referring Provider Internal Medicine Hematology & Oncology; Visit Provider Internal Medicine Hematology & Oncology
DX: N64.4 Mastodynia (principal)
CPT/HCPCS: 76642; 77062; 77066; G0279

== ENCOUNTER 2023-10-13 18:37 | Emergency (ER) | payer MEDICARE, SELFPAY ==
[2023-10-13 18:38] VITALS: BP 143/61; PULSE 85; RESP 20; TEMP 36.8; O2SAT 100; BMI 21.7
--- NOTE | 2023-10-13 20:05 | ED.VIS.LOWEX ---
HPI <KARI Tabor - Last Filed: 10/13/23 21:05> History of Present Illness Chief Complaint: Lower Extremity Injury Narrative Narrative: 88-year-old female stood up from a flight around 1 PM and felt a crack in her knee and had pain on the medial aspect. Throughout the day she developed swelling in this area. She is able to ambulate but it is starting to hurt more with distance and she used a wheelchair to come into the ED. No weakness or paresthesias. No fall or direct trauma. She takes Eliquis for history of DVT. She also has chronic left foot drop and wears an AFO brace. PFS <KARI Tabor - Last Filed: 10/13/23 21:05> [facility] Medical History Anemia Anemia Anemia aplastic aregenerative Anemia of chronic renal failure, stage 3b Bilateral lower extremity edema BRVO (branch retinal vein occlusion) Cancer Cardiology follow-up encounter Chronic kidney disease (CKD) Chronic rheumatic arthritis Constipation Degenerative joint disease of spine Diabetes DMII (diabetes mellitus, type 2) DVT (deep venous thrombosis) Elevated BUN Encounter for chemotherapy management Essential (primary) hypertension Foot drop, left Former smoker Gastric reflux GERD (gastroesophageal reflux disease) High cholesterol History of echocardiogram History of renal disease History of stress test HTN (hypertension) Hx of cataract Hyperlipidemia Hypothyroidism Immobility Injury of back Iron deficiency anemia due to chronic blood loss Left leg swelling Left thigh pain Leukopenia Lumbar spinal stenosis Macrocytic anemia Multiple myeloma Muscle weakness Osteoporosis Peripheral neuropathy Pruritus Rash Right buttock pain Secondary hyperparathyroidism Vitamin D deficiency Wears glasses Wears hearing aid Home Medications atorvastatin 20 mg tablet 40 mg PO QHS cholesterol 03/03/18 [History Last Taken 09/16/21] hydrochlorothiazide 25 mg tablet 12.5 mg PO DAILY diuretic 03/03/18 [History Last Taken 09/16/21] Vitamin B12 1,000 mcg PO DAILY supplement 06/18/20 [History Last Taken 09/16/21] aspirin 81 mg tablet,delayed release 81 mg PO DAILY heart health 06/18/20 [History Last Taken 09/16/21] iron bisglycinate chelate 28 mg PO DAILY supplement 11/06/20 [History Last Taken 09/16/21] levothyroxine 50 mcg tablet 50 mcg PO DAILY 08/20/22 [History Last Taken Unknown] oxycodone-acetaminophen 5 mg-325 mg tablet (Percocet) 1 tab PO Q6H PRN pain 3 days #12 tabs 10/21/22 [Rx Last Taken Unknown] buspirone 5 mg tablet 5 mg PO BID 10/29/22 [History Last Taken Unknown] acyclovir 400 mg tablet 400 mg PO BID 90 days #180 tabs 11/26/22 [Rx Last Taken Unknown] glipizide 5 mg tablet 2.5 mg PO BID 12/03/22 [History Last Taken Unknown] amlodipine 5 mg tablet 5 mg PO DAILY HTN 01/21/23 [History Last Taken Unknown] dexamethasone 4 mg tablet 20 mg (5 x 4 mg) PO WE multiple myeloma #60 tabs 03/11/23 [Rx Last Taken Unknown] pantoprazole 40 mg tablet,delayed release 40 mg PO WE pre-treatment #30 tabs 03/11/23 [Rx Last Taken Unknown] pregabalin 25 mg capsule 50 mg PO BID 04/22/23 [History Last Taken Unknown] apixaban 5 mg tablet (Eliquis) 5 mg PO BID #60 tabs 07/13/23 [Rx Last Taken Unknown] cetirizine 10 mg tablet (Zyrtec) 10 mg PO DAILY PRN itching #30 tabs 09/28/23 [Rx Last Taken Unknown] Allergy/AdvReac Type Severity Reaction Status Date / Time pentamidine isethionate Allergy Intermediate Wheezing Verified 09/28/23 11:34 cyclophosphamide Allergy Rash Verified 09/28/23 11:34 amoxicillin [From Augmentin] AdvReac Severe Rash Verified 09/28/23 11:34 clavulanic acid AdvReac Severe Rash Verified 09/28/23 11:34 [From Augmentin] Sulfa (Sulfonamide AdvReac Severe Hives Verified 09/28/23 11:34 Antibiotics) Family History Father High cholesterol Heart disease Hypertension Sister High cholesterol Mother Cancer Surgical History History of hemilaminectomy Hx of colonoscopy Hx of decompressive lumbar laminectomy Social History household members: none housing: house Smoking Status: Former smoker alcohol intake: current alcohol intake frequency: a few times a month what type of physical activity do you participate in: walking frequency: 5-6 times per week do you feel safe at home: Yes ROS <KARI Tabor - Last Filed: 10/13/23 21:05> ROS ED ROS Narrative Neuro: Negative for motor/sensory dysfunction. Skin: Negative for rash, wound. Musc: Positive for right knee pain, swelling. No trauma. EXAM <KARI Tabor - Last Filed: 10/13/23 21:05> Physical Exam Narrative Exam Narrative: CONST: Patient sitting in no acute distress. EYES: Normal inspection. NECK: Normal inspection. RESP: No respiratory distress, CTAB. CVS: Regular rate and rhythm, no murmur, no gallop. SKIN: Color normal, no rash, warm, dry, intact. EXTREMITIES: Small area of swelling and tenderness right knee lateral and inferior to the patella. Full extension intact, negative anterior/posterior drawer and varus valgus stress, negative modified Ella's, 5/5 strength in hip flexion, knee flexion/extension, DF/PF, normal sensation, 2+ PT pulse. Left leg has AFO brace on. NEURO: Oriented x4. PSYCH: Normal affect. Const Vital Signs: 10/13/23 18:38 10/13/23 21:01 10/13/23 21:15 Temperature 98.2 F Temperature Source Temporal Pulse Rate 85 Respiratory Rate 20 H 16 16 Blood Pressure 143/61 H Blood Pressure Mean 88 Pulse Ox 100 Oxygen Delivery Method Room Air <Dr. Evan Dietrich MD - Last Filed: 10/13/23 21:47> Physical Exam Const Vital Signs: 10/13/23 18:38 10/13/23 21:01 10/13/23 21:15 Temperature 98.2 F Temperature Source Temporal Pulse Rate 85 Respiratory Rate 20 H 16 16 Blood Pressure 143/61 H Blood Pressure Mean 88 Pulse Ox 100 Oxygen Delivery Method Room Air MDM <KARI Tabor - Last Filed: 10/13/23 21:05> MDM MDM Narrative Medical decision making narrative: Patient stood up and felt a crack and pain in her right knee. She has a small knee effusion on the medial aspect. Normal extension and neurovascularly intact. Patient had no ligamentous laxity. No meniscal abnormalities on my exam. X-ray shows an effusion but no fracture or dislocation. She is able to ambulate with her cane at baseline. She states she has a walker at home she might use for the next couple days and has [employer]. I provided an orthopedic referral and she was discharged in stable condition. Differential: Knee fracture, hemarthrosis, ligamentous or meniscal injury I have personally performed a face to face assessment of the patient and have reviewed the WILLIE Note. I performed a substantive portion of the visit including all aspects of the following. My jeffers findings include: History is remarkable for acute pain and pop sensation right knee when she was getting up to exit/the plane. She denies history of PE or DVT. Denies history of gout or pseudogout. She denies history of pyogenic arthritis. There is no history of direct trauma. Flexion causes her discomfort. She also complains of pain in the popliteal fossa. She denies leg swelling or discoloration. Exam is the right knee is swollen compared to left. The patella is not ballotable. There is an effusion. She is able to extend 180 degrees and hold against gravity. She complains of pain with flexion to 100 degrees. There is pain medially to palpation along the joint line. Varus valgus stress testing elicits no laxity. There is fullness in the popliteal fossa and pain in the popliteal fossa. Linda's test was negative. Modified Ella's test cause pain but there is no click appreciated medially. Medical Decision Making x-ray was obtained. 4 view x-ray was independently reviewed and interpreted by me as negative for any fracture, subluxation or dislocation. There is atherosclerotic disease. There is an effusion. This was interpreted by me at 2044. Other additions or changes: [None] Radiography Diagnostic Testing: Clinical Impression(s) from Imaging Studies Knee X-Ray 10/13/23 20:34 IMPRESSION: [id number] joint effusion with questionable osteopenia. Otherwise no acute fracture or subluxation. Electronically Signed: Nita Whitehead MD at 20:48 EST , ED attending interpretation of right knee shows no fracture or dislocation <Dr. Evan Dietrich MD - Last Filed: 10/13/23 21:47> [facility] MDM Narrative Medical decision making narrative: I have personally performed a face to face assessment of the patient and have reviewed the WILLIE Note. I performed a substantive portion of the visit including all aspects of the following. My jeffers findings include: History is remarkable for acute pain and pop sensation right knee when she was getting up to exit/the plane. She denies history of PE or DVT. Denies history of gout or pseudogout. She denies history of pyogenic arthritis. There is no history of direct trauma. Flexion causes her discomfort. She also complains of pain in the popliteal fossa. She denies leg swelling or discoloration. Exam is the right knee is swollen compared to left. The patella is not ballotable. There is an effusion. She is able to extend 180 degrees and hold against gravity. She complains of pain with flexion to 100 degrees. There is pain medially to palpation along the joint line. Varus valgus stress testing elicits no laxity. There is fullness in the popliteal fossa and pain in the popliteal fossa. Linda's test was negative. Modified Ella's test cause pain but there is no click appreciated medially. Medical Decision Making x-ray was obtained. 4 view x-ray was independently reviewed and interpreted by me as negative for any fracture, subluxation or dislocation. There is atherosclerotic disease. There is an effusion. This was interpreted by me at 2044. Other additions or changes: [None] Radiography Chest X-Ray - ED: Read by ED Physician (Documented under the attending note in the MDM narrative.) Diagnostic Testing: Clinical Impression(s) from Imaging Studies Knee X-Ray 10/13/23 20:34 IMPRESSION: [id number] joint effusion with questionable osteopenia. Otherwise no acute fracture or subluxation. Electronically Signed: Nita Whitehead MD at 20:48 EST , Discharge Plan Triage Chief Complaint: Lower Extremity Injury ED Midlevel Provider: Merna Dozier ED Provider: Evan Dietrich Dx/Rx/DC Orders Clinical Impression: Effusion of right knee, Acute pain of right knee, Acute medial meniscal injury of right knee Instructions: ED Knee Effusion Prescriptions: No Action hydrochlorothiazide 25 mg tablet 12.5 mg PO DAILY atorvastatin 20 mg tablet 40 mg PO QHS amlodipine 5 mg tablet 5 mg PO DAILY Patient Comments: TAKE 1 TABLET BY MOUTH ONCE DAILY levothyroxine 50 mcg tablet 50 mcg PO DAILY buspirone 5 mg tablet 5 mg PO BID acyclovir 400 mg tablet 400 mg PO BID 90 Days Qty: 180 4RF glipizide 5 mg tablet 2.5 mg PO BID pregabalin 25 mg capsule 50 mg PO BID Eliquis 5 mg tablet 5 mg PO BID Qty: 60 6RF cetirizine [Zyrtec] 10 mg tablet 10 mg PO DAILY PRN (Reason: itching ) Qty: 30 0RF aspirin 81 MG tablet,delayed release (DR/EC) 81 mg PO DAILY Vitamin B12 1,000 mcg PO DAILY iron bisglycinate chelate 29 MG capsule 28 mg PO DAILY oxycodone-acetaminophen [Percocet] 5-325 mg tablet 1 tab PO Q6H PRN (Reason: pain) 3 Days Qty: 12 0RF pantoprazole 40 mg tablet,delayed release (DR/EC) 40 mg PO WE Qty: 30 2RF Rx Instructions: before chemo treatment dexamethasone 4 mg tablet 20 mg PO WE Qty: 60 1RF Primary Care Provider: Everardo Garcia Referrals: Derek Orozco DO [Med Staff - Active Staff] - Everardo Garcia DO [Primary Care Provider] - Activity Restrictions/Additional Instructions: Please follow-up with orthopedics, ice and rest Disposition Disposition: Home, Self Care Discharge Date/Time: 10/13/23 21:16
--- NOTE | 2023-10-13 20:34 | RAD_ITS ---
STUDY: X-RAY - RIGHT KNEE REASON FOR EXAM: Female, 88 years old. pain TECHNIQUE: 4 view(s) of the knee. COMPARISON: None. FINDINGS: Possible mild osteopenia, otherwise normal visualized distal femur. Normal visualized proximal tibia and fibula. Normal proximal tibiofibular articulation. There is no demonstrated fracture. Normal medial femorotibial compartment. Normal lateral femorotibial compartment. Normal patellofemoral articulation. Mild to moderate joint effusion. There are atherosclerotic calcifications. RAD/Knee 4 or More Views IMPRESSION: [id number] joint effusion with questionable osteopenia. Otherwise no acute fracture or subluxation. Electronically Signed: Nita Whitehead MD at 20:48 EST ,
[2023-10-13 21:01] VITALS: RESP 16
[2023-10-13 21:15] VITALS: RESP 16
== END 2023-10-13 21:16 | disposition home or self-care (01) ==
PROVIDERS: Emergency Provider Emergency Medicine; PCP Family Medicine; Visit Provider Emergency Medicine
DX: S83.241A Other tear of medial meniscus, current injury, right knee, initial encounter (principal); E11.22 Type 2 diabetes mellitus with diabetic chronic kidney disease; E11.42 Type 2 diabetes mellitus with diabetic polyneuropathy; N18.32 Chronic kidney disease, stage 3b; X58.XXXA Exposure to other specified factors, initial encounter; Y92.813 Airplane as the place of occurrence of the external cause; M25.461 Effusion, right knee; E78.00 Pure hypercholesterolemia, unspecified; I12.9 Hypertensive chronic kidney disease with stage 1 through stage 4 chronic kidney disease, or unspecified chronic kidney disease; E03.9 Hypothyroidism, unspecified; Z79.01 Long term (current) use of anticoagulants; Z79.82 Long term (current) use of aspirin; Z79.890 Hormone replacement therapy; Z79.899 Other long term (current) drug therapy; Z86.718 Personal history of other venous thrombosis and embolism; Z87.891 Personal history of nicotine dependence
CPT/HCPCS: 73564; 99282

== ENCOUNTER → 2023-10-20 | Outpatient (CLI) | payer MEDICARE, SELFPAY ==
[2023-10-20 10:27] LABS: Absolute Lymphocyte Count 0.47 X10^3/uL (0.83-4.51); Absolute Neutrophil Count 2.3 X10^3/uL (2.0-7.7); Basophil# 0.01 X10^3/uL; Basophil% 0.3 % (0-1); Eosinophil# 0.26 X10^3/uL; Eosinophils% 7.9 % (0-5); Hematocrit 31.6 % (37-47); Hemoglobin 10.5 g/dL (12.0-15.0); Lymphocyte # 0.47 X10^3/ul (0.83-4.51); Lymphocyte % 14.2 % (19-41); Mean Corp Hgb Conc 33.2 g/dL (32-36); Mean Corpuscular Hgb 37.5 pg (27.0-32.0); Mean Corpuscular Volume 112.9 fL (81-99); Mean Platelet Vol. 10.5 fl (6.2-12.0); Monocyte# 0.26 X10^3/uL; Monocyte% 7.9 % (0-10); NRBC Flagged by Analyzer 0 % (0-5); Neutrophil # 2.28 X10^3/uL (2.7-7.7); Neutrophil % 69.1 % (47-70); POSITIVE DIFFERENTIAL YES; POSITIVE MORPHOLOGY YES; Platelet Count 226 K/mm3 (150-450); RBC Distribution Width CV 16.9 % (11.6-14.6); RBC Distribution Width SD 66.8 fl (35.1-43.9); White Blood Count 3.3 K/mm3 (4.4-11.0)
[2023-10-20 10:35] LABS: Differential Indicated SCAN CRITERIA MET
[2023-10-20 10:45] LABS: Anion Gap 7 (5-15); BUN 56 mg/dL (7-18); BUN/Creat Ratio 28.1 RATIO (10-20); Calcium,Total 10.4 mg/dL (8.5-10.1); Chloride 100 mmol/L (98-107); Creatinine, Serum 1.99 mg/dL (0.55-1.02); EST Glomerular Filtration Rate 25 mL/min (>60); Est Glom Filt Rate - Afr Amer 31 mL/min (>60); Glucose 173 mg/dL (74-106); Potassium 3.9 mmol/L (3.5-5.1); Sodium Level 138 mmol/L (136-145)
[2023-10-20 10:56] LABS: Vitamin B12 > 2000 pg/mL (211-911)
[2023-10-20 10:58] LABS: Anisocytosis 1+
[2023-10-20 11:50] LABS: T4 Free Direct 1.18 ng/dL (0.76-1.46); Thyroid Stim Hormone (TSH) 6.48 uIU/mL (0.358-3.74)
[2023-10-21 15:04] LABS: Pathologist Review Reviewed
[2023-10-21 17:07] LABS: Albumin 4.2 g/dL (2.9-4.4); Alpha-1-Globulins 0.3 g/dL (0.0-0.4); Alpha-2-Globulins 0.8 g/dL (0.4-1.0); Free Kappa Light Chains 17.3 mg/L (3.3-19.4); Free Lambda Light Chains 1183.3 mg/L (5.7-26.3); Gamma Globulin 0.2 g/dL (0.4-1.8); Immunoglobulin A 27 mg/dL (64-422); Immunoglobulin G 361 mg/dL (586-1602); Immunoglobulin M 18 mg/dL (26-217); PROEL- TOTAL PROTEIN 6.5 g/dL (6.0-8.5)
[2023-10-23 12:08] LABS: Vitamin D 1,25-Dihydroxy 19.9 pg/mL (24.8-81.5)
[2023-10-26 06:07] LABS: Vitamin B1, Thiamine 88.4 nmol/L (66.5-200.0)
== END | disposition home or self-care (01) ==
LOC: MTLAB 07:02
PROVIDERS: Internal Medicine Hematology & Oncology; PCP Family Medicine; Referring Provider Psychiatry & Neurology Neurology; Visit Provider Psychiatry & Neurology Neurology
DX: C90.00 Multiple myeloma not having achieved remission (principal); D64.9 Anemia, unspecified; E03.9 Hypothyroidism, unspecified; G62.9 Polyneuropathy, unspecified; E55.9 Vitamin D deficiency, unspecified
CPT/HCPCS: 36415; 80048; 82607; 82652; 82746; 82784; 83883; 84165; 84425; 84439; 84443; 85025; 86334

== ENCOUNTER 2023-11-25 10:40 | Inpatient (IN) | payer MEDICARE, SELFPAY ==
[2023-11-25] VITALS (11 sets, daily range): BP systolic 84–171; BP diastolic 46–86; PULSE 79–108; RESP 16–22; TEMP 36.8–39.6; O2SAT 91–98; BMI 22.9; BMI 22.1
--- NOTE | 2023-11-25 11:23 | CT_ITS ---
EXAM: CT ABDOMEN AND PELVIS WITHOUT INTRAVENOUS CONTRAST CLINICAL INDICATION: abd pain, fever TECHNIQUE: Helically acquired images were obtained of the abdomen and pelvis without intravenous contrast. This CT exam was performed using one or more of the following dose reduction techniques: automated exposure control, adjustment of the mA and/or kV according to patient size, and/or use of iterative reconstruction technique. COMPARISON: PET CT scan 10/30/2020 FINDINGS: LOWER THORAX: Atelectatic change at the left lung base. Heart is top normal size. Small hiatal hernia. ABDOMEN: LIVER: Stable 2 cm cyst within hepatic segment 5. GALLBLADDER AND BILE DUCTS: Normal. No calcified gallstones. No gallbladder distention or wall edema. No intra- or extrahepatic biliary ductal dilation. No inflammatory change of the gallbladder. PANCREAS: Normal. No focal cystic mass. SPLEEN: Normal. Normal size without focal cystic or solid mass. ADRENALS: Normal. No nodules. KIDNEYS AND URETERS: Right perinephric fat stranding unchanged prior study. Small calcifications noted within both kidneys which may represent calyceal stones or vascular calcification. STOMACH AND BOWEL: There is moderate stool burden within the large bowel and diffuse gas and fluid distention of the small bowel and right colon all of which may be related to constipation. Diverticulosis of the colon noted without evidence of acute diverticulitis. PELVIS: APPENDIX: Appendix is visualized and normal in appearance. BLADDER: Normal. REPRODUCTIVE: Unremarkable as visualized. No mass. ABDOMEN and PELVIS: INTRAPERITONEAL SPACE: Normal. No ascites or other fluid collection. No free air. BONES/JOINTS: No suspicious lytic or blastic abnormality. SOFT TISSUES: Normal. No discrete abdominal or pelvic wall hernia. VASCULATURE: Normal. Abdominal aorta is non-dilated. LYMPH NODES: Normal. No enlarged lymph nodes. OTHER FINDINGS: Mild elevation of the left hemidiaphragm. CT/Abdomen/Pelvis without Cont IMPRESSION: 1. No acute abdominal or pelvic abnormality. 2. Distended large and small bowel loops which may be related to ileus/constipation. 3. Bilateral nephrolithiasis. 4. Linear atelectasis at the left lung base. Electronically Signed: Shadi Weeks MD at 13:04 EST ,
--- NOTE | 2023-11-25 11:31 | EDS_ITS ---
HPI History of Present Illness Chief Complaint: General Illness Informant: patient and family Narrative Narrative: Patient presents secondary to fever and shaking. She has a history of multiple myeloma and was on her way to her treatment this morning. Daughter noted that she had dry heaves and was shaking. When she felt her mother's forehead it was very warm consistent with a fever. Yesterday she seemed to feel okay. Patient does report a dry cough. [facility] Medical History Anemia Anemia Anemia aplastic aregenerative Anemia of chronic renal failure, stage 3b Bilateral lower extremity edema BRVO (branch retinal vein occlusion) Cancer Cardiology follow-up encounter Chronic kidney disease (CKD) Chronic rheumatic arthritis Constipation Contact with or exposure to other viral diseases Degenerative joint disease of spine Diabetes DMII (diabetes mellitus, type 2) DVT (deep venous thrombosis) Elevated BUN Encounter for chemotherapy management Essential (primary) hypertension Foot drop, left Former smoker Gastric reflux GERD (gastroesophageal reflux disease) High cholesterol History of echocardiogram History of renal disease History of stress test HTN (hypertension) Hx of cataract Hyperlipidemia Hypothyroidism Immobility Injury of back Iron deficiency anemia due to chronic blood loss Left leg swelling Left thigh pain Leukopenia Lumbar spinal stenosis Macrocytic anemia Multiple myeloma Muscle weakness Osteoporosis Peripheral neuropathy Pruritus Rash Right buttock pain Secondary hyperparathyroidism Vitamin D deficiency Wears glasses Wears hearing aid Home Medications atorvastatin 20 mg tablet 40 mg PO QHS cholesterol 03/03/18 [History Last Taken 09/16/21] hydrochlorothiazide 25 mg tablet 12.5 mg PO DAILY diuretic 03/03/18 [History Last Taken 09/16/21] Vitamin B12 1,000 mcg PO DAILY supplement 06/18/20 [History Last Taken 09/16/21] aspirin 81 mg tablet,delayed release 81 mg PO DAILY heart health 06/18/20 [History Last Taken 09/16/21] iron bisglycinate chelate 28 mg PO DAILY supplement 11/06/20 [History Last Taken 09/16/21] levothyroxine 50 mcg tablet 50 mcg PO DAILY 08/20/22 [History Last Taken Unknown] oxycodone-acetaminophen 5 mg-325 mg tablet (Percocet) 1 tab PO Q6H PRN pain 3 days #12 tabs 10/21/22 [Rx Last Taken Unknown] buspirone 5 mg tablet 5 mg PO BID 10/29/22 [History Last Taken Unknown] acyclovir 400 mg tablet 400 mg PO BID 90 days #180 tabs 11/26/22 [Rx Last Taken Unknown] glipizide 5 mg tablet 2.5 mg PO BID 12/03/22 [History Last Taken Unknown] amlodipine 5 mg tablet 5 mg PO DAILY HTN 01/21/23 [History Last Taken Unknown] pantoprazole 40 mg tablet,delayed release 40 mg PO WE pre-treatment #30 tabs 03/11/23 [Rx Last Taken Unknown] pregabalin 25 mg capsule 50 mg PO BID 04/22/23 [History Last Taken Unknown] apixaban 5 mg tablet (Eliquis) 5 mg PO BID #60 tabs 07/13/23 [Rx Last Taken Unknown] cetirizine 10 mg tablet (Zyrtec) 10 mg PO DAILY PRN itching #30 tabs 09/28/23 [Rx Last Taken Unknown] dexamethasone 4 mg tablet 20 mg (5 x 4 mg) PO WETH multiple myeloma #40 tabs 10/20/23 [Rx Last Taken Unknown] Allergy/AdvReac Type Severity Reaction Status Date / Time lenalidomide [From Revlimid] Allergy Intermediate Rash Verified 11/25/23 10:41 pentamidine isethionate Allergy Intermediate Wheezing Verified 11/25/23 10:41 cyclophosphamide Allergy Rash Verified 11/25/23 10:41 amoxicillin [From Augmentin] AdvReac Severe Rash Verified 11/25/23 10:41 clavulanic acid AdvReac Severe Rash Verified 11/25/23 10:41 [From Augmentin] Sulfa (Sulfonamide AdvReac Severe Hives Verified 11/25/23 10:41 Antibiotics) Family History Father High cholesterol Heart disease Hypertension Sister High cholesterol Mother Cancer Surgical History History of hemilaminectomy Hx of colonoscopy Hx of decompressive lumbar laminectomy Social History household members: none housing: house Smoking Status: Former smoker alcohol intake: current alcohol intake frequency: a few times a month what type of physical activity do you participate in: walking frequency: 5-6 times per week do you feel safe at home: Yes ROS ROS ED Constitutional Constitutional ED: Reports fever(s); Denies chills Eyes Eyes: Denies change in vision or discharge from eye(s) ENT ENT ED: Denies discharge from eye(s), rhinorrhea or sore throat Cardiovascular Cardiovascular: Denies chest pain or palpitations Respiratory/Chest Respiratory/Chest: Reports cough; Denies dyspnea Gastrointestinal Gastrointestinal: Reports abdominal pain, nausea and vomiting; Denies diarrhea Genitourinary Genitourinary ED: Denies dysuria Musculoskeletal Musculoskeletal: Reports back pain and myalgias; Denies extremity pain Integumentary Denies Abrasions or rash Neurologic Neurologic: Reports weakness; Denies headache(s) Psychiatric Psychiatric: Denies anxiety or depression Endocrine Endocrinology: Reports polydipsia and polyuria Allergic/Immunologic Allergic/Immunologic ED: Denies lip swelling or urticaria EXAM Physical Exam Const Vital Signs: 11/25/23 10:41 Temperature 101.6 F H Temperature Source Temporal Pulse Rate 102 H Respiratory Rate 20 H Blood Pressure 171/62 H Blood Pressure Mean 98 Pulse Ox 97 Oxygen Delivery Method Room Air Positive well nourished and well developed General Appearance ED: well developed HEENT Reports moist mucous membranes Eyes EOMs intact bilaterally Chest Wall inspection of chest normal and palpation of chest normal Resp normal respiratory effort and clear to auscultation bilaterally Cardio Rate: tachycardic GI GI Narrative: Abdomen soft with diffuse tenderness palpation. No guarding or rebound. Extremity normal to inspection Neuro oriented x3 and no sensory deficits noted Skin no rashes or lesions noted MDM MDM MDM Narrative Medical decision making narrative: Patient given Tylenol for fever. Sepsis workup initiated. Discharge Plan Triage Chief Complaint: General Illness ED Provider: Linda Worthington Dx/Rx/DC Orders Prescriptions: No Action hydrochlorothiazide 25 mg tablet 12.5 mg PO DAILY atorvastatin 20 mg tablet 40 mg PO QHS amlodipine 5 mg tablet 5 mg PO DAILY Patient Comments: TAKE 1 TABLET BY MOUTH ONCE DAILY levothyroxine 50 mcg tablet 50 mcg PO DAILY buspirone 5 mg tablet 5 mg PO BID acyclovir 400 mg tablet 400 mg PO BID 90 Days Qty: 180 4RF glipizide 5 mg tablet 2.5 mg PO BID pregabalin 25 mg capsule 50 mg PO BID Eliquis 5 mg tablet 5 mg PO BID Qty: 60 6RF cetirizine [Zyrtec] 10 mg tablet 10 mg PO DAILY PRN (Reason: itching ) Qty: 30 0RF dexamethasone 4 mg tablet 20 mg PO WETH Qty: 40 3RF Rx Instructions: Take 20 mg on Wednesdays and mornings with food aspirin 81 MG tablet,delayed release (DR/EC) 81 mg PO DAILY Vitamin B12 1,000 mcg PO DAILY iron bisglycinate chelate 29 MG capsule 28 mg PO DAILY oxycodone-acetaminophen [Percocet] 5-325 mg tablet 1 tab PO Q6H PRN (Reason: pain) 3 Days Qty: 12 0RF pantoprazole 40 mg tablet,delayed release (DR/EC) 40 mg PO WE Qty: 30 2RF Rx Instructions: before chemo treatment Primary Care Provider: Everardo Garcia Referrals: Everardo Garcia DO [Primary Care Provider] -
--- NOTE | 2023-11-25 11:31 | EX.ED.DYSGE1 ---
HPI History of Present Illness Chief Complaint: General Illness Informant: patient and family Narrative Narrative: Patient presents secondary to fever and shaking. She has a history of multiple myeloma and was on her way to her treatment this morning. Daughter noted that she had dry heaves and was shaking. When she felt her mother's forehead it was very warm consistent with a fever. Yesterday she seemed to feel okay. Patient does report a dry cough. [facility] Medical History Anemia Anemia Anemia aplastic aregenerative Anemia of chronic renal failure, stage 3b Bilateral lower extremity edema BRVO (branch retinal vein occlusion) Cancer Cardiology follow-up encounter Chronic kidney disease (CKD) Chronic rheumatic arthritis Constipation Contact with or exposure to other viral diseases Degenerative joint disease of spine Diabetes DMII (diabetes mellitus, type 2) DVT (deep venous thrombosis) Elevated BUN Encounter for chemotherapy management Essential (primary) hypertension Foot drop, left Former smoker Gastric reflux GERD (gastroesophageal reflux disease) High cholesterol History of echocardiogram History of renal disease History of stress test HTN (hypertension) Hx of cataract Hyperlipidemia Hypothyroidism Immobility Injury of back Iron deficiency anemia due to chronic blood loss Left leg swelling Left thigh pain Leukopenia Lumbar spinal stenosis Macrocytic anemia Multiple myeloma Muscle weakness Osteoporosis Peripheral neuropathy Pruritus Rash Right buttock pain Secondary hyperparathyroidism Vitamin D deficiency Wears glasses Wears hearing aid Home Medications atorvastatin 20 mg tablet 40 mg PO QHS cholesterol 03/03/18 [History Last Taken 09/16/21] hydrochlorothiazide 25 mg tablet 12.5 mg PO DAILY diuretic 03/03/18 [History Last Taken 09/16/21] Vitamin B12 1,000 mcg PO DAILY supplement 06/18/20 [History Last Taken 09/16/21] iron bisglycinate chelate 28 mg PO DAILY supplement 11/06/20 [History Last Taken 09/16/21] levothyroxine 50 mcg tablet 50 mcg PO DAILY 08/20/22 [History Last Taken Unknown] oxycodone-acetaminophen 5 mg-325 mg tablet (Percocet) 1 tab PO Q6H PRN pain 3 days #12 tabs 10/21/22 [Rx Last Taken Unknown] buspirone 5 mg tablet 5 mg PO BID 10/29/22 [History Last Taken Unknown] acyclovir 400 mg tablet 400 mg PO BID 90 days #180 tabs 11/26/22 [Rx Last Taken Unknown] glipizide 5 mg tablet 2.5 mg PO BID 12/03/22 [History Last Taken Unknown] amlodipine 5 mg tablet 5 mg PO DAILY HTN 01/21/23 [History Last Taken Unknown] pantoprazole 40 mg tablet,delayed release 40 mg PO WE pre-treatment #30 tabs 03/11/23 [Rx Last Taken Unknown] pregabalin 25 mg capsule 25 mg PO BID 04/22/23 [History Last Taken Unknown] apixaban 5 mg tablet (Eliquis) 5 mg PO BID #60 tabs 07/13/23 [Rx Last Taken Unknown] dexamethasone 4 mg tablet 20 mg (5 x 4 mg) PO WETH multiple myeloma #40 tabs 10/20/23 [Rx Last Taken Unknown] Allergy/AdvReac Type Severity Reaction Status Date / Time amoxicillin [From Augmentin] Allergy Severe Rash Verified 11/25/23 11:45 clavulanic acid Allergy Severe Rash Verified 11/25/23 11:45 [From Augmentin] Sulfa (Sulfonamide Allergy Severe Hives Verified 11/25/23 11:45 Antibiotics) lenalidomide [From Revlimid] Allergy Intermediate Rash Verified 11/25/23 10:41 pentamidine isethionate Allergy Intermediate Wheezing Verified 11/25/23 10:41 cyclophosphamide Allergy Rash Verified 11/25/23 10:41 Family History Father High cholesterol Heart disease Hypertension Sister High cholesterol Mother Cancer Surgical History History of hemilaminectomy Hx of colonoscopy Hx of decompressive lumbar laminectomy Social History household members: none housing: house Smoking Status: Former smoker alcohol intake: current alcohol intake frequency: a few times a month what type of physical activity do you participate in: walking frequency: 5-6 times per week do you feel safe at home: Yes ROS ROS ED Constitutional Constitutional ED: Reports fever(s); Denies chills Eyes Eyes: Denies change in vision or discharge from eye(s) ENT ENT ED: Denies discharge from eye(s), rhinorrhea or sore throat Cardiovascular Cardiovascular: Denies chest pain or palpitations Respiratory/Chest Respiratory/Chest: Reports cough; Denies dyspnea Gastrointestinal Gastrointestinal: Reports abdominal pain, nausea and vomiting; Denies diarrhea Genitourinary Genitourinary ED: Denies dysuria Musculoskeletal Musculoskeletal: Reports back pain and myalgias; Denies extremity pain Integumentary Denies Abrasions or rash Neurologic Neurologic: Reports weakness; Denies headache(s) Psychiatric Psychiatric: Denies anxiety or depression Endocrine Endocrinology: Reports polydipsia and polyuria Allergic/Immunologic Allergic/Immunologic ED: Denies lip swelling or urticaria EXAM Physical Exam Const Vital Signs: 11/25/23 10:41 11/25/23 11:34 11/25/23 11:35 Temperature 101.6 F H Temperature Source Temporal Pulse Rate 102 H Respiratory Rate 20 H Respiratory Effort Normal Non-Labored Respiratory Pattern Normal Blood Pressure 171/62 H Blood Pressure Mean 98 Pulse Ox 97 Oxygen Delivery Method Room Air Room Air 11/25/23 12:00 11/25/23 12:56 11/25/23 13:00 Temperature 103.2 F H 101.6 F H Temperature Source Oral Oral Pulse Rate 108 H 108 H 100 Respiratory Rate 16 16 22 H Respiratory Effort Respiratory Pattern Blood Pressure 129/62 H 129/65 H 98/53 L Blood Pressure Mean 84 86 68 Pulse Ox 95 95 Oxygen Delivery Method Room Air Room Air Positive well nourished and well developed General Appearance ED: well developed HEENT Reports moist mucous membranes Eyes EOMs intact bilaterally Chest Wall inspection of chest normal and palpation of chest normal Resp normal respiratory effort and clear to auscultation bilaterally Cardio Rate: tachycardic GI GI Narrative: Abdomen soft with diffuse tenderness palpation. No guarding or rebound. Extremity normal to inspection Neuro oriented x3 and no sensory deficits noted Skin no rashes or lesions noted MDM MDM MDM Narrative Medical decision making narrative: Patient given Tylenol for fever. Sepsis workup initiated. History & Record Review Discussion w/independent historian: Patient and Family Additional record(s) reviewed:: Prior outpatient record and Prior labs Lab Data Attestation: I reviewed the patient's lab results. Labs: Laboratory Results - last 24 hr 11/25/23 11/25/23 11/25/23 11:10 11:18 12:55 WBC 0.8 L* RBC 2.36 L Hgb 8.9 L Hct 26.9 L MCV 114.0 H MCH 37.7 H MCHC 33.1 RDW Std Deviation 63.0 H RDW Coeff of Piyush 15.4 H Plt Count 145 L MPV 10.9 Immature Gran % (Auto) 1.300 H Neut % (Auto) 88.6 H Lymph % (Auto) 7.5 L [place] % (Auto) 1.3 Eos % (Auto) 1.3 Baso % (Auto) 0.0 Absolute Neuts (auto) 0.7 L Absolute Lymphs (auto) 0.06 L Nucleated RBC % 0 Diff Path Review March foll PT 22.7 H INR 2.0 APTT 28.1 Sodium 131 L Potassium 3.8 Chloride 101 Carbon Dioxide 21.0 Anion Gap 9 BUN 49 H Creatinine 1.77 H Estim Creat Clear Calc 18.74 Est GFR (MDRD) Af Amer 35 L Est GFR (MDRD) Non-Af 29 L BUN/Creatinine Ratio 27.7 H Glucose 438 H Lactic Acid 2.5 H* Calcium 9.3 Total Bilirubin 0.90 AST 20 ALT 34 Alkaline Phosphatase 66 Total Protein 6.3 L Albumin 2.9 L Globulin 3.4 Albumin/Globulin Ratio 0.9 Urine Color Yellow Urine Clarity Sl. Cloudy Urine pH 6.0 Ur Specific Gepp 1.010 Urine Protein 30 H Urine Glucose (UA) 1000 H Urine Ketones Negative Urine Occult Blood 25 H Urine Nitrite Positive H Urine Bilirubin Negative Urine Urobilinogen Normal Ur Leukocyte Esterase 100 H Urine RBC 0 SEEN Urine WBC 5-10 SEEN Ur Squamous Epith Cells 0-5 SEEN Urine Bacteria 4+ Urine Mucus 0 SEEN Radiography Chest X-Ray - ED: 1 View, Read by ED Physician, Chronic Changes and No Infiltrates Diagnostic Testing: Clinical Impression(s) from Imaging Studies Abdomen/Pelvis CT 11/25/23 11:23 IMPRESSION: 1. No acute abdominal or pelvic abnormality. 2. Distended large and small bowel loops which may be related to ileus/constipation. 3. Bilateral nephrolithiasis. 4. Linear atelectasis at the left lung base. Electronically Signed: Shadi Weeks MD at 13:04 EST , Chest X-Ray 11/25/23 12:24 IMPRESSION: No acute cardiopulmonary abnormality. Electronically Signed: Shadi Weeks MD at 12:42 EST , EKG Initial EKG: Attestation: I personally reviewed and interpreted this EKG as follows: Interpretation: Sinus Tachycardia (Sinus tach at 104. LVH changes noted. No significant ischemia.) Treatment and Re-Evaluation :: CBC reveals low white count at 0.8 with 88% neutrophils. Hemoglobin is 8.9 and this is consistent with her prior values. Platelet count is 145,000. INR is elevated at 2.0. Chemistry studies reveal a sodium of 131. BUN is 49 and creatinine is 1.77. Glucose is elevated at 438. Lactic acid is 2.5. LFTs are unremarkable. Urinalysis does reveal infection with 4+ bacteria, 5-10 white cells, and positive nitrates. Glucose is also noted in her urine. Blood and urine cultures have been sent. Swab for COVID and influenza is negative. Portable chest x-ray per my interpretation reveals no evidence of infiltrate. Radiology interpretation reviewed. Scan of the abdomen pelvis reveals no acute findings. Distended large and small bowel loops are noted. On repeat evaluation patient resting comfortably. Temperature is now down to 99.9. When her white count came back low she was given meropenem for neutropenic fever coverage. Her blood pressure is currently 95/53. She has already received 30 cc/kg of IV fluids. I will give her an additional fluid bolus. I will speak with hospitalist regarding admission. Discharge Plan Dx/Rx/DC Orders Clinical Impression: UTI (urinary tract infection), Neutropenic fever Disposition Disposition: Acute Care [facility]
[2023-11-25 11:35] LABS: Absolute Lymphocyte Count 0.06 X10^3/uL (0.83-4.51); Absolute Neutrophil Count 0.7 X10^3/uL (2.0-7.7); Eosinophil# 0.01 X10^3/uL; Eosinophils% 1.3 % (0-5); Hematocrit 26.9 % (37-47); Hemoglobin 8.9 g/dL (12.0-15.0); Lymphocyte # 0.06 X10^3/ul (0.83-4.51); Lymphocyte % 7.5 % (19-41); Mean Corp Hgb Conc 33.1 g/dL (32-36); Mean Corpuscular Hgb 37.7 pg (27.0-32.0); Mean Platelet Vol. 10.9 fl (6.2-12.0); Monocyte# 0.01 X10^3/uL; Monocyte% 1.3 % (0-10); NRBC Flagged by Analyzer 0 % (0-5); Neutrophil # 0.71 X10^3/uL (2.7-7.7); Neutrophil % 88.6 % (47-70); POSITIVE COUNT YES; POSITIVE DIFFERENTIAL YES; POSITIVE MORPHOLOGY YES; Platelet Count 145 K/mm3 (150-450); RBC Distribution Width CV 15.4 % (11.6-14.6); Red Blood Count 2.36 M/mm3 (4.2-5.4)
[2023-11-25 11:39] LABS: White Blood Count 0.8 K/mm3 (4.4-11.0)
[2023-11-25] MEDS: Acetaminophen 500 MG Tablet 1000 MG PO (11:42)
[2023-11-25] MEDS: 0.9% Normal Saline (1000mL) 1,000 ML 999 ML IV ×2 (11:43→14:14)
[2023-11-25 11:44] LABS: Differential Indicated SCAN CRITERIA MET
[2023-11-25 11:51] LABS: Partial Thromboplast Time 28.1 Seconds (24.1-36.2); Prothrombin Time (Protime)PT. 22.7 SECONDS (11.7-14.9)
[2023-11-25 11:53] LABS: ALB/GLOB Ratio 0.9 RATIO (0.9-2.4); AST(SGOT) 20 U/L (15-37); Alanine Aminotransfer ALT/SGPT 34 U/L (13-56); Albumin, Serum 2.9 g/dL (3.2-5.0); Alkaline Phosphatase 66 U/L (45-117); Anion Gap 9 (5-15); BUN 49 mg/dL (7-18); BUN/Creat Ratio 27.7 RATIO (10-20); Calcium,Total 9.3 mg/dL (8.5-10.1); Chloride 101 mmol/L (98-107); Creatinine, Serum 1.77 mg/dL (0.55-1.02); EST Glomerular Filtration Rate 29 mL/min (>60); Est Glom Filt Rate - Afr Amer 35 mL/min (>60); Estimated Creatinine Clearance 18.74 ml/min; Globulin 3.4 g/dL (2.2-4.2); Glucose 438 mg/dL (74-106); Potassium 3.8 mmol/L (3.5-5.1); Protein, Total 6.3 g/dL (6.4-8.2); Sodium Level 131 mmol/L (136-145)
[2023-11-25 12:01] LABS: Lactic Acid 2.5 mmol/L (0.4-1.9)
[2023-11-25] MEDS: Ondansetron 4 MG/2 ML Vial IV (12:06)
[2023-11-25] MEDS: Meropenem 1 GM in 0.9% Normal Saline (100mL MB+) 100 ML IV (12:17)
--- NOTE | 2023-11-25 12:24 | RAD_ITS ---
EXAM: XR CHEST, 1 VIEW CLINICAL INDICATION: fever, cough TECHNIQUE: Frontal view of the chest. COMPARISON: XR Chest dated 04/18/2018 FINDINGS: LUNGS AND PLEURAL SPACES: Minor bibasilar atelectasis. HEART: Normal heart size. MEDIASTINUM: No mediastinal or hilar mass. BONES/JOINTS: Bilateral healing rib fractures. Cephalic drift of both humeral heads consistent with chronic rotator cuff deformity. TUBES, LINES AND DEVICES: Right internal jugular central venous catheter tip in the distal superior vena cava. RAD/Chest 1 View (Portable) IMPRESSION: No acute cardiopulmonary abnormality. Electronically Signed: Shadi Weeks MD at 12:42 EST ,
[2023-11-25 12:59] LABS: Mucous, Urine 0 SEEN /hpf (<or=2+); Red Blood Cells-Urine 0 SEEN /hpf (0-5)
[2023-11-25 13:16] LABS: Color, Urine Yellow (Yellow); Glucose, Dipstick 1000 mg/dl (Normal); Ketone-Dipstick Negative (Negative); Leukocyte Esterase-Dipstick 100 /ul (Negative); Nitrite-Dipstick Positive (Negative); Occult Blood-Urine 25 /ul (Negative); Protein-Dipstick 30 mg/dl (Negative); Urine Bilirubin Dipstick Negative (Negative); Urine Clarity Sl. Cloudy (Clear); Urine Urobilinogen Normal (Normal)
[2023-11-25 13:26] LABS: Bacteria 4+ /hpf (None Seen); Squamous Epithelial Cells - UA 0-5 SEEN /hpf (5-10); White Blood Cells 5-10 SEEN /hpf (0-5)
[2023-11-25] MEDS: 0.9% Normal Saline (500mL Bag) 500 ML 999 ML IV (13:31)
[2023-11-25] MEDS: 0.9% Normal Saline (1000mL) 1,000 ML 150 ML IV (14:14)
--- NOTE | 2023-11-25 14:36 | PCM.HP.STD ---
HPI - General General Date of Admission: 11/25/23 Date of Service: 11/25/23 Chief Complaint: Fever, chills, fatigue and malaise, neutropenic. HPI Narrative The patient is an 88 y/o F w/ PMHx: Former tobacco use, Multiple Myeloma following with Dr. Laguna, CKD stage IIIb, HTN, HLD, Diabetes mellitus type II, Anxiety, GERD, Hypothyroidism, Hx VTE, Chronic anemia who presents to the [facility] ED on 11/25/23 with on day of presentation sudden fever and chills with known multiple myeloma currently on her way prior to this onset to her treatment with onset of dry heaves as well as chills and concern for fever reportedly fine the day prior although she does report a recent mild dry cough sudden onset lower back discomfort which she reported as severe prompting immediate ED evaluation. She currently denies any severe back discomfort and notes that her dry heaves, nausea and chills have subsided. Workup in the ED included T101.6, heart rate 100, BP 98/53, respiratory rate 22, 95% on room air, CBC with WBC 0.8, hemoglobin 8.9, MCV 114, platelet 145 with increased immature granulocytes with ANC 0.7 and significant lymphopenia, coags with PT 22.7, INR 2.0, PTT 28.1, CMP with sodium 131, BUN/creatinine 49/1.77, glucose 438, lactic acid 2.5, anion gap 9 of note, hepatic profile not marked appearing, urinalysis noted to be cloudy with specific remedy 1.010, protein 30, glucose 1000, occult blood 25, positive nitrite, leukocyte Estrace 100 with 4+ urine bacteria, urine culture pending per ED, blood culture x 2 pending per ED, SARS COVID and influenza antigen rapid negative, chest x-ray with no acute cardiopulmonary findings, CT abdomen pelvis without any IV contrast with no acute finding with a distended large and small bowel loop possibly ileus versus constipation, bilateral nephrolithiasis, linear atelectasis at the left lung base. In the ED patient administered 2 L normal saline followed by maintenance IV fluids, Tylenol 1000 mg p.o. x 1, Zofran 4 mg IV x 1 as well as meropenem 1 g IV x 1. [facility] Medical History Anemia Anemia Anemia aplastic aregenerative Anemia of chronic renal failure, stage 3b Bilateral lower extremity edema BRVO (branch retinal vein occlusion) Cancer Cardiology follow-up encounter Chronic kidney disease (CKD) Chronic rheumatic arthritis Constipation Contact with or exposure to other viral diseases Degenerative joint disease of spine Diabetes DMII (diabetes mellitus, type 2) DVT (deep venous thrombosis) Elevated BUN Encounter for chemotherapy management Essential (primary) hypertension Foot drop, left Former smoker Gastric reflux GERD (gastroesophageal reflux disease) High cholesterol History of echocardiogram History of renal disease History of stress test HTN (hypertension) Hx of cataract Hyperlipidemia Hypothyroidism Immobility Injury of back Iron deficiency anemia due to chronic blood loss Left leg swelling Left thigh pain Leukopenia Lumbar spinal stenosis Macrocytic anemia Multiple myeloma Muscle weakness Osteoporosis Peripheral neuropathy Pruritus Rash Right buttock pain Secondary hyperparathyroidism Vitamin D deficiency Wears glasses Wears hearing aid Home Medications atorvastatin 20 mg tablet 40 mg PO QHS cholesterol 03/03/18 [History Last Taken 09/16/21] hydrochlorothiazide 25 mg tablet 12.5 mg PO DAILY diuretic 03/03/18 [History Last Taken 09/16/21] Vitamin B12 1,000 mcg PO DAILY supplement 06/18/20 [History Last Taken 09/16/21] iron bisglycinate chelate 28 mg PO DAILY supplement 11/06/20 [History Last Taken 09/16/21] levothyroxine 50 mcg tablet 50 mcg PO DAILY 08/20/22 [History Last Taken Unknown] oxycodone-acetaminophen 5 mg-325 mg tablet (Percocet) 1 tab PO Q6H PRN pain 3 days #12 tabs 10/21/22 [Rx Last Taken Unknown] buspirone 5 mg tablet 5 mg PO BID 10/29/22 [History Last Taken Unknown] acyclovir 400 mg tablet 400 mg PO BID 90 days #180 tabs 11/26/22 [Rx Last Taken Unknown] glipizide 5 mg tablet 2.5 mg PO BID 12/03/22 [History Last Taken Unknown] amlodipine 5 mg tablet 5 mg PO DAILY HTN 01/21/23 [History Last Taken Unknown] pantoprazole 40 mg tablet,delayed release 40 mg PO WE pre-treatment #30 tabs 03/11/23 [Rx Last Taken Unknown] pregabalin 25 mg capsule 25 mg PO BID 04/22/23 [History Last Taken Unknown] apixaban 5 mg tablet (Eliquis) 5 mg PO BID #60 tabs 07/13/23 [Rx Last Taken Unknown] dexamethasone 4 mg tablet 20 mg (5 x 4 mg) PO WETH multiple myeloma #40 tabs 10/20/23 [Rx Last Taken Unknown] Allergy/AdvReac Type Severity Reaction Status Date / Time amoxicillin [From Augmentin] Allergy Severe Rash Verified 11/25/23 11:45 clavulanic acid Allergy Severe Rash Verified 11/25/23 11:45 [From Augmentin] Sulfa (Sulfonamide Allergy Severe Hives Verified 11/25/23 11:45 Antibiotics) lenalidomide [From Revlimid] Allergy Intermediate Rash Verified 11/25/23 10:41 pentamidine isethionate Allergy Intermediate Wheezing Verified 11/25/23 10:41 cyclophosphamide Allergy Rash Verified 11/25/23 10:41 Family History Father High cholesterol Heart disease Hypertension Sister High cholesterol Mother Cancer Surgical History History of hemilaminectomy Hx of colonoscopy Hx of decompressive lumbar laminectomy Social History household members: none housing: house Smoking Status: Former smoker alcohol intake: current alcohol intake frequency: a few times a month what type of physical activity do you participate in: walking frequency: 5-6 times per week do you feel safe at home: Yes ROS ROS Narrative Admission Review of Systems: CONSTITUTIONAL: No weight loss, + fever, chills, weakness or fatigue. HEENT: Eyes: No visual loss, blurred vision, double vision or yellow sclerae. Ears, Nose, Throat: No hearing loss, sneezing, congestion, runny nose or sore throat. SKIN: No rash or itching, lesions, wounds. CARDIOVASCULAR: No chest pain, chest pressure or chest discomfort, palpitations, edema, orthopnea, syncopal events. RESPIRATORY: No shortness of breath, cough or sputum, wheezing, hemoptysis. GASTROINTESTINAL: + anorexia, dry heaves with nausea. No vomiting, diarrhea, constipation abdominal pain, melena, BRBPR. GENITOURINARY: + Lower bilateral back and flank pain otherwise no dysuria, frequency, urgency or retention. NEUROLOGICAL: No headache, dizziness, syncope, paralysis, ataxia, numbness or tingling in the extremities, focal weakness, change in bowel or bladder control, seizure. MUSCULOSKELETAL: + muscle, back pain, joint pain or stiffness. HEMATOLOGIC: + Anemia, easy bleeding and bruising. LYMPHATICS: No enlarged nodes. No history of splenectomy. PSYCHIATRIC: + History of anxiety. ENDOCRINOLOGIC: No reports of sweating. + Cold or heat intolerance. No polyuria or polydipsia. ALLERGIES: + History of hives. Vital Signs Vital Signs Vital Signs: 11/25/23 10:41 11/25/23 11:34 11/25/23 11:35 Temperature 101.6 F H Temperature Source Temporal Pulse Rate 102 H Respiratory Rate 20 H Respiratory Effort Normal Non-Labored Respiratory Pattern Normal Blood Pressure 171/62 H Blood Pressure Mean 98 Pulse Ox 97 Oxygen Delivery Method Room Air Room Air 11/25/23 12:00 11/25/23 12:56 11/25/23 13:00 Temperature 103.2 F H 101.6 F H Temperature Source Oral Oral Pulse Rate 108 H 108 H 100 Respiratory Rate 16 16 22 H Respiratory Effort Respiratory Pattern Blood Pressure 129/62 H 129/65 H 98/53 L Blood Pressure Mean 84 86 68 Pulse Ox 95 95 Oxygen Delivery Method Room Air Room Air Weight Weight: 116 lb 13.52 oz Body Mass Index (BMI) 22.9 Physical Exam Narrative Physical Examination: General: Awake, alert, oriented x 3 and cooperative, laying in the ED bed, fatigued and ill-appearing but notes she is feeling improved. Skin: Normal color, normal turgor, no icterus, no cyanosis except occasional staged ecchymoses. HEENT: AT/NC, EOMI, PERRLA, dry MM, no carotid bruits or JVD noted. Lungs: CTA bilaterally, moderate effort, mild decrease BL bases, no rales, ronchi or wheezing. Heart: Mildly tachycardic with regular rhythm; no gallop, rub audible. Abdomen: Soft, NTTP, no suprapubic discomfort noted, ND, mildly hyperactive BS, no HSM. Extremities: No cyanosis, clubbing, or edema. Neurological: Patient awake, alert, oriented as noted, cognitive function intact; pupils equally reactive to light and accommodation, cranial nerves grossly normal, moving all 4 extremities, strength improving but moderately to severely globally decreased secondary to acute presentation complicated by underlying comorbidities, of note chronic left foot drop with brace. Psychiatric: Affect appears fatigued, flat, ill-appearing, no acute evidence of depressive or anxiety feelings but does have underlying anxiety. Results Lab / Micro Data 11/25/23 11:18 11/25/23 11:18 Labs: Laboratory Results - last 24 hr 11/25/23 11:10: Lactic Acid 2.5 H* 11/25/23 11:18: WBC 0.8 L*, RBC 2.36 L, Hgb 8.9 L, Hct 26.9 L, MCV 114.0 H, MCH 37.7 H, MCHC 33.1, RDW Std Deviation 63.0 H, RDW Coeff of Piyush 15.4 H, Plt Count 145 L, MPV 10.9, Immature Gran % (Auto) 1.300 H, Neut % (Auto) 88.6 H, Lymph % (Auto) 7.5 L, [place] % (Auto) 1.3, Eos % (Auto) 1.3, Baso % (Auto) 0.0, Absolute Neuts (auto) 0.7 L, Absolute Lymphs (auto) 0.06 L, Nucleated RBC % 0, Diff Path Review March, PT 22.7 H, INR 2.0, APTT 28.1, Sodium 131 L, Potassium 3.8, Chloride 101, Carbon Dioxide 21.0, Anion Gap 9, BUN 49 H, Creatinine 1.77 H, Estim Creat Clear Calc 18.74, Est GFR (MDRD) Af Amer 35 L, Est GFR (MDRD) Non-Af 29 L, BUN/Creatinine Ratio 27.7 H, Glucose 438 H, Calcium 9.3, Total Bilirubin 0.90, AST 20, ALT 34, Alkaline Phosphatase 66, Total Protein 6.3 L, Albumin 2.9 L, Globulin 3.4, Albumin/Globulin Ratio 0.9 11/25/23 12:55: Urine Color Yellow, Urine Clarity Sl. Cloudy, Urine pH 6.0, Ur Specific [place] 1.010, Urine Protein 30 H, Urine Glucose (UA) 1000 H, Urine Ketones Negative, Urine Occult Blood 25 H, Urine Nitrite Positive H, Urine Bilirubin Negative, Urine Urobilinogen Normal, Ur Leukocyte Esterase 100 H, Urine RBC 0 SEEN, Urine WBC 5-10 SEEN, Ur Squamous Epith Cells 0-5 SEEN, Urine Bacteria 4+, Urine Mucus 0 SEEN Micro: Microbiology 11/25/23 11:40 Nasal Secretion SARS-CoV-2 & FLU Antigen (Rapid) - Final Imagaing Radiology Impression Abdomen/Pelvis CT 11/25/23 11:23 IMPRESSION: 1. No acute abdominal or pelvic abnormality. 2. Distended large and small bowel loops which may be related to ileus/constipation. 3. Bilateral nephrolithiasis. 4. Linear atelectasis at the left lung base. Electronically Signed: Shadi Weeks MD at 13:04 EST , Chest X-Ray 11/25/23 12:24 IMPRESSION: No acute cardiopulmonary abnormality. Electronically Signed: Shadi Weeks MD at 12:42 EST , Assessment & Plan Assessment/Plan (1) UTI (urinary tract infection): PLAN: Plan The patient is an 88 y/o F w/ PMHx: Former tobacco use, Multiple Myeloma following with Dr. Laguna, CKD stage IIIb, HTN, HLD, Diabetes mellitus type II, Anxiety, GERD, Hypothyroidism, Hx VTE, Chronic anemia who presents to the [facility] ED on 11/25/23 with on day of presentation sudden fever and chills with known multiple myeloma currently on her way prior to this onset to her treatment with onset of dry heaves as well as chills and concern for fever reportedly fine the day prior although she does report a recent mild dry cough sudden onset lower back discomfort which she reported as severe prompting immediate ED evaluation. #1. Acute Complicated Urinary Tract Infection with associated hypotension, fever, mild tachypnea, mild lactic acidosis complicated by #2 with neutropenic fever: Will admit to PCU given hypotension, UA upon ED evaluation remarkable, pending UCx, continue judicious IVFs, monitor I/Os, continue IV meropenem based on prior cultures with prior noted pseudomonal UTI and allergies w/ transition as able pending sensitivities and speciation. Bld cx x 2 obtained in the ED. PT/OT/CM for discharge planning. #2. Multiple myeloma with pancytopenia, complicates presentation given patient neutropenia in the setting of infection/neutropenic fever: Patient following with Dr. Santos and Dr. Cates, most recent visit noted 11/18/2023 however she had planned visit today but missed it secondary to her acute presentation, for most recent note patient with planned C1D22 Darzalex Faspro treatments, mag and phos requested. May consider consultation with Oncology if acute concern arises. Continue acyclovir prophylactic regimen. #3. Chronic Kidney Disease Stage IIIb per chart records and noted GFR trending: Admission BUN/Cr 49/1.77, baseline renal function primarily 1.4-1.6 but does vacillate upwards occasionally, repeat BMP in AM. #4. Hypertension: Will hold all hypertensive regimen given low BP upon presentation, add back once appropriate. #5. Hyperlipidemia: We will continue patient on statin therapy. #6. Diabetes mellitus type II: Hold oral home regimen, given presentation complaints with dry heaves will allow clears and once improves can advance diet as tolerated, accu checks w/ ISS. #7. Chronic anemia, currently macrocytic upon appearance, iron deficiency anemia history also: CBC upon presentation with hemoglobin 8.9, MCV 114, baseline previous hemoglobin appears similar although earlier in October patient was 9.1, likely related with her ongoing cancer therapies, will continue iron supplementation and CBC trending. #8. Hypothyroidism: We will continue patient home levothyroxine regimen. #9. Anxiety: We will continue patient home BuSpar regimen as BP allows. #10. History of VTE: Will continue apixaban regimen but given Cr level and age will change to renal dosing. #11. Former usage: Encourage continued tobacco cessation. #12. GERD: We will continue patient on PPI. #13. DVT prophylaxis: We will continue apixaban regimen but given Cr level and age will change to renal dosing. #14. CODE status: Patient HCPOA are her 2 daughters and living will is currently in place. Discussed CODE status at length including difference between FULL code, DNR-CCA and DNR-CC status. Following discussions about the differences in these status, requested Full Code status. Advanced Care Planning Face to Face Time: 16 minutes. Charges/Coding Visit Charges Inpatient E&M: 80740 Init Hosp L3 Procedures Hospitalists Procedures: 92668 Advncd Care Plan 30 Min
[2023-11-25 15:31] LABS: Reflex Lactate? Y
[2023-11-25 15:42] LABS: Magnesium 1.1 mg/dL (1.6-2.6); Phosphorus 2.1 mg/dL (2.5-4.9)
[2023-11-25] MEDS: 0.9% Normal Saline (1000mL) 1,000 ML 100 ML IV (17:03)
[2023-11-25 17:16] LABS: Lactic Acid 1.6 mmol/L (0.4-1.9)
[2023-11-25 17:26] LABS: Bedside Glucose 83 mg/dL (74-106)
[2023-11-25] MEDS: APIXABAN 2.5 MG TABLET (WCH) PO (19:47)
[2023-11-25] MEDS: Atorvastatin Calcium 40 MG Tablet PO (19:48)
[2023-11-25] MEDS: Acyclovir 200 MG Capsule 400 MG PO (19:48)
[2023-11-25] MEDS: busPIRone 5 MG Tablet PO (19:48)
[2023-11-25] MEDS: Cefepime HCl 2 GM in 0.9% Normal Saline (100mL MB+) 100 ML IV (19:49)
[2023-11-25] MEDS: Pregabalin 25 MG Capsule PO (19:58)
[2023-11-25] MEDS: Insulin Lispro 100 UNIT/ML INSULN.PEN SC (19:59)
[2023-11-25] MEDS: Menthol/Lanolin/Calamine/Znox 113 GM Tube 1 APPLIC TOPICAL (20:01)
[2023-11-26 01:16] LABS: Bedside Glucose 241 mg/dL (74-106)
[2023-11-26 03:00] VITALS: BP 119/59; PULSE 69; RESP 18; TEMP 36.4; O2SAT 98
[2023-11-26 04:29] LABS: Absolute Lymphocyte Count 0.19 X10^3/uL (0.83-4.51); Absolute Neutrophil Count 4.7 X10^3/uL (2.0-7.7); Basophil# 0.01 X10^3/uL; Basophil% 0.2 % (0-1); Eosinophil# 0.02 X10^3/uL; Eosinophils% 0.4 % (0-5); Hematocrit 21.3 % (37-47); Hemoglobin 6.9 g/dL (12.0-15.0); Lymphocyte # 0.19 X10^3/ul (0.83-4.51); Lymphocyte % 3.6 % (19-41); Mean Corp Hgb Conc 32.4 g/dL (32-36); Mean Corpuscular Hgb 37.7 pg (27.0-32.0); Mean Corpuscular Volume 116.4 fL (81-99); Mean Platelet Vol. 11.2 fl (6.2-12.0); Monocyte# 0.18 X10^3/uL; Monocyte% 3.4 % (0-10); NRBC Flagged by Analyzer 0 % (0-5); Neutrophil % 90.1 % (47-70); POSITIVE DIFFERENTIAL YES; POSITIVE MORPHOLOGY YES; Platelet Count 104 K/mm3 (150-450); RBC Distribution Width CV 15.9 % (11.6-14.6); RBC Distribution Width SD 64.9 fl (35.1-43.9); Red Blood Count 1.83 M/mm3 (4.2-5.4); White Blood Count 5.2 K/mm3 (4.4-11.0)
[2023-11-26 04:56] LABS: ALB/GLOB Ratio 0.8 RATIO (0.9-2.4); AST(SGOT) 109 U/L (15-37); Alanine Aminotransfer ALT/SGPT 168 U/L (13-56); Albumin, Serum 2.2 g/dL (3.2-5.0); Alkaline Phosphatase 59 U/L (45-117); Anion Gap 7 (5-15); BUN 44 mg/dL (7-18); BUN/Creat Ratio 26.8 RATIO (10-20); Calcium,Total 7.5 mg/dL (8.5-10.1); Chloride 112 mmol/L (98-107); Creatinine, Serum 1.64 mg/dL (0.55-1.02); EST Glomerular Filtration Rate 32 mL/min (>60); Est Glom Filt Rate - Afr Amer 38 mL/min (>60); Estimated Creatinine Clearance 17.36 ml/min; Globulin 2.8 g/dL (2.2-4.2); Glucose 206 mg/dL (74-106); Potassium 4.3 mmol/L (3.5-5.1); Sodium Level 140 mmol/L (136-145)
[2023-11-26 05:05] LABS: Differential Indicated SCAN CRITERIA MET
[2023-11-26 05:08] LABS: Differential Comment SCANNED
[2023-11-26 06:00] VITALS: BMI 22.1
[2023-11-26] MEDS: Levothyroxine 50 MCG Tablet PO (06:00)
[2023-11-26] MEDS: Insulin Lispro 100 UNIT/ML INSULN.PEN SC ×3 (06:04→20:27)
[2023-11-26 06:28] LABS: Bedside Glucose 154 mg/dL (74-106)
--- NOTE | 2023-11-26 07:32 | PCM.PN.HOSP ---
Reason for Visit Reason for Visit: Diagnoses Urinary tract infection, site not specified (11/25/23) Subjective Subjective Patient denies burning micturition or new symptoms of lower urinary tract symptoms cough or cold. She had fever. Objective Data Objective Data Vital Signs: Vital Signs Temp Pulse Resp BP Pulse Ox O2 Del Method O2 Flow Rate 97.6 F L 69 18 119/59 L 98 Room Air 91 11/26/23 03:00 11/26/23 03:00 11/26/23 03:00 11/26/23 03:00 11/26/23 03:00 11/26/23 03:00 11/25/23 16:24 Oxygen Flow Rate (L/min) 91 Oxygen Delivery Method Room Air Weight: 113 lb 12.136 oz Body Mass Index (BMI) 22.1 Intake & Output: Intake and Output for Last 24 Hours 11/24/23 11/25/23 11/26/23 23:59 23:59 23:59 Intake Total 3410 / 3650 1360 / 1360 Output Total 2 / 2 Balance 3410 / 3648 1358 / 1358 Lab / Micro Data 11/26/23 03:39 11/26/23 03:39 Labs: Laboratory Results - last 24 hr 11/25/23 11:10: Lactic Acid 2.5 H* 11/25/23 11:18: WBC 0.8 L*, RBC 2.36 L, Hgb 8.9 L, Hct 26.9 L, MCV 114.0 H, MCH 37.7 H, MCHC 33.1, RDW Std Deviation 63.0 H, RDW Coeff of Piyush 15.4 H, Plt Count 145 L, MPV 10.9, Immature Gran % (Auto) 1.300 H, Neut % (Auto) 88.6 H, Lymph % (Auto) 7.5 L, [place] % (Auto) 1.3, Eos % (Auto) 1.3, Baso % (Auto) 0.0, Absolute Neuts (auto) 0.7 L, Absolute Lymphs (auto) 0.06 L, Nucleated RBC % 0, Diff Path Review March, PT 22.7 H, INR 2.0, APTT 28.1, Sodium 131 L, Potassium 3.8, Chloride 101, Carbon Dioxide 21.0, Anion Gap 9, BUN 49 H, Creatinine 1.77 H, Estim Creat Clear Calc 18.74, Est GFR (MDRD) Af Amer 35 L, Est GFR (MDRD) Non-Af 29 L, BUN/Creatinine Ratio 27.7 H, Glucose 438 H, Calcium 9.3, Phosphorus 2.1 L, Magnesium 1.1 L, Total Bilirubin 0.90, AST 20, ALT 34, Alkaline Phosphatase 66, Total Protein 6.3 L, Albumin 2.9 L, Globulin 3.4, Albumin/Globulin Ratio 0.9 11/25/23 12:55: Urine Color Yellow, Urine Clarity Sl. Cloudy, Urine pH 6.0, Ur Specific [place] 1.010, Urine Protein 30 H, Urine Glucose (UA) 1000 H, Urine Ketones Negative, Urine Occult Blood 25 H, Urine Nitrite Positive H, Urine Bilirubin Negative, Urine Urobilinogen Normal, Ur Leukocyte Esterase 100 H, Urine RBC 0 SEEN, Urine WBC 5-10 SEEN, Ur Squamous Epith Cells 0-5 SEEN, Urine Bacteria 4+, Urine Mucus 0 SEEN 11/25/23 16:19: Lactic Acid 1.6 11/25/23 17:08: POC Glucose 83 11/25/23 19:44: POC Glucose 241 H 11/26/23 03:39: WBC 5.2, RBC 1.83 L, Hgb 6.9 L, Hct 21.3 L, MCV 116.4 H, MCH 37.7 H, MCHC 32.4, RDW Std Deviation 64.9 H, RDW Coeff of Piyush 15.9 H, Plt Count 104 L, MPV 11.2, Immature Gran % (Auto) 2.300 H, Neut % (Auto) 90.1 H, Lymph % (Auto) 3.6 L, [place] % (Auto) 3.4, Eos % (Auto) 0.4, Baso % (Auto) 0.2, Absolute Neuts (auto) 4.7, Absolute Lymphs (auto) 0.19 L, Nucleated RBC % 0, Differential Comment SCANNED, Sodium 140, Potassium 4.3, Chloride 112 H, Carbon Dioxide 21.0, Anion Gap 7, BUN 44 H, Creatinine 1.64 H, Estim Creat Clear Calc 17.36, Est GFR (MDRD) Af Amer 38 L, Est GFR (MDRD) Non-Af 32 L, BUN/Creatinine Ratio 26.8 H, Glucose 206 H, Calcium 7.5 L, Total Bilirubin 0.90, AST 109 H, ALT 168 H, Alkaline Phosphatase 59, Total Protein 5.0 L, Albumin 2.2 L, Globulin 2.8, Albumin/Globulin Ratio 0.8 L 11/26/23 06:02: POC Glucose 154 H Micro: Microbiology 11/25/23 11:40 Nasal Secretion SARS-CoV-2 & FLU Antigen (Rapid) - Final Radiography Diagnostic Testing: Radiology Impression Abdomen/Pelvis CT 11/25/23 11:23 IMPRESSION: 1. No acute abdominal or pelvic abnormality. 2. Distended large and small bowel loops which may be related to ileus/constipation. 3. Bilateral nephrolithiasis. 4. Linear atelectasis at the left lung base. Electronically Signed: Shadi Weeks MD at 13:04 EST , Chest X-Ray 11/25/23 12:24 IMPRESSION: No acute cardiopulmonary abnormality. Electronically Signed: Shadi Weeks MD at 12:42 EST , Physical Exam Narrative Seen and examined. Patient is stated she was unaware of what was going on yesterday she does not remember that she came to ED. Currently she feels back to normal. Denies dysuria or any new lower limb tract symptoms, cough URI and nausea vomiting or abdominal pain. Physical exam General: Alert, Oriented x3, Cooperative HEENT: Atraumatic, PERRLA, EOMI, Normocephalic Oral: Oral mucosa dry. No Gingival or Mucosal Lesions/ Ulcerations Neck: Supple, No JVD, Negative Carotid Bruits Lungs: Air entry diminished in bilateral lung bases. No crepitation/rhonchi Cardiovascular: Regular rate, Regular Rhythm, Normal S1, Normal S2, No murmurs Abdomen: Bowel Sounds Present, Soft, Non Tender, Non-Distended : No renal angle tenderness. No suprapubic tenderness. Extremities: No edema, Capillary Refill Less than 3 Seconds Skin: No rashes, No breakdown Musculoskeletal: No Tenderness to Palpation of Joints or Extremities. ROM intact. Neurological: Cranial nerves II-XII grossly intact, DTR 2+/4. No acute focal neurological deficit. Psych/Mental Status: Normal Affect, Appropriate. Assessment & Plan Assessment/Plan (1) UTI (urinary tract infection): PLAN: Plan The patient is an 88 y/o F who was admitted on 11/25/23 with fever shaking on the day of admission. Patient also had dry heaving and dry cough as per the daughter. She was supposed to get treatment on the day of admission #1. Acute Complicated Urinary Tract Infection with associated hypotension, fever, mild tachypnea, mild lactic acidosis complicated by with neutropenic fever: Patient was admitted in PCU. UA shows 5-10 cells WBC, nitrite positive with 4+ bacteria. Patient resuscitated with IV fluid, IV antibiotics and further admitted. On Pseudomonas. Allergic to amoxicillin. PT OT. On IV cefepime. #2. Multiple myeloma with pancytopenia: Patient following with Dr. Santos and Dr. Cates, most recent visit noted 11/18/2023 however she had planned visit today but missed it secondary to her acute presentation, for most recent note patient with planned C1D22 Darzalex Faspro treatments, mag and phos requested. Continue acyclovir prophylactic regimen. #3. Chronic Kidney Disease Stage IIIb per chart records and noted GFR trending: Admission BUN/Cr 49/1.77, baseline renal function primarily 1.4-1.6. Repeat labs shows improving BUN and creatinine. #4. Hypertension: Hold antihypertensive medication until blood pressure improves and gradually restart one by one #5. Hyperlipidemia: continue patient on statin therapy. #6. Diabetes mellitus type II: Hold oral home regimen, given presentation complaints with dry heaves will allow clears and once improves can advance diet as tolerated, accu checks sliding insulin coverage. #7. Chronic anemia, currently macrocytic upon appearance, iron deficiency anemia history also: CBC upon presentation with hemoglobin 8.9, MCV 114, baseline previous hemoglobin appears similar although earlier in October patient was 9.1, likely related with her ongoing cancer therapies, will continue iron supplementation and CBC trending. #8. Hypothyroidism: We will continue patient home levothyroxine regimen. #9. Anxiety: We will continue patient home BuSpar regimen as BP allows. #10. History of VTE: Will continue apixaban regimen but given Cr level and age will change to renal dosing. #11. Former usage: Encourage continued tobacco cessation. #12. GERD: We will continue patient on PPI. #13. DVT prophylaxis: We will continue apixaban regimen but given Cr level and age will change to renal dosing. #14. CODE status: Patient HCPOA are her 2 daughters and living will is currently in place. Discussed CODE status at length including difference between FULL code, DNR-CCA and DNR-CC status. Following discussions about the differences in these status, requested Full Code status. Charges/Coding Visit Charges Inpatient E&M: 80291 Subs Hosp L2
[2023-11-26 09:00] VITALS: BP 108/51; PULSE 75; RESP 16; TEMP 36.9; O2SAT 96
[2023-11-26] MEDS: APIXABAN 2.5 MG TABLET (WCH) PO ×2 (09:20→20:22)
[2023-11-26] MEDS: Pregabalin 25 MG Capsule PO ×2 (09:20→20:20)
[2023-11-26] MEDS: busPIRone 5 MG Tablet PO ×2 (09:20→20:22)
[2023-11-26] MEDS: Acyclovir 200 MG Capsule 400 MG PO ×2 (09:20→20:22)
[2023-11-26] MEDS: Menthol/Lanolin/Calamine/Znox 113 GM Tube 1 APPLIC TOPICAL ×2 (09:21→20:20)
[2023-11-26 09:27] VITALS: O2SAT 96
[2023-11-26 10:18] VITALS: O2SAT 95
[2023-11-26 11:27] LABS: Bedside Glucose 194 mg/dL (74-106)
[2023-11-26 12:59] LABS: Pathologist Review Reviewed
--- NOTE | 2023-11-26 14:50 | CON.PCM.ID_ITS ---
Assessment & Plan Assessment/Plan (1) Neutropenic fever: (2) Bacteremia due to Gram-negative bacteria: PLAN: Suspect urinary source. Wbc has recovered. On cefepime, will continue. Much improved overall. Will follow, thank you HPI Consult Data Date of Consult: 11/26/23 HPI Narrative Reason for Consultation: bacteremia HPI Narrative: MAHESH PIERSON, is a 88 F with h/o multiple myeloma, CKD, presented yesterday with sudden onset shakes, chills, lower back pain, confusion. No sick contacts. No dysuria. Had some associated nausea. Came to ED, admitted on cefepime, feeling much better this AM. Full ROS performed and neg except as noted above. [facility] [place] Medical History Anemia Anemia Anemia aplastic aregenerative Anemia of chronic renal failure, stage 3b Anxiety Bilateral lower extremity edema BRVO (branch retinal vein occlusion) Cancer Cardiology follow-up encounter Chronic kidney disease (CKD) Chronic rheumatic arthritis Constipation Contact with or exposure to other viral diseases Degenerative joint disease of spine Diabetes DMII (diabetes mellitus, type 2) DVT (deep venous thrombosis) Elevated BUN Encounter for chemotherapy management Essential (primary) hypertension Foot drop, left Former smoker Gastric reflux GERD (gastroesophageal reflux disease) High cholesterol History of echocardiogram History of renal disease History of stress test HTN (hypertension) Hx of cataract Hyperlipidemia Hypothyroidism Immobility Injury of back Iron deficiency anemia due to chronic blood loss Kidney stones Left leg swelling Left thigh pain Leukopenia Lumbar spinal stenosis Macrocytic anemia Multiple myeloma Muscle weakness Non-smoker Osteoporosis Peripheral neuropathy Pruritus Rash Right buttock pain Secondary hyperparathyroidism Vitamin D deficiency Wears glasses Wears hearing aid Home Medications atorvastatin 20 mg tablet 40 mg PO QHS cholesterol 03/03/18 [History Last Taken 09/16/21] hydrochlorothiazide 25 mg tablet 12.5 mg PO DAILY diuretic 03/03/18 [History Last Taken 09/16/21] Vitamin B12 1,000 mcg PO DAILY supplement 06/18/20 [History Last Taken 09/16/21] iron bisglycinate chelate 28 mg PO DAILY supplement 11/06/20 [History Last Taken 09/16/21] levothyroxine 50 mcg tablet 50 mcg PO DAILY 08/20/22 [History Last Taken Unknown] oxycodone-acetaminophen 5 mg-325 mg tablet (Percocet) 1 tab PO Q6H PRN pain 3 days #12 tabs 10/21/22 [Rx Last Taken Unknown] buspirone 5 mg tablet 5 mg PO BID 10/29/22 [History Last Taken Unknown] acyclovir 400 mg tablet 400 mg PO BID 90 days #180 tabs 11/26/22 [Rx Last Taken Unknown] glipizide 5 mg tablet 2.5 mg PO BID 12/03/22 [History Last Taken Unknown] amlodipine 5 mg tablet 5 mg PO DAILY HTN 01/21/23 [History Last Taken Unknown] pantoprazole 40 mg tablet,delayed release 40 mg PO WE pre-treatment #30 tabs 03/11/23 [Rx Last Taken Unknown] pregabalin 25 mg capsule 25 mg PO BID 04/22/23 [History Last Taken Unknown] apixaban 5 mg tablet (Eliquis) 5 mg PO BID #60 tabs 07/13/23 [Rx Last Taken Unknown] dexamethasone 4 mg tablet 20 mg (5 x 4 mg) PO WETH multiple myeloma #40 tabs 10/20/23 [Rx Last Taken Unknown] Allergy/AdvReac Type Severity Reaction Status Date / Time amoxicillin [From Augmentin] Allergy Severe Rash Verified 11/25/23 11:45 clavulanic acid Allergy Severe Rash Verified 11/25/23 11:45 [From Augmentin] Sulfa (Sulfonamide Allergy Severe Hives Verified 11/25/23 11:45 Antibiotics) lenalidomide [From Revlimid] Allergy Intermediate Rash Verified 11/25/23 10:41 pentamidine isethionate Allergy Intermediate Wheezing Verified 11/25/23 10:41 cyclophosphamide Allergy Rash Verified 11/25/23 10:41 Family History Father High cholesterol Heart disease Hypertension Sister High cholesterol Mother Cancer Surgical History History of hemilaminectomy Hx of colonoscopy Hx of decompressive lumbar laminectomy Social History household members: none housing: house Smoking Status: Former smoker alcohol intake: current alcohol intake frequency: a few times a month what type of physical activity do you participate in: walking frequency: 5-6 times per week do you feel safe at home: Yes Physical Exam Const alert, oriented x3 and no apparent distress General Appearance: cooperative HEENT normocephalic and head/scalp atraumatic Eyes PERRL and EOMs intact bilaterally Neck supple and No nodes Resp normal air movement and clear to auscultation bilaterally Cardio regular rate and regular rhythm GI soft to palpation, non-tender and non-distended GI Narrative: no flank pain Extremity General Extremity: Negative for edema Skin no rashes or lesions noted Neuro CN's II-XII intact bilaterally Lab / Micro Data Attestation: I reviewed the patient's lab results. 11/26/23 03:39 11/26/23 03:39 Labs: Laboratory Results - last 24 hr 11/25/23 11:18: Diff Path Review Reviewed, Phosphorus 2.1 L, Magnesium 1.1 L 11/25/23 16:19: Lactic Acid 1.6 11/25/23 17:08: POC Glucose 83 11/25/23 19:44: POC Glucose 241 H 11/26/23 03:39: WBC 5.2, RBC 1.83 L, Hgb 6.9 L, Hct 21.3 L, MCV 116.4 H, MCH 37.7 H, MCHC 32.4, RDW Std Deviation 64.9 H, RDW Coeff of Piyush 15.9 H, Plt Count 104 L, MPV 11.2, Immature Gran % (Auto) 2.300 H, Neut % (Auto) 90.1 H, Lymph % (Auto) 3.6 L, [place] % (Auto) 3.4, Eos % (Auto) 0.4, Baso % (Auto) 0.2, Absolute Neuts (auto) 4.7, Absolute Lymphs (auto) 0.19 L, Nucleated RBC % 0, Differential Comment SCANNED, Sodium 140, Potassium 4.3, Chloride 112 H, Carbon Dioxide 21.0, Anion Gap 7, BUN 44 H, Creatinine 1.64 H, Estim Creat Clear Calc 17.36, Est GFR (MDRD) Af Amer 38 L, Est GFR (MDRD) Non-Af 32 L, BUN/Creatinine Ratio 26.8 H, Glucose 206 H, Calcium 7.5 L, Total Bilirubin 0.90, AST 109 H, ALT 168 H, Alkaline Phosphatase 59, Total Protein 5.0 L, Albumin 2.2 L, Globulin 2.8, Albumin/Globulin Ratio 0.8 L 11/26/23 06:02: POC Glucose 154 H 11/26/23 11:07: POC Glucose 194 H Micro: Microbiology 11/25/23 12:55 Urine, Clean Catch Urine Culture - Preliminary GNR lactose escapement maker 11/25/23 12:07 Blood Culture (Wb) - No Site/Description Given Blood Culture - Preliminary 11/25/23 11:40 Nasal Secretion SARS-CoV-2 & FLU Antigen (Rapid) - Final
[2023-11-26 15:00] VITALS: BP 127/57; PULSE 75; RESP 16; TEMP 36.9; O2SAT 96
--- NOTE | 2023-11-26 16:16 | CHAPLAIN ---
Type of Pastoral Visit _x__ Initial Visit ___ Follow-up Visit ___ On-call Visit ___ General Patient Visit ___ Spiritual Assessment ___ Family Conference ___ Bereavement ___ Rapid Response ___ Code Blue ___ Other (describe below) Pastoral Care Referral From _x__ Patient _x__ Family ___ Nurse ___ Physician ___ Quad Stayer ___ Budget Examiner ___ Other (describe below) Sacrament/Intervention _x__ Active listening ___ Anointing ___ Roman Catholic ___ Bereavement ___ Communion ___ Becky exploration ___ ___ Life review ___ Prayer ___ Reconciliation ___ Sacrament of Sick ___ Supportive presence ___ Wedding ___ Other (describe below) Pastoral Comments patient and daughter are in the room; both explain the sickness of yesterday and that pt is doing much better today; pt expects to stay one more night in the hospital but has no other concerns or needs at this time;
--- NOTE | 2023-11-26 16:18 | CASEMGMT ---
FANY VIEIRA Assessment: Face to Face with pt for initial transition planning/care coordination assessment. RN DARIEL introduced self and role at [facility], pt voices understanding and consents to assessment. Pt is A&O x4 and answers all questions appropriately at this time. Pt sitting up in chair with sister at bedside. Pt is agreeable to assessment with sister present. Care providers, pharmacy, and demographics verified/updated. Admitting Dx: hypotension, lactic acidosis, complicated UTI PCP:Jose Specialists:Luz Elena and Darryn, onc Preferred Pharmacy: [facility] Insurance: [employer] Prescription Benefit: yes LNOK: Zuleima Mendez dtr; Bree Hernandez, sister Living Arrangements: Pt lives alone in a single story home with 1 step to enter. Pt reports she is I in all ADL and IADL's. Pt denies concerns at home. Transportation: Pt drives self and denies concerns with transportation. DME:AFO, cane, [facility] HHC/SNF: Denies hx of Pt states no concerns with going home at time of dc. OT did not recommend further therapy, PT to eval yet. Pt states no further concerns/needs. CM to follow. Advised pt to ask CM if any further question/concerns/needs arise, voices understanding. Pt Goal: Home Plan: Home, follow PT eval and ID rec
[2023-11-26 17:00] LABS: Bedside Glucose 90 mg/dL (74-106)
[2023-11-26] MEDS: Cefepime HCl 2 GM in 0.9% Normal Saline (100mL MB+) 100 ML IV (20:17)
[2023-11-26] MEDS: Acetaminophen 325 MG Tablet 650 MG PO (20:20)
[2023-11-26] MEDS: Atorvastatin Calcium 40 MG Tablet PO (20:22)
[2023-11-26 20:49] LABS: Bedside Glucose 228 mg/dL (74-106)
[2023-11-26 21:00] VITALS: BP 137/76; PULSE 78; RESP 16; TEMP 36.9; O2SAT 94
[2023-11-27] MEDS: Levothyroxine 50 MCG Tablet PO (04:55)
[2023-11-27 04:59] VITALS: BP 153/68; PULSE 74; RESP 16; TEMP 36.3; O2SAT 97
[2023-11-27 05:05] VITALS: BMI 23.0
[2023-11-27 06:24] LABS: Absolute Neutrophil Count 4.8 X10^3/uL (2.0-7.7); Basophil# 0.01 X10^3/uL; Basophil% 0.2 % (0-1); Eosinophil# 0.03 X10^3/uL; Eosinophils% 0.6 % (0-5); Hematocrit 22.3 % (37-47); Hemoglobin 7.3 g/dL (12.0-15.0); Lymphocyte % 3.8 % (19-41); Mean Corp Hgb Conc 32.7 g/dL (32-36); Mean Corpuscular Hgb 37.6 pg (27.0-32.0); Mean Corpuscular Volume 114.9 fL (81-99); Mean Platelet Vol. 11.3 fl (6.2-12.0); Monocyte# 0.12 X10^3/uL; Monocyte% 2.3 % (0-10); NRBC Flagged by Analyzer 0 % (0-5); Neutrophil # 4.78 X10^3/uL (2.7-7.7); Neutrophil % 89.9 % (47-70); POSITIVE DIFFERENTIAL YES; POSITIVE MORPHOLOGY YES; Platelet Count 113 K/mm3 (150-450); RBC Distribution Width CV 15.4 % (11.6-14.6); RBC Distribution Width SD 63.1 fl (35.1-43.9); Red Blood Count 1.94 M/mm3 (4.2-5.4); White Blood Count 5.3 K/mm3 (4.4-11.0)
[2023-11-27 06:30] LABS: Bedside Glucose 127 mg/dL (74-106)
[2023-11-27 06:42] LABS: ALB/GLOB Ratio 0.7 RATIO (0.9-2.4); AST(SGOT) 40 U/L (15-37); Alanine Aminotransfer ALT/SGPT 122 U/L (13-56); Albumin, Serum 2.3 g/dL (3.2-5.0); Alkaline Phosphatase 66 U/L (45-117); Anion Gap 5 (5-15); BUN 39 mg/dL (7-18); Calcium,Total 8.3 mg/dL (8.5-10.1); Chloride 113 mmol/L (98-107); EST Glomerular Filtration Rate 35 mL/min (>60); Est Glom Filt Rate - Afr Amer 42 mL/min (>60); Estimated Creatinine Clearance 18.98 ml/min; Globulin 3.1 g/dL (2.2-4.2); Glucose 128 mg/dL (74-106); Protein, Total 5.4 g/dL (6.4-8.2); Sodium Level 140 mmol/L (136-145)
[2023-11-27 06:47] LABS: Differential Indicated SCAN CRITERIA MET
[2023-11-27 07:07] LABS: Differential Comment SCANNED
[2023-11-27 07:36] VITALS: O2SAT 96
--- NOTE | 2023-11-27 07:46 | PN.HOSP_ITS ---
Reason for Visit Reason for Visit: Diagnoses Neutropenia, unspecified (11/25/23) Urinary tract infection, site not specified (11/25/23) Fever presenting with conditions classified elsewhere (11/25/23) Bacteremia (11/25/23) Objective Data Objective Data Vital Signs: Vital Signs Temp Pulse Resp BP Pulse Ox O2 Del Method O2 Flow Rate 97.4 F L 74 16 153/68 H 97 Room Air 91 11/27/23 04:59 11/27/23 04:59 11/27/23 04:59 11/27/23 04:59 11/27/23 04:59 11/27/23 04:59 11/25/23 16:24 Oxygen Flow Rate (L/min) 91 Oxygen Delivery Method Room Air Weight: 117 lb 11.629 oz Body Mass Index (BMI) 23.0 Intake & Output: Intake and Output for Last 24 Hours 11/25/23 11/26/23 11/27/23 23:59 23:59 23:59 Intake Total 3410 / 3650 2260 / 2500 480 / 480 Output Total 2 / 2 Balance 3410 / 3648 2258 / 2498 480 / 480 Lab / Micro Data 11/27/23 05:19 11/27/23 05:19 Labs: Laboratory Results - last 24 hr 11/25/23 11:18: Diff Path Review Reviewed 11/26/23 11:07: POC Glucose 194 H 11/26/23 16:26: POC Glucose 90 11/26/23 20:26: POC Glucose 228 H 11/27/23 05:19: WBC 5.3, RBC 1.94 L, Hgb 7.3 L, Hct 22.3 L, MCV 114.9 H, MCH 37.6 H, MCHC 32.7, RDW Std Deviation 63.1 H, RDW Coeff of Piyush 15.4 H, Plt Count 113 L, MPV 11.3, Immature Gran % (Auto) 3.200 H, Neut % (Auto) 89.9 H, Lymph % (Auto) 3.8 L, [place] % (Auto) 2.3, Eos % (Auto) 0.6, Baso % (Auto) 0.2, Absolute Neuts (auto) 4.8, Absolute Lymphs (auto) 0.20 L, Nucleated RBC % 0, Differential Comment SCANNED, Sodium 140, Potassium 4.0, Chloride 113 H, Carbon Dioxide 22.0, Anion Gap 5, BUN 39 H, Creatinine 1.50 H, Estim Creat Clear Calc 18.98, Est GFR (MDRD) Af Amer 42 L, Est GFR (MDRD) Non-Af 35 L, BUN/Creatinine Ratio 26.0 H, Glucose 128 H, Calcium 8.3 L, Total Bilirubin 0.80, AST 40 H, ALT 122 H, Alkaline Phosphatase 66, Total Protein 5.4 L, Albumin 2.3 L, Globulin 3.1, Albumin/Globulin Ratio 0.7 L 11/27/23 06:10: POC Glucose 127 H Micro: Microbiology 11/25/23 12:55 Urine, Clean Catch Urine Culture - Preliminary GNR lactose scrap charger 11/25/23 12:07 Blood Culture (Wb) - No Site/Description Given Blood Culture - Preliminary 11/25/23 11:40 Nasal Secretion SARS-CoV-2 & FLU Antigen (Rapid) - Final Physical Exam Narrative Seen and examined. Patient is stated she was unaware of what was going on yesterday she does not remember that she came to ED. Currently she feels back to normal. Denies dysuria or any new lower limb tract symptoms, cough URI and nausea vomiting or abdominal pain. Physical exam General: Alert, Oriented x3, Cooperative HEENT: Atraumatic, PERRLA, EOMI, Normocephalic Oral: Oral mucosa dry. No Gingival or Mucosal Lesions/ Ulcerations Neck: Supple, No JVD, Negative Carotid Bruits Lungs: Air entry diminished in bilateral lung bases. No crepitation/rhonchi Cardiovascular: Regular rate, Regular Rhythm, Normal S1, Normal S2, No murmurs Abdomen: Bowel Sounds Present, Soft, Non Tender, Non-Distended : No renal angle tenderness. No suprapubic tenderness. Extremities: No edema, Capillary Refill Less than 3 Seconds Skin: No rashes, No breakdown Musculoskeletal: No Tenderness to Palpation of Joints or Extremities. ROM intact. Neurological: Cranial nerves II-XII grossly intact, DTR 2+/4. No acute focal neurological deficit. Psych/Mental Status: Normal Affect, Appropriate. Assessment & Plan Assessment/Plan (1) UTI (urinary tract infection): PLAN: Plan The patient is an 88 y/o F who was admitted on 11/25/23 with fever shaking on the day of admission. Patient also had dry heaving and dry cough as per the daughter. She was supposed to get treatment on the day of admission #1. Acute Complicated Urinary Tract Infection with associated hypotension, fever, mild tachypnea, mild lactic acidosis complicated by with neutropenic fever: Patient was admitted in PCU. UA shows 5-10 cells WBC, nitrite positive with 4+ bacteria. Patient resuscitated with IV fluid, IV antibiotics and further admitted. On Pseudomonas. Allergic to amoxicillin. PT OT. On IV cefepime. #2. Multiple myeloma with pancytopenia: Patient following with Dr. Santos and Dr. Cates, most recent visit noted 11/18/2023 however she had planned visit today but missed it secondary to her acute presentation, for most recent note patient with planned C1D22 Darzalex Faspro treatments, mag and phos requested. Continue acyclovir prophylactic regimen. #3. Chronic Kidney Disease Stage IIIb per chart records and noted GFR trending: Admission BUN/Cr 49/1.77, baseline renal function primarily 1.4-1.6. Repeat labs shows improving BUN and creatinine. #4. Hypertension: Hold antihypertensive medication until blood pressure impr oves and gradually restart one by one #5. Hyperlipidemia: continue patient on statin therapy. #6. Diabetes mellitus type II: Hold oral home regimen, given presentation complaints with dry heaves will allow clears and once improves can advance diet as tolerated, accu checks sliding insulin coverage. #7. Chronic anemia, currently macrocytic upon appearance, iron deficiency anemia history also: CBC upon presentation with hemoglobin 8.9, MCV 114, baseline previous hemoglobin appears similar although earlier in October patient was 9.1, likely related with her ongoing cancer therapies, will continue iron supplementation and CBC trending. #8. Hypothyroidism: We will continue patient home levothyroxine regimen. #9. Anxiety: We will continue patient home BuSpar regimen as BP allows. #10. History of VTE: Will continue apixaban regimen but given Cr level and age will change to renal dosing. #11. Former usage: Encourage continued tobacco cessation. #12. GERD: We will continue patient on PPI. #13. DVT prophylaxis: We will continue apixaban regimen but given Cr level and age will change to renal dosing. #14. CODE status: Patient HCPOA are her 2 daughters and living will is c urrently in place. Discussed CODE status at length including difference between FULL code, DNR-CCA and DNR-CC status. Following discussions about the differences in these status, requested Full Code status.
[2023-11-27 08:56] VITALS: BP 134/60; PULSE 72; RESP 16; TEMP 36.8; O2SAT 98
[2023-11-27] MEDS: Pregabalin 25 MG Capsule PO (08:58)
[2023-11-27] MEDS: Acyclovir 200 MG Capsule 400 MG PO (08:58)
[2023-11-27] MEDS: APIXABAN 2.5 MG TABLET (WCH) PO (08:58)
[2023-11-27] MEDS: busPIRone 5 MG Tablet PO (08:58)
--- NOTE | 2023-11-27 11:16 | DCINST_ITS ---
Discharge Instructions Diet Discharge Diet: No restrictions Activity Discharge Activity: Return to Normal Activity Weight Bearing Status: Weight bearing as tolerated Dressing / Incision Call your doctor if you observe: Fever of 101 or Higher, Coldness, Increased Pain, Numbness or Tingling, Change in Color, Inability to urinate, Inability to have a bowel movement, Using more than 1 pad per hour, Shortness of breath, Dizziness, Fainting spells, Swelling in the ankles, Chest pain, Prolonged hiccupping, Increased palpitations (irregular heartbeat) and Calf discomfort Follow Up Care When: IN 2 WEEKS Test Results: Test results from this visit will be discussed in further detail at your follow- up appointment, if applicable. Discharge Plan Admission Admit Date/Time: 11/25/23 14:41 Attending Provider: Jed Cisse Primary Care Provider: Everardo Garcia Consulting Providers: Lilian Ledesma; Buster Sauer Instructions Additional Instructions / Restrictions: Eliquis dose decreased to 2.5 mg twice daily because of severe anemia and thrombocytopenia. Discharge Orders/Prescriptions Prescriptions: New ciprofloxacin HCl 500 mg tablet 500 mg PO BID 7 Days Qty: 14 0RF Continued hydrochlorothiazide 25 mg tablet 12.5 mg PO DAILY atorvastatin 20 mg tablet 40 mg PO QHS levothyroxine 50 mcg tablet 50 mcg PO DAILY buspirone 5 mg tablet 5 mg PO BID acyclovir 400 mg tablet 400 mg PO BID 90 Days Qty: 180 4RF glipizide 5 mg tablet 2.5 mg PO BID pregabalin 25 mg capsule 25 mg PO BID Patient Comments: patient states taking 1 capsule in AM, at lunch, in evening. dexamethasone 4 mg tablet 20 mg PO WETH Qty: 40 3RF Rx Instructions: Take 20 mg on Wednesdays and mornings with food Vitamin B12 1,000 mcg PO DAILY iron bisglycinate chelate 29 MG capsule 28 mg PO DAILY oxycodone-acetaminophen [Percocet] 5-325 mg tablet 1 tab PO Q6H PRN (Reason: pain) 3 Days Qty: 12 0RF amlodipine 5 mg tablet 5 mg PO DAILY Qty: 3 0RF Patient Comments: TAKE 1 TABLET BY MOUTH ONCE DAILY Rx Instructions: Hold for SBP less than 120 mmHg pantoprazole 40 mg tablet,delayed release (DR/EC) 40 mg PO WE Qty: 30 2RF Rx Instructions: before chemo treatment Changed Eliquis 5 mg tablet 2.5 mg PO BID Qty: 60 6RF Rx Instructions: Take 2.5 mg twice daily until hemoglobin is more than 8. Referrals / Follow Up: Everardo Garcia DO [Primary Care Provider] - Within 2 Weeks Rosio Laguna MD [Med Staff - Active Staff] - Within 2 Weeks Disposition Disposition (needs filled in before D/C Order can be placed): Home, Self Care
[2023-11-27] MEDS: Insulin Lispro 100 UNIT/ML INSULN.PEN SC (12:09)
[2023-11-27 12:28] LABS: Bedside Glucose 159 mg/dL (74-106)
--- NOTE | 2023-11-27 13:32 | DS.PCM_ITS ---
Providers Date of Admission: 11/25/23 Date of Discharge: 11/27/23 Primary Care Physician: Dr. Everardo Garcia, Consultations 11/26/23 10:13 Consult: Infectious Disease Routine Consulting Provider: Buster Sauer Reason for Consult: GNR bacteremia, UTI? MULTIPLE Myeloma EMERGENT Consult: No MD Notified: Yes Date Notified: 11/26/23 Time Notified: 10:13 Method of Notification: Text Reason For Visit: HYPOTENSION, LACTIC ACIDOSIS, COMPLICATED UTI Diagnosis Discharge Diagnosis (1) UTI (urinary tract infection): Status: Acute Code(s): N39.0 - Urinary tract infection, site not specified Plan The patient is an 88 y/o F who was admitted on 11/25/23 with fever shaking on the day of admission. Patient also had dry heaving and dry cough as per the daughter. She was supposed to get treatment on the day of admission #1. Acute Complicated Urinary Tract Infection with associated hypotension, fever, mild tachypnea, mild lactic acidosis complicated by with neutropenic fever: Patient was admitted in PCU. UA shows 5-10 cells WBC, nitrite positive with 4+ bacteria. Patient resuscitated with IV fluid, IV antibiotics and further admitted. On Pseudomonas. Allergic to amoxicillin. PT OT. On IV cefepime. 11/27: Urine culture shows Klebsiella pneumoniae [id number] Klebsiella pneumoniae. Patient did not had fever since 11/25 more than 48 hours ago. She is feeling great and does not have any focal symptoms. She wants to go home. 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 Discussed with the ID and agree for 1 more week of antibiotics ciprofloxacin 500 mg twice daily. #2. Multiple myeloma with pancytopenia: Patient following with Dr. Santos and Dr. Cates, most recent visit noted 11/18/2023 however she had planned visit today but missed it secondary to her acute presentation, for most recent note patient with planned C1D22 Darzalex Faspro treatments, mag and phos requested. Continue acyclovir prophylactic regimen. 11/27: Discussed with Dr. Cates in the morning. Her hemoglobin is 7.3. Platelet count 113,000. No need for PRBC transfusion. Cephalosporin is avoided because of thrombocytopenia. #3. Chronic Kidney Disease Stage IIIb per chart records and noted GFR trending: Admission BUN/Cr 49/1.77, baseline renal function primarily 1.4-1.6. Repeat labs shows improving BUN and creatinine. #4. Hypertension: Hold antihypertensive medication until blood pressure improves and gradually restart one by one #5. Hyperlipidemia: continue patient on statin therapy. #6. Diabetes mellitus type II: Hold oral home regimen, given presentation complaints with dry heaves will allow clears and once improves can advance diet as tolerated, accu checks sliding insulin coverage. #7. Chronic anemia, currently macrocytic upon appearance, iron deficiency anemia history also: CBC upon presentation with hemoglobin 8.9, MCV 114, baseline previous hemoglobin appears similar although earlier in October patient was 9.1, likely related with her ongoing cancer therapies, will continue iron supplementation and CBC trending. #8. Hypothyroidism: continue patient home levothyroxine regimen. #9. Anxiety: continue patient home BuSpar regimen as BP allows. 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 #11. Former usage: Encourage continued tobacco cessation. #12. GERD:continue patient on PPI. #13. DVT prophylaxis: We will continue apixaban regimen but given Cr level and age will change to renal dosing. #14. CODE status: Patient HCPOA are her 2 daughters and living will is currently in place. Discussed CODE status at length including difference between FULL code, DNR-CCA and DNR-CC status. Following discussions about the differences in these status, requested Full Code status. Discharge medication reconciliation done. Discharge follow-up instructions completed. Discharge process discussed with the patient and her daughter and all questions were answered to patient's satisfaction. Follow with PCP in 1 to 2 weeks Total time spent, exact 35 minutes on discharge meds reconciliation, examinatio n, coordination of care with nurses and ancillary staff, review of imaging and blood test and discussion with the patient on follow-up instructions. Microbiology Past 72 Hours 11/25/23 11:18 Blood Culture (Wb) - Port Blood Culture - Preliminary No growth in 48 hours. 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 6 H, MCHC 32.7, RDW Std Deviation 63.1 H, RDW Coeff of Piyush 15.4 H, Plt Count 113 L, MPV 11.3, Immature Gran % (Auto) 3.200 H, Neut % (Auto) 89.9 H, Lymph % (Auto) 3.8 L, [place] % (Auto) 2.3, Eos % (Auto) 0.6, Baso % (Auto) 0.2, Absolute Neuts (auto) 4.8, Absolute Lymphs (auto) 0.20 L, Nucleated RBC % 0, Differential Comment SCANNED, Sodium 140, Potassium 4.0, Chloride 113 H, Carbon Dioxide 22.0, Anion Gap 5, BUN 39 H, Creatinine 1.50 H, Estim Creat Clear Calc 18.98, Est GFR (MDRD) Af Amer 42 L, Est GFR (MDRD) Non-Af 35 L, BUN/Creatinine Ratio 26.0 H, Glucose 128 H, Calcium 8.3 L, Total Bilirubin 0.80, AST 40 H, ALT 122 H, Alkaline Phosphatase 66, Total Protein 5.4 L, Albumin 2.3 L, Globulin 3.1, Albumin/Globulin Ratio 0.7 L 11/27/23 06:10: POC Glucose 127 H 11/27/23 12:08: POC Glucose 159 H Medications at Discharge Home Medications atorvastatin 20 mg tablet 40 mg PO QHS cholesterol 03/03/18 hydrochlorothiazide 25 mg tablet 12.5 mg PO DAILY diuretic 03/03/18 Vitamin B12 1,000 mcg PO DAILY supplement 06/18/20 iron bisglycinate chelate 28 mg PO DAILY supplement 11/06/20 levothyroxine 50 mcg tablet 50 mcg PO DAILY 08/20/22 oxycodone-acetaminophen 5 mg-325 mg tablet (Percocet) 1 tab PO Q6H PRN pain 3 days #12 tabs 10/21/22 buspirone 5 mg tablet 5 mg PO BID 10/29/22 acyclovir 400 mg tablet 400 mg PO BID 90 days #180 tabs 12/28/22 glipizide 5 mg tablet 2.5 mg PO BID 12/03/22 pantoprazole 40 mg tablet,delayed release 40 mg PO WE pre-treatment #30 tabs 03/11/23 pregabalin 25 mg capsule 25 mg PO BID 04/22/23 dexamethasone 4 mg tablet 20 mg (5 x 4 mg) PO WETH multiple myeloma #40 tabs 10/20/23 amlodipine 5 mg tablet 5 mg PO DAILY HTN #3 tabs 11/27/23 apixaban 5 mg tablet (Eliquis) 2.5 mg (1/2 x 5 mg) PO BID #60 tabs 11/27/23 ciprofloxacin HCl 500 mg tablet 500 mg PO BID 7 days #14 tabs 11/27/23 Physical Exam Narrative Seen and examined. She is feeling good. No fever. No chest pain or shortness of breath or UTI symptoms. No cough cold or bronchitis symptoms or abdominal pain Physical exam General: Alert, Oriented x3, Cooperative HEENT: Atraumatic, PERRLA, EOMI, Normocephalic Oral: Oral mucosa moist. No Gingival or Mucosal Lesions/ Ulcerations Neck: Supple, No JVD, Negative Carotid Bruits Lungs: Air entry diminished in bilateral lung bases. No crepitation/rhonchi Cardiovascular: Regular rate, Regular Rhythm, Normal S1, Normal S2, No murmurs Abdomen: Bowel Sounds Present, Soft, Non Tender, Non-Distended : No renal angle tenderness. No suprapubic tenderness. Extremities: No edema, Capillary Refill Less than 3 Seconds Skin: Bruise over the lower upper extremity Musculoskeletal: No Tenderness to Palpation of Joints or Extremities. ROM intact. Neurological: Cranial nerves II-XII grossly intact, DTR 2+/4. No acute focal neurological deficit. Psych/Mental Status: Normal Affect, Appropriate. Weight / BMI Weight Weight: 117 lb 11.629 oz Body Mass Index (BMI) 23.0 ABG / Lab / Microbiology Data 11/27/23 05:19 11/27/23 05:19 Laboratory: Laboratory Results - last 24 hr 11/26/23 16:26: POC Glucose 90 11/26/23 20:26: POC Glucose 228 H 11/27/23 05:19: WBC 5.3, RBC 1.94 L, Hgb 7.3 L, Hct 22.3 L, MCV 114.9 H, MCH 37.6 H, MCHC 32.7, RDW Std Deviation 63.1 H, RDW Coeff of Piyush 15.4 H, Plt Count 113 L, MPV 11.3, Immature Gran % (Auto) 3.200 H, Neut % (Auto) 89.9 H, Lymph % (Auto) 3.8 L, [place] % (Auto) 2.3, Eos % (Auto) 0.6, Baso % (Auto) 0.2, Absolute Neuts (auto) 4.8, Absolute Lymphs (auto) 0.20 L, Nucleated RBC % 0, Differential Comment SCANNED, Sodium 140, Potassium 4.0, Chloride 113 H, Carbon Dioxide 22.0, Anion Gap 5, BUN 39 H, Creatinine 1.50 H, Estim Creat Clear Calc 18.98, Est GFR (MDRD) Af Amer 42 L, Est GFR (MDRD) Non-Af 35 L, BUN/Creatinine Ratio 26.0 H, Glucose 128 H, Calcium 8.3 L, Total Bilirubin 0.80, AST 40 H, ALT 122 H, Alkaline Phosphatase 66, Total Protein 5.4 L, Albumin 2.3 L, Globulin 3.1, Albumin/Globulin Ratio 0.7 L 11/27/23 06:10: POC Glucose 127 H 11/27/23 12:08: POC Glucose 159 H Microbiology: Microbiology 11/25/23 11:18 Blood Culture (Wb) - Port Blood Culture - Preliminary No growth in 48 hours. 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 11/25/23 11:40 Nasal Secretion SARS-CoV-2 & FLU Antigen (Rapid) - Final D/C Instructions Discharge Diet: No restrictions Weight Bearing Status: Weight bearing as tolerated Call your doctor if you observe: Fever of 101 or Higher, Coldness, Increased Pain, Numbness or Tingling, Change in Color, Inability to urinate, Inability to have a bowel movement, Using more than 1 pad per hour, Shortness of breath, Dizziness, Fainting spells, Swelling in the ankles, Chest pain, Prolonged hiccupping, Increased palpitations (irregular heartbeat) and Calf discomfort When: IN 2 WEEKS Meaningful Use Info Meaningful Use Diagnoses (Choose all that apply): None applicable Discharge Plan Admission Admit Date/Time: 11/25/23 14:41 Attending Provider: Jed Cisse Primary Care Provider: Everardo Garcia Consulting Providers: Lilian Ledesma; Buster Sauer Instructions Additional Instructions / Restrictions: Eliquis dose decreased to 2.5 mg twice daily because of severe anemia and thrombocytopenia. Discharge Orders/Prescriptions Prescriptions: New ciprofloxacin HCl 500 mg tablet 500 mg PO BID 7 Days Qty: 14 0RF Continued hydrochlorothiazide 25 mg tablet 12.5 mg PO DAILY atorvastatin 20 mg tablet 40 mg PO QHS levothyroxine 50 mcg tablet 50 mcg PO DAILY buspirone 5 mg tablet 5 mg PO BID acyclovir 400 mg tablet 400 mg PO BID 90 Days Qty: 180 4RF glipizide 5 mg tablet 2.5 mg PO BID pregabalin 25 mg capsule 25 mg PO BID Patient Comments: patient states taking 1 capsule in AM, at lunch, in evening. dexamethasone 4 mg tablet 20 mg PO WETH Qty: 40 3RF Rx Instructions: Take 20 mg on Wednesdays and mornings with food Vitamin B12 1,000 mcg PO DAILY iron bisglycinate chelate 29 MG capsule 28 mg PO DAILY oxycodone-acetaminophen [Percocet] 5-325 mg tablet 1 tab PO Q6H PRN (Reason: pain) 3 Days Qty: 12 0RF amlodipine 5 mg tablet 5 mg PO DAILY Qty: 3 0RF Patient Comments: TAKE 1 TABLET BY MOUTH ONCE DAILY Rx Instructions: Hold for SBP less than 120 mmHg pantoprazole 40 mg tablet,delayed release (DR/EC) 40 mg PO WE Qty: 30 2RF Rx Instructions: before chemo treatment Changed Eliquis 5 mg tablet 2.5 mg PO BID Qty: 60 6RF Rx Instructions: Take 2.5 mg twice daily until hemoglobin is more than 8. Referrals / Follow Up: Rosio Laguna MD [Med Staff - Active Staff] - Within 2 Weeks Everardo Garcia DO [Primary Care Provider] - Within 2 Weeks Disposition Disposition (needs filled in before D/C Order can be placed): Home, Self Care Charges/Coding Visit Charges Inpatient E&M: 33290 Disch Hosp >30min
--- NOTE | 2023-11-27 13:58 | PCM.PN.ID ---
Physical Exam Narrative Feeling much better, no fever, no abd pain Const alert and no apparent distress General Appearance: cooperative Resp normal air movement and clear to auscultation bilaterally Cardio regular rate and regular rhythm GI soft to palpation, non-tender and non-distended Skin no rashes or lesions noted ID ID: Route of nutrition/ use of supplements: [] Nutritional Intake: [] IV Site: [] Lu Catheter: [] Assessment & Plan Assessment/Plan (1) Neutropenic fever: (2) Bacteremia due to Gram-negative bacteria: PLAN: Suspect urinary source. Wbc has recovered. On cefepime. Much improved overall. Ok for home with one week po cipro. Ucx with klebs. Will follow as needed
[2023-11-27 14:52] VITALS: BP 161/75; PULSE 73; RESP 16; TEMP 37.1; O2SAT 100
[2023-11-27] MEDS: Cefepime HCl 2 GM in 0.9% Normal Saline (100mL MB+) 100 ML IV (14:54)
[2023-11-27] MEDS: 0.9 % NaCl (Sterile) Posiflush 10 mL IV (15:29)
--- NOTE | 2023-11-27 15:39 | CASEMGMT ---
Patient has order for discharge. RN CM reviewed therapy notes, no therapy recommended at discharge. RN CM in to discuss needs at discharge. Patient and daughter deny needs or help at discharge. Patient and daughter had no further questions or concerns at this time.
== END 2023-11-27 16:02 | disposition home or self-care (01) | DRG 809 ==
LOC: ED 14:03 → PCU 15:01
PROVIDERS: Admitting Provider Family Medicine; Emergency Provider Emergency Medicine; PCP Family Medicine; Referring Provider Emergency Medicine; Visit Provider Internal Medicine
DX: D70.9 Neutropenia, unspecified (principal); N39.0 Urinary tract infection, site not specified; R78.81 Bacteremia; E87.20 Acidosis, unspecified; C90.00 Multiple myeloma not having achieved remission; D61.818 Other pancytopenia; B96.1 Klebsiella pneumoniae [K. pneumoniae] as the cause of diseases classified elsewhere; B96.89 Other specified bacterial agents as the cause of diseases classified elsewhere; E11.22 Type 2 diabetes mellitus with diabetic chronic kidney disease; N18.32 Chronic kidney disease, stage 3b; E11.42 Type 2 diabetes mellitus with diabetic polyneuropathy; D50.9 Iron deficiency anemia, unspecified; E03.9 Hypothyroidism, unspecified; I12.9 Hypertensive chronic kidney disease with stage 1 through stage 4 chronic kidney disease, or unspecified chronic kidney disease; K21.9 Gastro-esophageal reflux disease without esophagitis; E78.5 Hyperlipidemia, unspecified; F41.9 Anxiety disorder, unspecified; R50.81 Fever presenting with conditions classified elsewhere; Z87.891 Personal history of nicotine dependence
CPT/HCPCS: 36415; 36591; 71045; 74176; 80053; 81001; 82962; 83605; 83735; 84100; 85025; 85610; 85730; 87040; 87077; 87086; 87088; 87186; 87428; 93005; 94668; 97166; 97530; 97535; 99285; J2185; J7030; A4216; J2405

== ENCOUNTER → 2024-02-26 | Outpatient (CLI) | payer MEDICARE, SELFPAY ==
--- NOTE | 2024-02-26 10:52 | MRI_ITS ---
INDICATION: prior lumbar surgery; L foot drop; L lum radiculop EXAMINATION: MRI - MR Spine Lumbar W/O Contrast TECHNIQUE: Multiplanar and multisequence MR images of the lumbar spine. IV Contrast Dosage and Agent: None. COMPARISON: 03/18/2023 . FINDINGS: T10-T11: Normal endplates. Normal disc height and morphology. Normal central canal and bilateral intervertebral neural foramina. T11-T12: Normal T11 inferior endplate. Prominent Schmorl''''s node in the anterior T12 superior endplate causing increased anterior disc space height. No ventral extradural defect. Normal central canal and bilateral intervertebral neural foramina. This level is unchanged. T12-L1: Normal endplates. Normal disc height, hydration and morphology. Normal central canal and bilateral intervertebral neural foramina. Normal lumbar lordosis. There is no substantial scoliosis. Normal conus medullaris that terminates at the lower T12 vertebral body level. L1-2: Normal endplates. Normal disc height. Minimal ventral extradural defect due to small posterior bulging annulus is unchanged. Normal facet joints. Normal central canal and bilateral lateral recesses. Normal bilateral intervertebral neural foramina. Small right anterior renal cyst is visible at this level and unchanged. L2-3: Normal endplates. Minimal disc space height narrowing. Mild ventral extradural defect due to posterior bulging annulus is unchanged. No significant facet arthropathy. Normal central canal and bilateral lateral recesses. Normal bilateral intervertebral neural foramina. L3-4: Old anterior wedge compression fracture of the L3 inferior endplate is unchanged. Stable left L3-L4 with extruded disc herniation migrating upward within the left lateral recess of L3 impinging on the left L3 nerve root. L4-5: Normal endplates. Pronounced right-sided disc space height narrowing. Mild degenerative anterolisthesis of L4 on L5. Pedicular screws and rods causing signal distortion artifacts. Capacious central canal. Normal bilateral lateral recesses. Normal bilateral intervertebral neural foramina. L5-S1: Normal endplates. Normal disc height and morphology. Mild asymmetric degenerative facet arthropathy. Normal central canal and bilateral lateral recesses. Right pedicular screw causing signal distortion artifacts on the right intervertebral neural foramen. Normal bilateral intervertebral neural foramina. Normal visualized sacral ala. Normal visualized paraspinous soft tissue structures. MRI/Spine Lumbar (Routine) IMPRESSION: 1. Stable left L3-L4 with extruded disc herniation migrating upward within the left lateral recess of L3 impinging on the left L3 nerve root. 2. Stable mild degenerative anterolisthesis of L4 on L5. 3. No significant interval change when compared to 03/18/2023 Electronically Signed: Shahzad Lyons MD at 10:18 EDT ,
== END | disposition home or self-care (01) ==
LOC: MRI 10:44
PROVIDERS: PCP Family Medicine; Referring Provider Psychiatry & Neurology Neurology; Visit Provider Psychiatry & Neurology Neurology
DX: M54.16 Radiculopathy, lumbar region (principal); M21.372 Foot drop, left foot
CPT/HCPCS: 72148

== ENCOUNTER 2024-03-10 11:30 | Outpatient (RCR) | payer MEDICARE, SELFPAY ==
--- NOTE | 2024-01-08 14:19 | HP.PTEVAL_ITS ---
Patient's Visit Information Visit Information Visit Information: MAHESH PIERSON is a 88 year old F referred to Physical Therapy by ADDING MACHINE OPERATOR. Amy Mcfarland with a diagnosis of LUMBOSACRAL SONDYLOSIS. Date of Evaluation: 01/08/24 Physical Therapist: Evert Jiang, PT, Cert MDT, OCS Visit Plan Frequency: 2x /Week Duration: 4 Weeks Plan: PRECAUTION: MULTIPLE MYLOMA AND OSTEOPROSIS PT INTERVETIONS POSTURAL EX'S ,DLS ,BLE STRENGTHENING ( HIPS ) ,FUNCTIONAL STRENGTHENING AND ENDURANCE PROGRAM Subjective Subjective: This 88 y/o female presents to physical therapy for lumbar pain and leg weakness. Patient is under care of oncology for multiple myeloma which patient is under palliative care nurse every 3 months and medication injections for multiple myeloma every 2 weeks. Patient has back pain many years . Patient has lumbar laminectomy many years ago. Patient also has osteoporosis along with comorbities listed below influences condition. Patient been using cane with and AFO due to foot drop. Denies paresthesia/tingling. Coughing/sneezing-. Bowel/bladder-. Patient sleeping well . No abnormal night pain. Patient ahs been under care pain pain management last injection 6 months ago. Patient has been in PT in past. Aggravating factors walking and standing affects ADLS and housework tasks like vacuuming. Patient legs feel week .Allevi ating factors rest. Patient recently was admitted around [place] and hospitalized. Patient goals to get stronger . SOCIAL: lives alone VOCATION: retied Pain Bilateral Back: Pain Intensity (Out of 10): 3 Pain Intensity Range: 10 Objective Objective: POSTURE: mild forward posture GAIT: ambulated with straight cane with left AFO 2 point gait slow savana NEURO: denies paresthesia/tingling ,reflexes L3-4,L4-5,L5-S1 1/3 MMT: quad/hams 4-/5 ,( peak force) hip flexion 12.7 left ,right 11.9,hip abd right 10.9 left ,10.8 right ,ankle left 0/5 left LUMBAR ROM: flexion mod loss ,extension mod/severe loss ,side glides mod loss Special Tests L/S Slump test left side: Negative L/S Slump test right side: Negative L/S Left Straight Leg Raise: Negative L/S Right Straight Leg Raise: Negative Balance/Special Test Scores Oswestry Low Back Score: 28 Goals Goal 1:: I with HEP for back and legs Goal Time Frame: 4-6 Weeks Goal 2:: Patient to demonstrate 40-50% improvement with less pain and improve function Goal Time Frame: 4-6 Weeks Goal 3:: Patient to improve lumbar ROM for function of recovery to place AFO on and shoes Goal Time Frame: 4-6 Weeks Goal 4:: Patient to improve peak force of hips by 5-10# to improve gait Goal Time Frame: 4-6 Weeks Goal 5:: Patient to improve back oswestry score by 5 points to improver QOL Goal Time Frame: 4-6 Weeks Rehabilitation Potential Physical Therapy Diagnosis: This patient has comorbities to influence condition along lumbar pain and weakness in legs with decrease ROM ,impairs gait with walking and standing thus benefit from skilled PT Rehabilitation Potential: Good Anticipated Interventions Patient/Client Instruction: Educate patient on: Condition and Plan of Care For the Purpose of:: To decrease pain, To increase ROM, To improve muscle performance and motor function, To improve ability to perform ADL's, To increase tolerance to activity/condition/position, To improve ability of physical actions for home/community/work/leisure, To improve health of tissue, To decrease soft tissue restriction, To increase flexibility/ROM, To improve endurance and To improve balance Therapeutic Exercise to Include: Strength training, Endurance training, Balance training, Postural training, Flexibilty training and Dynamic Lumbar Stabilization Comment: BLE -HIP For the Purpose of:: To decrease pain, To increase ROM, To improve muscle perfor ashwini and motor function, To improve ability to perform ADL's, To increase tolerance to activity/condition/position, To improve ability of physical actions for home/community/work/leisure, To decrease soft tissue restriction, To increase flexibility/ROM, To improve endurance and To improve balance Text: Thank you for the opportunity to evaluate your patient. For Medicare and Medicare HMO plans, please review the plan of care and approve it. It will need to be FAXED BACK to us at [phone] for Medicare purposes. For Medicare only, by signing this I certify the plan of care. Please let me know if there are questions or concerns regarding this plan of care. Physician Signature: Date:
--- NOTE | 2024-03-10 12:02 | HP.PTDCSUM ---
Discharge Summary D/C summary: It has been my pleasure to treat MAHESH PIERSON referred by CLERK GENERAL. Amy Mcfarland, with the diagnosis of LUMBOSACRAL SONDYLOSIS for a total of 9 visit(s). Discharge Date: 03/10/24 Please see the following information for a summary of their discharge status. Subjective Subjective: Doing good Will come to on own Pain Bilateral Back: Pain Intensity (Out of 10): 0 Overall Improvement % Improvement: 80 Objective Objective/Function: OSTURE: mild forward posture GAIT: ambulated with straight cane with left AFO 2 point gait slow savana NEURO: denies paresthesia/tingling ,reflexes L3-4,L4-5,L5-S1 1/3 MMT: quad/hams 4-/5 ,( peak force) hip flexion 22.7 left ,right 120.9,hip abd right 18.9 left ,19.8 right ,ankle left 0/5 left LUMBAR ROM: flexion mod loss ,extension mod/severe loss ,side glides mod loss Special Tests L/S Slump test left side: Negative L/S Slump test right side: Negative L/S Left Straight Leg Raise: Negative L/S Right Straight Leg Raise: Negative Goals Goal 1:: I with HEP for back and legs Goal Progress: Goal Met Goal 2:: Patient to demonstrate 40-50% improvement with less pain and improve function Goal Progress: Goal Met Goal 3:: Patient to improve lumbar ROM for function of recovery to place AFO on and shoes Goal Progress: Goal Met Goal 4:: Patient to improve peak force of hips by 5-10# to improve gait Goal Progress: Goal Met Goal 5:: Patient to improve back oswestry score by 5 points to improver QOL Goal Progress: Goal Met Plan Plan: D/C D/C Information Discharge Comments: HEP d/c sentence: If there are questions or concerns regarding this patient's physical therapy, please feel free to call me at [phone]. Thank you for the referral of this patient. Sincerely, Evert iJang, PT, Cert MDT, OCS Balance/Gait/Functional tests Balance/Special Test Scores Oswestry Low Back Score: 6 Improvement % Improvement: 80
== END 2024-03-10 19:00 | disposition home or self-care (01) ==
LOC: PT 11:30
PROVIDERS: PCP Family Medicine; Referring Provider Clinical Nurse Specialist Adult Health; Visit Provider Clinical Nurse Specialist Adult Health
DX: M47.817 Spondylosis without myelopathy or radiculopathy, lumbosacral region (principal)
CPT/HCPCS: 97110; 97162

== ENCOUNTER → 2024-05-30 | Outpatient (CLI) | payer MEDICARE, SELFPAY ==
[2024-05-30 15:37] LABS: Anion Gap 6 (5-15); BUN 28 mg/dL (7-18); BUN/Creat Ratio 19.6 RATIO (10-20); Calcium,Total 8.9 mg/dL (8.5-10.1); Chloride 106 mmol/L (98-107); Creatinine, Serum 1.43 mg/dL (0.55-1.02); EST Glomerular Filtration Rate 37 mL/min (>60); Est Glom Filt Rate - Afr Amer 45 mL/min (>60); Glucose 104 mg/dL (74-106); Potassium 3.7 mmol/L (3.5-5.1); Sodium Level 137 mmol/L (136-145)
== END | disposition home or self-care (01) ==
LOC: BFHLAB 13:28
PROVIDERS: PCP Family Medicine; Referring Provider Family Medicine; Visit Provider Family Medicine
DX: N18.32 Chronic kidney disease, stage 3b (principal)
CPT/HCPCS: 36415; 80048

== ENCOUNTER → 2024-07-07 | Outpatient (CLI) | payer MEDICARE, SELFPAY ==
--- NOTE | 2024-07-07 12:46 | CDU_ITS ---
Reason For Study: Left caroitd bruit Rt. Velocities/BP Lt. Velocities/BP Prox CCA 87.2/16.3 cm/sec. Prox CCA 83.9/13.5 cm/sec. Mid CCA 82.5/14.5 cm/sec. Mid CCA 88.3/13.5 cm/sec. Dist CCA 72.1/12.6 cm/sec. Dist CCA 67.4/12.4 cm/sec. Prox ICA 66.7/15.1 cm/sec. Prox ICA 64.1/12.4 cm/sec. Mid ICA 56/17.3 cm/sec. Mid ICA 78.4/23.4 cm/sec. Dist ICA 67.4/21.1 cm/sec. Dist ICA 92.7/28.9 cm/sec. Rt. ICA/CCA = 0.82. Lt. ICA/CCA = 1.05. Prox ECA 113.3/7.7 cm/sec. Prox ECA 90.5 cm/sec. Rt. Vert. 31.9/7.2 cm/sec. Lt. Vert. 67.4/17.9 cm/sec. Right Extracranial There is intimal thickening but no significant atherosclerotic plaque noted in the right common carotid artery. There is intimal thickening but no significant atherosclerotic plaque noted in the right internal carotid artery. There is intimal thickening but no significant atherosclerotic plaque noted in the right external carotid artery. Antegrade flow is noted in the right vertebral artery. Left Extracranial There is intimal thickening but no significant atherosclerotic plaque noted in the left common carotid artery. There is intimal thickening but no significant atherosclerotic plaque noted in the left internal carotid artery. There is intimal thickening but no significant atherosclerotic plaque noted in the left external carotid artery. Antegrade flow is noted in the left vertebral artery. There is heterogeneous, irregular atherosclerotic plaque noted in the left bulb. Procedure Carotid Duplex 23677. This is a Carotid Duplex examination using B-mode, color flow and specral Doppler. Exam performed in department. VL/Carotid Duplex Ultrasound Interpretation Summary Normal right extracranial internal carotid. Normal left extracranial internal carotid. Patent and antegrade vertebrals bilaterally. Ordering Physician: Srinivas Pearce Referring Physician: Everardo Garcia Performed By: Alisha Castellanos RVT
== END | disposition home or self-care (01) ==
LOC: CVS 12:40
PROVIDERS: PCP Family Medicine; Referring Provider Psychiatry & Neurology Neurology; Visit Provider Psychiatry & Neurology Neurology
DX: R09.89 Other specified symptoms and signs involving the circulatory and respiratory systems (principal)
CPT/HCPCS: 93880

== ENCOUNTER → 2024-12-27 | Outpatient (CLI) | payer MEDICARE, SELFPAY ==
--- NOTE | 2024-12-27 10:45 | ECHOD_ITS ---
Reason For Study: Murmur Procedure This was a 2D Doppler, Color Flow transthoracic echocardiogram. Myocardial strain analysis was performed in this exam to aid in the assessment of cardiac function. Exam performed in department. Left Ventricle Normal left ventricle. The global longitudinal strain = -22.7 % (normal). The estimated ejection fraction is 68 %. No regional wall motion abnormalities noted. Right Ventricle Normal RV size. Normal systolic function. Atria Normal left atrium. Normal right atrium. Hypermobile atrial septum. Mitral Valve Normal mitral valve. Tricuspid Valve Normal tricuspid valve. Aortic Valve Trisinus/trileaflet aortic valve. Mild focal aortic valve calcification. Peak aortic valve gradient 23 mmHg. Mean aortic valve gradient 11 mmHg. Pulmonic Valve Normal pulmonic valve. Great Vessels Normal aortic root. The pulmonary artery is normal size. Normal inferior vena cava. Pericardium/Pleural No pericardial effusion. MMode/2D Measurements & Calculations LVIDd: 3.7 cm IVSd: 1.1 cm LVOT diam: 1.9 cm LVIDs: 2.6 cm LVPWd: 0.93 cm LVOT area: 2.7 cm2 RVDd: 2.9 cm FS: 31.0 % Ao root diam: 3.0 cm LAV(MOD-bp): 48.3 ml LVAd ap4: 21.9 cm2 LAV(MOD-bp) Indexed: 31.6 ml/m2 LVLd ap4: 7.2 cm LAV(MOD-sp2): 43.9 ml EDV(MOD-sp4): 56.6 ml LAV(MOD-sp4): 46.4 ml EDV(sp4-el): 56.0 ml LVAs ap4: 10.8 cm2 LVLs ap4: 5.6 cm ESV(MOD-sp4): 18.9 ml ESV(sp4-el): 17.5 ml EF(MOD-sp4): 66.6 % EF(sp4-el): 68.7 % SV(MOD-sp4): 37.7 ml SV(sp4-el): 38.4 ml Aortic Valve Planimetry: 1.6 cm2 SI(MOD-sp4): 24.6 ml/m2 LA A4 area: 17.6 cm2 LA dimension(2D): 3.2 cm RA A4 area: 16.2 cm2 TAPSE: 2.1 cm Time Measurements MV dec time: 0.22 sec Doppler Measurements & Calculations MV E max dieudonne: 92.4 cm/sec Lat Peak E' Dieudonne: 7.3 cm/sec Med Peak E' Dieudonne: 6.9 cm/sec MV A max dieudonne: 107.2 cm/sec E/E' lat: 12.7 E/E' med: 13.4 MV E/A: 0.86 MV V2 max: 124.5 cm/sec MV P1/2t max dieudonne: 102.2 cm/sec Ao V2 max: 240.1 cm/sec MV max P.2 mmHg MV P1/2t: 68.9 msec Ao max P.1 mmHg MV V2 mean: 73.5 cm/sec Ao V2 mean: 156.6 cm/sec MV mean P.5 mmHg MV dec slope: 434.1 cm/sec2 Ao mean P.2 mmHg MV V2 VTI: 32.2 cm MVA(P1/2t): 3.2 cm2 Ao V2 VTI: 49.9 cm AV (velocity ratio): 0.57 MVA(VTI): 2.4 cm2 TRACY(I,D): 1.6 cm2 TRACY(V,D): 1.5 cm2 LV V1 max: 131.6 cm/sec SV(LVOT): 78.1 ml PA V2 max: 104.6 cm/sec LV V1 max P.9 mmHg LV V1 mean P.3 mmHg LV V1 mean: 97.7 cm/sec LV V1 VTI: 28.6 cm TR max dieudonne: 293.2 cm/sec TR max P.4 mmHg ECHO/Echo Complete Interpretation Summary Hypermobile atrial septum. Normal left ventricle. The global longitudinal strain = -22.7 % (normal). The estimated ejection fraction is 68 %. Mild focal aortic valve calcification. Mean aortic valve gradient 11 mmHg. Ordering Physician: Srinivas Pearce Referring Physician: Srinivas Pearce Performed By: Taj Lucas RCS
== END | disposition home or self-care (01) ==
PROVIDERS: PCP Family Medicine; Referring Provider Psychiatry & Neurology Neurology; Visit Provider Psychiatry & Neurology Neurology
DX: R01.1 Cardiac murmur, unspecified (principal)
CPT/HCPCS: 93306

== ENCOUNTER → 2025-01-24 | Outpatient (CLI) | payer MEDICARE, SELFPAY ==
[2025-01-25 05:19] LABS: AST(SGOT) 23 U/L (<=31); Alanine Aminotransfer ALT/SGPT 22 U/L (<=34); Albumin, Serum 4.2 g/dL (3.4-4.8); Alkaline Phosphatase 51 U/L (35-104); Bilirubin, Direct 0.24 mg/dL (0.00-0.30); Globulin 2.3 g/dL (2.2-4.2); Protein, Total 6.5 g/dL (5.9-8.4); Total Bilirubin 0.57 mg/dL (0.00-1.30)
[2025-01-25 12:36] LABS: Vitamin B12 > 4000 pg/mL (180-914)
[2025-01-30 15:08] LABS: Vitamin B1, Thiamine 85.6 nmol/L (66.5-200.0)
== END | disposition home or self-care (01) ==
LOC: MTLAB 12:41
PROVIDERS: PCP Family Medicine; Referring Provider Psychiatry & Neurology Neurology; Visit Provider Psychiatry & Neurology Neurology
DX: E03.9 Hypothyroidism, unspecified (principal); F03.90 Unspecified dementia, unspecified severity, without behavioral disturbance, psychotic disturbance, mood disturbance, and anxiety
CPT/HCPCS: 36415; 80076; 82607; 82746; 84425; 84439; 84443

== ENCOUNTER → 2025-02-23 | Outpatient (CLI) | payer MEDICARE, SELFPAY ==
--- NOTE | 2025-02-23 12:29 | MRI_ITS ---
PROCEDURE: BRAIN WITHOUT CONTRAST 02/23/2025 REASON FOR EXAM: DEMENTIA TECHNIQUE: Brain MRI without intravenous contrast.. COMPARISON: None. FINDINGS: Brain: No mass, mass effect or midline shift. No intra-axial or extra-axial fluid or hemorrhage identified. Periventricular and deep white matter T2/FLAIR hyperintense signal indicating chronic microangiopathy. Diffusion weighted images: No restricted diffusion. Ventricles: Prominent ventricles and sulci consistent with involutional is noted. Major Intracranial Vessels: Vertebrobasilar and anterior circulatory vessels demonstrate normal flow voids Sinuses: Minimal mucosal thickening changes and some of the ethmoid air cells, sinuses are otherwise predominantly clear Mastoids: Mastoid air cells are clear. MRI/Brain without Contrast IMPRESSION: Age-related involution in changes of chronic microangiopathy. No acute process. Reading [facility]
== END | disposition home or self-care (01) ==
LOC: MRI 12:21
PROVIDERS: PCP Family Medicine; Referring Provider Psychiatry & Neurology Neurology; Visit Provider Psychiatry & Neurology Neurology
DX: F03.90 Unspecified dementia, unspecified severity, without behavioral disturbance, psychotic disturbance, mood disturbance, and anxiety (principal)
CPT/HCPCS: 70551

== ENCOUNTER 2025-05-16 16:36 | Emergency (ER) | payer MEDICARE, SELFPAY ==
[2025-05-16 16:40] VITALS: BP 155/75; PULSE 77; RESP 20; TEMP 36.6; O2SAT 100
--- NOTE | 2025-05-16 18:00 | RAD_ITS ---
PROCEDURE: SHOULDER MIN 2 VIEWS 05/16/2025 REASON FOR EXAM: PAIN TECHNIQUE: SHOULDER MIN 2 VIEWS COMPARISON: None RAD/Shoulder min 2 Views IMPRESSION: No acute fracture or dislocations. Moderate degenerative changes of the right shoulder evidenced by joint space narrowing and subchondral sclerosis. No acute soft tissue abnormalities. Right chest port i s noted. Reading Location: [id number]
[2025-05-16 19:25] VITALS: BMI 23.4
[2025-05-16] MEDS: Morphine 4 MG/ML Syringe IV (19:34)
[2025-05-16] MEDS: Ondansetron 4 MG/2 ML Vial IV (19:34)
[2025-05-16] MEDS: diazePAM 2 MG Tablet PO (19:34)
--- NOTE | 2025-05-16 20:01 | EX.ED.UPPERE ---
HPI History of Present Illness Chief Complaint: Upper Extremity Injury Detail of Chief Complaint: Atraumatic posterior right shoulder pain Informant: patient Occured/Mechanism Comment: Pain Onset/Context/Timing Onset: Today and Hours Context: Sudden Onset Timing: Continuous Quality of Pain: Dull and Aching Location: Posterior right shoulder. Current Severity: Mild Maximum Severity: Severe Worsened by: Certain movements Relieved by: Nothing Associated Symptoms Associated Symptoms: Positive for Loss of Funtion; Negative for Parasthesia or Weakness Narrative Narrative: Patient is an 89-year-old woman. 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 She presents with atraumatic posterior right shoulder pain. She is right-hand dominant. She denies paresthesia, anesthesia or motor weakness. She denies radicular pain. When I informed her of results she states she has no pain. Patient has never been told she has arthritis of that joint. She has had no prior injury to that joint. She has no history of gout or pseudogout. She has had no recent instrumentation or dental procedure. She denies any recent fever or chills. Prior similar symptoms: No Recent Illness/Hospitalization: No PFSH PFS Medical History Anxiety Kidney stones Non-smoker Contact with or exposure to other viral diseases Pruritus DVT (deep venous thrombosis) Bilateral lower extremity edema Foot drop, left Anemia of chronic renal failure, stage 3b Iron deficiency anemia due to chronic blood loss Immobility Left leg swelling Rash Muscle weakness Constipation Elevated BUN Left thigh pain Anemia Wears hearing aid Wears glasses Cancer Diabetes History of renal disease High cholesterol Injury of back Gastric reflux Former smoker History of echocardiogram History of stress test Cardiology follow-up encounter Hx of cataract Encounter for chemotherapy management Anemia aplastic aregenerative Chronic rheumatic arthritis BRVO (branch retinal vein occlusion) Essential (primary) hypertension Chronic kidney disease (CKD) Degenerative joint disease of spine Anemia Multiple myeloma Right buttock pain Leukopenia Macrocytic anemia Lumbar spinal stenosis Vitamin D deficiency Peripheral neuropathy Secondary hyperparathyroidism Osteoporosis Hypothyroidism Hyperlipidemia DMII (diabetes mellitus, type 2) GERD (gastroesophageal reflux disease) HTN (hypertension) Home Medications ?Medication ?Instructions ?Recorded ?Last Taken ?Type atorvastatin 20 mg tablet 40 mg PO QHS cholesterol 03/03/18 09/16/21 History hydrochlorothiazide 25 mg tablet 12.5 mg PO DAILY diuretic 03/03/18 09/16/21 History Vitamin B12 1,000 mcg PO DAILY supplement 06/18/20 09/16/21 History iron bisglycinate chelate 28 mg PO DAILY supplement 11/06/20 09/16/21 History levothyroxine 50 mcg tablet 50 mcg PO DAILY 08/20/22 Unknown History oxycodone-acetaminophen 5 mg-325 1 tab PO Q6H PRN pain 3 days #12 10/21/22 Unknown Rx mg tablet (Percocet) tabs buspirone 5 mg tablet 5 mg PO BID 10/29/22 Unknown History glipizide 5 mg tablet 2.5 mg PO BID 12/03/22 Unknown History pantoprazole 40 mg tablet,delayed 40 mg PO WE pre-treatment #30 tabs 03/11/23 Unknown Rx release amlodipine 5 mg tablet 5 mg PO DAILY HTN #3 tabs 11/27/23 Unknown Rx acyclovir 400 mg tablet See Rx Instructions .Route 12/14/24 Unknown Rx .COMPLEX #180 tabs cholecalciferol (vitamin D3) 1,250 1,250 mcg PO QWEEK #4 caps 12/19/24 Unknown Rx mcg (50,000 unit) capsule duloxetine 60 mg capsule,delayed 60 mg PO QAM #30 caps 12/19/24 Unknown Rx release pregabalin 50 mg capsule 50 mg PO BID #60 caps 12/19/24 Unknown Rx apixaban 5 mg tablet (Eliquis) 2.5 mg (1/2 x 5 mg) PO BID #30 tabs 12/20/24 Unknown Rx dexamethasone 4 mg tablet 20 mg (5 x 4 mg) PO WETH multiple 04/04/25 Unknown Rx myeloma #40 tabs diazepam 2 mg tablet (Valium) 2 mg PO BID muscle spasm 3 days #6 05/16/25 Unknown Rx tabs donepezil 10 mg tablet 10 mg PO QHS #30 tabs 05/16/25 Unknown Rx hydrocodone-acetaminophen 5-325mg 1 tab PO Q6H PRN PRN Pain 3 days 05/16/25 Unknown Rx 5mg-325mg #10 TABLETS memantine 14 mg capsule 14 mg PO QAM #7 ea 05/16/25 Unknown Rx sprinkle,extended release 24hr memantine 21 mg capsule 21 mg PO QAM #7 ea 05/16/25 Unknown Rx sprinkle,extended release 24hr memantine 28 mg capsule 28 mg PO QAM #30 ea 05/16/25 Unknown Rx sprinkle,extended release 24hr memantine 7 mg capsule 7 mg PO QAM #7 ea 05/16/25 Unknown Rx sprinkle,extended release 24hr Allergy/AdvReac Type Severity Reaction Status Date / Time amoxicillin (From Augmentin) Allergy Severe Rash Verified 05/16/25 11:45 clavulanic acid (From Allergy Severe Rash Verified 05/16/25 11:45 Augmentin) Sulfa (Sulfonamide Allergy Severe Hives Verified 05/16/25 11:45 Antibiotics) lenalidomide (From Revlimid) Allergy Intermediate Rash Verified 05/16/25 11:45 pentamidine isethionate Allergy Intermediate Wheezing Verified 05/16/25 11:45 cyclophosphamide Allergy Rash Verified 05/16/25 11:45 Family History Father High cholesterol Heart disease Hypertension Sister High cholesterol Mother Cancer Surgical History Hx of colonoscopy Hx of decompressive lumbar laminectomy History of hemilaminectomy Social History household members: none housing: house Smoking Status: Former smoker alcohol intake: current alcohol intake frequency: a few times a month what type of physical activity do you participate in: walking frequency: 5-6 times per week do you feel safe at home: Yes ROS ROS ED Constitutional Constitutional ED: Denies chills, fever(s), subjective, sweats or weight loss Cardiovascular Cardiovascular: Denies chest pain or palpitations Respiratory/Chest Respiratory/Chest: Denies cough, dyspnea or dyspnea on exertion Gastrointestinal Gastrointestinal: Denies nausea or vomiting Musculoskeletal Musculoskeletal: Reports back pain; Denies myalgias or neck pain Integumentary Denies abscess, Abrasions or rash Neurologic Neurologic: Denies paresthesias or weakness Hematologic/Lymphatic Hematologic/Lymphatic: Reports other Details: Patient is on Eliquis. She is not certain why. ; Denies easy bleeding or easy bruising EXAM Physical Exam Const Vital Signs: 05/16/25 16:40 Temperature 97.8 F Temperature Source Temporal Pulse Rate 77 Respiratory Rate 20 H Blood Pressure 155/75 H Blood Pressure Mean 101 Pulse Ox 100 Oxygen Delivery Method Room Air Positive well nourished and well developed General Appearance ED: well developed and NAD HEENT Reports moist mucous membranes normocephalic and atraumatic Eyes PERRL and EOMs intact bilaterally Neck full ROM and supple Neck Narrative: There are no carotid bruits. There is no pain the patient right paracervical area. She does have pain ovation over the trapezius muscle and area of the supraspinatus muscle. She also has tenderness where the latissimus dorsi inserts. There is no bruising noted Lecker posterior upper right back. Chest Wall palpation of chest normal Resp normal respiratory effort and clear to auscultation bilaterally Cardio regular rate, regular rhythm, S1 normal heart sound, S2 normal heart sound and no murmurs Back/Spine no CVA tenderness Back/Spine Narrative: Tenderness lateral of the right scapula. There is no bruising noted. Extremity normal to inspection and full ROM Extremity Narrative: Negative drop test. Axillary, median, radial and ulnar function intact. Bicep, brachialis and tricep reflex are 1+. Radial pulses 2+. Neuro oriented x3 and CN's II-XII intact bilaterally Sensorium / Orientation: alert Psych mental status grossly normal Skin General Skin Exam: Negative for petechiae Lesions: no lesions Rashes: no rashes Trauma: no lacerations or abrasions MDM MDM MDM Narrative Medical decision making narrative: X-ray was obtained per nurse protocol. Differential would include crystal induced versus pyogenic arthritis versus osteoarthritis with her having muscle tenderness suspect she is having spasms. Since she is not febrile she had no recent instrumentation and has full active range of motion at this time I am not concerned for prior enteritis or crystal induced arthritis; therefore, blood work was not obtained. Radiography Chest X-Ray - ED: Read by ED Physician (4 view x-ray of the right shoulder reveals arthritic changes. There is narrowing of the glenohumeral joint. Is also arthritic changes noted the AC joint. There is no evidence of fracture, subluxation or dislocation. There is independently reviewed interpreted by me.) Treatment and Re-Evaluation Narrative: Patient was medicated with 2 mg of Valium and 4 mg of morphine. She states her pain is improved markedly. Plan is to discharge to home with open analgesia and Valium. NSAIDs are contraindicated in this patient. Discharge Plan Triage Chief Complaint: Upper Extremity Injury ED Provider: Evan Dietrich Dx/Rx/DC Orders Clinical Impression: Nontraumatic pain of right shoulder, Anemia of chronic renal failure, stage 3b, Muscle spasm of back, Anticoagulant long-term use, Degenerative arthritis of right shoulder region Instructions: ED Muscle Spasm, Osteoarthritis (OA) Prescriptions: New hydrocodone-acetaminophen 5-325 mg tablet 1 tab PO Q6H PRN PRN (Reason: Pain) 3 Days Qty: 10 0RF diazepam [Valium] 2 mg tablet 2 mg PO BID 3 Days Qty: 6 0RF No Action hydrochlorothiazide 25 mg tablet 12.5 mg PO DAILY atorvastatin 20 mg tablet 40 mg PO QHS levothyroxine 50 mcg tablet 50 mcg PO DAILY buspirone 5 mg tablet 5 mg PO BID glipizide 5 mg tablet 2.5 mg PO BID duloxetine 60 mg capsule,delayed release(DR/EC) 60 mg PO QAM Qty: 30 7RF pregabalin 50 mg capsule 50 mg PO BID Qty: 60 5RF cholecalciferol (vitamin D3) 1,250 mcg (50,000 unit) capsule 1,250 mcg PO QWEEK Qty: 4 7RF acyclovir 400 mg tablet See Rx Instructions .ROUTE .COMPLEX Qty: 180 2RF Dose Instruction: Take 1 tablet by mouth twice daily for 90 days Rx Instructions: Take 1 tablet by mouth twice daily for 90 days memantine 14 mg capsule,sprinkle,ER 24hr 14 mg PO QAM Qty: 7 0RF Rx Instructions: Week #2 memantine 7 mg capsule,sprinkle,ER 24hr 7 mg PO QAM Qty: 7 0RF Rx Instructions: Week #1 memantine 21 mg capsule,sprinkle,ER 24hr 21 mg PO QAM Qty: 7 0RF Rx Instructions: Week #3 memantine 28 mg capsule,sprinkle,ER 24hr 28 mg PO QAM Qty: 30 6RF Rx Instructions: Week #4 and thereafter donepezil 10 mg tablet 10 mg PO QHS Qty: 30 5RF Vitamin B12 1,000 mcg PO DAILY iron bisglycinate chelate 29 MG capsule 28 mg PO DAILY oxycodone-acetaminophen [Percocet] 5-325 mg tablet 1 tab PO Q6H PRN (Reason: pain) 3 Days Qty: 12 0RF amlodipine 5 mg tablet 5 mg PO DAILY Qty: 3 0RF Patient Comments: TAKE 1 TABLET BY MOUTH ONCE DAILY Rx Instructions: Hold for SBP less than 120 mmHg pantoprazole 40 mg tablet,delayed release (DR/EC) 40 mg PO WE Qty: 30 2RF Rx Instructions: before chemo treatment Eliquis 5 mg tablet 2.5 mg PO BID Qty: 30 5RF dexamethasone 4 mg tablet 20 mg PO WETH Qty: 40 6RF Rx Instructions: Take 20 mg on Wednesdays and mornings of chemotherapy injections weeks with food Primary Care Provider: Everardo Garcia Referrals: Everardo Garcia DO [Primary Care Provider] - 3-5 Days if not improving Print Language: German Disposition Disposition: Home, Self Care
[2025-05-16 20:20] VITALS: BP 169/70; PULSE 72; RESP 18; TEMP 36.8; O2SAT 99
== END 2025-05-16 20:23 | disposition home or self-care (01) ==
PROVIDERS: Emergency Provider Emergency Medicine; PCP Family Medicine; Visit Provider Emergency Medicine
DX: M25.511 Pain in right shoulder (principal); E11.22 Type 2 diabetes mellitus with diabetic chronic kidney disease; E11.42 Type 2 diabetes mellitus with diabetic polyneuropathy; N18.32 Chronic kidney disease, stage 3b; M19.011 Primary osteoarthritis, right shoulder; M47.819 Spondylosis without myelopathy or radiculopathy, site unspecified; M62.830 Muscle spasm of back; D63.1 Anemia in chronic kidney disease; I12.9 Hypertensive chronic kidney disease with stage 1 through stage 4 chronic kidney disease, or unspecified chronic kidney disease; E78.00 Pure hypercholesterolemia, unspecified; I89.0 Lymphedema, not elsewhere classified; Z79.01 Long term (current) use of anticoagulants; Z79.890 Hormone replacement therapy; Z79.899 Other long term (current) drug therapy; Z79.84 Long term (current) use of oral hypoglycemic drugs; Z87.891 Personal history of nicotine dependence
CPT/HCPCS: 73030; 96374; 96375; 99285; A4216; J2405

== ENCOUNTER → 2025-05-29 | Outpatient (CLI) | payer MEDICARE, SELFPAY ==
--- NOTE | 2025-05-29 09:49 | RAD_ITS ---
PROCEDURE: CERV SPINE OBL/FLEX/EXT COMP 05/29/2025 REASON FOR EXAM: CERVICAL PAIN TECHNIQUE: CERV SPINE OBL/FLEX/EXT COMP 7 views COMPARISON: None FINDINGS: Vertebrae: Bones are demineralized, but no demonstrated fracture or suspicious osseous lesion disc spaces: Disc space narrowing throughout the cervical spine except at C2-3. Alignment: Alignment is anatomic with some loss of the natural lordotic curvature which is likely positional or due to pain. No instability noted on the flexion or extension views soft tissues: Prevertebral soft tissues are unremarkable Other: Normal relationship between C7 and T1, bilateral foraminal narrowing due to facet joint hypertrophy. RAD/Cerv Spine Obl/Flex/Ext Comp IMPRESSION: Multilevel degenerative changes without fracture or suspicious osseous lesion. No instability on the flexion or extension views Disclaimer: Reading Location: [id number]
== END | disposition home or self-care (01) ==
LOC: MTRAD 09:48
PROVIDERS: PCP Family Medicine; Referring Provider Clinical Nurse Specialist Adult Health; Visit Provider Clinical Nurse Specialist Adult Health
DX: M54.2 Cervicalgia (principal)
CPT/HCPCS: 72052